=== PATIENT | female | born 1935 | race Caucasian/White ===

== ENCOUNTER 2016-07-07 12:40 | Inpatient (IN) | payer OTHER ==
[~2016-07-07] VITALS: Ht 170.2 cm; Wt 64.0 kg
[~2016-07-07 12:40] MED LIST: COUMADIN PO; COUMADIN2.5 M1 PO; CRESTOR10 M1 PO; KEFLEX 250MG C250 MG PO; LASIX20 M1 PO
--- NOTE | 2016-07-07 12:54 | NUR ---
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 PT ARRIVED AAOx3, DENIES HEADSTRIKE, DENIES LOC. PT ON COUMADIN. VSS. HX OF DVT,HTN,PE. PA STUDENT AT BEDSIDE FOR PT EVAL.
--- NOTE | 2016-07-07 13:05 | NUR ---
IV EST, PT MEDICATED WITH ZOFRAN AND DILAUDID PER EMAR.
[2016-07-07 13:50] LABS: HEMATOCRIT 38.9 % (37-47); MEAN CORPUSCULAR HGB 27.3 PG (27.0-31.0); MEAN CORPUSCULAR HGB CONC 32.6 G/DL (33.0-37.0); MEAN CORPUSCULAR VOLUME 83.8 FL (81.0-99.0); MEAN PLATELET VOLUME 7.8 FL (7.4-10.4); PLATELET COUNT 242 /CUMM (130-400); RBC DISTRIBUTION WIDTH 15.1 % (11.5-14.5); RED BLOOD CELL CT 4.64 /CUMM (4.20-5.40)
--- NOTE | 2016-07-07 13:52 | NUR ---
NEED A REDRAW OF SST AND BLUE. PER CODY IN LAB
--- NOTE | 2016-07-07 14:03 | NUR ---
PT TO RAD BY STRETCHER.
[2016-07-07 14:27] LABS: WHITE BLOOD CELL COUNT 11.3 /CUMM (4.8-10.8)
[2016-07-07 14:28] LABS: ABSOLUTE BASOPHIL COUNT 0.1 /CUMM (0.0-0.2); ABSOLUTE EOSINOPHIL COUNT 0.1 /CUMM (0.0-0.7); ABSOLUTE GRANULOCYTE CT 9.6 /CUMM (1.4-6.5); ABSOLUTE LYMPH COUNT 0.9 /CUMM (1.2-3.4); ABSOLUTE MONOCYTE COUNT 0.6 /CUMM (0.10-0.60); BASOPHIL % 0.8 % (0.0-2.0); EOSINOPHIL % 0.5 % (0-5); GRANULOCYTE % 85.6 % (42.2-75.2)
--- NOTE | 2016-07-07 15:04 | NUR ---
PT RETURNED FROM RAD BY STRETCHER.
--- NOTE | 2016-07-07 15:05 | NUR ---
BLOOD WORK IN [facility].
--- NOTE | 2016-07-07 15:07 | RADIOLOGY REPORT ---
EXAMINATION: XR KNEE, LEFT XR PELVIS/LEFT HIP XR RIGHT ELBOW CLINICAL INFORMATION: Fall. Pain in the left knee, left hip, and right elbow. Patient fell at home. COMPARISON: None. TECHNIQUE: 4 views of the left knee. Frontal view of the pelvis and frog-leg lateral view of the left hip. 4 views of the right elbow. FINDINGS: LEFT KNEE: Nonstandard positioning of the patient limits assessment. No definite acute fracture or dislocation is seen. No joint effusion is identified. Diffuse osteopenia is seen. PELVIS AND LEFT HIP: Frog leg lateral view is significantly limited and nearly nondiagnostic. There is a transverse fracture of the left femoral neck with varus angulation. The left femoral head remains located within the acetabulum. Remainder of the bony pelvis is intact. Evaluation of the sacrum is, however, significantly limited by overlying stool filled loops of bowel. RIGHT ELBOW: No acute fracture, dislocation, or abnormal elbow joint effusion is seen. There is mild degenerative change at the ulna coronoid process. No radiopaque foreign body is seen. IMPRESSION: Limited assessment due to difficulties with patient positioning. 1. Left femoral neck fracture with varus angulation. 2. No definite fracture of the left knee or right elbow.
--- NOTE | 2016-07-07 15:12 | ED MVC/FALL/TRAUMA COMPLAINT ---
History of Present Illness General Chief Complaint: Fall Stated Complaint: FALL W/ LFT KNEE PAIN Source: patient Exam Limitations: no limitations Vital Signs & Intake/Output Vital Signs & Intake/Output Vital Signs Date Time Temp Pulse Resp B/P Pulse O2 O2 Flow FiO2 Ox Delivery Rate 07/07 1656 98.2 76 18 136/63 94 Room Air 07/07 1248 96.8 102 20 168/77 100 Room Air Allergies Coded Allergies: Sulfa (Sulfonamide Antibiotics) (VOMITING 08/21/15) amoxicillin (From AUGMENTIN) (HIVES 08/21/15) clavulanic acid (From AUGMENTIN) (HIVES 08/21/15) Reconcile Medications Furosemide (Lasix) 20 MG TAB 20 MG PO Q48 FLUID BUILD UP IN LEGS (Reported) Rosuvastatin Calcium (Crestor) 10 MG TAB 10 MG PO D HIGH CHOL (Reported) Warfarin Sodium (Coumadin) 2.5 MG TAB 2.5 MG PO -SAT ANTICOAG (Reported) Warfarin Sodium (Coumadin) 0.5 MG TAB 5 MG PO SATURDAY ANTICOAG (Reported) Triage Note: PT TO ROOM21 BIBA FROM HOME 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 PT ARRIVED AAOx3, DENIES HEADSTRIKE, DENIES LOC. PT ON COUMADIN. VSS. HX OF DVT,HTN,PE. Triage Nurses Notes Reviewed? yes Onset: Abrupt Duration: hour(s):, constant Timing: recent history Severity: severe Injuries/Fall Location: lower extremity Method of Injury: fall No Modifying Factors: none HPI: 80-year-old female comes into emergency room for evaluation of left hip pain and left knee pain after falling in her kitchen. Patient was on the ground for about 30 minutes he for her friend arrived. Mechanical fall. Denies any preceding lightheaded dizziness. Severe sharp pain to left hip. Patient unable to ambulate or stand. Denies any other associated symptoms. (TAVO STANLEY) Past History Travel History Traveled to [place] past 21 day No Medical History Any Pertinent Medical History? see below for history Neurological: NONE EENT: "NEW LENS" Cardiovascular: hypertension, hyperlipidemia, DVT Respiratory: NONE Gastrointestinal: NONE Hepatic: NONE Renal: NONE Musculoskeletal: NONE Psychiatric: NONE Endocrine: NONE Blood Disorders: NONE Cancer(s): NONE FAST FOOD COOK/Reproductive: NONE Other Medical Hx: Open wound/ulcerations lower legs History of MRSA: No History of VRE: No History of CDIFF: No Influenza Vaccine: 03/17/15 Surgical History Surgical History: VEIN PROCEDURES ON LEGS Psychosocial History Who do you live with Patient/Self Services at Home None What is your primary language Icelandic Tobacco Use: Never used Family History Hx Contributory? No (TAVO STANLEY) Review of Systems Review of Systems Constitutional: Reports: no symptoms. Eyes: Reports: no symptoms. Ears, Nose, Throat, Mouth: Reports: no symptoms. Respiratory: Reports: no symptoms. Cardiovascular: Reports: no symptoms. Gastrointestinal/Abdominal: Reports: no symptoms. Genitourinary: Reports: no symptoms. Musculoskeletal: Reports: see HPI. Skin: Reports: no symptoms. Neurological/Psychological: Reports: no symptoms. All Other Systems: Reviewed and Negative (TAVO STANLEY) Physical Exam Physical Exam General Appearance: alert, awake, severe distress Head: atraumatic Eyes: Bilateral: normal appearance. Ears, Nose, Throat, Mouth: hearing grossly normal, moist mucous membrane Neck: normal inspection Respiratory: no respiratory distress Back: normal inspection Extremities: pain over left hip, patient not able to move her left hip at all secondary to pain, Neurologic/Psych: awake, alert, normal gait, normal mood/affect Skin: intact, normal color Core Measures ACS in differential dx? No Severe Sepsis Present: No Septic Shock Present: No (TAVO STANLEY) Progress Differential Diagnosis: abd injury, C/T/L spine injury, ext injury, ICH, pelvis injury, pnemothorax, spinal cord injury Plan of Care: Orders Procedure Date/time Status Nothing by Mouth 07/08 B Active PT Evaluate & Treat 07/08 1659 Active PROTHROMBIN TIME 07/08 0600 Active CBC WITHOUT DIFFERENTIAL 07/08 0600 Active BASIC ELECTROLYTES PLUS BUN&CR 07/08 0600 Active Add-on Test (ER Only) 07/07 1701 Active Pathway - chart 07/07 1659 Active House Staff 07/07 1659 Active Code Status 07/07 1659 Active EKG 07/07 1654 Active Saline Lock 07/07 1643 Active Misc Message 07/07 1643 Active ED Holding Orders 07/07 1643 Active Vital Signs 07/07 1643 Active Code Status 07/07 1643 Complete Rodriguez, Insertion/Removal/Asses 07/07 1620 Active CULTURE,URINE 07/07 1620 Active Admit to inpatient 07/07 1514 Active Patient Data 07/07 1514 Active Add-on Test (ER Only) 07/07 1513 Active VIT D 25 HYDROXY 07/07 1506 Active TYPE & SCREEN (NOT X-MATCH) 07/07 1325 Complete EKG 07/07 1312 Active PARTIAL THROMBOPLASTIN TIME 07/07 1305 Complete PROTHROMBIN TIME 07/07 1305 Complete CBC WITHOUT DIFFERENTIAL 07/07 1305 Complete BASIC METABOLIC PANEL 07/07 1305 Active VTE Mechanical Prophylaxis 07/07 UNK Active MISTAKE 07/07 UNK Active Current Medications Sig/Kim Start time Last Medication Dose Stop Time Status Admin Furosemide 20 MG Q48 07/09 1000 AC (Lasix) Atorvastatin Calcium 40 MG 1700 07/08 1700 AC (Lipitor) Docusate Sodium 100 MG BID 07/07 2200 AC (Colace) Polyethylene Glycol 17 GM AT BEDTIME 07/07 2200 AC (Miralax) Senna/Docusate Sodium 2 TAB AT BEDTIME 07/07 2200 AC (Senokot S) Ondansetron HCl 4 MG Q6P PRN 07/07 1715 AC (Zofran) Acetaminophen 650 MG Q6P PRN 07/07 1645 AC (Tylenol) Hydromorphone HCl 1 MG Q6P PRN 07/07 1645 AC (Dilaudid) Oxycodone/ 1 TAB Q6P PRN 07/07 1645 AC Acetaminophen (Percocet) Sodium Chloride 1,000 ML .[id number] 07/07 1645 AC (Normal Saline 0.9%) Morphine Sulfate 2 MG ONCE ONE 07/07 1315 CAN (Morphine) 07/07 1316 Laboratory Tests 07/07/16 1610: PT 22.2 H, INR 2.13 H, APTT 32 07/07/16 1506: Anion Gap 11, Estimated GFR > 60, BUN/Creatinine Ratio 20.0, Glucose 108 H, Calcium 9.2, 25-OH Vitamin D Total Pending 07/07/16 1325: CBC w Diff NO MAN DIFF REQ, RBC 4.64, MCV 83.8, MCH 27.3, RDW 15.1 H, MPV 7.8, Gran % 85.6 H, Lymphocytes % 7.8 L, Monocytes % 5.3, Eosinophils % 0.5, Basophils % 0.8, Absolute Granulocytes 9.6 H, Absolute Lymphocytes 0.9 L, Absolute Monocytes 0.6, Absolute Eosinophils 0.1, Absolute Basophils 0.1, PUBS MCHC 32.6 L Microbiology 07/07 1620 URINE ROUT: Urine Culture - RECD Diagnostic Imaging: Viewed by Me: Radiology Read. Discussed w/RAD: Radiology Read. Radiology Impression: SERVICE DATE: 07/07/16 EXAM TYPE: RAD - XRY-ELBOW 3 OR MORE VIEWS, R; XRY-HIP 2-3 VIEWS, LEFT; XRY-KNEE COMPLETE LEFT EXAMINATION: XR KNEE, LEFT XR PELVIS/LEFT HIP XR RIGHT ELBOW CLINICAL INFORMATION: Fall. Pain in the left knee, left hip, and right elbow. Patient fell at home. COMPARISON: None. TECHNIQUE: 4 views of the left knee. Frontal view of the pelvis and frog- leg lateral view of the left hip. 4 views of the right elbow. FINDINGS: LEFT KNEE: Nonstandard positioning of the patient limits assessment. No definite acute fracture or dislocation is seen. No joint effusion is identified. Diffuse osteopenia is seen. PELVIS AND LEFT HIP: Frog leg lateral view is significantly limited and nearly nondiagnostic. There is a transverse fracture of the left femoral neck with varus angulation. The left femoral head remains located within the acetabulum. Remainder of the bony pelvis is intact. Evaluation of the sacrum is, however, significantly limited by overlying stool filled loops of bowel. RIGHT ELBOW: No acute fracture, dislocation, or abnormal elbow joint effusion is seen. There is mild degenerative change at the ulna coronoid process. No radiopaque foreign body is seen. IMPRESSION: Limited assessment due to difficulties with patient positioning. 1. Left femoral neck fracture with varus angulation. 2. No definite fracture of the left knee or right elbow. DICTATED BY : EVERETT ALONSO,GERARDO Carrillo DATE/TIME DICTATED:07/07/161456 UNIX DEVELOPER: SHON DATE/TIME TRANSCRIBED:07/07/161456 Initial ED EKG: normal intervals, normal p-waves, normal sinus rhythm, NSR, rate (79) (TAVO STANLEY) Departure Departure Disposition: STILL A PATIENT Condition: Stable Clinical Impression Primary Impression: Left displaced femoral neck fracture Referrals: YUDISendy SCHAFFER MD (PCP/Family) Departure Forms: Customer Survey General Discharge Information (TAVO STANLEY) Admission Note Spoke With: ZOLTAN ARMAS MD Documentation of Exam: Documentation of any treatments & extenuating circumstances including Concerns Regarding Discharge (functional status, medication knowledge or non-compliance, living conditions, etc.) that warrant an admission rather than observation: [ Patient had a mechanical trip and fall and fractured her left hip. Patient is on Coumadin for DVT. Patient will be admitted to the medical service with orthopedic consultation.] PA/EMT DRIVER Co-Sign Statement Statement: ED Attending supervision documentation- [X] I saw and evaluated the patient. I have also reviewed all the pertinent lab results and diagnostic results. I agree with the findings and the plan of care as documented in the PA's/EMT DRIVER's documentation. [X] I have reviewed the ED Record and agree with the PA's/EMT DRIVER's documentation. [] Additions or exceptions (if any) to the PAs/EMT DRIVER's note and plan are summarized below: [] (TIAGO ALONSO,MARIANA Ham) Critical Care Note Critical Care Note Critical Care Time: 30-74 min (TAVO STANLEY)
--- NOTE | 2016-07-07 15:42 | NUR ---
PINK TOP HEMOLYZED PER NELLY IN LAB. NEED REDRAW.
--- NOTE | 2016-07-07 15:53 | RADIOLOGY REPORT ---
EXAMINATION: XR PORTABLE CHEST CLINICAL INFORMATION: Preoperative assessment. Hip fracture. COMPARISON: Chest x-ray dated 12/10/2011. TECHNIQUE: AP semiupright portable view of the chest was obtained. FINDINGS: The cardiomediastinal silhouette is within normal limits in size. Calcification of the aortic arch is seen. Lungs bilaterally are symmetrically hyperinflated with coarsening of the bronchovascular lung markings, suspicious for obstructive lung disease. No focal consolidation, pulmonary edema, effusion or pneumothorax is seen. Diffuse osteopenia is seen. Bony structures are otherwise grossly unremarkable. IMPRESSION: Findings are suggestive of underlying obstructive lung disease. Clinical correlation requested. No acute cardiopulmonary process seen.
--- NOTE | 2016-07-07 16:09 | NUR ---
PINK AND BLUE TUBES DRAWN AND SENT TO LAB.
--- NOTE | 2016-07-07 16:09 | NUR ---
HOUSE STAFF TO BEDSIDE FOR PT EVAL.
--- NOTE | 2016-07-07 16:26 | History & Physical ---
[place] 07/07/16 1626: General Information and HPI MD Statement: I have seen and personally examined ABRIL NORWOOD and documented this H&P. The patient is a 80 year old F who presented with a patient stated chief complaint of left hip pain Source of Information: patient History of Present Illness: Ms Norwood is a 80-year-old woman who was known to be in her usual state of health until this a.m. She has a past medical history of hypertension, DVT on Coumadin. She was brought into the [facility] with a chief concern of ringing in her left hip and knee after she experienced a mechanical fall this a.m. As per the patient, she slipped and fell on the floor. She did not have any lightheadedness, no gait disturbances, weakness in extremities, palpitations, chest pain at the time of the fall. Fell on the left side and injured her hip and knee. Could not get up for approximately 30 minutes, after which she called for help. No loss of bladder or bowel function. No fever or cough or shortness of breath recently. Has been very active before the fall. She lives in an older living and independent. Sees Dr Wayne Bagley MD regularly. Allergies/Medications Allergies: Coded Allergies: Sulfa (Sulfonamide Antibiotics) (VOMITING 08/21/15) amoxicillin (From AUGMENTIN) (HIVES 08/21/15) clavulanic acid (From AUGMENTIN) (HIVES 08/21/15) Home Med list Furosemide (Lasix) 20 MG TAB 20 MG PO Q48 FLUID BUILD UP IN LEGS (Reported) Rosuvastatin Calcium (Crestor) 10 MG TAB 10 MG PO D HIGH CHOL (Reported) Warfarin Sodium (Coumadin) 2.5 MG TAB 2.5 MG PO -SAT ANTICOAG (Reported) Warfarin Sodium (Coumadin) 0.5 MG TAB 5 MG PO SATURDAY ANTICOAG (Reported) Past History Travel History Traveled to [place] past 21 day No Medical History Neurological: NONE EENT: "NEW LENS" Cardiovascular: hypertension, hyperlipidemia, DVT Respiratory: NONE Gastrointestinal: NONE Hepatic: NONE Renal: NONE Musculoskeletal: NONE Psychiatric: NONE Endocrine: NONE Blood Disorders: NONE Cancer(s): NONE 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 self Services at Home: None Functional Ability ADLs Independent: dressing, eating, toileting, bathing. Ambulation: independent IADLs Independent: shopping, housework, finances, food prep, telephone. Review of Systems Review of Systems Constitutional: Denies: chills, fever, weakness. EENTM: Denies: blurred vision, double vision, visual changes. Cardiovascular: Denies: chest pain, orthopena. Respiratory: Denies: cough, short of breath. GI: Denies: nausea. Genitourinary: Denies: dysuria, frequency. Musculoskeletal: Denies: joint pain. Skin: Denies: change in skin color, change in hair/nails. Neurological/Psychological: Denies: anxiety, emotional problems. Hematologic/Endocrine: Denies: bruising, bleeding. Exam & Diagnostic Data Last 24 Hrs of Vital Signs/I&O Vital Signs Date Time Temp Pulse Resp B/P Pulse O2 O2 Flow FiO2 Ox Delivery Rate 07/07 2143 98.1 76 20 138/60 95 07/07 1831 98.0 88 20 160/70 97 07/07 1656 98.2 76 18 136/63 94 Room Air 07/07 1248 96.8 102 20 168/77 100 Room Air Intake & Output 07/07 1600 07/07 0800 07/07 0000 Intake Total Output Total Balance Patient 142 lb Weight Physical Exam General Appearance Alert, Oriented X3, Cooperative, Mild Distress Skin No Rashes HEENT Atraumatic, PERRLA, EOMI Neck Supple, No JVD, No thryomegaly Lymphatic Cervical nl Cardiovascular Regular Rate, Normal S1, Normal S2 Lungs Normal Air Movement Abdomen Normal Bowel Sounds, Soft, No Tenderness Neurological Normal Speech, Normal Tone, Sensation Intact, Cranial Nerves 3-12 NL, Reflexes 2+, strength 5/5 right upper and lower extremities strenght 5/5 left upper extremity right lower extremity could not be tested. Extremities No Clubbing, No Cyanosis, No Edema, Normal Pulses, tenderness in the left knee and left hip. No erythema or open wounds. Vascular Pulses Symmetrical Body Front and Back (Adult) 1) tenderness Last 24 Hrs of Labs/[place]: Laboratory Tests 07/07/16 1610: PT 22.2 H, INR 2.13 H, APTT 32 07/07/16 1506: Anion Gap 11, Estimated GFR > 60, BUN/Creatinine Ratio 20.0, Glucose 108 H, Calcium 9.2, 25-OH Vitamin D Total 10.0 L 07/07/16 1325: CBC w Diff NO MAN DIFF REQ, RBC 4.64, MCV 83.8, MCH 27.3, RDW 15.1 H, MPV 7.8, Gran % 85.6 H, Lymphocytes % 7.8 L, Monocytes % 5.3, Eosinophils % 0.5, Basophils % 0.8, Absolute Granulocytes 9.6 H, Absolute Lymphocytes 0.9 L, Absolute Monocytes 0.6, Absolute Eosinophils 0.1, Absolute Basophils 0.1, PUBS MCHC 32.6 L Microbiology 07/07 1620 URINE ROUT: Urine Culture - RECD Diagnostic Data EKG Results Hr 82, QTc 444, No ST TWI. Other Results RAD - XRY-PORTABLE CHEST XRAY Findings are suggestive of underlying obstructive lung disease. Clinical correlation requested. No acute cardiopulmonary process seen. RAD - XRY-ELBOW 3 OR MORE VIEWS, R; XRY-HIP 2-3 VIEWS, LEFT; XRY-KNEE COMPLETE LEFT 1. Left femoral neck fracture with varus angulation. 2. No definite fracture of the left knee or right elbow. Assessment/Plan Assessment: She is an older lady with a past medical history of DVT on anticoagulation ( Coumadin), hypertension is being evaluated for left hip pain secondary to a fall resulted in a left femoral neck fracture. At the time of admission, temperature 96.8 pulse rate 102, respiratory 20, blood pressure 168/77, pulse ox-100% on room air. Laboratory findings indicated-WBC 11.3, hemoglobin 12.7, hematocrit 38.9, platelets 243. INR 2.13. normal renal function [id number] indicated left femoral neck fracture with varus angulation. Left knee- Normal. Differential diagnosis: #1 femoral neck fracture Below is the problem list and plan: #1 left hip pain-resulting from a femoral neck fracture. Orthopedic consult has been obtained. Tapia perioperative risk score 0.2% (estimated probability for MS or cardiac arrest). RCRI-very low risk with 0.4% estimated probability for MS/PE/heart block. Type and crossmatch. Immobilization for now. Rodriguez catheter to be placed. Pain medication to be provided with opiates, NSAIDs. Patient currently on Coumadin for DVT. Let INR drift towards less than 2. Plan for hemiarthroplasty, as per surgery. Nothing by mouth after midnight. #2 DVT prophylaxis-Coumadin. As Ranked By This Provider Problem List: 1. Left displaced femoral neck fracture 2. Cellulitis of right lower leg 3. Infected ulcer of skin Core Measures/Miscellaneous Acute Coronary Syndrome ACS Diagnosis: No Cerebrovascular Accident CVA/TIA Diagnosis: No Congestive Heart Failure CHF Diagnosis: No Venous Thromboembolism VTE Risk Factors: Acute medical illness, Age > 40 VTE Prophylaxis Ordered Inpt: Pharm- Warfarin No Mech VTE prophylaxis d/t: No contraindications No VTE Pharm Prophylaxis d/t: No contraindications VTE Diagnosis: No VTE Type: NONE VTE Confirmed by (Test): NONE Severe Sepsis Severe Sepsis Present: No Septic Shock Septic Shock Present: No Miscellaneous Documentation Attending Case Discussed With: ZOLTAN ARMAS MD Primary Care Physician: Sendy BAGLEY MD Patient sees these Specialists None Level of Patient Care: General Medicine NOAH LARYR MD 07/07/162048: Resident Review Statement Resident Statement: examined this patient, discussed with rn intern, agreed with rn intern Other Findings: Ms Norwood is a 80-year-old woman with past medical history of HTN, HLD, DVT on Coumadin, varicose veins status post ligation, history of angioma status post craniotomy who presents s/p a mechanical fall while walking in her hallway. complains of pain in the Lt knee and Lt hip. She did not sustain any head trauma on falling, and denies dizziness, headache, fever, N/V/D, blurry vision, syncope or near syncope, URI or UTI symptoms. She does not have a hx of recurrent falls, she lives alone, is independent of her ADLs and does not use a walker for ambulation at home. Initial EKG showed Afib but seems more like motion artifact; repeat EKG shows SR BP 168/77, temp 96.8, O2 sat 100 on RA O/E-AAOx3, RRR with missed beats, CTA, Normal BS, non-tender abdomen,tenderness and swelling of the left hip, no pedal edema Labs-WBC-11.3, Vit D 10, INR 2.13 Xray-Limited assessment due to difficulties with patient positioning. 1. Left femoral neck fracture with varus angulation. 2. No definite fracture of the left knee or right elbow. Assessment Lt hip fracture HTN Plan Admit to Ortho consult NPO at [facility] N/S Type and cross Adequate Pain Mgt Replete Vit D/Calcium Zofran for nausea Resume her impt home medications-including lasix EOD. Patient is not on any BP meds at home, elevated BP could be due to pain. Monitor closely and re-evaluate when optimal pain control is achieved Stool softners Hold Coumadin Labs in am Alps for DVT ppx PAWEL ALONSO,ZOLTAN 07/07/16 2337: Attending MD Review Statement Attending Statement Attending MD Statement: examined this patient, discuss w/resident/PA/DUTY OFFICER, agreed w/resident/PA/DUTY OFFICER, discussed with family, reviewed EMR data (avail), discussed with nursing, discussed with case mgmt, reviewed images, amended to note Attending Assessment/Plan: 80-F with a past medical history of hypertension, DVT on Coumadin comes in after a mechanical fall. With c/o pain in her knee, found to have Left femoral neck fracture on Xray. Vitals: T 98.0/HR 88/RR 20/BP 160/70 /O2 97% RA Pertinent +ve exam: Lt hip tenderness. WBC 11.3 Plan: Admit to Monitor CBC for H&H Ortho consult Adequate pain Mngt, avoid constipation. Hold Coumadin, recheck INR in am. BP on the higher side most likely secondary to pain. Admission EKG was not a good quality so get a repeat EKG & follow up. Coumadin+ ALPS for DVT Px.
[2016-07-07 16:30] LABS: PT 22.2 SEC (9.4-12.5); PTT 32 SEC (25-37)
--- NOTE | 2016-07-07 16:30 | NUR ---
PARKS CATH PLACED, STERILE TECHNIQUE MAINTAINED. URINE TRIO SENT TO LAB.
--- NOTE | 2016-07-07 16:44 | NUR ---
PT MEDICATED WITH ZOFRAN PER EMAR FOR NAUSEA. OFIRMEV INFUSING PER EMAR.
--- NOTE | 2016-07-07 17:07 | NUR ---
PT GOING TO ROOM 22901.
--- NOTE | 2016-07-07 17:50 | NUR ---
REPORT GIVEN TO NITA SIM TO [facility], [employer] CALLED FOR TRANSPORT.
--- NOTE | 2016-07-07 17:58 | Cons- Orthopedic ---
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 Patient states that she lives alone and slipped and fell on her tile floor. She immediately complained of left knee and groin pain and was unable to stand up on her own, so she called for help. She denies head trauma, syncope, or pain and other areas. She recalls the entire event. Subsequent workup in the ED revealed a left femoral neck fracture. She was admitted to the medical service on the general medical floor. INR is therapeutic at 2.13. She remains relatively comfortable at this time while in bed. Rodriguez catheter is in place. Allergies/Medications Allergies: Coded Allergies: Sulfa (Sulfonamide Antibiotics) (VOMITING 08/21/15) amoxicillin (From AUGMENTIN) (HIVES 08/21/15) clavulanic acid (From AUGMENTIN) (HIVES 08/21/15) Home Med List: Furosemide (Lasix) 20 MG TAB 20 MG PO Q48 FLUID BUILD UP IN LEGS (Reported) Rosuvastatin Calcium (Crestor) 10 MG TAB 10 MG PO D HIGH CHOL (Reported) Warfarin Sodium (Coumadin) 2.5 MG TAB 2.5 MG PO -SAT ANTICOAG (Reported) Warfarin Sodium (Coumadin) 0.5 MG TAB 5 MG PO SATURDAY ANTICOAG (Reported) Past History Medical History Neurological: NONE EENT: bilateral lens replacement Cardiovascular: hypertension, hyperlipidemia, DVT Respiratory: NONE Gastrointestinal: NONE Hepatic: NONE Renal: NONE Musculoskeletal: NONE Psychiatric: NONE Endocrine: NONE Blood Disorders: NONE, DVT, PE (ivc thrombus) Cancer(s): meningioma-1984 SEAM STEAMER/Reproductive: NONE Other Medical Hx: Open wound/ulcerations lower legs-currently healed Surgical History Pertinent Surgical History: VEIN PROCEDURES ON LEGS, craniotomy in 1984 for meningioma Psychosocial History Where Do You Live? Other (over 65 community) Who Do You Live With? self Services at Home: None Primary Language: Hebrew Smoking Status: Never Smoked ETOH Use: denies use Functional Ability ADLs Independent: dressing, eating, toileting, bathing. Ambulation: unassisted IADLs Independent: shopping, housework, finances, food prep, telephone. Review of Systems Review of Systems: Positive for left groin and knee pain. Negative for headache, dizziness, head trauma, visual disturbances, chest pain, palpitations, shortness of breath, cough, congestion, nausea, vomiting, abdominal pain, constipation, diarrhea, dysuria, polyuria, oliguria. Exam & Diagnostic Data Vital Signs and I&O Vital Signs Date Time Temp Pulse Resp B/P Pulse O2 O2 Flow FiO2 Ox Delivery Rate 07/07 1831 98.0 88 20 160/70 97 07/07 1656 98.2 76 18 136/63 94 Room Air 07/07 1248 96.8 102 20 168/77 100 Room Air Intake & Output 07/07 1600 07/07 0800 07/07 0000 07/06 1600 07/06 0800 07/06 0000 Intake Total Output Total Balance Patient 142 lb Weight Physical Exam: Gen.: Patient is awake and alert. No acute distress. She converses and verbalizes well. She is slightly hard of hearing. Cardiac: Regular rate and rhythm. Pulmonary: Lungs clear to auscultation bilaterally. Extremities: No major deformity is appreciated of the left lower extremity. There is tenderness in the left groin area. Feet are warm and she is able to move her toes. There is mild bilateral trace edema. There are old well-healed hyperpigmented areas of the distal lower extremities, left greater than right. No open wounds are appreciated. Last 24 Hours of Labs: Laboratory Tests 07/07 07/07 07/07 1610 1506 1325 Chemistry Sodium (137 - 145 mmol/L) 142 Potassium (3.5 - 5.1 mmol/L) 3.6 Chloride (98 - 107 mmol/L) 106 Carbon Dioxide (22 - 30 mmol/L) 26 Anion Gap (5 - 16) 11 BUN (7 - 17 mg/dL) 14 Creatinine (0.5 - 1.0 mg/dL) 0.7 Estimated GFR (>60 ml/min) > 60 BUN/Creatinine Ratio (7 - 25 %) 20.0 Glucose (65 - 99 mg/dL) 108 H Calcium (8.4 - 10.2 mg/dL) 9.2 25-OH Vitamin D Total (30 - 100 ng/ml) 10.0 L Coagulation PT (9.4 - 12.5 SEC) 22.2 H INR (0.90 - 1.19) 2.13 H APTT (25 - 37 SEC) 32 Hematology CBC w Diff NO MAN DIFF REQ WBC (4.8 - 10.8 /CUMM) 11.3 H RBC (4.20 - 5.40 /CUMM) 4.64 Hgb (12.0 - 16.0 G/DL) 12.7 Hct (37 - 47 %) 38.9 MCV (81.0 - 99.0 FL) 83.8 MCH (27.0 - 31.0 PG) 27.3 RDW (11.5 - 14.5 %) 15.1 H Plt Count (130 - 400 /CUMM) 242 MPV (7.4 - 10.4 FL) 7.8 Gran % (42.2 - 75.2 %) 85.6 H Lymphocytes % (20.5 - 51.1 %) 7.8 L Monocytes % (1.7 - 9.3 %) 5.3 Eosinophils % (0 - 5 %) 0.5 Basophils % (0.0 - 2.0 %) 0.8 Absolute Granulocytes (1.4 - 6.5 /CUMM) 9.6 H Absolute Lymphocytes (1.2 - 3.4 /CUMM) 0.9 L Absolute Monocytes (0.10 - 0.60 /CUMM) 0.6 Absolute Eosinophils (0.0 - 0.7 /CUMM) 0.1 Absolute Basophils (0.0 - 0.2 /CUMM) 0.1 PUBS MCHC (33.0 - 37.0 G/DL) 32.6 L Imaging Results: X-ray revealed 1. Left femoral neck fracture with varus angulation. 2. No definite fracture of the left knee or right elbow. Assessment/Plan Assessment/Plan Patient is a 80-year-old female with past medical history significant for hypertension, hyperlipidemia, DVT with IVC thrombus (on Coumadin x 15 years with current INR 2.13), history of healed bilateral lower extremity ulcers who is admitted with a left femoral neck fracture. Plan: -Admitted to medicine. -Pt will need L hip hemiarthroplasty when INR is subtherapeutic (<1.5 or so). -Hold coumadin. Repeat INR at 12pm tomorrow. Available OR time is after 3pm. Coumadin will be restarted immediately after surgery. -Pt may eat and drink tonight, but please keep her npo with IVF after midnight. -Pain control with Percocet or IV dilaudid for severe pain. Would decrease dose to 0.5 mg since pt is relatively comfortable at this time. -Medical managment per primary team. -Pt understands that she will likely require a short term rehab stay postoperatively. She lives on the second floor of her apartment building. No elevator available. Consult Acknowledgment - Thank you for your consult request.
[2016-07-07 18:31] VITALS: BP 160/70
[2016-07-07 21:43] VITALS: BP 138/60
--- NOTE | 2016-07-07 23:45 | Admission Certification ---
Admission Certification Certification Statement - As attending physician, I certify that at the time of - admission, based on clinical presentation, severity of - symptoms, need for further diagnostic testing and - therapeutic interventions, and risk of adverse outcomes - without in-hospital treatment, in my clinical assessment, - this patient requires an acute hospital stay for a minimum - of two nights or longer. I have also considered psychsocial - factors such as support system, advanced age, financial - issues, cognitive issues, and failed out-patient treatments, - past re-admission history, safety of patient, and lack of - compliance as applicable. Specific rationale supporting this admission is: Lt femoral neck fracture, ortho consult, surgery
--- NOTE | 2016-07-08 06:51 | PN- Housestaff ---
Subjective Follow-up For: 1. hip fracture Review of Systems Constitutional: Reports: see HPI. Objective Last 24 Hrs of Vital Signs/I&O Vital Signs Date Time Temp Pulse Resp B/P Pulse O2 O2 Flow FiO2 Ox Delivery Rate 07/07 2142 98.1 76 20 138/60 95 07/07 1831 98.0 88 20 160/70 97 07/07 1656 98.2 76 18 136/63 94 Room Air 07/07 1248 96.8 102 20 168/77 100 Room Air Intake & Output 07/08 0800 07/08 0000 07/07 1600 Intake Total 780 Output Total 600 Balance 180 Intake, IV 300 Intake, Oral 480 Output, Urine 600 Patient 142 lb 142 lb Weight Physical Exam General Appearance: No Acute Distress Current Medications: Current Medications Sig/Kim Start time Last Medication Dose Route Stop Time Status Admin Acetaminophen 1,000 MG ONCE ONE 07/07 1645 DC 07/07 IV 07/07 1646 1644 Acetaminophen 650 MG Q6P PRN 07/07 1645 AC PO Acetaminophen 0 .STK-MED ONE 07/07 1638 DC IV Atorvastatin Calcium 40 MG 1700 07/08 1700 AC PO Calcium 600 MG BID 07/07 2200 AC 07/07 PO 2156 Cholecalciferol 2,000 IU DAILY 07/07 2051 AC 07/07 PO 2156 Docusate Sodium 100 MG BID 07/07 2200 AC PO Enoxaparin Sodium 40 MG DAILY 07/07 1657 DC SC Furosemide 20 MG Q48 07/09 1000 AC PO Hydromorphone HCl 1 MG Q6P PRN 07/07 1645 AC 07/08 IV 0615 Hydromorphone HCl 0.5 MG ONCE ONE 07/07 1315 DC 07/07 IV 07/07 1316 1305 Hydromorphone HCl 0 .STK-MED ONE 07/07 1314 DC .ROUTE Morphine Sulfate 2 MG ONCE ONE 07/07 1315 CAN IV 07/07 1316 Ondansetron HCl 4 MG Q6P PRN 07/07 1715 AC IV Ondansetron HCl 4 MG ONCE ONE 07/07 1645 DC 07/07 IV 07/07 1646 1644 Ondansetron HCl 0 .STK-MED ONE 07/07 1638 DC .ROUTE Ondansetron HCl 4 MG ONCE ONE 07/07 1315 DC 07/07 IV 07/07 1316 1305 Ondansetron HCl 0 .STK-MED ONE 07/07 1313 DC .ROUTE Oxycodone/ 1 TAB Q6P PRN 07/07 1645 AC 07/08 Acetaminophen PO 0314 Patient Medication 1 UNIT ONE NR 07/07 1730 ID Teaching ED 07/07 1800 Patient Medication 1 UNIT ONE NR 07/07 1730 ID Teaching ED 07/07 1800 Patient Medication 1 UNIT ONE NR 07/07 1715 [facility] ED 07/07 1730 Polyethylene Glycol 17 GM AT BEDTIME 07/07 2199 AC PO Senna/Docusate Sodium 2 TAB AT BEDTIME 07/07 2199 AC PO Sodium Chloride 1,000 ML .[id number] 07/07 1645 AC 07/08 IV 0600 Last 24 Hrs of Lab/[place] Results Last 24 Hrs of Labs/Mics: Laboratory Tests 07/07/16 1620: Urinalysis LIGHT H, Urine Color YEL, Urine Clarity CLEAR, Urine pH 7.0, Ur Specific [place] 1.010, Urine Protein NEG, Urine Ketones NEG, Urine Nitrite NEG, Urine Bilirubin NEG, Urine Urobilinogen 0.2, Ur Leukocyte Esterase NEG, Ur Microscopic SEDIMENT EXAMINED, Urine RBC 1-3, Urine Mucus RARE, Urine Hemoglobin TRACE-INTACT, Urine Glucose NEG 07/07/16 1610: PT 22.2 H, INR 2.13 H, APTT 32 07/07/16 1506: Anion Gap 11, Estimated GFR > 60, BUN/Creatinine Ratio 20.0, Glucose 108 H, Calcium 9.2, 25-OH Vitamin D Total 10.0 L 07/07/16 1325: CBC w Diff NO MAN DIFF REQ, RBC 4.64, MCV 83.8, MCH 27.3, RDW 15.1 H, MPV 7.8, Gran % 85.6 H, Lymphocytes % 7.8 L, Monocytes % 5.3, Eosinophils % 0.5, Basophils % 0.8, Absolute Granulocytes 9.6 H, Absolute Lymphocytes 0.9 L, Absolute Monocytes 0.6, Absolute Eosinophils 0.1, Absolute Basophils 0.1, PUBS MCHC 32.6 L Microbiology 07/07 1620 URINE ROUT: Urine Culture - RECD Assessment/Plan Problem List: 1. Left displaced femoral neck fracture Pain Ratin
--- NOTE | 2016-07-08 06:53 | PN- Housestaff ---
[place] HI 07/08/16 0652: Subjective Follow-up For: 1. left hip fracture Subjective: She was still in acute distress. Pain is well controlled. Complains pain, whe she moves on the bed. Vitals stable. Remained afebrile. Review of Systems Constitutional: Reports: see HPI. Objective Last 24 Hrs of Vital Signs/I&O Vital Signs Date Time Temp Pulse Resp B/P Pulse O2 O2 Flow FiO2 Ox Delivery Rate 07/07 2143 98.1 76 20 138/60 95 07/07 1831 98.0 88 20 160/70 97 07/07 1656 98.2 76 18 136/63 94 Room Air 07/07 1248 96.8 102 20 168/77 100 Room Air Intake & Output 07/08 0800 07/08 0000 07/07 1600 Intake Total 780 Output Total 600 Balance 180 Intake, IV 300 Intake, Oral 480 Output, Urine 600 Patient 142 lb 142 lb Weight Physical Exam General Appearance: No Acute Distress Other Physical Findings: General Exam: AAOx3, No acute distress, Skin: No rashes, no breakdown HEENT: PERRLA, EOMI Neck: Supple, No JVD No cervical lymphadenopathy CVS: Reg Rate, Normal S1,S2, No MGR Resp: Normal air entry, no ronchi/rales Abdomen: Soft, tenderness -ve, Normal Bowel Sounds Neuro: Normal Speech, Strength 5/5 b/l x 4 extremities, Sensation intact, CN III -XII NL, Reflexes 2+ Extremities: No cyanosis, pedal edema, tenderness in the left hip Current Medications: Current Medications Sig/Kim Start time Last Medication Dose Route Stop Time Status Admin Acetaminophen 1,000 MG ONCE ONE 07/07 1645 DC 07/07 IV 07/07 1646 1644 Acetaminophen 650 MG Q6P PRN 07/07 1645 AC PO Acetaminophen 0 .STK-MED ONE 07/07 1638 DC IV Atorvastatin Calcium 40 MG 1700 07/08 1700 AC PO Calcium 600 MG BID 07/07 2199 AC 07/07 PO 215 Cholecalciferol 2,000 IU DAILY 07/07 205 AC 07/07 PO 215 Docusate Sodium 100 MG BID 07/07 2200 AC PO Enoxaparin Sodium 40 MG DAILY 07/07 1657 DC SC Furosemide 20 MG Q48 07/09 1000 AC PO Hydromorphone HCl 1 MG Q6P PRN 07/07 1645 AC 07/08 IV 0615 Hydromorphone HCl 0.5 MG ONCE ONE 07/07 1315 DC 07/07 IV 07/07 1316 1305 Hydromorphone HCl 0 .STK-MED ONE 07/07 1314 DC .ROUTE Morphine Sulfate 2 MG ONCE ONE 07/07 1315 CAN IV 07/07 1316 Ondansetron HCl 4 MG Q6P PRN 07/07 1715 AC IV Ondansetron HCl 4 MG ONCE ONE 07/07 1645 DC 07/07 IV 07/07 1646 1644 Ondansetron HCl 0 .STK-MED ONE 07/07 1638 DC .ROUTE Ondansetron HCl 4 MG ONCE ONE 07/07 1315 DC 07/07 IV 07/07 1316 1305 Ondansetron HCl 0 .STK-MED ONE 07/07 1313 DC .ROUTE Oxycodone/ 1 TAB Q6P PRN 07/07 1645 AC 07/08 Acetaminophen PO 0314 Patient Medication 1 UNIT ONE NR 07/07 1730 MN Teaching ED 07/07 1800 Patient Medication 1 UNIT ONE NR 07/07 1730 MN Teaching ED 07/07 1800 Patient Medication 1 UNIT ONE NR 07/07 1715 MN Teaching ED 07/07 1730 Polyethylene Glycol 17 GM AT BEDTIME 07/07 220 AC PO Senna/Docusate Sodium 2 TAB AT BEDTIME 07/07 2200 AC PO Sodium Chloride 1,000 ML .[id number] 07/07 1645 AC 07/08 IV 0600 Last 24 Hrs of Lab/[place] Results Last 24 Hrs of Labs/Mics: Laboratory Tests 07/07/16 1620: Urinalysis LIGHT H, Urine Color YEL, Urine Clarity CLEAR, Urine pH 7.0, Ur Specific [place] 1.010, Urine Protein NEG, Urine Ketones NEG, Urine Nitrite NEG, Urine Bilirubin NEG, Urine Urobilinogen 0.2, Ur Leukocyte Esterase NEG, Ur Microscopic SEDIMENT EXAMINED, Urine RBC 1-3, Urine Mucus RARE, Urine Hemoglobin TRACE-INTACT, Urine Glucose NEG 07/07/16 1610: PT 22.2 H, INR 2.13 H, APTT 32 07/07/16 1506: Anion Gap 11, Estimated GFR > 60, BUN/Creatinine Ratio 20.0, Glucose 108 H, Calcium 9.2, 25-OH Vitamin D Total 10.0 L 07/07/16 1325: CBC w Diff NO MAN DIFF REQ, RBC 4.64, MCV 83.8, MCH 27.3, RDW 15.1 H, MPV 7.8, Gran % 85.6 H, Lymphocytes % 7.8 L, Monocytes % 5.3, Eosinophils % 0.5, Basophils % 0.8, Absolute Granulocytes 9.6 H, Absolute Lymphocytes 0.9 L, Absolute Monocytes 0.6, Absolute Eosinophils 0.1, Absolute Basophils 0.1, PUBS MCHC 32.6 L Microbiology 07/07 1620 URINE ROUT: Urine Culture - RECD Assessment/Plan Assessment: Ms Norwood has a past medical history of hypertension, DVT on Coumadin. She was brought into the [facility] with a chief concern of pain in her left hip and knee after she experienced a mechanical fall. At the time of admission, temperature 96.8 pulse rate 102, respiratory 20, blood pressure 168/77, pulse ox-100% on room air. Laboratory findings indicated-WBC 11.3, hemoglobin 12.7, hematocrit 38.9, platelets 243. INR 2.13. normal renal function [id number] indicated left femoral neck fracture with varus angulation. Left knee- Normal. Differential diagnosis: #1 femoral neck fracture Below is the problem list and plan: #1 left hip pain-resulting from a femoral neck fracture. Orthopedic surgeon plans to performed a hemiarthroplasty tomorrow. She has low risk. [place] perioperative risk score 0.2%, RCRI-very low risk with 0.4% . Pain medication to be provided with opiates, NSAIDs. On Coumadin for DVT. Let INR drift towards less than 2. Plan for hemiarthroplasty, as per surgery. Nothing by mouth after midnight. #2 DVT prophylaxis-Coumadin. Problem List: 1. Left displaced femoral neck fracture Pain Ratin Pain Location: left hip Pain Goal: Pain 4 or less Pain Plan: tylenol prn Tomorrow's Labs & Rationales: cbc bep inr PAWEL ALONSO,ZOLTAN 07/08/16 1219: Attending Review Statement Attending Statement Attending MD Statement: examined this patient, discuss w/resident/PA/POWER GENERATION TECHNICIAN, agreed w/resident/PA/POWER GENERATION TECHNICIAN, discussed with family, reviewed EMR data (avail), discussed with nursing, discussed with case mgmt, reviewed images, amended to note Attending Assessment/Plan: Patient seen and examined. Resting comfortably in bed. Reported was not able to have a good night's sleep because of pain. Denies any other complaints. Her INR is 2.18. Coumadin was held yesterday. We will talk to orthopedic if they can take her for surgery following FFP to reverse the INR. For now continue with current regimen for pain management as she is very comfortable this morning , avoid constipation continue bowel regimen. Follow up with orthopedic.
[2016-07-08 06:58] VITALS: BP 130/60
--- NOTE | 2016-07-08 07:52 | NUR ---
Physical therapy: Orders for PT eval and treat received, chart reviewed. Patient with acute L hip fracture, scheduled to go to OR later today for surgical repair. Will defer PT until surgery completed and appropriate WB status has been determined. Thank you.
[2016-07-08 08:01] LABS: ABSOLUTE BASOPHIL COUNT 0 /CUMM (0.0-0.2); ABSOLUTE EOSINOPHIL COUNT 0 /CUMM (0.0-0.7); ABSOLUTE LYMPH COUNT 0.9 /CUMM (1.2-3.4); ABSOLUTE MONOCYTE COUNT 0.8 /CUMM (0.10-0.60); BASOPHIL % 0.1 % (0.0-2.0); EOSINOPHIL % 0.3 % (0-5); GRANULOCYTE % 82.2 % (42.2-75.2); HEMATOCRIT 34.3 % (37-47); MEAN CORPUSCULAR HGB 27.9 PG (27.0-31.0); MEAN CORPUSCULAR HGB CONC 33.4 G/DL (33.0-37.0); MEAN CORPUSCULAR VOLUME 83.4 FL (81.0-99.0); MEAN PLATELET VOLUME 7.6 FL (7.4-10.4); PLATELET COUNT 229 /CUMM (130-400); RBC DISTRIBUTION WIDTH 14.9 % (11.5-14.5); RED BLOOD CELL CT 4.12 /CUMM (4.20-5.40); WHITE BLOOD CELL COUNT 9.7 /CUMM (4.8-10.8)
[2016-07-08 08:35] LABS: PT 22.7 SEC (9.4-12.5)
--- NOTE | 2016-07-08 09:23 | PN- Orthopedic ---
Subjective Subjective: NAEO. Patient without new c/o. Good pain control. Denies numbness/tingling in LLE. NPO. Denies CP/SOB. INR this morning is 2.18. Objective Vital Signs and I&Os Vital Signs Date Time Temp Pulse Resp B/P Pulse O2 O2 Flow FiO2 Ox Delivery Rate 07/08 0658 98.1 85 20 130/60 94 Room Air 07/07 2143 98.1 76 20 138/60 95 07/07 1831 98.0 88 20 160/70 97 07/07 1656 98.2 76 18 136/63 94 Room Air 07/07 1248 96.8 102 20 168/77 100 Room Air Intake & Output 07/08 1600 07/08 0800 07/08 0000 07/07 1600 07/07 0800 07/07 0000 Intake Total 780 Output Total 350 600 Balance -350 180 Intake, IV 300 Intake, Oral 480 Output, Urine 350 600 Patient 142 lb 142 lb Weight Physical Exam: General: NAD, comfortable, A&Ox3 Chest: NRD, breathing comfortably on RA. RRR. Abdomen: soft, nontender, nondistended. Ext: Left hip +TTP. LLE with shortened height and external rotation. No calve swelling/TTP, neurovascularly intact bilateral lower extremities Current Medications: Current Medications Sig/Kim Start time Last Medication Dose Route Stop Time Status Admin Acetaminophen 1,000 MG ONCE ONE 07/07 1645 DC 07/07 IV 07/07 1646 1644 Acetaminophen 650 MG Q6P PRN 07/07 1645 AC PO Acetaminophen 0 .STK-MED ONE 07/07 1638 DC IV Atorvastatin Calcium 40 MG 1700 07/08 1700 AC PO Calcium 600 MG BID 07/07 2200 AC 07/07 PO 215 Cholecalciferol 2,000 IU DAILY 07/07 205 AC 07/07 PO 2156 Docusate Sodium 100 MG BID 07/07 2200 AC PO Enoxaparin Sodium 40 MG DAILY 07/07 1657 DC SC Furosemide 20 MG Q48 07/09 1000 AC PO Hydromorphone HCl 1 MG Q6P PRN 07/07 1645 AC 07/08 IV 0615 Hydromorphone HCl 0.5 MG ONCE ONE 07/07 1315 DC 07/07 IV 07/07 1316 1305 Hydromorphone HCl 0 .STK-MED ONE 07/07 1314 DC .ROUTE Morphine Sulfate 2 MG ONCE ONE 07/07 1315 CAN IV 07/07 1316 Ondansetron HCl 4 MG Q6P PRN 07/07 1715 AC IV Ondansetron HCl 4 MG ONCE ONE 07/07 1645 DC 07/07 IV 07/07 1646 1644 Ondansetron HCl 0 .STK-MED ONE 07/07 1638 DC .ROUTE Ondansetron HCl 4 MG ONCE ONE 07/07 1315 DC 07/07 IV 07/07 1316 1305 Ondansetron HCl 0 .STK-MED ONE 07/07 1313 DC .ROUTE Oxycodone/ 1 TAB Q6P PRN 07/07 1645 AC 07/08 Acetaminophen PO 0314 Patient Medication 1 UNIT ONE NR 07/07 1730 UT Teaching ED 07/07 1800 Patient Medication 1 UNIT ONE NR 07/07 1730 UT Teaching ED 07/07 1800 Patient Medication 1 UNIT ONE NR 07/07 1715 UT Teaching ED 07/07 1730 Polyethylene Glycol 17 GM AT BEDTIME 07/07 2200 AC PO Senna/Docusate Sodium 2 TAB AT BEDTIME 07/07 2200 AC PO Sodium Chloride 1,000 ML .[id number] 07/07 1645 AC 07/08 IV 0600 Results Last 48 Hours of Labs: Laboratory Tests 07/08 07/07 0625 1620 Chemistry Sodium (137 - 145 mmol/L) 140 Potassium (3.5 - 5.1 mmol/L) 3.9 Chloride (98 - 107 mmol/L) 107 Carbon Dioxide (22 - 30 mmol/L) 25 Anion Gap (5 - 16) 9 BUN (7 - 17 mg/dL) 10 Creatinine (0.5 - 1.0 mg/dL) 0.6 Estimated GFR (>60 ml/min) > 60 BUN/Creatinine Ratio (7 - 25 %) 16.7 Coagulation PT (9.4 - 12.5 SEC) 22.7 H INR (0.90 - 1.19) 2.18 H Hematology CBC w Diff NO MAN DIFF REQ WBC (4.8 - 10.8 /CUMM) 9.7 RBC (4.20 - 5.40 /CUMM) 4.12 L Hgb (12.0 - 16.0 G/DL) 11.5 L Hct (37 - 47 %) 34.3 L MCV (81.0 - 99.0 FL) 83.4 MCH (27.0 - 31.0 PG) 27.9 RDW (11.5 - 14.5 %) 14.9 H Plt Count (130 - 400 /CUMM) 229 MPV (7.4 - 10.4 FL) 7.6 Gran % (42.2 - 75.2 %) 82.2 H Lymphocytes % (20.5 - 51.1 %) 8.8 L Monocytes % (1.7 - 9.3 %) 8.6 Eosinophils % (0 - 5 %) 0.3 Basophils % (0.0 - 2.0 %) 0.1 Absolute Granulocytes (1.4 - 6.5 /CUMM) 8.0 H Absolute Lymphocytes (1.2 - 3.4 /CUMM) 0.9 L Absolute Monocytes (0.10 - 0.60 /CUMM) 0.8 H Absolute Eosinophils (0.0 - 0.7 /CUMM) 0 Absolute Basophils (0.0 - 0.2 /CUMM) 0 PUBS MCHC (33.0 - 37.0 G/DL) 33.4 Urines Urinalysis LIGHT H Urine Color (YEL,AMB,STR) YEL Urine Clarity (CLEAR) CLEAR Urine pH (5.0 - 8.0) 7.0 Ur Specific [place] (1.001 - 1.035) 1.010 Urine Protein (NEG,<30 MG/DL) NEG Urine Ketones (NEG) NEG Urine Nitrite (NEG) NEG Urine Bilirubin (NEG) NEG Urine Urobilinogen (0.1 - 1.0 EU/dl) 0.2 Ur Leukocyte Esterase (NEG) NEG Ur Microscopic SEDIMENT EXAMINED Urine RBC (0 - 5 /HPF) 1-3 Urine Mucus (FEW,NONE) RARE Urine Hemoglobin (NEG) TRACE-INTACT Urine Glucose (N MG/DL) NEG 07/07 07/07 07/07 1610 1506 1325 Chemistry Sodium (137 - 145 mmol/L) 142 Potassium (3.5 - 5.1 mmol/L) 3.6 Chloride (98 - 107 mmol/L) 106 Carbon Dioxide (22 - 30 mmol/L) 26 Anion Gap (5 - 16) 11 BUN (7 - 17 mg/dL) 14 Creatinine (0.5 - 1.0 mg/dL) 0.7 Estimated GFR (>60 ml/min) > 60 BUN/Creatinine Ratio (7 - 25 %) 20.0 Glucose (65 - 99 mg/dL) 108 H Calcium (8.4 - 10.2 mg/dL) 9.2 25-OH Vitamin D Total (30 - 100 ng/ml) 10.0 L Coagulation PT (9.4 - 12.5 SEC) 22.2 H INR (0.90 - 1.19) 2.13 H APTT (25 - 37 SEC) 32 Hematology CBC w Diff NO MAN DIFF REQ WBC (4.8 - 10.8 /CUMM) 11.3 H RBC (4.20 - 5.40 /CUMM) 4.64 Hgb (12.0 - 16.0 G/DL) 12.7 Hct (37 - 47 %) 38.9 MCV (81.0 - 99.0 FL) 83.8 MCH (27.0 - 31.0 PG) 27.3 RDW (11.5 - 14.5 %) 15.1 H Plt Count (130 - 400 /CUMM) 242 MPV (7.4 - 10.4 FL) 7.8 Gran % (42.2 - 75.2 %) 85.6 H Lymphocytes % (20.5 - 51.1 %) 7.8 L Monocytes % (1.7 - 9.3 %) 5.3 Eosinophils % (0 - 5 %) 0.5 Basophils % (0.0 - 2.0 %) 0.8 Absolute Granulocytes (1.4 - 6.5 /CUMM) 9.6 H Absolute Lymphocytes (1.2 - 3.4 /CUMM) 0.9 L Absolute Monocytes (0.10 - 0.60 /CUMM) 0.6 Absolute Eosinophils (0.0 - 0.7 /CUMM) 0.1 Absolute Basophils (0.0 - 0.2 /CUMM) 0.1 PUBS MCHC (33.0 - 37.0 G/DL) 32.6 L Assessment/Plan Assessment/Plan 80yo F with left mechanical hip fracture sustained yesterday. Patient is pending PT clearance and INR within acceptable limit (typically <1.5) for ORIF left hip. - INR remains too elevated for OR. OK to give diet today. NPO after breakfast tomorrow. - Pain control - NWB LLE at this time - repeat labs tomorrow - care per primary team - discussed with Dr. Adams
--- NOTE | 2016-07-08 09:37 | NUR ---
SPOKE WITH ALFREDO VALNETIN. PT'S INR WAS TOO HIGH TODAY TO PERFORMED SURGERY ON L HIP. INR 2.13. PT HAD PT BLOOD WORK TO BE DRAWN AT 1200 BUT ALFREDO DOES NOT THINK THE INR WILL DROP TO TARGET OF BELOW 1.5 BY THEN. STATES OKAY FOR MEDICAL TEAM TO PLACE A DIET AND THEN MAKE PT NPO AT MIDNIGHT TONIGHT INSTEAD FOR SX ON SATURDAY.
[2016-07-08 13:54] VITALS: BP 116/60
[2016-07-08 17:12] LABS: PT 24.4 SEC (9.4-12.5)
[2016-07-08 21:52] VITALS: BP 144/62
--- NOTE | 2016-07-09 06:58 | PN- Student ---
Subjective Subjective: Source: Patient History of Present Illness: Follow-up for: L-femoral neck fracture Ms. Norwood is a 80 y/o female that came in to the Emergency Depaartment due to a fall in her home that lead to a L-hip fracture. The patient has a past medical history of hypertension and deep vein thrombosis. I visited the patient this morning and she was sleeping in her bed without any noticebale compensation towards pain. The patient mentions to be feeling well since she was given pain medications for a L-knee pain that was making her uncomfortable. The patient also mentioned that yesterday she felt nauseas for a while but associates that to a medical procedure that was done yesterday. The were no major complaints from the patient other than the knee pain and the patient states that she slept well and denies any fever, chills, night sweats or shortness of breath. Allergies: - Sulfa Drugs - Amoxi-Clav (Augmentin) Past Medical Hx: Travel History Patient denies any trips outside of the [facility]. Medical History Neurological- NONE Cardiovascular- HTN, DVT Respiratory- NOENE Gastrointestinal- NONE Hepatic- NONE Renal- NONE Psychiatric- NONE Endocrine- NONE Functional Ability: ADLs Independent: dressing, eating, toileting, bathing. Ambulation: independent IADLs Independent: shopping, housework, finances, food prep, telephone, transportation , medication admin. Review of Systems: General: Patient is in proper attire, alert and in no respiratory distress. She denies any weigt loss, night sweats, chillls and fever. The patient had sluggish speech but was alert and oriented X3. HEENT: NONE Cardiovascular: Patient denies any palpitations. GI: Mild nausea. Skin: No changes. Upper Limbs: NONE. Lower Limbs: Refer to HPI. MSK: Mild muscle weakness. Objective Objective: Current Medications Sig/Kim Start time Last Medication Dose Route Stop Time Status Admin Acetaminophen 650 MG Q6P PRN 07/07 1645 AC PO Atorvastatin Calcium 40 MG 1700 07/08 1700 AC 07/08 PO 1602 Calcium 600 MG BID 07/07 2199 AC 07/08 PO 214 Cholecalciferol 2,000 IU DAILY 07/07 2050 AC 07/08 PO 1004 Docusate Sodium 100 MG BID 07/07 2199 AC 07/08 PO 214 Furosemide 20 MG Q48 07/09 1000 AC PO Hydromorphone HCl 1 MG Q6P PRN 07/07 1645 AC 07/09 IV 0622 Ondansetron HCl 4 MG Q6P PRN 07/07 1715 AC 07/08 IV 1620 Oxycodone/ 1 TAB Q6P PRN 07/07 1645 AC 07/08 Acetaminophen PO 2156 Polyethylene Glycol 17 GM AT BEDTIME 07/07 2200 AC 07/08 PO 2146 Promethazine HCl 25 MG ONCE ONE 07/08 1845 DC 07/08 IV 07/08 1846 1851 Senna/Docusate Sodium 2 TAB AT BEDTIME 07/07 2200 AC 07/08 PO 2146 Sodium Chloride 1,000 ML .[id number] 07/07 164 AC 07/08 IV 1851 Trimethobenzamide HCl 200 MG 4 TIMES/DAY PRN 07/08 1700 AC 07/08 IM 1716 Vital Signs Date Time Temp Pulse Resp B/P Pulse O2 O2 Flow FiO2 Ox Delivery Rate 07/09 0700 98.6 95 20 130/62 96 Room Air 07/08 2152 99.3 90 20 144/62 93 07/08 1354 97.9 83 20 116/60 93 Room Air Intake & Output 07/09 0800 07/09 0000 07/08 1600 Intake Total 600 425 840 Output Total 300 750 600 Balance 300 -325 240 Intake, IV 600 225 600 Intake, Oral 0 200 240 Number 0 Bowel Movements Output, Urine 300 750 600 Physical Examination: General: Patient is in proper attire, alert and in no respiratory distress. She denies any weigt loss, night sweats, chillls and fever. The patient had sluggish speech but was alert and oriented X3. Mouth: No signs of central cyanosis. Dental deterioration. CV: S1, S2 sounds were heard; no murmurs were heard. Lower Extremities: No signs of edema or changes in temperature. Neurological: Normal but sluggish speech. Results Results: Laboratory Tests 07/09/16 0631: Sodium Pending, Potassium Pending, Chloride Pending, Carbon Dioxide Pending, Anion Gap Pending, BUN Pending, Creatinine Pending, BUN/Creatinine Ratio Pending , PT Pending, INR Pending, CBC w Diff Pending, WBC Pending, RBC Pending, Hgb Pending, Hct Pending, MCV Pending, MCH Pending, RDW Pending, Plt Count Pending, MPV Pending, PUBS MCHC Pending 07/08/16 1648: PT 24.4 H, INR 2.34 H 07/08/16 0625: Anion Gap 9, Estimated GFR > 60, BUN/Creatinine Ratio 16.7, PT 22.7 H, INR 2.18 H, CBC w Diff NO MAN DIFF REQ, RBC 4.12 L, MCV 83.4, MCH 27.9, RDW 14.9 H, MPV 7.6, Gran % 82.2 H, Lymphocytes % 8.8 L, Monocytes % 8.6, Eosinophils % 0.3, Basophils % 0.1, Absolute Granulocytes 8.0 H, Absolute Lymphocytes 0.9 L, Absolute Monocytes 0.8 H, Absolute Eosinophils 0, Absolute Basophils 0, [facility] MCHC 33.4 07/07/16 1620: Urinalysis LIGHT H, Urine Color YEL, Urine Clarity CLEAR, Urine pH 7.0, Ur Specific [place] 1.010, Urine Protein NEG, Urine Ketones NEG, Urine Nitrite NEG, Urine Bilirubin NEG, Urine Urobilinogen 0.2, Ur Leukocyte Esterase NEG, Ur Microscopic SEDIMENT EXAMINED, Urine RBC 1-3, Urine Mucus RARE, Urine Hemoglobin TRACE-INTACT, Urine Glucose NEG 07/07/16 1610: PT 22.2 H, INR 2.13 H, APTT 32 07/07/16 1506: Anion Gap 11, Estimated GFR > 60, BUN/Creatinine Ratio 20.0, Glucose 108 H, Calcium 9.2, 25-OH Vitamin D Total 10.0 L 07/07/16 1325: CBC w Diff NO MAN DIFF REQ, RBC 4.64, MCV 83.8, MCH 27.3, RDW 15.1 H, MPV 7.8, Gran % 85.6 H, Lymphocytes % 7.8 L, Monocytes % 5.3, Eosinophils % 0.5, Basophils % 0.8, Absolute Granulocytes 9.6 H, Absolute Lymphocytes 0.9 L, Absolute Monocytes 0.6, Absolute Eosinophils 0.1, Absolute Basophils 0.1, PUBS MCHC 32.6 L Microbiology 07/07 1619 URINE ROUT: Urine Culture - RES Microbiology 07/07 1619 URINE ROUT: Urine Culture - RES Anion Gap 11, Estimated GFR > 60, BUN/Creatinine Ratio 20.0, Glucose 108 H, Calcium 9.2, 25-OH Vitamin D Total 10.0 L 07/07/16 1325: CBC w Diff NO MAN DIFF REQ, RBC 4.64, MCV 83.8, MCH 27.3, RDW 15.1 H, MPV 7.8, Gran % 85.6 H, Lymphocytes % 7.8 L, Monocytes % 5.3, Eosinophils % 0.5, Basophils % 0.8, Absolute Granulocytes 9.6 H, Absolute Lymphocytes 0.9 L, Absolute Monocytes 0.6, Absolute Eosinophils 0.1, Absolute Basophils 0.1, PUBS MCHC 32.6 L Microbiology 07/07 1620 URINE ROUT: Urine Culture - RES
[2016-07-09 07:00] VITALS: BP 130/62
--- NOTE | 2016-07-09 07:19 | PN- Housestaff ---
[place] HI 07/09/16 0719: Subjective Follow-up For: 1.left hip fracture Subjective: She was comfortable. Pain is adequately controlled. Vitals remained stable overnight. She was due to be taken into the OR for hemiarthroplasty this a.m.; but the surgery was deferred due to persistently elevated INR. As per the orthopedic surgeon, the plan was to let INR drift down and no FFP's were to be given yesterday. Discussed with the pharmacy, and was given 100 mg of Lovenox subcutaneous for DVT treatment. She will not receive any Lovenox in the a.m. before the surgery. Confirmed with the physician operations assistant/surgery. Review of Systems Constitutional: Reports: see HPI. Objective Last 24 Hrs of Vital Signs/I&O Vital Signs Date Time Temp Pulse Resp B/P Pulse O2 O2 Flow FiO2 Ox Delivery Rate 07/09 0700 98.6 95 20 130/62 96 Room Air 07/08 2152 99.3 90 20 144/62 93 07/08 1354 97.9 83 20 116/60 93 Room Air Intake & Output 07/09 0800 07/09 0000 07/08 1600 Intake Total 600 425 840 Output Total 300 750 600 Balance 300 -325 240 Intake, IV 600 225 600 Intake, Oral 0 200 240 Number 0 Bowel Movements Output, Urine 300 750 600 Physical Exam General Appearance: No Acute Distress Other Physical Findings: General Exam: AAOx3, No acute distress, Skin: No rashes, no breakdown HEENT: PERRLA, EOMI Neck: Supple, No JVD No cervical lymphadenopathy CVS: Reg Rate, Normal S1,S2, No MGR Resp: Normal air entry, no ronchi/rales Abdomen: Soft, No tenderness, Normal Bowel Sounds Neuro: Normal Speech, Strength 5/5 b/l x 4 extremities(limted examination of lower extremities), Sensation intact, CN III-XII NL, Reflexes 2+ Extremities: No cyanosis, pedal edema Current Medications: Current Medications Sig/Kim Start time Last Medication Dose Route Stop Time Status Admin Acetaminophen 650 MG Q6P PRN 07/07 1645 AC PO Atorvastatin Calcium 40 MG 1700 07/08 1700 AC 07/08 PO 1602 Calcium 600 MG BID 07/07 2200 AC 07/08 PO 2145 Cholecalciferol 2,000 IU DAILY 07/07 2050 AC 07/08 PO 1004 Docusate Sodium 100 MG BID 07/07 2200 AC 07/08 PO 2146 Furosemide 20 MG Q48 07/09 1000 AC PO Hydromorphone HCl 1 MG Q6P PRN 07/07 1645 AC 07/09 IV 0622 Ondansetron HCl 4 MG Q6P PRN 07/07 1715 AC 07/08 IV 1620 Oxycodone/ 1 TAB Q6P PRN 07/07 1645 AC 07/08 Acetaminophen PO 2156 Polyethylene Glycol 17 GM AT BEDTIME 07/07 2200 AC 07/08 PO 2146 Promethazine HCl 25 MG ONCE ONE 07/08 1845 DC 07/08 IV 07/08 1846 1851 Senna/Docusate Sodium 2 TAB AT BEDTIME 07/07 2199 AC 07/08 PO 2146 Sodium Chloride 1,000 ML .[id number] 07/07 1645 AC 07/08 IV 1851 Trimethobenzamide HCl 200 MG 4 TIMES/DAY PRN 07/08 1700 AC 07/08 IM 1716 Last 24 Hrs of Lab/[place] Results Last 24 Hrs of Labs/Mics: Laboratory Tests 07/09/16 0631: Sodium Pending, Potassium Pending, Chloride Pending, Carbon Dioxide Pending, Anion Gap Pending, BUN Pending, Creatinine Pending, BUN/Creatinine Ratio Pending , PT Pending, INR Pending, CBC w Diff Pending, WBC Pending, RBC Pending, Hgb Pending, Hct Pending, MCV Pending, MCH Pending, RDW Pending, Plt Count Pending, MPV Pending, PUBS MCHC Pending 07/08/16 1648: PT 24.4 H, INR 2.34 H Assessment/Plan Assessment: Ms Norwood has a past medical history of hypertension, DVT on Coumadin. She was brought into the [facility] with a chief concern of pain in her left hip and knee after she experienced a mechanical fall. [id number] indicated left femoral neck fracture with varus angulation. Left knee- Normal. Differential diagnosis: #1 femoral neck fracture Below is the problem list and plan: #1 left hip pain-resulting from a femoral neck fracture. Orthopedic surgeon plans for performing a hemiarthroplasty in the a.m. Considered low risk for surgery. Tapia perioperative risk score 0.2%, RCRI-very low risk with 0.4% . Pain medication to be provided with opiates, NSAIDs. She was on Coumadin for DVT treatment. Let INR drift towards less than 2. To be given Lovenox at 1.5 mg per KG body weight dose for DVT treatment for one day. No Lovenox to be given in the a.m. If INR still stays elevated, have to give 1 unit of FFP. Plan for hemiarthroplasty, as per surgery. Nothing by mouth after midnight. Low vitamin D, which could be addressed as an outpatient. #2 DVT prophylaxis-Lovenox. Problem List: 1. Left displaced femoral neck fracture 2. Cellulitis of right lower leg Pain Ratin Pain Location: Left hip Pain Goal: Pain 4 or less Pain Plan: Percocet Dilaudid Tomorrow's Labs & Rationales: cbc bep inr- to check inr for surgery SU DAVILA MD 07/09/16 1122: Attending MD Review Statement Attending Statement Attending MD Statement: examined this patient, discuss w/resident/PA/MACHINE ROOM ENGINEER, agreed w/resident/PA/MACHINE ROOM ENGINEER, reviewed EMR data (avail) Attending Assessment/Plan: INR still elevated. Will recheck INR tonight at 8pm, if >1.7 can give 2 units FFP to reverse, planned for OR tomorrow, continue Lovenox for DVT PPx, pain is well controlled
[2016-07-09 08:26] LABS: PT 20.8 SEC (9.4-12.5)
--- NOTE | 2016-07-09 08:50 | PN- Orthopedic ---
Subjective Subjective: The patient was seen this morning. She reports feeling relatively comfortable with just some minor discomfort in her left groin. She has no other complaints the current time and denies any chest pain or difficulty breathing. Objective Vital Signs and I&Os Vital Signs Date Time Temp Pulse Resp B/P Pulse O2 O2 Flow FiO2 Ox Delivery Rate 07/09 0700 98.6 95 20 130/62 96 Room Air 07/08 2152 99.3 90 20 144/62 93 07/08 1354 97.9 83 20 116/60 93 Room Air Intake & Output 07/09 1600 07/09 0800 07/09 0000 07/08 1600 07/08 0800 07/08 0000 Intake Total 600 425 840 650 780 Output Total 300 750 600 350 600 Balance 300 -325 240 300 180 Intake, IV 600 225 600 600 300 Intake, Oral 0 200 240 50 480 Number 0 0 Bowel Movements Output, Urine 300 750 600 350 600 Patient 142 lb Weight Physical Exam: Gen.: Alert and obvious distress Skin: Warm and dry Extremities: Bilateral lower extremities are warm without calf tenderness. Gross motor and sensory are intact and there is trace edema bilaterally. Left hip area is slightly tender to palpation but there is no gross deformity appreciated. There is some mild edema in all compartments remain soft. Assessment/Plan Assessment/Plan Assessment: 80-year-old female status post fall which resulted in the left femoral neck fracture. The patient's INR has remained elevated due to being on Coumadin for history of complicated DVT and PE. Recommendations: We will discuss with medical team better is felt that is better that the patient 's INR trend down as opposed to reversal of vitamin K. Relatively typical for INR surgically would be 1.5. We would consider giving some FFP tomorrow if she remains supratherapeutic. Continue care per primary team Keep the patient nothing by mouth past midnight for possible or in a.m. PRN pain medications Strict bedrest the current time Rodriguez catheter with strict I's and O's
[2016-07-09 09:03] LABS: ABSOLUTE BASOPHIL COUNT 0 /CUMM (0.0-0.2); ABSOLUTE EOSINOPHIL COUNT 0 /CUMM (0.0-0.7); ABSOLUTE GRANULOCYTE CT 8.7 /CUMM (1.4-6.5); ABSOLUTE LYMPH COUNT 0.8 /CUMM (1.2-3.4); ABSOLUTE MONOCYTE COUNT 0.8 /CUMM (0.10-0.60); BASOPHIL % 0.1 % (0.0-2.0); EOSINOPHIL % 0.3 % (0-5); GRANULOCYTE % 84.1 % (42.2-75.2); HEMATOCRIT 34.4 % (37-47); MEAN CORPUSCULAR HGB 27.7 PG (27.0-31.0); MEAN CORPUSCULAR HGB CONC 33.1 G/DL (33.0-37.0); MEAN CORPUSCULAR VOLUME 83.5 FL (81.0-99.0); MEAN PLATELET VOLUME 7.4 FL (7.4-10.4); PLATELET COUNT 216 /CUMM (130-400); RBC DISTRIBUTION WIDTH 14.7 % (11.5-14.5); RED BLOOD CELL CT 4.12 /CUMM (4.20-5.40)
[2016-07-09 10:25] LABS: WHITE BLOOD CELL COUNT 10.4 /CUMM (4.8-10.8)
[2016-07-09 14:34] VITALS: BP 140/72
[2016-07-09 20:46] LABS: PT 18.4 SEC (9.4-12.5)
[2016-07-09 22:26] VITALS: BP 120/50
--- NOTE | 2016-07-09 22:30 | NUR ---
PT HAD TEMP OF 100.2F. PT HAD RECIEVED PRN PERCOCET AT 2114. FINANCIAL AID OFFICER NOTIFIED, REQUESTED THAT WE RECHECK TEMP IN 1.5 HRS AND REPORT TO HER. WILL CONTINUE TO MONITOR
--- NOTE | 2016-07-10 05:34 | PN- Housestaff ---
[place] HI 07/10/16 0533: Subjective Follow-up For: 1. hip fracture Subjective: Still complains of pain. Vitals were stable overnight, and was scheduled to be taken to the OR for a hemiarthroplasty. Pt was to be given a unit of FFP, as per the surgical PA and to be taken for the surgery. Review of Systems Constitutional: Reports: see HPI. Objective Last 24 Hrs of Vital Signs/I&O Vital Signs Date Time Temp Pulse Resp B/P Pulse O2 O2 Flow FiO2 Ox Delivery Rate 07/10 0011 100.0 07/09 2226 100.2 86 20 120/50 94 Room Air 07/09 1607 Room Air 07/09 1434 97.2 72 20 140/72 96 07/09 0700 98.6 95 20 130/62 96 Room Air Intake & Output 07/10 0800 07/10 0000 07/09 1600 Intake Total 480 465 Output Total 600 1400 Balance -120 -935 Intake, IV 225 Intake, Oral 480 240 Output, Urine 600 1400 Physical Exam General Appearance: No Acute Distress Current Medications: Current Medications Sig/Kim Start time Last Medication Dose Route Stop Time Status Admin Acetaminophen 650 MG Q6P PRN 07/07 164 AC PO Atorvastatin Calcium 40 MG 1700 07/08 1700 AC 07/09 PO 1715 Calcium 600 MG BID 07/07 220 AC 07/09 PO 2132 Cholecalciferol 2,000 IU DAILY 07/07 205 AC 07/08 PO 1004 Dextrose/Sodium 1,000 ML Q20H 07/10 0000 AC 07/10 Chloride IV 0020 Docusate Sodium 100 MG BID 07/07 2199 AC 07/09 PO 2132 Enoxaparin Sodium 60 MG ONCE ONE 07/09 1400 DC 07/09 SC 07/09 1401 1443 Enoxaparin Sodium 40 MG DAILY 07/09 1043 DC 07/09 SC 1220 Furosemide 20 MG Q48 07/09 1000 AC 07/09 PO 0904 Hydromorphone HCl 1 MG Q6P PRN 07/07 1645 AC 07/10 IV 0019 Ondansetron HCl 4 MG Q6P PRN 07/07 1715 AC 07/08 IV 1620 Oxycodone/ 1 TAB Q6P PRN 07/07 1645 07/09 Acetaminophen PO 2131 Polyethylene Glycol 17 GM AT BEDTIME 07/07 2199 AC 07/09 PO 213 Senna/Docusate Sodium 2 TAB AT BEDTIME 07/07 2199 AC 07/09 PO 213 Sodium Chloride 1,000 ML .[id number] 07/07 1645 DC 07/09 IV 0904 Trimethobenzamide HCl 200 MG 4 TIMES/DAY PRN 07/08 1700 AC 07/08 IM 1716 Last 24 Hrs of Lab/[place] Results Last 24 Hrs of Labs/Mics: Laboratory Tests 07/09/162004: PT 18.4 H, INR 1.76 H 07/09/16 0835: RBC 4.12 L, MCV 83.5, MCH 27.7, RDW 14.7 H, MPV 7.4, Gran % 84.1 H, Lymphocytes % 7.5 L, Monocytes % 8.0, Eosinophils % 0.3, Basophils % 0.1, Absolute Granulocytes 8.7 H, Absolute Lymphocytes 0.8 L, Absolute Monocytes 0.8 H, Absolute Eosinophils 0, Absolute Basophils 0, PUBS MCHC 33.1 07/09/16 0631: Anion Gap 10, Estimated GFR > 60, BUN/Creatinine Ratio 14.3, PT 20.8 H, INR 1.99 H Assessment/Plan Assessment: Ms Norwood has a past medical history of hypertension, DVT on Coumadin. She was brought into the [facility] with a chief concern of pain in her left hip and knee after she experienced a mechanical fall. [id number]-[id number] indicated left femoral neck fracture with varus angulation. Left knee- Normal. Differential diagnosis: #1 femoral neck fracture Below is the problem list and plan: #1 left hip pain-resulting from a femoral neck fracture. Orthopedic surgeon plans for performing a hemiarthroplasty today. Considered low risk for surgery. Tapia perioperative risk score 0.2%, RCRI-very low risk with 0.4% . Pain medication to be provided with opiates, NSAIDs. She was on Coumadin for DVT treatment. Initial plan was to let INR drift towards less than 2. Also given, Lovenox at 1.5 mg per KG body weight dose for DVT treatment for one day. No Lovenox to be given this am. 1 unit of FFP given this am. She has been nothing by mouth after midnight, last night. She will be started on coumadin in the pm, and also be started on lovenox starting in the am for anticoagulation. Defer the decision to the surgical PA. #2 DVT prophylaxis-Lovenox. Problem List: 1. Left displaced femoral neck fracture Pain Ratin Pain Location: left hip and left knee Pain Goal: Pain 4 or less Pain Plan: dilaudid percocet Tomorrow's Labs & Rationales: cbc- check for Hb after surgery bep- monitor electrolytes and renal function inr- to dose with coumadin HERMES BARRAGAN 07/18/16 1105: Attending MD Review Statement Attending Statement Attending MD Statement: examined this patient, discuss w/resident/PA/MOBILE APPLICATION TESTER, agreed w/resident/PA/MOBILE APPLICATION TESTER, reviewed EMR data (avail) Attending Assessment/Plan: 80 yr old female with past medical history of hypertension, DVT on Coumadin. She was brought into the [facility] with a chief concern of pain in her left hip and knee after she experienced a mechanical fall. Pvrryjozk-[id number] indicated left femoral neck fracture. Pt going to OR today, INR today is 1.37. Pt was given 1 U FFP yesterday. Will start on coumadin tonight and put her on lovenox bridging starting tomorrow.
[2016-07-10 06:36] VITALS: BP 112/56
--- NOTE | 2016-07-10 07:57 | PN- Orthopedic ---
Subjective Subjective: The patient was seen this morning she still complains of left hip and knee pain. She has no other complaints at the current time. Objective Vital Signs and I&Os Vital Signs Date Time Temp Pulse Resp B/P Pulse O2 O2 Flow FiO2 Ox Delivery Rate 07/10 0636 97.9 88 20 112/56 94 Room Air 07/10 0011 100.0 07/09 2226 100.2 86 20 120/50 94 Room Air 07/09 1607 Room Air 07/09 1434 97.2 72 20 140/72 96 Intake & Output 07/10 0800 07/10 0000 07/09 1600 07/09 0800 07/09 0000 07/08 1600 Intake Total 480 465 600 425 840 Output Total 600 1400 300 750 600 Balance -120 -935 300 -325 240 Intake, IV 225 600 225 600 Intake, Oral 480 240 0 200 240 Number 0 Bowel Movements Output, Urine 600 1400 300 750 600 Physical Exam: Gen.: Alert and obvious distress Skin: Warm and dry Extremities: Bilateral lower extremities are warm without calf tenderness or significant edema. Gross motor and sensory are intact. Left hip area remains tender with mild edema but otherwise soft. Leg remains rotated and shortened. Assessment/Plan Assessment/Plan Assessment: 80-year-old female status post fall causing a left femoral neck fracture. Recommendations: Follow-up morning laboratory studies and administer FFP to obtain an INR below 1.5 Strict bedrest Continue current pain regiment Maintain nothing by mouth with IV fluids GI and DVT prophylaxis but please hold Lovenox this morning Continue care per primary team The patient will be brought to the operating theater later today for a left hemiarthroplasty
[2016-07-10 08:13] VITALS: BP 104/52
[2016-07-10 08:19] LABS: ABSOLUTE BASOPHIL COUNT 0 /CUMM (0.0-0.2); ABSOLUTE EOSINOPHIL COUNT 0.2 /CUMM (0.0-0.7); ABSOLUTE GRANULOCYTE CT 7.2 /CUMM (1.4-6.5); ABSOLUTE LYMPH COUNT 1.2 /CUMM (1.2-3.4); ABSOLUTE MONOCYTE COUNT 0.8 /CUMM (0.10-0.60); BASOPHIL % 0.5 % (0.0-2.0); EOSINOPHIL % 2.1 % (0-5); GRANULOCYTE % 75.9 % (42.2-75.2); HEMATOCRIT 35.2 % (37-47); MEAN CORPUSCULAR HGB 27.3 PG (27.0-31.0); MEAN CORPUSCULAR HGB CONC 32.8 G/DL (33.0-37.0); MEAN CORPUSCULAR VOLUME 83.3 FL (81.0-99.0); MEAN PLATELET VOLUME 7.4 FL (7.4-10.4); PLATELET COUNT 222 /CUMM (130-400); RBC DISTRIBUTION WIDTH 15.1 % (11.5-14.5); RED BLOOD CELL CT 4.22 /CUMM (4.20-5.40); WHITE BLOOD CELL COUNT 9.4 /CUMM (4.8-10.8)
[2016-07-10 08:27] LABS: PT 14.3 SEC (9.4-12.5)
[2016-07-10 10:04] VITALS: BP 110/50
--- NOTE | 2016-07-10 12:00 | NUR ---
PT TAKEN VIA BED TO OR. FFP TRANSFUSION FINISHED JUST PRIOR TO LEAVING FLOOR.
--- NOTE | 2016-07-10 15:00 | Operative Report ---
Operative/Inv Procedure Report Surgery Date: 07/10/16 Name of Procedure: Left hip hemiarthroplasty Pre-Operative Diagnosis: Left hip femoral neck fracture Post-Operative Diagnosis: Same Estimated Blood Loss: 300 ML Surgeon/Grove Worker: VERONICA Anesthesia: block IV Fluids: See anesthesia record Implants: [employer] size 5 fracture stem cemented 44 mm head unipolar standard neck length Drains: None Specimens: Left femoral head Complications: None Condition: Stable Operative Indication: Patient 80-year-old female status post mechanical fall with a left displaced femoral neck fracture. She was indicated for surgical treatment with a hemiarthroplasty once her INR corrected. Operative/Procedure Note Note: In the right lateral decubitus position on the beanbag. The left lower 70 is prepped and draped in usual sterile fashion after spinal anesthesia had been formed. Standard incision for posterior portion hip was made and sharp dissection was carried down to skin and subcutaneous tissue. The fascia was incised. The gluteus brown fibers were incised as well bluntly. We then retractors placed in the incision and the fat was swept off the short external rotators. The sciatic nerve was identified and protected. The piriformis and external rotators released from their insertion on the piriformis fossa and tagged for later repair. Quadratus femoris was released with electrocautery. Capsule knee was performed and the femoral neck fracture was identified. Corkscrew was used to remove the femoral head and was sized to be a size 44. Femoral neck cut was made 1 fingerbreadth above the lesser trochanter with an oscillating saw. The trial reduction was done with a size 43 femoral head and a size 44. Size 44 was appropriate size with good fit and good suction. The leg was placed in internal rotation and a box osteotome was used to remove any femoral neck laterally. The starting reamer was then used to open up the femoral canal and then the femoral canal was broached up to a size 5 broach. Size 5 broach was tight and left in place and trial reduction was done with a standard neck length and a 44 head. The hip relocated very easily and was taken through a range of motion found be stable in 90 of flexion with 30 of adduction and 30 of internal rotation. Leg lengths are equal. Hip was then redislocated and the trial components removed. Cement was mixed on the back table femoral canal was pulse lavaged. Cement resector was placed on the femoral canal and once the cement was ready cement patient began without complication. The femoral stem was then placed down the femoral canal and held in place until the cement hardened excess Cement had been removed with curettes. Once the cement hardened the 44 trial unipolar head was placed back on the prosthesis and a trial reduction was again done. Leg lengths are equal and hip was stable. The hip was dislocated the femoral head was then opened and a size 44 endoprosthesis was placed onto the femoral stem without compensation. The hip was relocated and taken through a final range of motion found be stable. The wound was pulse lavaged. The external rotators were repaired back to the greater trochanter through drill holes. The fascia was closed with a #1 looped PDS suture. Subcutaneous tissues closed with #1 Vicryl and 2-0 Vicryl interrupted sutures. Skin was closed nara. Sterile dressing was applied the patient was awakened taken recovery in stable condition.
--- NOTE | 2016-07-10 16:18 | PN- Att Addend ---
Attending MD Review Statement Attending Statement Attending MD Statement: examined this patient, discuss w/resident/PA/INSIDE SALES MANAGER, agreed w/resident/PA/INSIDE SALES MANAGER, reviewed EMR data (avail) Attending Assessment/Plan: 80 yr old female with past medical history of hypertension, DVT on Coumadin. She was brought into the [facility] with a chief concern of pain in her left hip and knee after she experienced a mechanical fall. [id number] indicated left femoral neck fracture. Pt going to OR today, INR today is 1.37. Pt was given 1 U FFP yesterday. Will start on coumadin tonight and put her on lovenox bridging starting tomorrow.
[2016-07-10 16:30] VITALS: BP 132/68
--- NOTE | 2016-07-10 17:10 | PN- Orthopedic ---
Subjective Subjective: POST-OP NOTE: Reports mostly left knee pain, more than hip/incisional pain. No dizziness. No shortness of breath. No chest pains. Objective Vital Signs and I&Os Vital Signs Date Time Temp Pulse Resp B/P Pulse O2 O2 Flow FiO2 Ox Delivery Rate 07/10 1517 Room Air 07/10 1004 98.8 80 18 110/50 94 Room Air 07/10 0813 97.6 86 18 104/52 94 Room Air 07/10 0636 97.9 88 20 112/56 94 Room Air 07/10 0011 100.0 07/09 2226 100.2 86 20 120/50 94 Room Air Intake & Output 07/10 1600 07/10 0800 07/10 0000 07/09 1600 07/09 0800 07/09 0000 Intake Total 300 300 480 465 600 425 Output Total 400 557 170 3499 300 750 Balance -100 -150 -120 -935 300 -325 Intake, Blood 250 Product Intake, IV 50 300 225 600 225 Intake, Oral 0 0 480 240 0 200 Number 0 Bowel Movements Output, Urine 400 262 508 1546 300 750 Physical Exam: General - alert & oriented. comfortable. no acute distress. Lungs - clear bilaterally Cardiac - s1s2 Abdomen - soft. nontender. - escobedo draining clear, yellow urine. Extremities - warm bilaterally. left hip dressing c/d/i. immobilizer in place. nvi. no obvious deformity or tenderness at the left knee. athrombics active b/l. no calf tenderness. Assessment/Plan Assessment/Plan This 80 year old white female with hx htn, and dvt on coumadin is POD#0 s/p left hip hemiarthroplasty for a femoral neck fracture, currently reporting mostly left knee pain advance diet as tolerated pain control as ordered jonathan-operative ancef coumadin - dvt ppx PT eval - wbat f/u am labs d/c escobedo in am knee xrays negative (from ED) management as per medical team will d/w
--- NOTE | 2016-07-10 18:34 | NUR ---
PT ARRIVED FROM PACU S/P L HIP ORIF. PT IS ALERT AND ORIENTED, 02 WAS 88 ON 2L NC INCREASED TO 4L. DRG TO HIP CDI. ICE PACK APPLIED. PT C/O 01/24 PAIN STATING " THEY GAVE ME NOTHING DOWNSTAIRS" PT MEDICATED WITH IV DILAUDID. (+) CMS TO LLE. ABD PILLOW IN PLACE. IV FLUIDS RUNNING. WILL CONT TO MONITOR
[2016-07-10 20:30] VITALS: BP 88/34
[2016-07-10 22:58] VITALS: BP 88/44
--- NOTE | 2016-07-10 23:37 | NUR ---
PT NOTED TO HAVE DECREASING BP...100/48 FOLLOWED BY 88/44 BOTH MANUALLY DONE. INTER WAS NOTIFED AND ORDERED BOLUS OF 500 NS AND CAME TO THE BEDSIDE TO ASSESS. PT DENIES ANY CHEST PAIN WELL NOT FEELING LIGHT HEADED. REPORT WAS GIVEN TO KIKO MOYA THIS OCCURED AT SHIFT CHANGE
[2016-07-11] VITALS (8 sets, daily range): BP systolic 82–120; BP diastolic 38–70
--- NOTE | 2016-07-11 05:46 | PN- Housestaff ---
Subjective Follow-up For: 1. left femur neck fracture Subjective: Ms. Apodaca was comfortable this morning. She did not have any complaints except some pain in her left knee. Last night her blood pressure was on the lower side, after which she was bolused with normal saline. This a.m. blood pressure was 106/52. As per Operative note, blood loss was approximately 300 mL. Discussed with the pharmacy, and the attending physician and was started on Lovenox therapeutic dose for DVT treatment. Also has been started on Coumadin. Review of Systems Constitutional: Reports: see HPI. Objective Last 24 Hrs of Vital Signs/I&O Vital Signs Date Time Temp Pulse Resp B/P Pulse O2 O2 Flow FiO2 Ox Delivery Rate 07/11 0250 99.0 114 20 90/40 99 Nasal 2.0L Cannula 07/11 0205 100/40 07/11 0000 Nasal 2.0L Cannula 07/10 2258 98.8 108 18 88/44 95 Nasal 2.0L Cannula 07/10 2030 98.0 98 18 88/34 94 Nasal 4.0L Cannula 07/10 1630 90 Nasal 4.0L Cannula 07/10 1630 97.9 102 20 132/68 88 Nasal 2.0L Cannula 07/10 1517 Room Air 07/10 1004 98.8 80 18 110/50 94 Room Air 07/10 0813 97.6 86 18 104/52 94 Room Air 07/10 0636 97.9 88 20 112/56 94 Room Air Intake & Output 07/11 0800 07/11 0000 07/10 1600 Intake Total 480 300 Output Total 250 400 Balance 230 -100 Intake, Blood 250 Product Intake, IV 400 50 Intake, Oral 80 0 Output, Urine 250 400 Physical Exam General Appearance: No Acute Distress Other Physical Findings: General Exam: AAOx3, No acute distress, Skin: No rashes, no breakdown HEENT: PERRLA, EOMI Neck: Supple, No JVD No cervical lymphadenopathy CVS: Reg Rate, Normal S1,S2, No MGR Resp: Normal air entry, no ronchi/rales Abdomen: Soft, No tenderness, Normal Bowel Sounds Neuro: Normal Speech, Strength 5/5 b/l x 4 extremities, Sensation intact, CN III -XII NL, Reflexes 2+ Extremities: No cyanosis, pedal edema, surigcal site on the left hip, tender left knee. Current Medications: Current Medications Sig/Kim Start time Last Medication Dose Route Stop Time Status Admin Acetaminophen 650 MG Q6P PRN 07/10 1500 AC PO Acetaminophen 650 MG Q6P PRN 07/07 1645 DC PO Atorvastatin Calcium 40 MG 1700 07/10 1700 AC 07/10 PO 1710 Atorvastatin Calcium 40 MG 1700 07/08 1700 DC 07/09 PO 1715 Bisacodyl 10 MG .STK-MED ONE 07/10 1140 DC LA 07/10 1141 Calcium 600 MG BID 07/10 2200 AC 07/10 PO 2049 Calcium 600 MG BID 07/07 2200 DC 07/09 PO 2132 Cefazolin Sodium 2 GM IQ8 07/10 2100 AC 07/10 N/A 1 UNIT IV 07/11 0829 2049 Cholecalciferol 2,000 IU DAILY 07/11 1000 AC PO Cholecalciferol 2,000 IU DAILY 07/07 205 DC 07/08 PO 1004 Dextrose/Sodium 1,000 ML Q20H 07/10 1500 AC 07/11 Chloride IV 0118 Dextrose/Sodium 1,000 ML Q20H 07/10 0000 DC 07/10 Chloride IV 0020 Docusate Sodium 100 MG BID 07/10 2200 AC 07/10 PO 205 Docusate Sodium 100 MG BID 07/07 220 DC 07/09 PO 2132 Ergocalciferol 50,000 IU ONCE ONE 07/11 1000 AC PO 07/11 1001 Fentanyl Citrate 100 MCG .STK-MED ONE 07/10 1229 DC IM 07/10 1230 Fentanyl Citrate 250 MCG .STK-MED ONE 07/10 1104 DC IM 07/10 1105 Furosemide 20 MG Q48 07/12 1000 AC PO Furosemide 20 MG Q48 07/09 1000 DC 07/09 PO 0904 Hydromorphone HCl 1 MG ONCE ONE 07/10 2014 DC 07/10 IV 07/10 Hydromorphone HCl 1 MG Q6P PRN 07/10 1500 AC 07/10 IV 2227 Hydromorphone HCl 1 MG Q6P PRN 07/07 1645 DC 07/10 IV 0807 Midazolam HCl 2 MG .STK-MED ONE 07/10 1240 DC IM 07/10 1241 Ondansetron HCl 4 MG Q6P PRN 07/10 1500 AC 07/10 IV 1709 Ondansetron HCl 4 MG Q6P PRN 07/07 1715 DC 07/08 IV 1620 Oxycodone/ 1 TAB Q6P PRN 07/10 1500 AC 07/11 Acetaminophen PO 0152 Oxycodone/ 1 TAB Q6P PRN 07/07 1645 DC 07/09 Acetaminophen PO 2131 Polyethylene Glycol 17 GM AT BEDTIME 07/100 AC 07/10 PO 2049 Polyethylene Glycol 17 GM AT BEDTIME 07/07 2200 DC 07/09 PO 2132 Senna/Docusate Sodium 2 TAB AT BEDTIME 07/10 2200 AC 07/10 PO 2049 Senna/Docusate Sodium 2 TAB AT BEDTIME 07/07 2199 DC 07/09 PO 2132 Sodium Chloride 500 ML BOLUS ONE 07/10 2315 DC 07/10 IV 07/11 0014 2307 Tranexamic Acid 2,000 MG .STK-MED ONE 07/10 1105 DC IV 07/10 1106 Trimethobenzamide HCl 200 MG 4 TIMES/DAY PRN 07/10 1500 AC IM Trimethobenzamide HCl 200 MG 4 TIMES/DAY PRN 07/08 1700 DC 07/08 IM 1716 Warfarin Sodium 5 MG COUMADIN 1700 ONE 07/10 1700 DC 07/10 PO 07/10 1701 1709 Last 24 Hrs of Lab/[place] Results Last 24 Hrs of Labs/Mics: Laboratory Tests 07/10/16 0803: Anion Gap 8, Estimated GFR > 60, BUN/Creatinine Ratio 16.3, PT 14.3 H, INR 1.37 H, CBC w Diff NO MAN DIFF REQ, RBC 4.22, MCV 83.3, MCH 27.3, RDW 15.1 H, MPV 7.4, Gran % 75.9 H, Lymphocytes % 12.7 L, Monocytes % 8.8, Eosinophils % 2.1, Basophils % 0.5, Absolute Granulocytes 7.2 H, Absolute Lymphocytes 1.2, Absolute Monocytes 0.8 H, Absolute Eosinophils 0.2, Absolute Basophils 0, PUBS MCHC 32.8 L Assessment/Plan Assessment: Ms Norwood has a past medical history of hypertension, DVT on Coumadin. She was brought into the [facility] with a chief concern of pain in her left hip and knee after she experienced a mechanical fall. [id number] indicated left femoral neck fracture with varus angulation. Left knee- Normal. Differential diagnosis: #1 femoral neck fracture Below is the problem list and plan: #1 left hip pain-resulting from a femoral neck fracture. Postoperative day 1. Aspirin or the surgical notes, no intraoperative complications were noted. Currently on pain medications with adequate pain control with opiates and NSAIDs. Discontinue Rodriguez after the physical therapy mobilizes her. Monitor vitals and fever closely. No antihypertensives or furosemide to be given this a.m. 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 Currently on Coumadin. Coumadin resumed after the surgery to keep the INR in between 2-3; while being bridged with Lovenox. #2 DVT prophylaxis and treatment-Lovenox. Problem List: 1. Left displaced femoral neck fracture Pain Ratin Pain Location: LEFT KNEE Pain Goal: Pain 4 or less Pain Plan: percocet Tomorrow's Labs & Rationales: cbc -leucocytosis, and H&H bep -monitor kidney function inr - dose w/ coumadin
--- NOTE | 2016-07-11 07:26 | PN- Orthopedic ---
Subjective Subjective: The patient was seen this morning postoperatively day #1. She reports that her hip pain is under relatively out of control but still complains of significant knee pain. Objective Vital Signs and I&Os Vital Signs Date Time Temp Pulse Resp B/P Pulse O2 O2 Flow FiO2 Ox Delivery Rate 07/11 0640 97.9 98 18 82/40 95 Room Air 07/11 0612 90/38 07/11 0250 99.0 114 20 90/40 99 Nasal 2.0L Cannula 07/11 0205 100/40 07/11 0000 Nasal 2.0L Cannula 07/10 2258 98.8 108 18 88/44 95 Nasal 2.0L Cannula 07/10 2030 98.0 98 18 88/34 94 Nasal 4.0L Cannula 07/10 1630 90 Nasal 4.0L Cannula 07/10 1630 97.9 102 20 132/68 88 Nasal 2.0L Cannula 07/10 1517 Room Air 07/10 1004 98.8 80 18 110/50 94 Room Air 07/10 0813 97.6 86 18 104/52 94 Room Air Intake & Output 07/11 0800 07/11 0000 07/10 1600 07/10 0800 07/10 0000 07/09 1600 Intake Total 480 300 300 480 465 Output Total 250 400 359 483 1616 Balance 230 -100 -150 -120 -935 Intake, Blood 250 Product Intake, IV 400 50 300 225 Intake, Oral 80 0 0 480 240 Number 0 Bowel Movements Output, Urine 250 400 644 285 2357 Physical Exam: Gen.: Alert in obvious distress Skin: Warm and dry Extremities: Bilateral lower extremities are warm without calf tenderness or significant edema. Gross motor and sensory are intact. Left hip surgical dressing is clean, dry, and intact. 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 Assessment/Plan Assessment/Plan Assessment: 80-year-old female status post left femoral hemiarthroplasty postoperative day 1. The patient's pain is under adequate control she is progressing as expected. A review the patient's knee x-ray from the emergency department shows no fracture Recommendations: Out of bed with physical therapy patient is weightbearing as tolerated Follow-up morning laboratory results and dose Coumadin for an INR between 2 and 3 DC Rodriguez catheter Continue current pain regiment GI and DVT prophylaxis Continue care per primary team
[2016-07-11 07:55] LABS: ABSOLUTE BASOPHIL COUNT 0 /CUMM (0.0-0.2); ABSOLUTE EOSINOPHIL COUNT 0.1 /CUMM (0.0-0.7); ABSOLUTE GRANULOCYTE CT 6.6 /CUMM (1.4-6.5); ABSOLUTE LYMPH COUNT 0.7 /CUMM (1.2-3.4); ABSOLUTE MONOCYTE COUNT 0.7 /CUMM (0.10-0.60); BASOPHIL % 0.2 % (0.0-2.0); EOSINOPHIL % 1.5 % (0-5); GRANULOCYTE % 81.4 % (42.2-75.2); HEMATOCRIT 30.5 % (37-47); MEAN CORPUSCULAR HGB CONC 33.5 G/DL (33.0-37.0); MEAN CORPUSCULAR VOLUME 83.4 FL (81.0-99.0); MEAN PLATELET VOLUME 7.5 FL (7.4-10.4); PLATELET COUNT 228 /CUMM (130-400); RBC DISTRIBUTION WIDTH 14.5 % (11.5-14.5); RED BLOOD CELL CT 3.66 /CUMM (4.20-5.40); WHITE BLOOD CELL COUNT 8.1 /CUMM (4.8-10.8)
[2016-07-11 08:16] LABS: PT 14.8 SEC (9.4-12.5)
--- NOTE | 2016-07-11 08:57 | Patient Discharge Instructions ---
Discharge Instructions General Discharge Information You were seen/treated for: Lt. hip femoral neck fracture s/p hemiarthroplasty You had these procedures: Lt. hemiarthroplasty on 07/[address] Adams Special Instructions: Please follow up with a primary doctor after discharge within 1 week Out of bed with physical therapy with weight bearing as tolerated Please continue coumadin with goal INR 2-3 Please follow up with an orthopedic doctor after Lt. hemiarthroplasty in 3 weeks Diet Continue normal diet: Yes Recommended Diet: Heart Healthy Activity Full Activity/No Limits: No Activity Self Limited: Yes Activity Limited to: Weight bear as tolerated Additional ACTIVITY Info: Out of bed with physical therapy with weight bearing as tolerated Acute Coronary Syndrome Inclusion Criteria At DC or during hospital stay patient has or had the following: ACS DIAGNOSIS No Discharge Core Measures Meds if any: Prescribed or Continued at Discharge Meds if any: NOT Prescribed or Continued at Discharge Congestive Heart Failure Inclusion Criteria At DC or during hospital stay patient has or had the following: CHF DIAGNOSIS No Discharge Core Measures Meds if any: Prescribed or Continued at Discharge Meds if any: NOT Prescribed or Continued at Discharge Cerebrovascular accident Inclusion Criteria At DC or during hospital stay patient has or had the following: CVA/TIA Diagnosis No Discharge Core Measures Meds if any: Prescribed or Continued at Discharge Meds if any: NOT Prescribed or Continued at Discharge Venous thromboembolism Inclusion Criteria VTE Diagnosis No VTE Type NONE VTE Confirmed by (Test) NONE Discharge Core Measures - Per Current guidelines, there needs to be overlap - treatment for the first 5 days of Warfarin therapy. - If discharged on Warfarin prior to 5 days of - overlap therapy, the patient will need to be - assessed for post discharge needs including - *Post discharge parental anticoagulation - *Warfarin and/or parental anticoagulation education - *Follow up date to check INR post discharge At least 5 days overlap therapy as Inpatient No Meds if any: Prescribed or Continued at Discharge Note: Overlap Therapy is Warfarin and Anticoagulant Meds if any: NOT Prescribed or Continued at Discharge
--- NOTE | 2016-07-11 11:38 | NUR ---
PT OOB ASSISTX2, PT C/O OF NAUSEA, REFUSED ZOFRAN, PT [id number], MD HI AWARE.
--- NOTE | 2016-07-11 14:29 | Discharge Summary ---
Visit Information Visit Dates Admission Date: 07/07/16 Discharge Date: 07/13/16 Hospital Course Course Attending Physician: LOLA ALONSO,SU Rodriguez MD Primary Care Physician: Sendy BAGLEY MD Consulting Request: Consulting Specialty: Orthopedics Consulting Physician: Dr. Adams Reason for Consult: Lt. hip fracture Hospital Course: 80-year-old woman with pmh of HTN, HLD, DVT on Coumadin (for 15 years, hereditary), hx of angioma status post craniotomy came after s/p a mechanical fall while walking in her hallway. She complained of pain in the Lt. knee and Lt. hip. She did not sustain any head trauma on falling, and denies dizziness, headache, fever, N/V/D, blurry vision, syncope or near syncope, URI or UTI symptoms. She does not have a hx of recurrent falls, she lives alone, is independent of her ADLs and does not use a walker for ambulation at home. Initial V/S: 96.8F, MA 102, RR 20, BP BP 168/77, Sat 100% on RA Physical exam: General Appearance: Alert, Oriented X3, Cooperative, Mild Distress, Skin: No Rashes HEENT Atraumatic, PERRLA, EOMI, Neck Supple, No JVD, No thryomegaly, Lymphatic: Cervical nl Cardiovascular: Regular Rate, Normal S1, Normal S2, Lungs: Normal Air Movement, Abdomen: Normal Bowel Sounds, Soft, No Tenderness, Neurological: Normal Speech, Normal Tone, Sensation Intact, Cranial Nerves 3-12 NL, Reflexes 2+, strength 5/5 right upper and lower extremities, strenght 5/5 left upper extremity right lower extremity could not be tested., Extremities: No Clubbing, No Cyanosis, No Edema, Normal Pulses, tenderness in the left knee and left hip. No erythema or open wounds, Vascular: Pulses Symmetrical Labs-WBC-11.3, Vit D 10, INR 2.13 Xray-Limited assessment due to difficulties with patient positioning. 1. Left femoral neck fracture with varus angulation. 2. No definite fracture of the left knee or right elbow. 1. Lt. femoral neck fracture s/p mechanical fall: She had Left hip hemiarthroplasty on 07/10/[address] Adams. She became hypotensive on POD#1 but improved with IV fluid resuscitation. Oral lasix 20mg every other day will be held due to borderline BP. Continue physical therapy with full weight bearing as tolerated. Continue pain medication with bowel regimen. Patient needs to follow up Dr. Adams in 3 weeks after surgery. 2. Hx DVT, hereditary: She had DVT 15 years ago bilateral lower extremities and inferior vena cava. She was on Coumadin prior to admission. Coumadin was resumed after the surgery to keep the INR in between 2-3 bridging with SC Lovenox. Her INR became therapeutic (2.3) on 07/12. Continue po coumadin and monitor INR goal 2-3. 3. HLD: Home dose statine was continued. 4. Vitamin D Deficiency: Vit D level was 10. Continue Vit D supplement 50,000 IU weekly for 8 weeks and follow up with a primary doctor. DVT prophylaxis: coumadin per INR. Full code Allergies: Coded Allergies: Sulfa (Sulfonamide Antibiotics) (VOMITING 08/21/15) amoxicillin (From AUGMENTIN) (HIVES 08/21/15) clavulanic acid (From AUGMENTIN) (HIVES 08/21/15) Significant Procedures: Operative/Inv Procedure Report Surgery Date: 07/10/16 Name of Procedure: Left hip hemiarthroplasty Pre-Operative Diagnosis: Left hip femoral neck fracture Post-Operative Diagnosis: Same Estimated Blood Loss: 300 ML Surgeon/Soil And Plant Scientist: VERONICA Disposition Summary Disposition Principal Diagnosis: Lt. hip femoral neck fracture s/p hemiarthroplasty Additional Diagnosis: HTN HLD hx of DVT on coumadin (15YA) Vitamin D deficiency Discharge Disposition: SNF Discharge Instructions General Discharge Information Code Status: Full Code Patient's Diet: Heart healthy diet Patient's Activity: Weight bearing as tolerated, continue physical therapy Follow-Up Instructions/Appts: Please follow up with a primary doctor after discharge within 1 week Out of bed with physical therapy with weight bearing as tolerated Please continue coumadin with goal INR 2-3. Please follow up with an orthopedic doctor after Lt. hemiarthroplasty in 3 weeks Medications at Discharge Discharge Medications: Stop taking the following medications: Warfarin Sodium (Coumadin) 0.5 MG TAB ORAL SATURDAY Qty = 13 Continue taking these medications: Rosuvastatin Calcium (Crestor) 10 MG TAB 10 Milligram ORAL Every Day Qty = 60 Comments: NOT GIVEN, LIPITOR WAS GIVEN 08/04 @ 4 PM Warfarin Sodium (Coumadin) 2.5 MG TABLET 1 Tablet ORAL DAILY Instructions: Please dose to keep the inr between 2-3. Furosemide (Lasix) 20 MG TABLET 1 Tablet ORAL EVERY 48 HOURS (Every 2 days) Qty = 30 Instructions: Holding parameters: hold for SBP < 90 Start taking the following new medications: Oxycodone HCl/Acetaminophen (Percocet 5-325 MG Tablet) 5 MG-325 MG TABLET 1 Tablet ORAL EVERY SIX HOURS NEEDED as needed for PAIN SCALE 4-6 ( MODERATE) Qty = 30 No Refills Comments: Last Taken: 07/13/16 Time: 1010 Acetaminophen (Tylenol) 325 MG TABLET 650 Milligram ORAL EVERY SIX HOURS NEEDED as needed for PAIN SCALE 1-3 ( MILD) Days = 30 No Refills Comments: NOT GIVEN Calcium Carbonate (Calcium Carbonate) 500 MG CALCIUM (1,250 MG) TABLET 600 Milligram ORAL TWICE DAILY Days = 30 No Refills Comments: Last Taken: 07/12/16 Time: 1000 Polyethylene Glycol 3350 (Miralax) 17 GRAM/DOSE POWDER 17 Gram ORAL AT BEDTIME Days = 14 No Refills Comments: Last Taken: 07/12/16 Time: 2100 Sennosides/Docusate Sodium (Senna Plus Tablet) 8.6 MG-50 MG TABLET 2 Tablet ORAL AT BEDTIME Days = 14 No Refills Comments: Last Taken: 07/13/16 Time: 2100 Ergocalciferol (Vitamin D2) (Vitamin D2) 50,000 UNIT CAPSULE 50,000 International Unit ORAL WEEKLY Qty = 8 No Refills Comments: Last Taken: 07/13/16 Time: 1000 Copies To: YUDI ALONSO,MNeris SABINE; VERONICA ALONSO,STELLA Danielle MD Review Statement Other Findings: Dr Smith is the discharging attending for this patient. please see his note for more details.
--- NOTE | 2016-07-11 15:19 | PN- Att Addend ---
Attending MD Review Statement Attending Statement Attending MD Statement: examined this patient, discuss w/resident/PA/PAINT ROLLER WINDER, agreed w/resident/PA/PAINT ROLLER WINDER, reviewed EMR data (avail), discussed w/nursing, discussed w/ case mgmt Attending Assessment/Plan: 80 yr old female with past medical history of hypertension, DVT on Coumadin. She was brought into the [facility] with a chief concern of pain in her left hip and knee after she experienced a mechanical fall. [id number] indicated left femoral neck fracture. Pt s/p ORIF yesterday. Had some low BP overnight which is better this morning after fluids. Plan- Resumed coumadin last night and on bridging dose of lovenox. will cont to monitor INR Left femoral neck fracture s/p ORIF- To be seen by PT/OT and will plan for dc to [facility] tomorrow if stable. Labs reviewed and ok.
--- NOTE | 2016-07-12 05:59 | PN- Housestaff ---
[place] HI 07/12/16 0558: Subjective Follow-up For: 1. left femur ncek fracture Subjective: Patient was comfortable this morning. Complaints of pain in her left knee. Does not have any pain in her left hip region. No tenderness. No swelling or erythema was noted. Vitals are stable overnight. This a.m. blood pressure was found to be below 84/50 which improved to 106/50 after receiving bolus of normal saline. Discussed with surgical PA, who did not think that the patient had any hematoma at the site of surgery. Review of Systems Constitutional: Reports: see HPI. Objective Last 24 Hrs of Vital Signs/I&O Vital Signs Date Time Temp Pulse Resp B/P Pulse O2 O2 Flow FiO2 Ox Delivery Rate 07/12 0000 Nasal 2.0L Cannula 07/11 2213 99.0 107 20 106/42 97 Nasal 2.0L Cannula 07/11 1600 Nasal 2.0L Cannula 07/11 1519 98.1 60 20 120/70 90 07/11 1047 90 18 110/68 90 Nasal 2.0L Cannula 07/11 0952 Nasal 2.0L Cannula 07/11 0801 106/52 07/11 0800 Nasal 2.0L Cannula 07/11 0640 97.9 98 18 82/40 95 Room Air 07/11 0612 90/38 Intake & Output 07/12 0800 07/12 0000 07/11 1600 Intake Total 830 880 Output Total 250 Balance 580 880 Intake, IV 350 400 Intake, Oral 480 480 Number 0 Bowel Movements Output, Urine 250 Patient 141 lb Weight Physical Exam General Appearance: No Acute Distress Skin: No Rashes, surgical site- no erythema HEENT: PERRLA, EOMI Neck: No JVD, No thryomegaly, +2 Carotid Pulse wo Bruit Lymphatic: Cervical nl Cardiovascular: Regular Rate, Normal S1, Normal S2 Lungs: Normal Air Movement Abdomen: Normal Bowel Sounds, Soft, No Tenderness Neurological: Normal Speech, Strength at 5/5 X4 Ext, Normal Tone, Sensation Intact, Cranial Nerves 3-12 NL Extremities: No Clubbing, No Cyanosis, No Edema, Normal Pulses Vascular: Pulses Symmetrical Current Medications: Current Medications Sig/Kim Start time Last Medication Dose Route Stop Time Status Admin Acetaminophen 650 MG Q6P PRN 07/10 1500 AC PO Atorvastatin Calcium 40 MG 1700 07/10 1700 AC 07/11 PO 1615 Calcium 600 MG BID 07/10 2200 AC 07/11 PO 2217 Cefazolin Sodium 2 GM IQ8 07/10 2100 DC 07/11 N/A 1 UNIT IV 07/11 0829 1105 Cholecalciferol 2,000 IU DAILY 07/12 1000 AC PO Cholecalciferol 2,000 IU DAILY 07/11 1000 DC PO Dextrose/Sodium 1,000 ML Q20H 07/10 1500 AC 07/11 Chloride IV 2228 Docusate Sodium 100 MG BID 07/10 2200 AC 07/11 PO 2217 Enoxaparin Sodium 60 MG BID 07/11 1026 AC 07/11 SC 2218 Ergocalciferol 50,000 IU ONCE ONE 07/11 1000 DC 07/11 PO 07/11 1001 1105 Furosemide 20 MG Q48 07/12 1000 AC PO Hydromorphone HCl 1 MG Q6P PRN 07/10 1500 AC 07/11 IV 2216 Ondansetron HCl 4 MG Q6P PRN 07/10 1500 AC 07/11 IV 1148 Oxycodone/ 1 TAB Q6P PRN 07/10 1500 AC 07/11 Acetaminophen PO 1025 Polyethylene Glycol 17 GM AT BEDTIME 07/10 2200 AC 07/11 PO 2218 Potassium Chloride 20 MEQ ONCE ONE 07/11 1200 DC 07/11 PO 07/11 1201 1249 Potassium Chloride 40 MEQ ONCE ONE 07/11 0830 DC 07/11 PO 07/11 0831 1105 Senna/Docusate Sodium 2 TAB AT BEDTIME 07/10 2200 AC 07/11 PO 2217 Sodium Chloride 500 ML BOLUS ONE 07/11 0615 DC 07/11 IV 07/11 0714 0634 Trimethobenzamide HCl 200 MG 4 TIMES/DAY PRN 07/10 1500 AC IM Warfarin Sodium 5 MG COUMADIN 1700 ONE 07/11 1700 DC PO 07/11 1701 Warfarin Sodium 2.5 MG COUMADIN 1700 ONE 07/11 1700 DC 07/11 PO 07/11 1701 1614 Last 24 Hrs of Lab/[place] Results Last 24 Hrs of Labs/Mics: Laboratory Tests 07/11/16 0610: Anion Gap 5, Estimated GFR > 60, BUN/Creatinine Ratio 14.3, PT 14.8 H, INR 1.41 H, CBC w Diff NO MAN DIFF REQ, RBC 3.66 L, MCV 83.4, MCH 28.0, RDW 14.5, MPV 7.5, Gran % 81.4 H, Lymphocytes % 8.6 L, Monocytes % 8.3, Eosinophils % 1.5, Basophils % 0.2, Absolute Granulocytes 6.6 H, Absolute Lymphocytes 0.7 L, Absolute Monocytes 0.7 H, Absolute Eosinophils 0.1, Absolute Basophils 0, PUBS MCHC 33.5 Assessment/Plan Assessment: Ms Norwood has a past medical history of hypertension, DVT on Coumadin. She was brought into the with a chief concern of pain in her left hip and knee after she experienced a mechanical fall. [id number] indicated left femoral neck fracture with varus angulation. Left knee- Normal. Differential diagnosis: #1 femoral neck fracture Below is the problem list and plan: #1 left hip pain-resulting from a femoral neck fracture. Postoperative day 2. Currently on pain medications with adequate pain control with opiates and NSAIDs. Discontinue Rodriguez catheter. Monitor vitals and fever closely. No antihypertensives or furosemide to be given this a.m. 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 Currently on Coumadin. Coumadin resumed after the surgery to keep the INR in between 2-3. #2 DVT prophylaxis and treatment-Coumadin. Problem List: 1. Left displaced femoral neck fracture Pain Ratin Pain Location: left knee Pain Goal: Pain 4 or less Pain Plan: percocet Tomorrow's Labs & Rationales: No labs necessary-pt to be discharged. Consulting Request: Consulting Specialty: Orthopedics Consulting Physician: Dr. Adams Reason for Consult: Lt. hip fracture SU DAVILA MD 07/12/16 1554: Attending MD Review Statement Attending Statement Attending MD Statement: examined this patient, discuss w/resident/PA/RESEARCH DEVELOPMENT MANAGER, agreed w/resident/PA/RESEARCH DEVELOPMENT MANAGER, reviewed EMR data (avail) Attending Assessment/Plan: S/p ORIF and tolerating post-op well. BP borderline low but patient completely asymptomatic, pain controlled. Will trend CBC, gentle IV hydration and monitor BP, anticipated discharge tomorrow to [facility]. Continue Coumadin, may stop Lovenox.
[2016-07-12 06:40] VITALS: BP 94/44
--- NOTE | 2016-07-12 07:42 | PN- Orthopedic ---
Subjective Subjective: NAEO. Patient continues to have discomfort left hip which is helped by IV meds. Denies numbness or tingling left lower extremity. PT worked patient yesterday. Patient denies chest pain or shortness of breath. Objective Vital Signs and I&Os Vital Signs Date Time Temp Pulse Resp B/P Pulse O2 O2 Flow FiO2 Ox Delivery Rate 07/12 0640 98.7 106 20 94/44 97 Nasal 2.0L Cannula 07/12 0000 Nasal 2.0L Cannula 07/11 2213 99.0 107 20 106/42 97 Nasal 2.0L Cannula 07/11 1600 Nasal 2.0L Cannula 07/11 1519 98.1 60 20 120/70 90 07/11 1047 90 18 110/68 90 Nasal 2.0L Cannula 07/11 0952 Nasal 2.0L Cannula 07/11 0801 106/52 07/11 0800 Nasal 2.0L Cannula Intake & Output 07/12 0800 07/12 0000 07/11 1600 07/11 0800 07/11 0000 07/10 1600 Intake Total 587 609 9534 480 300 Output Total 750 250 250 250 400 Balance -750 580 880 750 230 -100 Intake, Blood 250 Product Intake, IV 350 400 800 400 50 Intake, Oral 480 480 200 80 0 Number 0 Bowel Movements Output, Urine 750 250 250 250 400 Patient 141 lb Weight Physical Exam: General: NAD, comfortable, A&Ox3 Chest: CTAB. RRR Abdomen: soft, nontender, nondistended. Ext: Left hip incision intact with nara with minor ecchymosis around incision. No surrounding erythema, swelling, signs of infection. No calve swelling/TTP, neurovascularly intact bilateral lower extremities Current Medications: Current Medications Sig/Kim Start time Last Medication Dose Route Stop Time Status Admin Acetaminophen 650 MG Q6P PRN 07/10 1500 AC PO Atorvastatin Calcium 40 MG 1700 07/10 1700 AC 07/11 PO 1615 Calcium 600 MG BID 07/10 2200 AC 07/11 PO 2217 Cefazolin Sodium 2 GM IQ8 07/10 2100 DC 07/11 N/A 1 UNIT IV 07/11 0829 1105 Cholecalciferol 2,000 IU DAILY 07/12 1000 AC PO Cholecalciferol 2,000 IU DAILY 07/11 1000 DC PO Dextrose/Sodium 1,000 ML Q20H 07/10 1500 AC 07/12 Chloride IV 0642 Docusate Sodium 100 MG BID 07/10 2200 AC 07/11 PO 2217 Enoxaparin Sodium 60 MG BID 07/11 1026 AC 07/11 SC 2218 Ergocalciferol 50,000 IU ONCE ONE 07/11 1000 DC 07/11 PO 07/11 1001 1105 Furosemide 20 MG Q48 07/12 1000 AC PO Hydromorphone HCl 1 MG Q6P PRN 07/10 1500 AC 07/12 IV 0641 Ondansetron HCl 4 MG Q6P PRN 07/10 1500 AC 07/11 IV 1148 Oxycodone/ 1 TAB Q6P PRN 07/10 1500 AC 07/11 Acetaminophen PO 1025 Polyethylene Glycol 17 GM AT BEDTIME 07/10 220 AC 07/11 PO 2218 Potassium Chloride 20 MEQ ONCE ONE 07/11 1200 DC 07/11 PO 07/11 1201 1249 Potassium Chloride 40 MEQ ONCE ONE 07/11 0830 DC 07/11 PO 07/11 0831 1105 Senna/Docusate Sodium 2 TAB AT BEDTIME 07/10 2199 AC 07/11 PO 2217 Trimethobenzamide HCl 200 MG 4 TIMES/DAY PRN 07/10 1500 AC IM Warfarin Sodium 5 MG COUMADIN 1700 ONE 07/11 1700 DC PO 07/11 1701 Warfarin Sodium 2.5 MG COUMADIN 1700 ONE 07/11 1700 DC 07/11 PO 07/11 1701 1614 Results Last 48 Hours of Labs: Laboratory Tests 07/12 07/11 0620 0610 Chemistry Sodium (137 - 145 mmol/L) Pending 135 L Potassium (3.5 - 5.1 mmol/L) Pending 3.3 L Chloride (98 - 107 mmol/L) Pending 101 Carbon Dioxide (22 - 30 mmol/L) Pending 29 Anion Gap (5 - 16) Pending 5 BUN (7 - 17 mg/dL) Pending 10 Creatinine (0.5 - 1.0 mg/dL) Pending 0.7 Estimated GFR (>60 ml/min) > 60 BUN/Creatinine Ratio (7 - 25 %) Pending 14.3 Coagulation PT (9.4 - 12.5 SEC) Pending 14.8 H INR (0.90 - 1.19) Pending 1.41 H Hematology CBC w Diff Pending NO MAN DIFF REQ WBC (4.8 - 10.8 /CUMM) Pending 8.1 RBC (4.20 - 5.40 /CUMM) Pending 3.66 L Hgb (12.0 - 16.0 G/DL) Pending 10.2 L Hct (37 - 47 %) Pending 30.5 L MCV (81.0 - 99.0 FL) Pending 83.4 MCH (27.0 - 31.0 PG) Pending 28.0 RDW (11.5 - 14.5 %) Pending 14.5 Plt Count (130 - 400 /CUMM) Pending 228 MPV (7.4 - 10.4 FL) Pending 7.5 Gran % (42.2 - 75.2 %) 81.4 H Lymphocytes % (20.5 - 51.1 %) 8.6 L Monocytes % (1.7 - 9.3 %) 8.3 Eosinophils % (0 - 5 %) 1.5 Basophils % (0.0 - 2.0 %) 0.2 Absolute Granulocytes (1.4 - 6.5 /CUMM) 6.6 H Absolute Lymphocytes (1.2 - 3.4 /CUMM) 0.7 L Absolute Monocytes (0.10 - 0.60 /CUMM) 0.7 H Absolute Eosinophils (0.0 - 0.7 /CUMM) 0.1 Absolute Basophils (0.0 - 0.2 /CUMM) 0 PUBS MCHC (33.0 - 37.0 G/DL) Pending 33.5 07/10 0803 Chemistry Sodium (137 - 145 mmol/L) 138 Potassium (3.5 - 5.1 mmol/L) 4.0 Chloride (98 - 107 mmol/L) 100 Carbon Dioxide (22 - 30 mmol/L) 29 Anion Gap (5 - 16) 8 BUN (7 - 17 mg/dL) 13 Creatinine (0.5 - 1.0 mg/dL) 0.8 Estimated GFR (>60 ml/min) > 60 BUN/Creatinine Ratio (7 - 25 %) 16.3 Coagulation PT (9.4 - 12.5 SEC) 14.3 H INR (0.90 - 1.19) 1.37 H Hematology CBC w Diff NO MAN DIFF REQ WBC (4.8 - 10.8 /CUMM) 9.4 RBC (4.20 - 5.40 /CUMM) 4.22 Hgb (12.0 - 16.0 G/DL) 11.5 L Hct (37 - 47 %) 35.2 L MCV (81.0 - 99.0 FL) 83.3 MCH (27.0 - 31.0 PG) 27.3 RDW (11.5 - 14.5 %) 15.1 H Plt Count (130 - 400 /CUMM) 222 MPV (7.4 - 10.4 FL) 7.4 Gran % (42.2 - 75.2 %) 75.9 H Lymphocytes % (20.5 - 51.1 %) 12.7 L Monocytes % (1.7 - 9.3 %) 8.8 Eosinophils % (0 - 5 %) 2.1 Basophils % (0.0 - 2.0 %) 0.5 Absolute Granulocytes (1.4 - 6.5 /CUMM) 7.2 H Absolute Lymphocytes (1.2 - 3.4 /CUMM) 1.2 Absolute Monocytes (0.10 - 0.60 /CUMM) 0.8 H Absolute Eosinophils (0.0 - 0.7 /CUMM) 0.2 Absolute Basophils (0.0 - 0.2 /CUMM) 0 PUBS MCHC (33.0 - 37.0 G/DL) 32.8 L Assessment/Plan Assessment/Plan 80yo F POD#2 status post left hip hemiarthroplasty. Patient stable from orthostatic surgery standpoint. - Pain control - Follow-up INR, dose Coumadin for INR of 2-3 - continue coumadin for 4 weeks - Bowel regimen - PT, weightbearing as tolerated - Daily dressing changes by RN starting tomorrow - Patient to follow-up with Dr. Adams in office, call for appointment
[2016-07-12 07:45] LABS: ABSOLUTE BASOPHIL COUNT 0 /CUMM (0.0-0.2); ABSOLUTE EOSINOPHIL COUNT 0.2 /CUMM (0.0-0.7); ABSOLUTE GRANULOCYTE CT 8.4 /CUMM (1.4-6.5); ABSOLUTE LYMPH COUNT 0.7 /CUMM (1.2-3.4); ABSOLUTE MONOCYTE COUNT 0.9 /CUMM (0.10-0.60); BASOPHIL % 0.3 % (0.0-2.0); EOSINOPHIL % 1.9 % (0-5); GRANULOCYTE % 82.5 % (42.2-75.2); HEMATOCRIT 28.4 % (37-47); MEAN CORPUSCULAR HGB 27.8 PG (27.0-31.0); MEAN CORPUSCULAR HGB CONC 33.4 G/DL (33.0-37.0); MEAN CORPUSCULAR VOLUME 83.3 FL (81.0-99.0); MEAN PLATELET VOLUME 7.4 FL (7.4-10.4); PLATELET COUNT 241 /CUMM (130-400); RBC DISTRIBUTION WIDTH 14.2 % (11.5-14.5); WHITE BLOOD CELL COUNT 10.1 /CUMM (4.8-10.8)
[2016-07-12 08:34] LABS: PT 24.5 SEC (9.4-12.5)
[2016-07-12 09:00] VITALS: BP 84/50
--- NOTE | 2016-07-12 09:02 | NUR ---
BLOOD PRESSURE 82/50 ON LEFT ARM. RE-CHECKED ON RIGHT ARM, 84/50. HEART RATE 102 APICALLY. PT DENIES DIZZINESS OR SYMPTOMS. REPORTED TO DR. ROCHA. AWAITING ORDERS. IVF CURRENTLY INFUSING AT 50ML/HR.
--- NOTE | 2016-07-12 09:13 | NUR ---
Physical Therapy: Attempted to see pt this morning for treatment. Pt's BP currently 85/50. Will cx treatment at this time and follow up later as appropriate. Thank you.
[2016-07-12 10:25] VITALS: BP 106/50
[2016-07-12 12:40] VITALS: BP 100/50
[2016-07-12 14:26] VITALS: BP 92/50
[2016-07-12 20:55] LABS: ABSOLUTE BASOPHIL COUNT 0 /CUMM (0.0-0.2); ABSOLUTE EOSINOPHIL COUNT 0.2 /CUMM (0.0-0.7); ABSOLUTE MONOCYTE COUNT 0.9 /CUMM (0.10-0.60); BASOPHIL % 0.1 % (0.0-2.0); EOSINOPHIL % 1.4 % (0-5); GRANULOCYTE % 83.2 % (42.2-75.2); HEMATOCRIT 27.8 % (37-47); MEAN CORPUSCULAR HGB 27.6 PG (27.0-31.0); MEAN CORPUSCULAR HGB CONC 33.3 G/DL (33.0-37.0); MEAN CORPUSCULAR VOLUME 82.7 FL (81.0-99.0); PLATELET COUNT 269 /CUMM (130-400); RBC DISTRIBUTION WIDTH 14.8 % (11.5-14.5); RED BLOOD CELL CT 3.36 /CUMM (4.20-5.40)
[2016-07-12 21:40] VITALS: BP 108/50
[2016-07-13 06:39] VITALS: BP 90/60
--- NOTE | 2016-07-13 07:21 | PN- Housestaff ---
Subjective Follow-up For: 1. hemiarthroplasty Subjective: Ms Norwood was comfortable, and she did not complain of any pain in her hip. Vitals were stable overnight, and BP was in the range of SBP 90-100's. No symptoms-dizziness, shortness of breath. She did not have any discoloration at the site of surgery. Tmax 99.5. No bowel movements were noted till this am. Discussed with her about the use of a dulcolax suppository, and was acceptable to this idea. 1-2 BM after use of a suppository. Review of Systems Constitutional: Reports: see HPI. Objective Last 24 Hrs of Vital Signs/I&O Vital Signs Date Time Temp Pulse Resp B/P Pulse O2 O2 Flow FiO2 Ox Delivery Rate 07/13 0639 97.8 87 20 90/60 96 07/12 2140 99.5 99 18 108/50 96 Room Air 07/12 1426 99.0 99 17 92/50 94 Room Air 07/12 1240 100 100/50 07/12 1025 98.9 106/50 07/12 0900 102 84/50 94 Room Air Intake & Output 07/13 0800 07/13 0000 07/12 1600 Intake Total 460 999 6552 Output Total 1100 225 625 Balance -850 25 875 Intake, IV 10 10 900 Intake, Oral 240 240 600 Output, Urine 1100 225 625 Physical Exam General Appearance: No Acute Distress Other Physical Findings: General Exam: AAOx3, No acute distress, Skin: No rashes, no breakdown, surgical site- no erytheama. HEENT: PERRLA, EOMI Neck: Supple, No JVD No cervical lymphadenopathy CVS: Reg Rate, Normal S1,S2, No MGR Resp: Normal air entry, no ronchi/rales Abdomen: Soft, No tenderness, Normal Bowel Sounds Neuro: Normal Speech, Strength 5/5 b/l x 4 extremities, Sensation intact, CN III -XII NL, Reflexes 2+ Extremities: No cyanosis, pedal edema Current Medications: Current Medications Sig/Kim Start time Last Medication Dose Route Stop Time Status Admin Acetaminophen 650 MG Q6P PRN 07/10 1500 AC PO Atorvastatin Calcium 40 MG 1700 07/10 1700 AC 07/12 PO 1736 Bisacodyl 10 MG ONCE ONE 07/13 0730 UNVr HI 07/13 0731 Bisacodyl 10 MG ONCE PRN 07/12 1245 DC 07/12 HI 1352 Calcium 600 MG BID 07/10 2200 AC 07/12 PO 2100 Cholecalciferol 2,000 IU DAILY 07/12 1000 AC 07/12 PO 0917 Dextrose/Sodium 1,000 ML Q20H 07/10 1500 DC 07/12 Chloride IV 0642 Docusate Sodium 100 MG BID 07/10 2200 AC 07/12 PO 2059 Enoxaparin Sodium 60 MG BID 07/11 1026 DC 07/11 SC 2218 Furosemide 20 MG Q48 07/12 1000 CAN PO Hydromorphone HCl 1 MG Q6P PRN 07/10 1500 AC 07/12 IV 2100 Magnesium Hydroxide 30 ML ONE ONE 07/12 1415 DC 07/12 PO 07/12 1416 1424 Ondansetron HCl 4 MG Q6P PRN 07/10 1500 AC 07/11 IV 1148 Oxycodone/ 1 TAB Q6P PRN 07/10 1500 AC 07/13 Acetaminophen PO 0310 Patient Medication 1 ED .STK-MED ONE 07/12 1336 IN Teaching ED 07/12 1337 Polyethylene Glycol 17 GM AT BEDTIME 07/100 AC 07/12 PO 2103 Senna/Docusate Sodium 2 TAB AT BEDTIME 07/100 AC 07/12 PO 2058 Sodium Chloride 500 ML BOLUS ONE 07/12 0915 DC 07/12 IV 07/12 1014 0917 Trimethobenzamide HCl 200 MG 4 TIMES/DAY PRN 07/10 1500 AC IM Warfarin Sodium 2.5 MG COUMADIN 1700 ONE 07/12 1700 DC 07/12 PO 07/12 1701 1736 Last 24 Hrs of Lab/[place] Results Last 24 Hrs of Labs/Mics: Laboratory Tests 07/12/16 2020: CBC w Diff NO MAN DIFF REQ, RBC 3.36 L, MCV 82.7, MCH 27.6, RDW 14.8 H, MPV 7.0 L, Gran % 83.2 H, Lymphocytes % 8.1 L, Monocytes % 7.2, Eosinophils % 1.4 , Basophils % 0.1, Absolute Granulocytes 10.0 H, Absolute Lymphocytes 1.0 L, Absolute Monocytes 0.9 H, Absolute Eosinophils 0.2, Absolute Basophils 0, PUBS MCHC 33.3 Assessment/Plan Assessment: Ms Norwood has a past medical history of hypertension, DVT on Coumadin. She was brought into the [facility] with a chief concern of pain in her left hip and knee after she experienced a mechanical fall. Differential diagnosis: #1 femoral neck fracture Below is the problem list and plan: #1 left hip pain-resulting from a femoral neck fracture. Postoperative day 3. Currently on pain medications with adequate pain control with opiates and NSAIDs. Voiding with no difficulty. Monitor vitals and fever closely. Repeat CBC last night was stable. No evidence of bleeding. BP remains on the lower side. Physical therapy therapy. Watch for any s/s of paresthesia or weakness in the leg. No leucocytosis WBC 10.5, Hb 9.1. 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 Currently on Coumadin. INR 2.06. Coumadin resumed after the surgery to keep the INR in between 2-3. Dose coumadin today. #2 DVT prophylaxis and treatment-Coumadin. Problem List: 1. Left displaced femoral neck fracture Pain Ratin Pain Location: left knee Pain Goal: Pain 4 or less Pain Plan: percocet Tomorrow's Labs & Rationales: no labs necessary. pt could be discharged today Consulting Request: Consulting Specialty: Orthopedics Consulting Physician: Dr. Adams Reason for Consult: Lt. hip fracture
[2016-07-13 08:01] LABS: ABSOLUTE BASOPHIL COUNT 0 /CUMM (0.0-0.2); ABSOLUTE EOSINOPHIL COUNT 0.2 /CUMM (0.0-0.7); ABSOLUTE GRANULOCYTE CT 8.7 /CUMM (1.4-6.5); ABSOLUTE LYMPH COUNT 0.8 /CUMM (1.2-3.4); ABSOLUTE MONOCYTE COUNT 0.8 /CUMM (0.10-0.60); BASOPHIL % 0.1 % (0.0-2.0); EOSINOPHIL % 1.7 % (0-5); GRANULOCYTE % 82.2 % (42.2-75.2); HEMATOCRIT 26.8 % (37-47); MEAN CORPUSCULAR HGB 28.1 PG (27.0-31.0); MEAN CORPUSCULAR HGB CONC 33.9 G/DL (33.0-37.0); MEAN PLATELET VOLUME 7.3 FL (7.4-10.4); PLATELET COUNT 266 /CUMM (130-400); RBC DISTRIBUTION WIDTH 14.6 % (11.5-14.5); RED BLOOD CELL CT 3.23 /CUMM (4.20-5.40); WHITE BLOOD CELL COUNT 10.5 /CUMM (4.8-10.8)
[2016-07-13 08:29] LABS: PT 21.5 SEC (9.4-12.5)
[2016-07-13 09:25] VITALS: BP 100/56
[2016-07-13 11:10] VITALS: BP 98/58
[2016-07-13 12:17] VITALS: BP 98/58
[2016-07-13] MEDS ORDERED: MIRALAX119 GM PO (12:46)
[2016-07-13] MEDS ORDERED: TYLENOL325 M1 PO (12:46)
[2016-07-13] MEDS ORDERED: CALCIUM CARBON500 M2 PO (12:46)
[2016-07-13] MEDS ORDERED: PERCOCET 5-3251 EACH PO (12:46)
[2016-07-13] MEDS ORDERED: VITAMIN D250000 UNIT PO (12:47)
[2016-07-13] MEDS ORDERED: SENNA PLUS TAB1 EACH PO (12:47)
[2016-07-13 14:12] VITALS: BP 118/68
== END 2016-07-13 16:45 | DRG 482 ==
LOC: ENRESERVDT → ENRESERVTM → ERH 12:40 → 2NA 15:14 → ERHI 15:14 → ENPENDDIS 15:14 → 2NA 18:16
PROVIDERS: Internal Medicine; Internal Medicine Endocrinology, Diabetes & Metabolism; Physician Assistant; Physician Assistant Medical; Student in an Organized Health Care Education/Training Program; ADMIT Internal Medicine
PROC: 0QS904Z Reposition Left Femoral Shaft with Internal Fixation Device, Open Approach (ICD-10-PCS; principal; 2016-07-10)
DX: S72.002A Fracture of unspecified part of neck of left femur, initial encounter for closed fracture (principal); I10 Essential (primary) hypertension; Z86.718 Personal history of other venous thrombosis and embolism; Z79.01 Long term (current) use of anticoagulants; E78.5 Hyperlipidemia, unspecified; I73.9 Peripheral vascular disease, unspecified; W01.0XXA Fall on same level from slipping, tripping and stumbling without subsequent striking against object, initial encounter; Y92.019 Unspecified place in single-family (private) house as the place of occurrence of the external cause
CPT/HCPCS: 2NASP; 36415; 73080-RT; 73502-LT; 73562-LT; 81001; 82436; 87086; 88305; 93005; 93010; 97112-GO; 97161-GP; 97530-GO; C1713; J0131; J0690; J1650; J2405; J2550; J3250; J7040; J7042

== ENCOUNTER 2016-10-15 10:59 | Emergency (ER) | payer OTHER ==
[~2016-10-15] VITALS: Ht 165.1 cm; Wt 60.3 kg
[~2016-10-15 10:59] MED LIST changes: +CALCIUM CARBON500 M2 PO; +MIRALAX119 GM PO; +PERCOCET 5-3251 EACH PO; +SENNA PLUS TAB1 EACH PO; +TYLENOL325 M1 PO; +VITAMIN D250000 UNIT PO
--- NOTE | 2016-10-15 11:55 | ED NEURO DEFICIT/STROKE ---
History of Present Illness General Chief Complaint: Neuro Symptoms/ Deficit Stated Complaint: RIGHT SIDED FACIAL DROOP Source: patient Exam Limitations: no limitations Allergies Coded Allergies: morphine (Intermediate, RASH 10/15/16) Sulfa (Sulfonamide Antibiotics) (VOMITING 08/21/15) amoxicillin (From AUGMENTIN) (HIVES 08/21/15) clavulanic acid (From AUGMENTIN) (HIVES 08/21/15) Reconcile Medications Furosemide (Lasix) 20 MG TABLET 1 TAB PO Q48 pedal edema (Reported) Holding parameters: hold for SBP < 90 Oxycodone HCl/Acetaminophen (Percocet 5-325 MG Tablet) 5 MG-325 MG TABLET 1 TAB PO Q6P PRN PAIN SCALE 4-6 (MODERATE) Rosuvastatin Calcium (Crestor) 10 MG TABLET 1 TAB PO DAILY CHOLESTEROL ( Reported) Warfarin Sodium (Coumadin) 2.5 MG TABLET 1 TAB PO DAILY dvt (Reported) Please dose to keep the inr between 2-3. Triage Note: PT JIMMIE FROM HOME AFTER VISITING NURSE CALLED 911 BECAUSE SHE NOTICED PATIENT HAD A RIGHT SIDED FACIAL DROOP AND SLURRED SPEECH. PT STATES SHE HAD A HEADACHE YESTERDAY AND SLEPT MOST OF THE DAY. PT STATES TODAY SHE STILL HAS A DULL HEADACHE THAT WONT GO AWAY. PT NOTED TO HAVE A RIGHT SIDED FACIAL DROOP ON ARRIVAL WITH SLIGHT SLURRED SPEECH. PT ANSWERING ALL QUESTIONS APPROPRIATELY AND ABLE TO FOLLOW COMMANDS. PT BS 106. Triage Nurses Notes Reviewed? yes HPI: This patient is a 80-year-old female who presented to the emergency department today brought in by ambulance for evaluation of facial droop and slurred speech. The patient reported that her physical therapist came in today to try to work with her on using a cane instead of a walker as she is status post left hip surgery in June 2016. The patient reported that yesterday she was feeling more tired than normal. She reported that she slept during the day which she never does. Today she has a headache that is a 6 out of 10 and across her forehead. The pain is throbbing and nonradiating. She has had the headache all day. She did take Tylenol prior to arrival in the emergency department. The patient reported that her physical therapist told her that she was slurring her words and wanted her to come to the emergency department. The patient denied any chest pain, difficulty breathing, visual changes, ringing in her ears, jaw pain, arm pain, numbness or tingling in her extremities, abdominal pain, nausea, vomiting, back pain, or any other associated symptoms. (ROWENA LILLY PA-C) Vital Signs & Intake/Output Vital Signs & Intake/Output Vital Signs Date Time Temp Pulse Resp B/P B/P Pulse O2 O2 Flow FiO2 Mean Ox Delivery Rate 10/15 1347 96.6 67 18 165/71 100 Room Air 10/15 1157 99 10/15 1140 96.2 71 20 139/67 99 Room Air ED Intake and Output 10/16 0000 10/15 1200 Intake Total Output Total 400 Balance -400 Output, Urine 400 Patient 133 lb Weight Weight Reported by Patient Measurement Method Past History Travel History Traveled to [place] past 21 day No Medical History Any Pertinent Medical History? 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 No (ROWENA LILLY PA-C) Review of Systems Review of Systems Constitutional: Reports: no symptoms. EENTM: Reports: no symptoms. Respiratory: Reports: no symptoms. Cardiovascular: Reports: no symptoms. GI: Reports: no symptoms. Genitourinary: Reports: no symptoms. Musculoskeletal: Reports: no symptoms. Skin: Reports: no symptoms. Neurological/Psychological: Reports: see HPI. All Other Systems: Reviewed and Negative (ROWENA LILYL PA-C) Physical Exam Physical Exam General Appearance: well developed/nourished, no apparent distress, alert, awake Cranial Nerves: normal hearing, normal speech, PERRL Comments: Well-developed well-nourished person in no acute distress HEENT: Normal EENT exam, head normocephalic/atraumatic with no bony deformities/ step-offs of the skull, no tenderness to palpation of the scalp, moist mucous membranes PERRLA bilaterally. EOMI bilaterally Neck: Supple. No midline tenderness Back: Normal inspection Cardiovascular: Regular rate and rhythm with no murmurs, rubs, or gallops Respiratory: Chest nontender. No respiratory distress. Breath sounds clear to auscultation bilaterally with no wheezes, rales, rhonchi Abdomen: Soft, nontender and nondistended Extremity: No edema, no calf tenderness to palpation, normal and equal pulses. Neuro: Alert oriented x3, motor sensory normal, cranial nerves II through XII grossly intact. Right-sided droop of the mouth. No aphasia, no unilateral weakness Skin: No appreciable rash on exposed skin, skin is warm and dry. Psych: Mood and affect is normal, memory and judgment is normal. Core Measures CVA/TIA Diagnosis: No Severe Sepsis Present: No Septic Shock Present: No (VIJAYA YUEN,ROWENA) Progress Differential Diagnosis: acute glaucoma, Thompson's Palsy, drug intoxication, electrolyte imbalance, encephalitis, hypoglycemia, intracranial Hem., intracranial mass/tumor, meningitis, migraine RENE, seizure disorder, stroke, subarachnoid Hem., vertebrobasilar insuff., TIA Diagnostic Imaging: Viewed by Me: CT Scan. Discussed w/RAD: CT Scan. Radiology Impression: PATIENT: ABRIL ENRIQUE PRESENT AGE: 80 PATIENT ACCOUNT NO: [id number] : 37 LOCATION: [facility] ORDERING PHYSICIAN: ROWENA LILLY PA-C SERVICE DATE: 10/15/16 EXAM TYPE: CAT - CT HEAD WO IV CONTRAST EXAMINATION: CT HEAD WITHOUT CONTRAST CLINICAL INFORMATION: 80-year-old woman with history of surgery for brain tumor. Facial droop. COMPARISON: 07/01/2009 CT TECHNIQUE: Contiguous axial imaging was performed from the skull base to vertex without intravenous administration of contrast. DLP: 529 mGy-cm FINDINGS: The patient has undergone prior right suboccipital craniectomy with some focal encephalomalacia seen in the right lateral cerebellum. There is also prominence of the cerebellar folia and some vermian volume loss. These findings are similar to the patient's prior head CT. No intracranial mass, hemorrhage, midline shift, or extra-axial collection is identified. Prominence of the ventricles and sulcal spaces is presumably a manifestation of chronic volume loss. Mild mucosal thickening is seen in the ethmoid air cells. IMPRESSION: No acute intracranial pathology. DICTATED BY: DENNIS PALACIO MD DATE/TIME DICTATED:10/15/161217 BACKROOM ASSOCIATE:SHON DATE/TIME TRANSCRIBED:10/15/161217 CONFIDENTIAL, DO NOT COPY WITHOUT APPROPRIATE AUTHORIZATION. <Electronically signed in Other Vendor System> SIGNED BY: PIA ALONSO,DENNIS 10/15/16 1224 Initial ED EKG: normal axis, normal intervals, normal sinus rhythm, no ST T wave changes, 69 bpm Comments: 10/15/2016 1:38:15 PM: Dr. Spivey is currently at the patient's bedside for face-to -face evaluation 10/15/2016 1:54:52 PM: Dr. Spivey suggests during this patient on a low dose of aspirin daily. Feels that the facial asymmetry at the corner of the mouth is due to this patient's normal anatomy. This patient has no weakness of the facial muscles. No facial weakness. This patient is not slurring her speech. She is alert and oriented 3. Her headache has resolved. Per Wilton Spivey DO, this patient is stable for outpatient management and follow-up. She will be given outpatient neurology follow-up. This patient will need to follow-up with the visiting nurse at home. (VIJAYA YUEN,ROWENA) Plan of Care: Orders Procedure Date/time Status URINE DRUGS OF ABUSE 10/16 1219 Complete URINALYSIS 10/16 1219 Complete TROPONIN LEVEL 10/16 1219 Complete PARTIAL THROMBOPLASTIN TIME 10/15 122 Complete PROTHROMBIN TIME 10/15 122 Complete LACTIC ACID 10/15 122 Complete COMPREHENSIVE METABOLIC PANEL 10/15 122 Complete CBC WITHOUT DIFFERENTIAL 10/16 1219 Complete Laboratory Tests 10/15/16 1520: Lactic Acid Cancelled 10/15/16 1242: Anion Gap 13, Estimated GFR > 60, BUN/Creatinine Ratio 16.7, Glucose 97, Lactic Acid 1.1, Calcium 9.5, Total Bilirubin 0.7, AST 19, ALT 23, Alkaline Phosphatase 77, Troponin I < 0.01, Total Protein 8.1, Albumin 4.2, Globulin 3.9, Albumin/ Globulin Ratio 1.1, PT 17.0 H, INR 1.63 H, APTT 21 L, CBC w Diff NO MAN DIFF REQ, RBC 4.56, MCV 82.3, MCH 26.5 L, RDW 16.0 H, MPV 7.4, Gran % 75.9 H, Lymphocytes % 14.5 L, Monocytes % 7.5, Eosinophils % 1.4, Basophils % 0.7, Absolute Granulocytes 6.3, Absolute Lymphocytes 1.2, Absolute Monocytes 0.6, Absolute Eosinophils 0.1, Absolute Basophils 0.1, PUBS MCHC 32.3 L 10/15/16 1224: Urine Opiates Screen < 100.00, Methadone Screen < 40, Barbiturate Screen < 60, Ur Phencyclidine Scrn < 6.00, Amphetamines Screen < 100, U Benzodiazepines Scrn < 85, Urine Cocaine Screen < 50, Urine Cannabis Screen < 5.00, Urine Color YEL, Urine Clarity CLEAR, Urine pH 6.5, Ur Specific [place] <= 1.005, Urine Protein NEG, Urine Ketones NEG, Urine Nitrite NEG, Urine Bilirubin NEG, Urine Urobilinogen 0.2, Ur Leukocyte Esterase NEG, Ur Microscopic SEDIMENT EXAMINED, Urine RBC RARE, Ur Epithelial Cells RARE, Urine Bacteria RARE H, Urine Mucus RARE, Urine Hemoglobin SMALL H, Urine Glucose NEG Departure Departure Disposition: HOME OR SELF CARE Condition: Stable Clinical Impression Primary Impression: Headache Qualifiers: Headache type: unspecified Headache chronicity pattern: unspecified pattern Intractability: not intractable Qualified Code: R51 - Headache Referrals: KATHRINE ALONSO,CHRISTINA BAGLEY MD,Sendy REGALADO (PCP/Family) Additional Instructions: Please continue to take all previously prescribed medication as directed. Take an 81 mg baby aspirin daily. Please follow-up with the neurologist whose information has been provided to you in this packet. Return immediately for any worsening symptoms or concerns. Please follow-up with your visiting nurse at home as well as her primary care physician. Departure Forms: Customer Survey General Discharge Information (VIJAYA YUEN,ROWENA) Departure Comments I saw personally examined the patient. She has a normal neurological exam. She does have some asymmetry to the upper lip, this was due to tooth loss from trauma approximately one month ago. She has no weakness. Cranial nerves II through XII are intact. She denies any complaints in the ED. She said she did have a frontal headache earlier today. Initially she was to be placed on aspirin. She is on Coumadin so she will stay on that alone. She was given follow-up. (WILTON SPIVEY DO) aspirin. She is on Coumadin so she will stay on that alone. She was given follow-up. (WILTON SPIVEY DO)
--- NOTE | 2016-10-15 12:24 | CT SCAN REPORT ---
EXAMINATION: CT HEAD WITHOUT CONTRAST CLINICAL INFORMATION: 80-year-old woman with history of surgery for brain tumor. Facial droop. COMPARISON: 07/01/2009 CT TECHNIQUE: Contiguous axial imaging was performed from the skull base to vertex without intravenous administration of contrast. DLP: 529 mGy-cm FINDINGS: The patient has undergone prior right suboccipital craniectomy with some focal encephalomalacia seen in the right lateral cerebellum. There is also prominence of the cerebellar folia and some vermian volume loss. These findings are similar to the patient's prior head CT. No intracranial mass, hemorrhage, midline shift, or extra-axial collection is identified. Prominence of the ventricles and sulcal spaces is presumably a manifestation of chronic volume loss. Mild mucosal thickening is seen in the ethmoid air cells. IMPRESSION: No acute intracranial pathology.
[2016-10-15 13:00] LABS: ABSOLUTE BASOPHIL COUNT 0.1 /CUMM (0.0-0.2); ABSOLUTE EOSINOPHIL COUNT 0.1 /CUMM (0.0-0.7); ABSOLUTE GRANULOCYTE CT 6.3 /CUMM (1.4-6.5); ABSOLUTE LYMPH COUNT 1.2 /CUMM (1.2-3.4); ABSOLUTE MONOCYTE COUNT 0.6 /CUMM (0.10-0.60); BASOPHIL % 0.7 % (0.0-2.0); EOSINOPHIL % 1.4 % (0-5); GRANULOCYTE % 75.9 % (42.2-75.2); HEMATOCRIT 37.5 % (37-47); MEAN CORPUSCULAR HGB 26.5 PG (27.0-31.0); MEAN CORPUSCULAR HGB CONC 32.3 G/DL (33.0-37.0); MEAN CORPUSCULAR VOLUME 82.3 FL (81.0-99.0); MEAN PLATELET VOLUME 7.4 FL (7.4-10.4); PLATELET COUNT 297 /CUMM (130-400); PTT 21 SEC (25-37); RED BLOOD CELL CT 4.56 /CUMM (4.20-5.40); WHITE BLOOD CELL COUNT 8.3 /CUMM (4.8-10.8)
[2016-10-15 13:47] VITALS: BP 165/71
== END 2016-10-15 16:04 ==
LOC: ERH 10:59
PROVIDERS: Physician Assistant
DX: R51 Headache (principal); Z79.01 Long term (current) use of anticoagulants
CPT/HCPCS: 80307; 81001; 93005; 93010

== ENCOUNTER 2016-10-20 11:28 | Emergency (ER) | payer OTHER ==
[~2016-10-20] VITALS: Ht 165.1 cm; Wt 60.3 kg
--- NOTE | 2016-10-20 11:46 | ED MVC/FALL/TRAUMA COMPLAINT ---
History of Present Illness General Chief Complaint: Fall Stated Complaint: BIBA, FALL Source: patient, W10 Exam Limitations: no limitations Vital Signs & Intake/Output Vital Signs & Intake/Output Vital Signs Date Time Temp Pulse Resp B/P B/P Pulse O2 O2 Flow FiO2 Mean Ox Delivery Rate 10/20 1442 98.0 88 18 148/79 96 Room Air 10/20 1230 94 Nasal 1.5L Cannula 10/20 1134 94 Room Air 10/20 1131 98.2 83 18 154/78 94 Room Air Allergies Coded Allergies: morphine (Intermediate, RASH 10/15/16) Sulfa (Sulfonamide Antibiotics) (VOMITING 08/21/15) amoxicillin (From AUGMENTIN) (HIVES 08/21/15) clavulanic acid (From AUGMENTIN) (HIVES 08/21/15) Reconcile Medications Furosemide (Lasix) 20 MG TABLET 1 TAB PO Q48 pedal edema (Reported) Holding parameters: hold for SBP < 90 Oxycodone HCl/Acetaminophen (Percocet 5-325 MG Tablet) 5 MG-325 MG TABLET 1 TAB PO Q6P PRN PAIN SCALE 4-6 (MODERATE) Rosuvastatin Calcium (Crestor) 10 MG TABLET 1 TAB PO DAILY CHOLESTEROL ( Reported) Warfarin Sodium (Coumadin) 2.5 MG TABLET 1 TAB PO DAILY dvt (Reported) Please dose to keep the inr between 2-3. Triage Note: PT TO ROOM1 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 PT C/O MIDDLE BACK PAIN 8/10, DENIES HEAD STRIKE, +COUMADIN. VSS. Triage Nurses Notes Reviewed? yes Onset: Just prior to arrival Timing: recent history Severity: moderate Severity Numbers: 6 Injuries/Fall Location: back Method of Injury: fall Loss of Consciousness: no loss of consciousness Modifying Factors: Worsens With: movement. HPI: Patient is a 80-year-old female presenting to the emergency department with chief complaints of back pain after falling prior to arrival. She reports that she was folding towels with her walker in front of her and went to reach for her walker and her walker went forward and she went backward. Denies head injury or loss of consciousness. She reports that she is having mid to lower back pain. Denies any chest pain or palpitations. No abdominal pain, no shortness of breath. She called EMS because she was unable to get up by herself. She recently had a left hip replacement done in June. She's been doing well with therapy. Denies any hip pain or lower extremity pain. Denies any upper extremity pain. No numbness or tingling. Denies any urinary incontinence or retention. (JASMINE MASTERSON) Past History Travel History Traveled to [place] past 21 day No Medical History Any Pertinent Medical History? 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 No (JASMINE MASTERSON) Review of Systems Review of Systems Constitutional: Reports: no symptoms. Comments Review of systems: See HPI, All other systems negative. Constitutional, no chills fever or weight loss HEENT: No visual changes no sore throat no congestion Cardiovascular: No chest pain ,palpitation , orthopnea or ankle swelling Skin, no jaundice no rashes Respiratory: No dyspnea cough sputum or hemoptysis GI: No nausea no vomiting : No dysuria No hematuria Muscle skeletal: no neck pain, Neurologic: No numbness no confusion Psych: No stress anxiety or depression,. Heme/endocrine: No bruising no bleeding no polyuria or polydipsia Immunology: No splenectomy or history of AIDS (JASMINE MASTERSON) Physical Exam Physical Exam General Appearance: well developed/nourished, no apparent distress, alert, awake , comfortable Comments: Well-developed well-nourished person in no acute distress HEENT: extraocular motion intact, no nystagmus. Pupils equally round and reactive to light and accommodation. Nose is atraumatic. External auditory canal and Tympanic membranes clear. Pharynx normal. No swelling or edema. No pain to palpation over the entire scalp, no step-off deformities or bogginess palpated. Neck: Supple, no lymphadenopathy, normal range of motion without pain or tenderness Back: Tender to palpation of the thoracic spine and the left posterior ribs. Full range of motion. Negative modified straight leg raise bilaterally. Cardiovascular: Regular rate and rhythms no murmurs rubs or gallops, normal JVP Respiratory: Chest nontender. No respiratory distress.breath sounds clear to auscultation bilaterally Abdomen: Soft, nontender nondistended, no appreciable organomegaly. Normal bowel sounds. No ascites Extremity: No edema, no calf tenderness to palpation, normal and equal pulses. Full range of motion of upper and lower extremities without difficulty or pain. Supervisor Pastry strength is equal and symmetric bilaterally. No pain to palpation over bilateral hips and pelvis. Neuro: Alert oriented x3, motor sensory normal, cranial nerves II through XII grossly intact. Cerebellar testing is unremarkable. Skin: Superficial abrasion approximately 8 cm in length, 2 cm in with noted over the left posterior ribs. Nontender to palpation over this area. Otherwise No appreciable rash on exposed skin, skin is warm and dry. Psych: Mood and affect is normal, memory and judgment is normal. Core Measures ACS in differential dx? No Severe Sepsis Present: No Septic Shock Present: No (CELINE FUENTES,JASMINE) Progress Differential Diagnosis: compression fx, rib fx, contusion, rib fx Plan of Care: Orders Procedure Date/time Status CT CHEST WO IV CONTRAST 10/20 1205 Active Diagnostic Imaging: Viewed by Me: CT Scan. Discussed w/RAD: CT Scan. Radiology Impression: PATIENT: ABRIL ENRIQUE PRESENT AGE: 80 PATIENT ACCOUNT NO: [id number] : 37 LOCATION: [facility] ORDERING PHYSICIAN: JASMINE FUENTES SERVICE DATE: 10/20/166 EXAM TYPE: CAT - CT CHEST WO IV CONTRAST EXAMINATION: CT CHEST WITHOUT CONTRAST CLINICAL INFORMATION: Fall. Evaluate for fracture. COMPARISON: Previous chest x- ray June 2009 and CTA of the chest November 2011. TECHNIQUE: Multidetector volumetric CT imaging of the chest was done. Axial MIP volume rendering provided. Sagittal and coronal reformatted images were obtained. 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 LUNGS: There is mild right apical pleural and parenchymal scarring. The previously identified 2 and 3 mm right lower lobe nodules, axial image 325 series 4, are stable from November 2011 exam. The previously identified left lower lobe nodule may be identified, axial image 340 series 4, and is unchanged. There is evidence of minimal airways disease with some bronchial soft tissue opacification and peribronchial opacities. Largest area measures 3 mm in the lingula, axial image 303 series 4. The lungs are otherwise clear. MEDIASTINUM: There are prominent azygous and hemiazygos veins. The heart does not appear enlarged. The thoracic aorta is normal in caliber. There is no pericardial effusion. There are no enlarged hilar or mediastinal lymph nodes. PLEURA: There is no pleural effusion. No pleural mass or thickening. There is no pneumothorax. AXILLA: No chest wall mass or enlarged axillary lymph nodes are seen. UPPER ABDOMEN: There are multiple liver cysts. There is question of bilateral renal peripelvic cysts. 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 OSSEOUS STRUCTURES: No fracture is seen. IMPRESSION: No fracture seen. Evidence of mild airways disease. Stable small pulmonary nodules from 2012. 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 Liver and probable bilateral renal peripelvic cysts. DICTATED BY: MUNA MONET MD DATE/TIME DICTATED:12/01 METAL CASTING TRADES WORKER:SHON DATE/TIME TRANSCRIBED:10/20/161423 CONFIDENTIAL, DO NOT COPY WITHOUT APPROPRIATE AUTHORIZATION. <Electronically signed in Other Vendor System> SIGNED BY: MUNA MONET MD. 10/20/16 2561 Comments: Declines pain medication on arrival. Patient informed of imaging results. She'll go home via logistic care. Patient ambulatory with a walker without any assistance. She'll return for any worsening symptoms or concerns. d/w with Dr. ryan. He agrees with plan. (JASMINE MASTERSON) Departure Departure Time of Disposition: 1550 Disposition: HOME OR SELF CARE Condition: Stable Clinical Impression Primary Impression: Back pain Qualifiers: Back pain location: thoracic back pain Chronicity: acute Back pain laterality: bilateral Qualified Code: M54.6 - Pain in thoracic spine Secondary Impressions: Fall Qualifiers: Encounter type: initial encounter Qualified Code: W19.XXXA - Unspecified fall, initial encounter Referrals: YUDI ALONSO,Sendy REGALADO (PCP/Family) Additional Instructions: Follow-up with your primary care physician call to make an appointment. Apply ice to affected area. Take Tylenol [id number] as needed. Return for worsening symptoms or concerns. Departure Forms: Customer Survey General Discharge Information (JASMINE MASTERSON) PA/STEWARD/STEWARDESS SMOKE ROOM Co-Sign Statement Statement: ED Attending supervision documentation- x I saw and evaluated the patient. I have also reviewed all the pertinent lab results and diagnostic results. I agree with the findings and the plan of care as documented in the PA's/STEWARD/STEWARDESS SMOKE ROOM's documentation. [] I have reviewed the ED Record and agree with the PA's/STEWARD/STEWARDESS SMOKE ROOM's documentation. [] Additions or exceptions (if any) to the PAs/STEWARD/STEWARDESS SMOKE ROOM's note and plan are summarized below: [] (MYLA ALONSO,RADHA)
[2016-10-20 14:42] VITALS: BP 148/79
--- NOTE | 2016-10-20 15:41 | CT SCAN REPORT ---
EXAMINATION: CT CHEST WITHOUT CONTRAST CLINICAL INFORMATION: Fall. Evaluate for fracture. COMPARISON: Previous chest x-ray June 2009 and CTA of the chest November 2011. TECHNIQUE: Multidetector volumetric CT imaging of the chest was done. Axial MIP volume rendering provided. Sagittal and coronal reformatted images were obtained. 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 LUNGS: There is mild right apical pleural and parenchymal scarring. The previously identified 2 and 3 mm right lower lobe nodules, axial image 325 series 4, are stable from November 2011 exam. The previously identified left lower lobe nodule may be identified, axial image 340 series 4, and is unchanged. There is evidence of minimal airways disease with some bronchial soft tissue opacification and peribronchial opacities. Largest area measures 3 mm in the lingula, axial image 303 series 4. The lungs are otherwise clear. MEDIASTINUM: There are prominent azygous and hemiazygos veins. The heart does not appear enlarged. The thoracic aorta is normal in caliber. There is no pericardial effusion. There are no enlarged hilar or mediastinal lymph nodes. PLEURA: There is no pleural effusion. No pleural mass or thickening. There is no pneumothorax. AXILLA: No chest wall mass or enlarged axillary lymph nodes are seen. UPPER ABDOMEN: There are multiple liver cysts. There is question of bilateral renal peripelvic cysts. 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 OSSEOUS STRUCTURES: No fracture is seen. IMPRESSION: No fracture seen. Evidence of mild airways disease. Stable small pulmonary nodules from 2012. 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 Liver and probable bilateral renal peripelvic cysts.
== END 2016-10-20 16:46 ==
LOC: ERH 11:28
DX: M54.6 Pain in thoracic spine (principal); R07.81 Pleurodynia

== ENCOUNTER 2016-11-21 10:07 | Inpatient (IN) | payer OTHER ==
[~2016-11-21] VITALS: Ht 162.6 cm; Wt 60.8 kg
--- NOTE | 2016-11-21 10:21 | NUR ---
PT TO ED FOR EVAL OF RLE WOUND. PT WAS SEEN AT WOUND CENTER THIS AM AND SENT TO ED FOR ADMISSION AND IV ABX BY DR THOMAS. PT IS S/P LEFT TOTAL HIP REPLACEMENT [address] MARTIN.
--- NOTE | 2016-11-21 11:02 | NUR ---
PT TO ER ROOM 1 VIA WHEELCHAIR. PT STATES SHE WAS SENT IN BY DR THOMAS FOR ADMISSION FOR WOUND ON RLE. WOUND UNWRAPPED. NOTED WITH OPEN AREA TO RLE, WOUND WRAPPED AT THIS TIME PER MD LANZA. NOTED WITH REDNESS AROUND WOUND TO RLE. PT C/O P[AIN TO LEG. PT AMBULTES AT HOME WITH WALKER AND STATES SHE LIVES ALONE. STATES HAD A L HIP REPLACEMENT 16 WEEKS AGO. STATES NO PROBLEMS WITH THE HIP AT THIS TIME.
--- NOTE | 2016-11-21 11:16 | ED SKIN/ALLERGY COMPLAINT ---
History of Present Illness General Chief Complaint: General Adult Stated Complaint: SIB DR. THOMAS FOR EVAL/ADMISSION Source: patient, family, old records Exam Limitations: no limitations Vital Signs & Intake/Output Vital Signs & Intake/Output Vital Signs Date Time Temp Pulse Resp B/P B/P Pulse O2 O2 Flow FiO2 Mean Ox Delivery Rate 11/21 1340 98.8 76 18 132/85 98 Room Air 11/21 1020 97.5 90 20 137/90 Room Air Allergies Coded Allergies: morphine (Intermediate, RASH 10/15/16) Sulfa (Sulfonamide Antibiotics) (VOMITING 08/21/15) amoxicillin (From AUGMENTIN) (HIVES 08/21/15) clavulanic acid (From AUGMENTIN) (HIVES 08/21/15) Reconcile Medications Furosemide (Lasix) 20 MG TABLET 1 TAB PO Q48 pedal edema (Reported) Holding parameters: hold for SBP < 90 Oxycodone HCl/Acetaminophen (Percocet 5-325 MG Tablet) 5 MG-325 MG TABLET 1 TAB PO Q6P PRN PAIN SCALE 4-6 (MODERATE) Rosuvastatin Calcium (Crestor) 10 MG TABLET 1 TAB PO DAILY CHOLESTEROL ( Reported) Warfarin Sodium (Coumadin) 2.5 MG TABLET 1 TAB PO DAILY dvt (Reported) Please dose to keep the inr between 2-3. Triage Note: PT TO ED FOR EVAL OF RLE WOUND. PT WAS SEEN AT WOUND CENTER THIS AM AND SENT TO ED FOR ADMISSION AND IV ABX BY DR THOMAS. PT IS S/P LEFT TOTAL HIP REPLACEMENT [address] MARTIN. Triage Nurses Notes Reviewed? yes Onset: 3 weeks Duration: week(s):, constant, continues in ED, getting worse Timing: recent history Severity: moderate Location: extremities (R calf) Possible Factors: no cause identified Associated Symptoms: change in skin texture, rash, swelling/mass/lumps LMP (ages 10-50): post menopausal : No Patient currently breastfeeds: No HPI: 3 weeks prior to admission patient complains of increasing red rash to right lower extremity developing open wound with increasing pain. Prior to admission she was seen in the wound clinic and referred for further evaluation. She denies fever chills nausea vomiting diarrhea abdominal pain chest pain shortness of breath headache dysuria bleeding. Past History Travel History Traveled to [place] past 21 day No Medical History Any Pertinent Medical History? see below for history Neurological: NONE EENT: bilateral lens replacement Cardiovascular: hypertension, hyperlipidemia, DVT Respiratory: NONE Gastrointestinal: NONE Hepatic: NONE Renal: NONE Musculoskeletal: NONE Psychiatric: NONE Endocrine: NONE Blood Disorders: DVT, PE Cancer(s): meningioma-1984 PRESCRIPTION CLERK/Reproductive: NONE Other Medical Hx: Open wound/ulcerations lower legs-currently healed History of MRSA: No History of VRE: No History of CDIFF: No Surgical History Surgical History: VEIN PROCEDURES ON LEGS craniotomy in 1984 for meningioma Psychosocial History Who do you live with Patient/Self Services at Home None What is your primary language Telugu Tobacco Use: Never used ETOH Use: denies use Illicit Drug Use: denies illicit drug use Family History Family History, If Any: Relation not specified for: *No pertinent family history Hx Contributory? No Review of Systems Review of Systems Constitutional: Reports: no symptoms. EENTM: Reports: no symptoms. Respiratory: Reports: no symptoms. Cardiovascular: Reports: no symptoms. GI: Reports: no symptoms. Genitourinary: Reports: no symptoms. Musculoskeletal: Reports: no symptoms. Skin: Reports: see HPI, rash. Neurological/Psychological: Reports: no symptoms. Hematologic/Endocrine: Reports: no symptoms. Immunologic/Allergic: Reports: no symptoms. All Other Systems: Reviewed and Negative Physical Exam Physical Exam General Appearance: well developed/nourished, alert, awake, anxious, moderate distress, obese Head: atraumatic, normal appearance Eyes: Bilateral: PERRL, EOMI. Ears, Nose, Throat: normal pharynx, normal ENT inspection, hearing grossly normal Neck: normal inspection, supple Respiratory: normal breath sounds Cardiovascular: regular rate/rhythm Peripheral Pulses: 4+ carotid (R), 4+ carotid (L) Gastrointestinal: normal bowel sounds, soft, non-tender, no organomegaly Back: normal inspection, normal range of motion, no vertebral tenderness Extremities: normal inspection, normal capillary refill, normal range of motion, no edema, no ligament instability Neurologic/Psych: awake, alert, oriented x 3, normal mood/affect Reflexes: 2+: bicep (R), bicep (L). Skin: rash Skin Problem Location: lower extremities (right calf) Skin Problem Character: erythema, swelling, tenderness, thickening, warm Lymphatic: no anterior cervical flower Diagram Body: 1) Dusky erythema with thickening and ellipitical shaped tissue breakdown 3x3x8 cm. No purulent discharge Progress Differential Diagnosis: abscess/cellulitis, allergic reaction Plan of Care: Orders Procedure Date/time Status PROTHROMBIN TIME 11/22 0600 Active CBC WITHOUT DIFFERENTIAL 11/22 0600 Active Regular Diet 11/21 L Active Vital Signs 11/21 1419 Complete Teach/Educate 11/21 1419 Active Pain Treatment and Response 11/21 1419 Active Nutritional Intake, Monitor 11/21 1419 Complete Isolation 11/21 1419 Complete Intake & Output 11/21 1419 Complete Patient Care Conference 11/21 1419 Complete Activity/Ambulation 11/21 1419 Active Teach/Educate 11/21 1233 Active Pain Treatment and Response 11/21 1233 Active Nutritional Intake, Monitor 11/21 1233 Active Isolation 11/21 1233 Active Patient Care Conference 11/21 1233 Active URINALYSIS 11/21 1225 Active BLOOD CULTURE 11/21 1220 Active Intake & Output 11/21 1151 Active Pathway - chart 11/21 1134 Active House Staff 11/21 1134 Active Patient Data 11/21 1134 Active Code Status 11/21 1134 Active OXYGEN SETUP (GEN) 11/21 1049 Active Saline Lock 11/21 1049 Active Admit to inpatient 11/21 1049 Active Vital Signs 11/21 1049 Active Activity/Ambulation 11/21 1049 Active BLOOD CULTURE 11/21 1049 Active PROTHROMBIN TIME 11/21 1049 Complete MAGNESIUM 11/21 1049 Complete COMPREHENSIVE METABOLIC PANEL 11/21 1049 Complete CBC WITHOUT DIFFERENTIAL 11/21 1049 Complete Code Status 11/21 1049 Complete VTE Mechanical Prophylaxis 11/21 UNK Active PHYSICIAN CONSULT 11/21 UNK Active Current Medications Sig/Kim Start time Last Medication Dose Stop Time Status Admin Furosemide 20 MG Q48 11/23 1000 AC (Lasix) Enoxaparin Sodium 40 MG DAILY 11/22 1000 CAN (Lovenox) Atorvastatin Calcium 10 MG 1700 11/21 1700 AC (Lipitor) Warfarin Sodium 3 MG COUMADIN 1700 ONE 11/21 1700 AC (Coumadin) 11/21 1701 Cefazolin Sodium 1,000 MG IQ8 11/21 1600 AC (Kefzol-Ancef Inj) Sodium Chloride 1,000 ML Q13H 11/21 1230 AC 06/07 (Normal Saline 0.9%) 11/22 0129 1248 Acetaminophen 325 MG Q6P PRN 11/21 1145 AC (Tylenol) Hydromorphone HCl 0.5 MG Q4 PRN 11/21 1145 AC (Dilaudid) Oxycodone/ 1 TAB Q6P PRN 11/21 1145 AC Acetaminophen (Percocet) Laboratory Tests 11/21/16 1140: PT 20.4 H, INR 1.96 H 11/21/16 1120: Anion Gap 14, Estimated GFR > 60, BUN/Creatinine Ratio 23.3, Glucose 98, Calcium 9.9, Magnesium 2.2, Total Bilirubin 0.6, AST 23, ALT 31, Alkaline Phosphatase 77 , Total Protein 8.4 H, Albumin 4.5, Globulin 3.9, Albumin/Globulin Ratio 1.2, CBC w Diff NO MAN DIFF REQ, RBC 4.66, MCV 81.8, MCH 26.4 L, RDW 16.5 H, MPV 8.4, Gran % 78.2 H, Lymphocytes % 13.7 L, Monocytes % 6.1, Eosinophils % 1.2, Basophils % 0.8, Absolute Granulocytes 6.2, Absolute Lymphocytes 1.1 L, Absolute Monocytes 0.5, Absolute Eosinophils 0.1, Absolute Basophils 0.1, PUBS MCHC 32.3 L Microbiology 11/21 1220 BLOOD: Blood Culture - COLB 11/21 122 BLOOD: Blood Culture - COLB 11/21 1140 BLOOD: Blood Culture - RECD 11/21 112 BLOOD: Blood Culture - RECD Departure Departure Disposition: STILL A PATIENT Condition: Stable Clinical Impression Primary Impression: Cellulitis Qualifiers: Site of cellulitis: extremity Site of cellulitis of extremity: lower extremity Laterality: right Qualified Code: L03.115 - Cellulitis of right lower limb Referrals: YUDI ALONSO,M. SABINE (PCP/Family) Departure Forms: Customer Survey General Discharge Information Admission Note Spoke With: EUGENE ALONSO,DM Documentation of Exam: Documentation of any treatments & extenuating circumstances including Concerns Regarding Discharge (functional status, medication knowledge or non-compliance, living conditions, etc.) that warrant an admission rather than observation: IV antibiotics follow cultures serial lab exam medication adjustment wound management continuing care discharge planning
--- NOTE | 2016-11-21 11:24 | NUR ---
SST, LAV AND FIRST SET OF BC DRAWN AND SENT
[2016-11-21 11:27] LABS: ABSOLUTE BASOPHIL COUNT 0.1 /CUMM (0.0-0.2); ABSOLUTE EOSINOPHIL COUNT 0.1 /CUMM (0.0-0.7); ABSOLUTE GRANULOCYTE CT 6.2 /CUMM (1.4-6.5); ABSOLUTE LYMPH COUNT 1.1 /CUMM (1.2-3.4); ABSOLUTE MONOCYTE COUNT 0.5 /CUMM (0.10-0.60); BASOPHIL % 0.8 % (0.0-2.0); EOSINOPHIL % 1.2 % (0-5); GRANULOCYTE % 78.2 % (42.2-75.2); HEMATOCRIT 38.2 % (37-47); MEAN CORPUSCULAR HGB 26.4 PG (27.0-31.0); MEAN CORPUSCULAR HGB CONC 32.3 G/DL (33.0-37.0); MEAN CORPUSCULAR VOLUME 81.8 FL (81.0-99.0); MEAN PLATELET VOLUME 8.4 FL (7.4-10.4); PLATELET COUNT 268 /CUMM (130-400); RBC DISTRIBUTION WIDTH 16.5 % (11.5-14.5); RED BLOOD CELL CT 4.66 /CUMM (4.20-5.40); WHITE BLOOD CELL COUNT 7.9 /CUMM (4.8-10.8)
--- NOTE | 2016-11-21 11:46 | NUR ---
VANCO INFUSING PER ORDER AT THIS TIME
[2016-11-21 11:52] LABS: PT 20.4 SEC (9.4-12.5)
--- NOTE | 2016-11-21 12:11 | NUR ---
PT STATES PAIN IS BETTER AT THIS TIME
--- NOTE | 2016-11-21 12:12 | History & Physical ---
JEROME GUO 11/21/16 1152: General Information and HPI MD Statement: I have seen and personally examined ABRIL ENRIQUE and documented this H&P. The patient is a 80 year old F who presented with a patient stated chief complaint of [cellulitis]. Source of Information: patient Exam Limitations: no limitations History of Present Illness: 80-year-old woman with pmh of HTN, HLD, DVT on Coumadin (for 15 years, hereditary), hx of angioma status post craniotomy,status post left hip hemiarthroplasty (07/10/2016), recurrent venous stasis ulcer who presented to the ED for the evaluation of right leg cellulitis. Patient was sent to the ED from the [facility] by for IV antibiotics. Patient has the erythema and the wound in her right leg for the past 3 weeks. She has history of recurrent venous stasis ulcers and has been following up regularly at the wound care center and applying Xeroform and dressings with no improvement in the swelling and erythema. It has been worsening with open areas and discharge. She denies any fevers, chills, shortness of breath, headache, palpitations, chest pain, abdominal pain, urinary or bowel complaints. She lives by herself and ambulates with a walker posterior hip surgery. No problems with her hip at this time. She has visiting nurse services and physical therapy at home. She has history of DVTs and therefore is on Coumadin. She reports she had wounds to her left leg in the past which improved with conservative management, medication and dressing changes. In the ED vitals and labs were normal. INR was 1.96. Patient was started on IV vancomycin. Allergies/Medications Allergies: Coded Allergies: morphine (Intermediate, RASH 10/15/16) Sulfa (Sulfonamide Antibiotics) (VOMITING 08/21/15) amoxicillin (From AUGMENTIN) (HIVES 08/21/15) clavulanic acid (From AUGMENTIN) (HIVES 08/21/15) Home Med list Furosemide (Lasix) 20 MG TABLET 1 TAB PO Q48 pedal edema (Reported) Holding parameters: hold for SBP < 90 Oxycodone HCl/Acetaminophen (Percocet 5-325 MG Tablet) 5 MG-325 MG TABLET 1 TAB PO Q6P PRN PAIN SCALE 4-6 (MODERATE) Rosuvastatin Calcium (Crestor) 10 MG TABLET 1 TAB PO DAILY CHOLESTEROL ( Reported) Warfarin Sodium (Coumadin) 2.5 MG TABLET 1 TAB PO DAILY dvt (Reported) Please dose to keep the inr between 2-3. Past History Travel History Traveled to [place] past 21 day No Medical History Neurological: NONE EENT: bilateral lens replacement Cardiovascular: hypertension, hyperlipidemia, DVT Respiratory: NONE Gastrointestinal: NONE Hepatic: NONE Renal: NONE Musculoskeletal: NONE Psychiatric: NONE Endocrine: NONE Blood Disorders: DVT, PE Cancer(s): meningioma-1984 PROTECTION CONSULTANT/Reproductive: NONE Other Medical Hx: Open wound/ulcerations lower legs-currently healed History of MRSA: No History of VRE: No History of CDIFF: No Surgical History Surgical History: VEIN PROCEDURES ON LEGS craniotomy in 1984 for meningioma Past Family/Social History Family History Relations & Conditions if any Relation not specified for: *No pertinent family history Psychosocial History Who Do You Live With? self Services at Home: None Primary Language: Latvian ETOH Use: denies use Illicit Drug Use: denies illicit drug use Functional Ability ADLs Independent: dressing, eating, toileting, bathing. Ambulation: unassisted IADLs Independent: shopping, housework, finances, food prep, telephone. Review of Systems Review of Systems Constitutional: Reports: no symptoms. EENTM: Reports: no symptoms. Cardiovascular: Reports: no symptoms. Respiratory: Reports: no symptoms. GI: Reports: no symptoms. Genitourinary: Reports: no symptoms. Musculoskeletal: Reports: joint pain (left hip pain). Skin: Reports: change in skin color (RLE WOUND WITH AN OPEN AREA), erythema. Neurological/Psychological: Reports: no symptoms. Hematologic/Endocrine: Reports: no symptoms. Exam & Diagnostic Data Last 24 Hrs of Vital Signs/I&O Vital Signs Date Time Temp Pulse Resp B/P B/P Pulse O2 O2 Flow FiO2 Mean Ox Delivery Rate 11/21 1020 97.5 90 20 137/90 Room Air Intake & Output 11/21 1600 11/21 0800 / 0000 Intake Total 0 Output Total Balance 0 Intake, Oral 0 Patient 60.781 kg Weight Weight Reported by Patient Measurement Method Physical Exam General Appearance Alert, Oriented X3, Cooperative, No Acute Distress, THIN Skin ELLIPTICAL SKIN BREAKDOWN 7x 3 CM ON THE MEDIAL ASPECT OF RLL WITH ERYTHEMA AND WATERY DISCHARGE Skin Temp/Moisture Exam: Warm/Dry HEENT Atraumatic, PERRLA, EOMI, Mucous Membr. moist/pink Neck Supple, No JVD Lymphatic Cervical nl Cardiovascular Regular Rate, Normal S1, Normal S2 Lungs Clear to Auscultation, Normal Air Movement Abdomen Normal Bowel Sounds, Soft, No Tenderness Neurological Normal Speech, Strength at 5/5 X4 Ext, Normal Tone, Sensation Intact, Cranial Nerves 3-12 NL, Reflexes 2+ Extremities 1+ EDEMA IN RLL, 7x 3 CM OPEN SKIN AREA WITH WATERY DISCHARGE ON RIGHT LOWER EXTREMITY. THE RLE IS ERYTHEMATOUS, HOT AND TENDER. 2 DARK HYPERPIGMENTED PATCHES OVER LEFT LOWER EXTREMITY Body Front and Back (Adult) 1) CELLULITIS Last 24 Hrs of Labs/[place]: Laboratory Tests 11/21/16 1140: PT 20.4 H, INR 1.96 H 11/21/16 1120: Anion Gap 14, Estimated GFR > 60, BUN/Creatinine Ratio 23.3, Glucose 98, Calcium 9.9, Magnesium 2.2, Total Bilirubin 0.6, AST 23, ALT 31, Alkaline Phosphatase 77 , Total Protein 8.4 H, Albumin 4.5, Globulin 3.9, Albumin/Globulin Ratio 1.2, CBC w Diff Pending, WBC Pending, RBC Pending, Hgb Pending, Hct Pending, MCV Pending, MCH Pending, RDW Pending, Plt Count Pending, MPV Pending, Gran % Pending, Lymphocytes % Pending, Monocytes % Pending, Eosinophils % Pending, Basophils % Pending, Absolute Granulocytes Pending, Absolute Lymphocytes Pending , Absolute Monocytes Pending, Absolute Eosinophils Pending, Absolute Basophils Pending, PUBS MCHC Pending Microbiology 11/21 1140 BLOOD: Blood Culture - RECD 11/21 1120 BLOOD: Blood Culture - RECD Assessment/Plan Assessment: 80-year-old woman with pmh of HTN, HLD, DVT on Coumadin (for 15 years, hereditary), hx of angioma status post craniotomy, status post left hip hemiarthroplasty (07/10/2016), recurrent venous stasis ulcers who presented to the ED for the evaluation of right leg cellulitis. 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 Will change to IV cefazolin from tomorrow as it doesn't look purulent. * Blood cultures sent * Elevation of right lower extremity * Wound care consult with Dr. Andrade * Doppler lower extremity is to rule out DVT * Continue Coumadin as per INR . Dosed 3 mg today as INR 1.96( home dose 2.5mg). * Continue Lasix for leg edema * Continue home meds rosuvastatin * DVT prophylaxis Coumadin * Full code * Mild/moderate pain pathway As Ranked By This Provider Problem List: 1. Cellulitis Qualifiers Site of cellulitis: extremity Site of cellulitis of extremity: lower extremity Laterality: right Qualified Code: L03.115 - Cellulitis of right lower limb 2. Cellulitis of right lower leg Core Measures/Miscellaneous Acute Coronary Syndrome ACS Diagnosis: No Cerebrovascular Accident CVA/TIA Diagnosis: No Congestive Heart Failure CHF Diagnosis: No VTE (View Protocol) VTE Risk Factors: Age > 40, Previous [facility] prophylaxis d/t: No contraindications No VTE Pharm Prophylaxis d/t: No contraindications VTE Diagnosis: No VTE Type: NONE VTE Confirmed by (Test): NONE Sepsis (View Protocol) Severe Sepsis Present: No Septic Shock Septic Shock Present: No Miscellaneous Documentation Attending Case Discussed With: MIGUE CHOUDHARY MD Primary Care Physician: YUDI ALONSO,Sendy REGALADO Patient sees these Specialists dr andrade Level of Patient Care: General Medicine MIGUE CHOUDHARY MD 11/21/16 1351: Attending MD Review Statement Attending Statement Attending MD Statement: examined this patient, discuss w/resident/PA/EXPEDITER CLERK, agreed w/resident/PA/EXPEDITER CLERK, reviewed EMR data (avail), discussed with nursing, discussed with case mgmt, reviewed images, amended to note Attending Assessment/Plan: 80 y/o F with pmh sig for HTN, HLD, DVT on Coumadin (for 15 years, hereditary), hx of angioma status post craniotomy,status post left hip hemiarthroplasty (), recurrent venous stasis ulcer, was sent in by Dr. Ivory for rle non healing ulcer, and surrounding cellulitis. Patient is also c/o pain in rle. She denies any fevers, chills, no n/v. Patient needs IV abx. Vital Signs Date Time Temp Pulse Resp B/P B/P Pulse O2 O2 Flow FiO2 Mean Ox Delivery Rate 11/21 1340 98.8 76 18 132/85 98 Room Air 11/21 1020 97.5 90 20 137/90 Room Air on exam; aox3, nad cv; s1,s2, rrr resp; clear abd; soft, nt,bs+ ext; trace eema. skin; + non healing wound on rle, surrounding erythema. Laboratory Tests 11/21 11/21 1140 1120 Chemistry Sodium (137 - 145 mmol/L) 141 Potassium (3.5 - 5.1 mmol/L) 4.9 Chloride (98 - 107 mmol/L) 105 Carbon Dioxide (22 - 30 mmol/L) 23 Anion Gap (5 - 16) 14 BUN (7 - 17 mg/dL) 14 Creatinine (0.5 - 1.0 mg/dL) 0.6 Estimated GFR (>60 ml/min) > 60 BUN/Creatinine Ratio (7 - 25 %) 23.3 Glucose (65 - 99 mg/dL) 98 Calcium (8.4 - 10.2 mg/dL) 9.9 Magnesium (1.6 - 2.3 mg/dL) 2.2 Total Bilirubin (0.2 - 1.3 mg/dL) 0.6 AST (14 - 36 U/L) 23 ALT (9 - 52 U/L) 31 Alkaline Phosphatase (<127 U/L) 77 Total Protein (6.3 - 8.2 g/dL) 8.4 H Albumin (3.5 - 5.0 g/dL) 4.5 Globulin (1.9 - 4.2 gm/dL) 3.9 Albumin/Globulin Ratio (1.1 - 2.2 %) 1.2 Coagulation PT (9.4 - 12.5 SEC) 20.4 H INR (0.90 - 1.19) 1.96 H Hematology CBC w Diff NO MAN DIFF REQ WBC (4.8 - 10.8 /CUMM) 7.9 RBC (4.20 - 5.40 /CUMM) 4.66 Hgb (12.0 - 16.0 G/DL) 12.3 Hct (37 - 47 %) 38.2 MCV (81.0 - 99.0 FL) 81.8 MCH (27.0 - 31.0 PG) 26.4 L RDW (11.5 - 14.5 %) 16.5 H Plt Count (130 - 400 /CUMM) 268 MPV (7.4 - 10.4 FL) 8.4 Gran % (42.2 - 75.2 %) 78.2 H Lymphocytes % (20.5 - 51.1 %) 13.7 L Monocytes % (1.7 - 9.3 %) 6.1 Eosinophils % (0 - 5 %) 1.2 Basophils % (0.0 - 2.0 %) 0.8 Absolute Granulocytes (1.4 - 6.5 /CUMM) 6.2 Absolute Lymphocytes (1.2 - 3.4 /CUMM) 1.1 L Absolute Monocytes (0.10 - 0.60 /CUMM) 0.5 Absolute Eosinophils (0.0 - 0.7 /CUMM) 0.1 Absolute Basophils (0.0 - 0.2 /CUMM) 0.1 PUBS MCHC (33.0 - 37.0 G/DL) 32.3 L Venous Doppler. IMPRESSION: Normal triplex scan without evidence of deep venous thrombosis involving the right lower extremity. A/P; 80 y/o F with pmh sig for HTN, HLD, DVT on Coumadin (for 15 years, hereditary), hx of angioma status post craniotomy,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 Admit to medicine. Will start abx. (cefazolin) Please obtain Blood cx. Wound care consult. Resume home meds including coumadin. Check INR in am. DVT Px; Pt on coumadin. Full code.
--- NOTE | 2016-11-21 12:48 | NUR ---
NS INFUSING AT 75ML/HR AT THIS TIME PER ORDER
--- NOTE | 2016-11-21 13:35 | ULTRASOUND REPORT ---
EXAMINATION: US TRIPLEX LOWER EXTREMITY, RIGHT CLINICAL INFORMATION: Right lower extremity swelling; question deep venous thrombosis. COMPARISON: Venous ultrasound examinations dated 08/02/2015 and 01/06/2012. TECHNIQUE: Color-flow triplex imaging with spectral analysis and compression Doppler were performed on the right lower extremity. FINDINGS: Respiratory variation, normal compression and augmented flow are noted throughout the left lower extremity. The visualized common femoral vein, proximal greater saphenous vein, femoral vein, profunda femoral vein, popliteal vein and visualized mid calf venous segments show no evidence of deep venous thrombosis. There is no Pacheco's cyst. IMPRESSION: Normal triplex scan without evidence of deep venous thrombosis involving the right lower extremity.
--- NOTE | 2016-11-21 13:55 | NUR ---
PT ATE LUNCH TRAY AT THIS TIME, OFFERS NO COMPLAINTS
--- NOTE | 2016-11-21 14:54 | NUR ---
Care assumed from previous RN. Patient assisted onto bedpan to void. Tearful at times.
[2016-11-21 16:30] VITALS: BP 135/62
[2016-11-21 22:29] VITALS: BP 118/76
--- NOTE | 2016-11-21 22:36 | NUR ---
AT APPROX 2210 PATIENT ARRIVED BY STRECHTER TO FLOOR. PATIENT ALERT AND ORIENTATED. PATIENT ORIENTATED TO ROOM, NURSE AND SURROUNDINGS, CALL [facility] AND INFO PACKET. VITAL SIGNS STABLE. NO PAIN REPORTED. WOULD TO RIGHT CALF AREA NOT BANDAGED, JUST XEROFORM COVERING. PATIENT VERY PLEASANT AND COOPERATIVE. WILL CONTINUE TO MONITOR.
[2016-11-22 06:13] VITALS: BP 116/60
--- NOTE | 2016-11-22 07:16 | PN- Housestaff ---
Subjective Follow-up For: Right lower extremity cellulitis Subjective: Patient was seen and examined this morning, vital signs are stable, no overnight events reported by the nurse of the patient. Patient was complaining of low back pain, denied any pain on right lower extremity. Reported improvement of the erythema of right lower extremity. During Patient denied any chest pain, shortness of breath, abdominal pain, nausea or vomiting. Review of Systems Constitutional: Reports: see HPI. Objective Last 24 Hrs of Vital Signs/I&O Vital Signs Date Time Temp Pulse Resp B/P B/P Pulse O2 O2 Flow FiO2 Mean Ox Delivery Rate 11/22 1419 98.0 71 20 110/50 96 Room Air 11/22 0613 98.4 63 20 116/60 95 / 2229 97.7 75 20 118/76 97 Room Air 11/21 1630 97.8 85 20 135/62 97 Room Air Intake & Output 11/22 1600 /08 0800 06/08 0000 Intake Total 800 200 Output Total 750 1200 Balance 50 -1000 Intake, IV 200 Intake, Oral 800 Output, Urine 750 1200 Physical Exam General Appearance: Alert, Oriented X3, Cooperative, No Acute Distress Skin: No Rashes Skin Temp/Moisture Exam: Warm/Dry HEENT: Atraumatic, PERRLA, EOMI, Mucous Membr. moist/pink Neck: Supple, No JVD Cardiovascular: Regular Rate, Normal S1, Normal S2, No Murmurs Lungs: Clear to Auscultation, Normal Air Movement Abdomen: Normal Bowel Sounds, Soft, No Tenderness, No Hepatospenomegaly, No Masses Neurological: Normal Speech, Strength at 5/5 X4 Ext, Normal Tone, Sensation Intact, Cranial Nerves 3-12 NL, Reflexes 2+ Extremities: No Clubbing, No Cyanosis, No Edema, Normal Pulses, No Tenderness/ Swelling, right lower extremity erythema,covered with clean bandage Assessment/Plan Assessment: Ms. 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 Assessment * Cellulitis of right lower extremity * History of DVTs (on Coumadin for 15 yrs) * Hyperlipidemia * Status post left hip hemiarthroplasty 07/10/2016 * Recurrent venous stasis ulcers Plan: #Cellulitis of right lower extremity -Continue IV cefazolin, bedrest and leg elevation -Switch tomorrow to Keflex to finish total of 7 days antibiotic -Continue Lasix 20 mg q48 hours for leg edema -Blood culture continued to be negative -Doppler scan negative for DVT -Wound care consultation was obtained, thinks the recommendation -Recommendation for aggressive wound cleansing and Xeroform and gauze daily -Patient should have multilayer compression dressing prior to discharge -Recommendation to follow up in wound center after discharge -PT evaluation #History of DVTs (on Coumadin for 15 yrs) -INR daily, will dose Coumadin today 5 mg in the state of 3 to achieve therapeutic INR #Hyperlipidemia -Continue Lipitor 10 mg daily -DVT prophylaxis Coumadin -Full code -Mild/moderate pain pathway Problem List: 1. Cellulitis Pain Ratin Pain Location: low back pain Pain Goal: Pain 4 or less Pain Plan: Moderate pain pathway Tomorrow's Labs & Rationales: CBC, INR
[2016-11-22] MEDS ORDERED: KEFLEX500 M1 PO (07:41)
--- NOTE | 2016-11-22 07:42 | Patient Discharge Instructions ---
Discharge Instructions General Discharge Information You were seen/treated for: cellulitis Special Instructions: -Please follow up with your PCP within one week after discharge -Please follow up with Dr. Dukes at 1 center after discharge -Please take your warfarin daily, daily INR check therapeutic -Recommendation for aggressive wound cleansing and Xeroform and gauze daily, can use Robe wrap dressings from her foot to below her knee Acute Coronary Syndrome Inclusion Criteria At DC or during hospital stay patient has or had the following: ACS DIAGNOSIS No Discharge Core Measures Meds if any: Prescribed or Continued at Discharge Meds if any: NOT Prescribed or Continued at Discharge Congestive Heart Failure Inclusion Criteria At DC or during hospital stay patient has or had the following: CHF DIAGNOSIS No Discharge Core Measures Meds if any: Prescribed or Continued at Discharge Meds if any: NOT Prescribed or Continued at Discharge Cerebrovascular accident Inclusion Criteria At DC or during hospital stay patient has or had the following: CVA/TIA Diagnosis No Discharge Core Measures Meds if any: Prescribed or Continued at Discharge Meds if any: NOT Prescribed or Continued at Discharge Venous thromboembolism Inclusion Criteria VTE Diagnosis No VTE Type NONE VTE Confirmed by (Test) DUPLEX VENOUS EXTREM UNI Discharge Core Measures - Per Current guidelines, there needs to be overlap - treatment for the first 5 days of Warfarin therapy. - If discharged on Warfarin prior to 5 days of - overlap therapy, the patient will need to be - assessed for post discharge needs including - *Post discharge parental anticoagulation - *Warfarin and/or parental anticoagulation education - *Follow up date to check INR post discharge At least 5 days overlap therapy as Inpatient Yes Meds if any: Prescribed or Continued at Discharge Note: Overlap Therapy is Warfarin and Anticoagulant Meds if any: NOT Prescribed or Continued at Discharge
[2016-11-22 08:38] LABS: PT 19.3 SEC (9.4-12.5)
--- NOTE | 2016-11-22 08:52 | PN- Wound Care ---
Subjective Subjective: Patient feels improved after admission for right lower extremity cellulitis secondary to venous stasis ulcer present on admission Objective Vital Signs and I&Os Vital Signs Result Date Time Pulse Ox 95 11/22 612 B/P 116/60 11/22 612 Temp 98.4 11/22 612 Pulse 63 11/22 612 Resp 20 11/22 612 O2 Delivery Room Air 11/21 2229 Intake & Output 11/22 0000 11/21 1600 11/21 0800 Intake Total 0 Output Total 200 Balance -200 Intake, Oral 0 Output, Urine 200 Patient 134 lb Weight Weight Reported by Patient Measurement Method Right lower extremity edema and erythema appeared improved with bedrest and antibiotics right lower extremity venous stasis ulcer continues to have some red slough and is not yet at surface. Impression/Plan Impression/Plan Impression/Plan: 80-year-old woman with recurrent venous stasis ulcer complicated by cellulitis is improved with antibiotics bedrest and elevation. Recommendation is made for aggressive wound cleansing and Xeroform and gauze daily distal pulses were adequate on exam. Patient will be placed in multilayer compression dressing prior to discharge and follow-up in wound center.
[2016-11-22 09:03] LABS: ABSOLUTE BASOPHIL COUNT 0 /CUMM (0.0-0.2); ABSOLUTE EOSINOPHIL COUNT 0.1 /CUMM (0.0-0.7); ABSOLUTE GRANULOCYTE CT 5.7 /CUMM (1.4-6.5); ABSOLUTE LYMPH COUNT 1.2 /CUMM (1.2-3.4); ABSOLUTE MONOCYTE COUNT 0.4 /CUMM (0.10-0.60); BASOPHIL % 0.4 % (0.0-2.0); EOSINOPHIL % 0.8 % (0-5); HEMATOCRIT 36.5 % (37-47); MEAN CORPUSCULAR HGB CONC 32.1 G/DL (33.0-37.0); MEAN CORPUSCULAR VOLUME 80.8 FL (81.0-99.0); MEAN PLATELET VOLUME 7.7 FL (7.4-10.4); PLATELET COUNT 331 /CUMM (130-400); RBC DISTRIBUTION WIDTH 15.9 % (11.5-14.5); RED BLOOD CELL CT 4.52 /CUMM (4.20-5.40); WHITE BLOOD CELL COUNT 7.4 /CUMM (4.8-10.8)
--- NOTE | 2016-11-22 13:07 | PN- Att Addend ---
Attending Addendum Attending Brief Note Patient seen and examined, feels overall better today. RLE erythema is improving. Patient did want to be seen by the whole team, just wanted the attending to stay. She got upset when she saw the whole team in her room. Vital Signs Date Time Temp Pulse Resp B/P B/P Pulse O2 O2 Flow FiO2 Mean Ox Delivery Rate 11/22 612 98.4 63 20 116/60 95 /07 2229 97.7 75 20 118/76 97 Room Air 11/21 1630 97.8 85 20 135/62 97 Room Air 11/21 1340 98.8 76 18 132/85 98 Room Air on exam; aox3, nad. cv; s1,s2, rrr resp; clear abd; soft, nt, bs+ ext; trace edema. skin; decreasing erythema, open wound rle. Laboratory Tests 11/22 724 Coagulation PT (9.4 - 12.5 SEC) 19.3 H INR (0.90 - 1.19) 1.85 H Hematology CBC w Diff NO MAN DIFF REQ WBC (4.8 - 10.8 /CUMM) 7.4 RBC (4.20 - 5.40 /CUMM) 4.52 Hgb (12.0 - 16.0 G/DL) 11.7 L Hct (37 - 47 %) 36.5 L MCV (81.0 - 99.0 FL) 80.8 L MCH (27.0 - 31.0 PG) 26.0 L RDW (11.5 - 14.5 %) 15.9 H Plt Count (130 - 400 /CUMM) 331 MPV (7.4 - 10.4 FL) 7.7 Gran % (42.2 - 75.2 %) 77.0 H Lymphocytes % (20.5 - 51.1 %) 15.9 L Monocytes % (1.7 - 9.3 %) 5.9 Eosinophils % (0 - 5 %) 0.8 Basophils % (0.0 - 2.0 %) 0.4 Absolute Granulocytes (1.4 - 6.5 /CUMM) 5.7 Absolute Lymphocytes (1.2 - 3.4 /CUMM) 1.2 Absolute Monocytes (0.10 - 0.60 /CUMM) 0.4 Absolute Eosinophils (0.0 - 0.7 /CUMM) 0.1 Absolute Basophils (0.0 - 0.2 /CUMM) 0 PUBS MCHC (33.0 - 37.0 G/DL) 32.1 L A/P; 80 y/o F with pmh sig for HTN, HLD, DVT on Coumadin (for 15 years, hereditary), hx of angioma status post craniotomy,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 Overall improving. We'll continue the current antibiotics. Please follow-up on cultures. Pain management is adequate. Continue other current medications. Please continue Coumadin and give a slightly higher dose today as INR is subtherapeutic. PT eval. Possible DC tomorrow.
[2016-11-22 14:19] VITALS: BP 110/50
--- NOTE | 2016-11-22 15:00 | NUR ---
NURSING NOTE: PT C/O RINGING IN HER RIGHT EAR. ALEXANDERHELEN MACHO #[id number] CAME TO BEDSIDE TO ASSESS. NO FURTHER ORDERS AT THIS TIME. WILL CONTINUE TO MONITOR.
[2016-11-22 21:42] VITALS: BP 115/54
[2016-11-23 06:09] VITALS: BP 122/64
--- NOTE | 2016-11-23 08:00 | PN- Wound Care ---
Subjective Subjective: Patient feels weak and is uncertain whether she is able to ambulate. She remains afebrile erythema is receding there is minimal wound drainage. Objective Vital Signs and I&Os Vital Signs Result Date Time Pulse Ox 96 11/23 608 B/P 122/64 11/23 608 O2 Delivery Room Air 11/23 608 Temp 97.9 11/23 608 Pulse 74 11/23 06 Resp 20 11/23 608 Intake & Output 11/23 0000 11/22 1600 11/22 0800 Intake Total 800 200 Output Total [phone] Balance -900 50 -1000 Intake, IV 200 Intake, Oral 800 Output, Urine 679 525 6204 Right lower extremity erythema is receding edema is improved duplex ultrasound is unrevealing for DVT. Cultures remain negative Impression/Plan Impression/Plan Impression/Plan: 80-year-old woman with recurrent venous stasis ulcer complicated by cellulitis is improved with antibiotics bedrest and elevation. Recommendation is made for aggressive wound cleansing and Xeroform and gauze daily distal pulses were adequate on exam. Patient has concerns about being able to ambulate and go home and is amenable to short-term rehabilitation. Continue daily Xeroform and can use Robe wrap dressings from her foot to below her knee
[2016-11-23 08:18] LABS: PT 27.3 SEC (9.4-12.5)
--- NOTE | 2016-11-23 08:18 | PN- Housestaff ---
See Addendum Subjective Follow-up For: Right lower extremity cellulitis Subjective: Patient was seen and examined this morning, lying comfortably in bed, reported low back pain just had her pain medication. Patient denied any pain in the right lower extremity. Vital signs are stable, no overnight events reported by the nurse with the patient. Review of Systems Constitutional: Reports: see HPI. Objective Last 24 Hrs of Vital Signs/I&O Vital Signs Date Time Temp Pulse Resp B/P B/P Pulse O2 O2 Flow FiO2 Mean Ox Delivery Rate 11/23 0609 97.9 74 20 122/64 96 Room Air 11/22 2142 97.4 74 18 115/54 96 Room Air 11/22 1419 98.0 71 20 110/50 96 Room Air Intake & Output 11/23 1600 11/23 0800 11/23 0000 Intake Total Output Total 800 900 Balance -800 -900 Output, Urine 800 900 Physical Exam General Appearance: Alert, Oriented X3, Cooperative, No Acute Distress Skin: No Rashes, No Breakdown, No Significant Lesion Skin Temp/Moisture Exam: Warm/Dry HEENT: Atraumatic, PERRLA, EOMI, Mucous Membr. moist/pink Neck: Supple, No JVD Cardiovascular: Regular Rate, Normal S1, Normal S2, No Murmurs Lungs: Clear to Auscultation, Normal Air Movement Abdomen: Normal Bowel Sounds, Soft, No Tenderness, No Hepatospenomegaly, No Masses Neurological: Normal Speech, Strength at 5/5 X4 Ext, Normal Tone, Sensation Intact, Cranial Nerves 3-12 NL, Reflexes 2+ Extremities: No Clubbing, No Cyanosis, No Edema, Normal Pulses, No Tenderness/ Swelling, RLE faint erythema , no swelling, no tenderness Assessment/Plan Assessment: Ms. 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 Assessment * Cellulitis of right lower extremity * History of DVTs (on Coumadin for 15 yrs) * Hyperlipidemia * Status post left hip hemiarthroplasty 07/10/2016 * Recurrent venous stasis ulcers Plan: #Cellulitis of right lower extremity -Continue IV cefazolin, bedrest and leg elevation -Switch to Keflex to finish total of 7 days antibiotic -Continue Lasix 20 mg q48 hours for leg edema -Blood culture continued to be negative -Doppler scan negative for DVT -Wound care consultation was obtained, thinks the recommendation -Recommendation for aggressive wound cleansing and Xeroform and gauze daily -Continue daily Xeroform and can use Robe wrap dressings from her foot to below her knee -Patient should have multilayer compression dressing prior to discharge -Recommendation to follow up in wound center after discharge -PT evaluation, recommendation for STR #History of DVTs (on Coumadin for 15 yrs) -INR daily, will dose Coumadin today 3 -INR therapeutic #Hyperlipidemia -Continue Lipitor 10 mg daily #Low back pain -Tramadol, percast and acetomenophen -Will add Voltaren gel -Dialudid cause her neusea -DVT prophylaxis Coumadin -Full code -Mild/moderate pain pathway For discharge today to STR if bed is available Problem List: 1. Cellulitis 2. Back pain Pain Ratin Pain Location: Low back pain Pain Goal: Pain 4 or less Pain Plan: Mild to moderate pain pathway Tomorrow's Labs & Rationales: INR
[2016-11-23] MEDS ORDERED: KEFLEX500 M1 PO (08:23)
[2016-11-23 09:04] LABS: ABSOLUTE BASOPHIL COUNT 0 /CUMM (0.0-0.2); ABSOLUTE EOSINOPHIL COUNT 0.1 /CUMM (0.0-0.7); ABSOLUTE GRANULOCYTE CT 6.7 /CUMM (1.4-6.5); ABSOLUTE LYMPH COUNT 1.2 /CUMM (1.2-3.4); ABSOLUTE MONOCYTE COUNT 0.6 /CUMM (0.10-0.60); BASOPHIL % 0.6 % (0.0-2.0); EOSINOPHIL % 1.6 % (0-5); GRANULOCYTE % 76.5 % (42.2-75.2); MEAN CORPUSCULAR HGB 26.1 PG (27.0-31.0); MEAN CORPUSCULAR HGB CONC 32.3 G/DL (33.0-37.0); MEAN PLATELET VOLUME 7.2 FL (7.4-10.4); PLATELET COUNT 337 /CUMM (130-400); RBC DISTRIBUTION WIDTH 15.4 % (11.5-14.5); RED BLOOD CELL CT 4.44 /CUMM (4.20-5.40); WHITE BLOOD CELL COUNT 8.8 /CUMM (4.8-10.8)
--- NOTE | 2016-11-23 09:15 | Discharge Summary ---
Visit Information Visit Dates Admission Date: 11/21/16 Discharge Date: 11/23/16 Hospital Course Course Attending Physician: MIGUE CHOUDHARY MD Primary Care Physician: [facility] Course: Ms. 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 #Cellulitis of right lower extremity Patient was treated with IV cefazolin, optimal pain control, DVT was excluded by Doppler venous scan, Blood culture is negative. Patient had daily wound changes and wound care consultation. Recommendation for aggressive wound cleansing, Xeroform and gauze daily and can use Robe wrap dressings from her foot to below. PT evaluation was obtained, patient will be discharged to [facility] on Keflex to finish total of 7 days antibiotic. #History of DVTs (on Coumadin for 15 yrs) Coumadin was dosed on 11/23 3 mg , INR therapeutic #Hyperlipidemia Continue Lipitor 10 mg daily #Full code Allergies: Coded Allergies: morphine (Intermediate, RASH 10/15/16) Sulfa (Sulfonamide Antibiotics) (VOMITING 08/21/15) amoxicillin (From AUGMENTIN) (HIVES 08/21/15) clavulanic acid (From AUGMENTIN) (HIVES 08/21/15) Disposition Summary Disposition Principal Diagnosis: Cellulitis of right lower extremity Additional Diagnosis: History of DVTs Discharge Disposition: SNF Discharge Instructions General Discharge Information Code Status: Full Code Patient's Diet: Regular Patient's Activity: As tolerated Follow-Up Instructions/Appts: -Please follow up with your PCP within one week after discharge -Please follow up with Dr. Dukes at 1 center after discharge -Please take your warfarin daily, daily INR check therapeutic -Recommendation for aggressive wound cleansing and Xeroform and gauze daily, can use Robe wrap dressings from her foot to below her knee Medications at Discharge Discharge Medications: Continue taking these medications: Rosuvastatin Calcium (Crestor) 10 MG TABLET 1 Tablet ORAL DAILY Comments: NOT GIVEN IN HOSPITAL Warfarin Sodium (Coumadin) 2.5 MG TABLET 1 Tablet ORAL DAILY Instructions: Please dose to keep the inr between 2-3. Comments: Last Taken: 11/22/16 Time: 5:00 PM Furosemide (Lasix) 20 MG TABLET 1 Tablet ORAL EVERY 48 HOURS (Every 2 days) Qty = 30 Instructions: Holding parameters: hold for SBP < 90 Comments: Last Taken: 11/23/16 Time: 10:00 AM Oxycodone HCl/Acetaminophen (Percocet 5-325 MG Tablet) 5 MG-325 MG TABLET 1 Tablet ORAL EVERY SIX HOURS NEEDED as needed for PAIN SCALE 4-6 ( MODERATE) Qty = 30 Comments: Last Taken: 11/23/16 Time: 5:30 AM Start taking the following new medications: Cephalexin (Keflex) 500 MG CAPSULE 1 Capsule ORAL THREE TIMES DAILY Qty = 17 No Refills Comments: NOT GIVEN IN HOSPITAL Copies To: LEONCIO ALONSO,KAY Ham
--- NOTE | 2016-11-23 11:30 | Admission Certification ---
Admission Certification Certification Statement - As attending physician, I certify that at the time of - admission, based on clinical presentation, severity of - symptoms, need for further diagnostic testing and - therapeutic interventions, and risk of adverse outcomes - without in-hospital treatment, in my clinical assessment, - this patient requires an acute hospital stay for a minimum - of two nights or longer. I have also considered psychsocial - factors such as support system, advanced age, financial - issues, cognitive issues, and failed out-patient treatments, - past re-admission history, safety of patient, and lack of - compliance as applicable. Specific rationale supporting this admission is: Patient admitted with nonhealing wound and cellulitis needing IV antibiotics.
[2016-11-23 12:33] VITALS: BP 122/64
[2016-11-23] MEDS ORDERED: LIDOCAINE1 EACH TOP ×2 (14:01→14:02)
--- NOTE | 2016-11-23 15:13 | NUR ---
NURSING NOTE: PT DISCHARGED TO SNF. TRANSPORTED BY FAMILY. DISCHARGE ENVELOPE GIVEN TO TASHI. REPORT CALLED TO FACILITY
== END 2016-11-23 15:15 | DRG 603 ==
LOC: ERH 10:07 → ERHI 10:49 → 2NB 10:49 → ENRESERV 20:46 → CANRESERV 20:46 → ENRESERV 21:25 → ENTRNSPT 21:47 → CMPTRNSPT 21:54 → 2NB 22:12 → ENPENDDIS 11-23 07:11 → 2NB 11-23 15:15
PROVIDERS: Emergency Medicine; Student in an Organized Health Care Education/Training Program; ADMIT Hospitalist
DX: L03.115 Cellulitis of right lower limb (principal); L97.811 Non-pressure chronic ulcer of other part of right lower leg limited to breakdown of skin; I10 Essential (primary) hypertension; E78.5 Hyperlipidemia, unspecified; Z86.718 Personal history of other venous thrombosis and embolism; Z79.01 Long term (current) use of anticoagulants; I87.8 Other specified disorders of veins
CPT/HCPCS: 2NBSP; 36415; 87040; 97110-GO; 97116-GO; 97161-GP; J0690; J2765; J3370; J7040

== ENCOUNTER 2016-12-20 15:03 | Inpatient (IN) | payer OTHER ==
[~2016-12-20] VITALS: Ht 165.1 cm; Wt 59.0 kg
[~2016-12-20 15:03] MED LIST changes: +KEFLEX500 M1 PO; +LIDOCAINE1 EACH TOP
--- NOTE | 2016-12-20 15:09 | NUR ---
80 Y/O FEMALE BROUGHT DOWN FROM WOUND CENTER; STATES SHE IS SUPPOSED TO BE ADMITTED FOR CELLULITIS OF R LEG. STATES SHE WAS ADMITTED IN NOVEMBER FOR SAME, "IT WAS GETTING BETTER AND NOW ITS OPEN UP AGAIN". DRESSING IN PLACE FROM [facility] VISIT. AFEBRILE.
--- NOTE | 2016-12-20 16:02 | NUR ---
Informed waiting has been performed.
--- NOTE | 2016-12-20 17:23 | NUR ---
PT TO ROOM 5
--- NOTE | 2016-12-20 17:25 | ED SKIN/ALLERGY COMPLAINT ---
History of Present Illness General Chief Complaint: Lower Extremity Problems Stated Complaint: RIGHT LEG CELLULITIS Source: patient, old records Exam Limitations: no limitations Allergies Coded Allergies: morphine (Intermediate, RASH 10/15/16) Sulfa (Sulfonamide Antibiotics) (VOMITING 08/21/15) amoxicillin (From AUGMENTIN) (HIVES 08/21/15) clavulanic acid (From AUGMENTIN) (HIVES 08/21/15) Reconcile Medications Furosemide (Lasix) 20 MG TABLET 1 TAB PO Q48 pedal edema (Reported) Holding parameters: hold for SBP < 90 Lidocaine 5 % ADH..PATCH 1 PAT TOP DAILY PRN LOW BACK PAIN Oxycodone HCl/Acetaminophen (Percocet 5-325 MG Tablet) 5 MG-325 MG TABLET 1 TAB PO Q6P PRN PAIN SCALE 4-6 (MODERATE) Rosuvastatin Calcium (Crestor) 10 MG TABLET 1 TAB PO DAILY CHOLESTEROL ( Reported) Warfarin Sodium (Coumadin) 2.5 MG TABLET 1 TAB PO DAILY dvt (Reported) Please dose to keep the inr between 2-3. Triage Note: 80 Y/O FEMALE BROUGHT DOWN FROM WOUND CENTER; STATES SHE IS SUPPOSED TO BE ADMITTED FOR CELLULITIS OF R LEG. STATES SHE WAS ADMITTED IN NOVEMBER FOR SAME, "IT WAS GETTING BETTER AND NOW ITS OPEN UP AGAIN". DRESSING IN PLACE FROM [facility] VISIT. AFEBRILE. Triage Nurses Notes Reviewed? yes Onset: Abrupt Duration: day(s): (2), constant Timing: recent history Severity: moderate Severity Numbers: 5 Location: extremities Possible Factors: no cause identified No Modifying Factors: none Associated Symptoms: denies HPI: 80 year old female with history of hypertension, hyperlipidemia DVT on Coumadin 2.5mg daily, hx of angioma status post craniotomy,status post left hip hemiarthroplasty, recurrent venous stasis ulcer presents to the ER for evaluation sent in by Dr. fraser for admission for IV antibiotics. The patient was recently hospitalized for right leg cellulitis. She states she has been doing well up until 2 days ago. She denies any known injury or trauma. She states that is red and has been draining purulent discharge. No fever no chills she is not currently on any by mouth antibiotics. The patient denies any leg swelling or shortness of breath chest pain. There is no other rashes to the skin (CHRISTINA LUKE) Vital Signs & Intake/Output Vital Signs & Intake/Output Vital Signs Date Time Temp Pulse Resp B/P B/P Pulse O2 O2 Flow FiO2 Mean Ox Delivery Rate 12/20 2030 97.4 74 18 129/62 99 Room Air 12/20 1840 95 Room Air 12/20 1507 96.5 86 18 131/82 99 Room Air Past History Travel History Traveled to [place] past 21 day No Medical History Any Pertinent Medical History? 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 No (CHRISTINA LUKE) Review of Systems Review of Systems Constitutional: Reports: see HPI. All Other Systems: Reviewed and Negative Comments Review of systems: See HPI, All other systems negative. Constitutional, no chills no fever, no malaise HEENT: No visual changes no sore throat no congestion, no ear pain Cardiovascular: No chest pain , no palpitation , no orthopnea Skin: see hpi Respiratory: No dyspnea no cough no sputum no hemoptysis GI: No nausea no vomiting, no diarrhea, no bloating/constipation : No dysuria No hematuria, Muscle skeletal: No joint pain, no joint swelling, no back pain, no neck pain, Neurologic: No numbness no headache Psych: No stress Heme/endocrine: No bruising no bleeding Immunology: No lymphadenopathy (CHRISTINA LUKE) Physical Exam Physical Exam General Appearance: well developed/nourished, no apparent distress, alert Comments: Well-developed well-nourished person in no acute distress HEENT: Normal EENT exam; PERRL, EOMI,HEAD is atraumatic. moist mucous membranes. Neck: Supple, normal range of motion Back: Nontender, no CVA tenderness. Full range of motion Cardiovascular: Regular rate and rhythms no murmurs rubs Respiratory: Chest nontender.There were no bony deformities, no asymmetry. No respiratory distress. Patient speaking in full complete sentences. Breath sounds clear to auscultation bilaterally: NO W/R/R Abdomen: Soft, nontender nondistended, no appreciable organomegaly. Normal bowel sounds. No rebound/guarding, Extremity: There is a 7 x 2 x 2 cm ulceration noted to the medial lower right leg just proximal to the medial malleolus, with surrounding erythema and purulent discharge is noted, tender to palpation, sensation is within normal limits, No edema, full range of motion of extremities, normal and equal pulses bilaterally, 5 out of 5 strength noted to bilateral upper and lower extremities Neuro: Alert oriented x3, motor sensory normal, There were no obvious focal neurologic abnormalities. Skin: No appreciable rash on exposed skin, skin is warm and dry. Psych: Mood and affect is normal, memory and judgment is normal. (RAZA FUENTES,CHRISTINA) Progress Differential Diagnosis: abscess/cellulitis, allergic reaction, contact dermatitis, erythema multiforme, shingles, OSTEOMYELITIS Diagnostic Imaging: Viewed by Me: Radiology Read. Discussed w/RAD: Radiology Read. Radiology Impression: ATIENT: ABRIL ENRIQUE PRESENT AGE: 80 PATIENT ACCOUNT NO: [id number] : 37 LOCATION: [facility] ([place]) ORDERING PHYSICIAN: CHRISTINA FUENTES SERVICE DATE: 12/20/16 EXAM TYPE: RAD - XRY- ANKLE 3 OR MORE VIEWS R EXAMINATION: XR ANKLE, RIGHT CLINICAL INFORMATION: Ulcer to medial right ankle. Cellulitis. COMPARISON: None TECHNIQUE: AP, lateral, and mortise views of the right ankle. FINDINGS: Diffuse soft tissue swelling. The bones are osteopenic. No acute fracture or dislocation. The ankle mortise is congruent. No erosive osseous changes. IMPRESSION: Diffuse soft tissue swelling. No erosive osseous changes to suggest osteomyelitis. DICTATED BY: SULEIMAN LEWIS MD DATE/TIME DICTATED:12/20/161846 [employer]:SHON DATE/TIME TRANSCRIBED:12/20/161846 CONFIDENTIAL, DO NOT COPY WITHOUT APPROPRIATE AUTHORIZATION. <Electronically signed in Other Vendor System> SIGNED BY: SULEIMAN LEWIS MD 12/20/16 9035 Initial ED EKG: normal p-waves, normal QRS complex, normal sinus rhythm (70) Prior EKG: unchanged (10/2016) (CHRISTINA LUKE) Plan of Care: Orders Procedure Date/time Status Regular Diet 12/21 B Active Saline Lock 12/20 1938 Active Misc Message 12/20 1938 Active ED Holding Orders 12/20 1938 Active Vital Signs 12/20 1938 Active Activity/Ambulation 12/20 1938 Active Code Status 12/20 1938 Active Patient Data 12/21 1927 Active Admit to inpatient 12/20 1922 Active Intake & Output 12/20 183 Active EKG 12/20 174 Active PARTIAL THROMBOPLASTIN TIME 12/20 173 Complete PROTHROMBIN TIME 12/20 173 Complete BLOOD CULTURE 12/20 172 Active WESTERGREN SED RATE 12/20 172 Active COMPREHENSIVE METABOLIC PANEL 12/20 172 Complete CBC WITHOUT DIFFERENTIAL 12/20 1728 Active Laboratory Tests 12/20/16 1810: Anion Gap 11, Estimated GFR > 60, BUN/Creatinine Ratio 18.8, Glucose 104 H, Calcium 9.7, Total Bilirubin 0.9, AST 20, ALT 23, Alkaline Phosphatase 87, Total Protein 8.3 H, Albumin 4.4, Globulin 3.9, Albumin/Globulin Ratio 1.1, PT 18.0 H, INR 1.72 H, APTT 36, CBC w Diff NO MAN DIFF REQ, RBC 4.42, MCV 80.7 L, MCH 26.1 L, RDW 16.2 H, MPV 7.2 L, Gran % 81.5 H, Lymphocytes % 11.4 L, Monocytes % 6.2, Eosinophils % 0.7, Basophils % 0.2, Absolute Granulocytes 8.2 H, Absolute Lymphocytes 1.2, Absolute Monocytes 0.6, Absolute Eosinophils 0.1, Absolute Basophils 0, PUBS MCHC 32.4 L, ESR Westergren Pending Microbiology 12/21 1939 BLOOD: Blood Culture - RECD 12/20 1809 BLOOD: Blood Culture - RECD Labs ordered old records reviewed including patient's previous lab work ultrasound of the lower extremity during previous hospitalization Discussed with the patient and family at length all of her lab results x-ray findings case was discussed with Dr. Thompson who evaluated the patient agrees a plan, case discussed with Dr. bergman will admit (CHRISTINA LUKE) Departure Departure Time of Disposition: 1845 Disposition: STILL A PATIENT Condition: Stable Clinical Impression Primary Impression: Cellulitis Referrals: YUDI ALONSO,Sendy REGALADO (PCP/Family) Departure Forms: Customer Survey General Discharge Information Admission Note Spoke With: CHET BERGMAN MD Documentation of Exam: Documentation of any treatments & extenuating circumstances including Concerns Regarding Discharge (functional status, medication knowledge or non-compliance, living conditions, etc.) that warrant an admission rather than observation: Patient will require wound care consult IV antibiotics, VASCULAR CONSULT, trend labs, premature discharge would BE medically harmful (RAZA FUENTES,CHRISTINA) PA/EMERGENCY SERVICE RESTORER Co-Sign Statement Statement: ED Attending supervision documentation- [X] I saw and evaluated the patient. I have also reviewed all the pertinent lab results and diagnostic results. I agree with the findings and the plan of care as documented in the PA's/EMERGENCY SERVICE RESTORER's documentation. [] I have reviewed the ED Record and agree with the PA's/EMERGENCY SERVICE RESTORER's documentation. [] Additions or exceptions (if any) to the PAs/EMERGENCY SERVICE RESTORER's note and plan are summarized below: [] (MYRA ALONSO,ANUPAM Marquez)
--- NOTE | 2016-12-20 17:34 | NUR ---
SEEN BY PA STUDENT
--- NOTE | 2016-12-20 18:00 | NUR ---
LEG WOUNDS VISUALIZED AND REDRESSED BY CHRISTINA FUENTES. WOUNDS DRESSED WITH VASELINE GAUZE AND KERLIX
--- NOTE | 2016-12-20 18:19 | NUR ---
PT DIFFICULT IV STICK. UNSUCCESSFUL ATTEMPT X1 TO START IV. BLOOD CULTURES AND LABS DRAWN. JOSE MOYA IN TO ATTEMPT IV PLACEMENT
--- NOTE | 2016-12-20 18:32 | NUR ---
PT RESTING COMFORTABLY ON STRETCHER WITH FRIEND AT BEDSIDE. IV 22G INSERTED (X2 ATTEMPTS) TO THE R WRIST. LABS OBTAINED VIA STRAIGHT STICK TO THE LUE. PT TAKEN TO XRAY. AWAITING FURTHER ORDERS. NAD NOTED VSS.
[2016-12-20 18:33] LABS: ABSOLUTE BASOPHIL COUNT 0 /CUMM (0.0-0.2); ABSOLUTE EOSINOPHIL COUNT 0.1 /CUMM (0.0-0.7); ABSOLUTE GRANULOCYTE CT 8.2 /CUMM (1.4-6.5); ABSOLUTE LYMPH COUNT 1.2 /CUMM (1.2-3.4); ABSOLUTE MONOCYTE COUNT 0.6 /CUMM (0.10-0.60); BASOPHIL % 0.2 % (0.0-2.0); EOSINOPHIL % 0.7 % (0-5); GRANULOCYTE % 81.5 % (42.2-75.2); HEMATOCRIT 35.6 % (37-47); MEAN CORPUSCULAR HGB 26.1 PG (27.0-31.0); MEAN CORPUSCULAR HGB CONC 32.4 G/DL (33.0-37.0); MEAN CORPUSCULAR VOLUME 80.7 FL (81.0-99.0); MEAN PLATELET VOLUME 7.2 FL (7.4-10.4); PLATELET COUNT 307 /CUMM (130-400); RBC DISTRIBUTION WIDTH 16.2 % (11.5-14.5); RED BLOOD CELL CT 4.42 /CUMM (4.20-5.40); WHITE BLOOD CELL COUNT 10.1 /CUMM (4.8-10.8)
[2016-12-20 18:49] LABS: PTT 36 SEC (25-37)
--- NOTE | 2016-12-20 18:52 | RADIOLOGY REPORT ---
EXAMINATION: XR ANKLE, RIGHT CLINICAL INFORMATION: Ulcer to medial right ankle. Cellulitis. COMPARISON: None TECHNIQUE: AP, lateral, and mortise views of the right ankle. FINDINGS: Diffuse soft tissue swelling. The bones are osteopenic. No acute fracture or dislocation. The ankle mortise is congruent. No erosive osseous changes. IMPRESSION: Diffuse soft tissue swelling. No erosive osseous changes to suggest osteomyelitis.
--- NOTE | 2016-12-20 19:13 | NUR ---
EKG DONE BY RUDY HUERTA
--- NOTE | 2016-12-20 19:40 | NUR ---
SECOND SET OF BLOOD CULTURES DRAWN. IV ABX INFUSING
--- NOTE | 2016-12-20 19:56 | NUR ---
PT GOING TO ROOM 210-1
--- NOTE | 2016-12-20 20:11 | History & Physical ---
[facility] ALONSO,[facility] 12/20/16 2011: General Information and HPI MD Statement: I have seen and personally examined ABRIL ENRIQUE and documented this H&P. The patient is a 80 year old F who presented with a patient stated chief complaint of [right leg cellulitis]. 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 The patient states she was recently hospitalized for her right leg cellulitis. She was discharged November 23 for treatment of her RLE cellulitis. She was then sent to [facility] for 2 weeks before going home with a visiting nurse. The patient states that her leg was healing. However yesterday the patient's that the right leg cellulitis had worsened and opened. The patient noticed that the wound had opened and was draining what she described as bloody pus. The patient has also noticed increased erythema of her leg. The patient denies any history of injury , trauma, falls which could have opened the wound. She denies any numbness or tingling of her leg. Yesterday she was seen by Dr. Gil who sent her to the emergency department for IV antibiotics to treat her cellulitis. The patient denies any fevers or chills. She denies any headaches, chest pain, shortness of breath, abdominal pain, nausea or vomiting, or diarrhea. Allergies/Medications Allergies: Coded Allergies: morphine (Intermediate, RASH 10/15/16) Sulfa (Sulfonamide Antibiotics) (VOMITING 08/21/15) amoxicillin (From AUGMENTIN) (HIVES 08/21/15) clavulanic acid (From AUGMENTIN) (HIVES 08/21/15) Home Med list Furosemide (Lasix) 20 MG TABLET 1 TAB PO Q48 pedal edema (Reported) Holding parameters: hold for SBP < 90 Lidocaine 5 % ADH..PATCH 1 PAT TOP DAILY PRN LOW BACK PAIN Oxycodone HCl/Acetaminophen (Percocet 5-325 MG Tablet) 5 MG-325 MG TABLET 1 TAB PO Q6P PRN PAIN SCALE 4-6 (MODERATE) Rosuvastatin Calcium (Crestor) 10 MG TABLET 1 TAB PO DAILY CHOLESTEROL ( Reported) Warfarin Sodium (Coumadin) 2.5 MG TABLET 1 TAB PO DAILY dvt (Reported) Please dose to keep the inr between 2-3. Past History Travel History Traveled to [place] past 21 day No Medical History Neurological: NONE Cardiovascular: hypertension, hyperlipidemia Respiratory: DVT Gastrointestinal: NONE Hepatic: NONE Renal: NONE Musculoskeletal: NONE Psychiatric: NONE Endocrine: NONE Blood Disorders: recurrent venous stasis ulcers Cancer(s): meningioma-1984 GYM MANAGER/Reproductive: NONE Other Medical Hx: Open wound/ulcerations lower legs-currently healed History of MRSA: No History of VRE: No History of CDIFF: No Surgical History Surgical History: VEIN PROCEDURES ON LEGS craniotomy in 1984 for meningioma, L hip athroplasty Past Family/Social History Family History Relations & Conditions if any Relation not specified for: *No pertinent family history Psychosocial History Who Do You Live With? self Services at Home: None Primary Language: Chadian Smoking Status: Never Smoked ETOH Use: denies use Illicit Drug Use: denies illicit drug use Functional Ability ADLs Independent: dressing, eating, toileting, bathing. Ambulation: unassisted IADLs Independent: shopping, housework, finances, food prep, telephone. Review of Systems Review of Systems Constitutional: Denies: chills, fever. Cardiovascular: Denies: chest pain. Respiratory: Denies: short of breath. GI: Denies: abdominal pain, nausea, vomiting. Skin: Reports: see HPI. Exam & Diagnostic Data Last 24 Hrs of Vital Signs/I&O Vital Signs Date Time Temp Pulse Resp B/P B/P Pulse O2 O2 Flow FiO2 Mean Ox Delivery Rate 12/20 2254 98.7 75 18 126/60 95 12/20 2031 97.4 74 18 129/62 99 Room Air 12/20 1840 95 Room Air 12/20 1507 96.5 86 18 131/82 99 Room Air Intake & Output 12/21 0800 12/21 0000 12/20 1600 Intake Total 0 Output Total 150 Balance -150 Intake, Oral 0 Output, Urine 150 Patient 130 lb Weight Weight Reported by Patient Measurement Method Physical Exam General Appearance Alert, Oriented X3, patient appears slightly agitated Skin on the left leg patient has patches of dark skin on her anterior tibia secondary to prior cellulitis, the patient's right lower extremity is wrapped in a bandage. Patient would not allow us to examine her right lower extremity where the cellulitis is located., per the PA who was able to examine her cellulitis:the cellulitis is a 7 by 2 x 2 inch area. He states it does not smell. There is no purulent discharge. There is serosanguineous discharge. The leg is erythematous and warm to the touch. There is no streaking of erythema HEENT Atraumatic, PERRLA, EOMI Cardiovascular Regular Rate, Normal S1, Normal S2, No Murmurs Lungs Clear to Auscultation, Normal Air Movement Abdomen Normal Bowel Sounds, Soft, No Tenderness, No Hepatospenomegaly, No Masses Neurological Cranial Nerves 3-12 NL Body Front and Back (Adult) 1) current cellulitis Last 24 Hrs of Labs/[place]: Laboratory Tests 12/20/161809: Anion Gap 11, Estimated GFR > 60, BUN/Creatinine Ratio 18.8, Glucose 104 H, Calcium 9.7, Total Bilirubin 0.9, AST 20, ALT 23, Alkaline Phosphatase 87, Total Protein 8.3 H, Albumin 4.4, Globulin 3.9, Albumin/Globulin Ratio 1.1, PT 18.0 H, INR 1.72 H, APTT 36, CBC w Diff NO MAN DIFF REQ, RBC 4.42, MCV 80.7 L, MCH 26.1 L, RDW 16.2 H, MPV 7.2 L, Gran % 81.5 H, Lymphocytes % 11.4 L, Monocytes % 6.2, Eosinophils % 0.7, Basophils % 0.2, Absolute Granulocytes 8.2 H, Absolute Lymphocytes 1.2, Absolute Monocytes 0.6, Absolute Eosinophils 0.1, Absolute Basophils 0, PUBS MCHC 32.4 L, ESR Westergren 88 H Microbiology 12/21 1939 BLOOD: Blood Culture - RECD 12/20 1809 BLOOD: Blood Culture - RECD Diagnostic Data EKG Results normal sinus Other Results ankle xray IMPRESSION: Diffuse soft tissue swelling. No erosive osseous changes to suggest osteomyelitis. Assessment/Plan Assessment: The patient is a 80-year-old female with a past medical history of DVT and ivc thrombus on Coumadin 2.5 mg, recurrent venous stasis ulcers, hypertension, hyperlipidemia presenting with worsening right leg cellulitis. As Ranked By This Provider Problem List: 1. Cellulitis Assessment/Plan The patient is a 80-year-old female with a past medical history of DVT and ivc thrombus on Coumadin 2.5 mg, recurrent venous stasis ulcers, hypertension, hyperlipidemia presenting with worsening right leg cellulitis. She was discharged November 23 for treatment of her RLE cellulitis. She was then sent to [facility] for 2 weeks before going home with a visiting nurse. The patient was afebrile on admission. Her white cell count was 10.1. She did not allow the medical team to actually examine her cellulitis. We got the information from the physician senior underwriting assistant in the emergency department. He described cellulitis is a 7 by 2 x 2 inch area. With serosanguinous discharge, erythema and warmth. We will begin her on cefazolin for treatment. We will control her pain with acetaminophen and morphine as needed. We will also need to follow-up the deras- cultures to rule out any other source of infection. Wound consult will need to be placed. -Follow-up CHILD NURSE, BMP -elevate RLE -Continue cefazolin 1000 mg IV every 8 hours -Pain scale: Tylenol 650 every 6 hours as needed for pain scale 1-3, Tylenol 1000 every 6 hours as needed for pain scale 4-6, morphine 1 mg every 4 hours as needed for pain scale 7-10 -Follow-up deras-cultures -Place wound care consult -Follow-up ESR 2. HLD (hyperlipidemia) Assessment/Plan The patient has a history of hyperlipidemia. We'll continue her on her home medication. -Atorvastatin 10 mg 3. HTN (hypertension) Assessment/Plan The patient has a history of hypertension. We will continue her on home medication. -Furosemide 20 mg every 48 hours 4. DVT prophylaxis Assessment/Plan The patient is on warfarin. 5. Full code status Assessment/Plan The patient is full code 6. Subtherapeutic anticoagulation Assessment/Plan The patient has a history of DVT and pulmonary embolism. She takes Coumadin 2.5 mg daily. She reports that 2 days ago her INR was 2.5. Upon admission to the emergency department her INR was found to be 1.7. We gave her 1 time dose of 5 mg Coumadin. We will order another set of coags to be followed up upon. We will allow the morning team to decide the appropriate dose of her Coumadin. The dates he should also consider a right lower extremity Doppler ultrasound due to her subtherapeutic INR and her history of DVT and pulmonary emboli -Follow-up coags -Change Coumadin dose as appropriate. -Consider right lower extremity Doppler ultrasound due to history and subtherapeutic INR Core Measures/Miscellaneous Sepsis (View Protocol) Severe Sepsis Present: No Septic Shock Septic Shock Present: No ELIZABET ROMANO MD 12/21/16 0358: Core Measures/Miscellaneous Acute Coronary Syndrome ACS Diagnosis: No Cerebrovascular Accident CVA/TIA Diagnosis: No Congestive Heart Failure CHF Diagnosis: No VTE (View Protocol) VTE Risk Factors: Acute medical illness, Age > 40 [facility] prophylaxis d/t: LE Injury, current No VTE Pharm Prophylaxis d/t: No contraindications VTE Diagnosis: No VTE Type: NONE VTE Confirmed by (Test): NONE Miscellaneous Documentation Attending Case Discussed With: [facility] Primary Care Physician: Sendy BAGLEY MD S[facility] Patient sees these Specialists NA Level of Patient Care: General Medicine Resident Review Statement Resident Statement: examined this patient, discussed with international nurse, agreed with international nurse Other Findings: Ms Enrique is a 80-year-old female past medical history of recurrent venous stasis ulcers, hypertension, hyperlipidemia and previous history of DVTs on chronic Coumadin therapy who presented to the emergency department at [facility] on 12/21/2015 after an appointment at the wound care center which was done by Dr. Liz Gil revealed that she should come to the emergency department for IV antibiotics. Patient was recently treated and discharged for right leg cellulitis on 2016. She was discharged on by mouth antibiotics (keflex). Patient noted 48 hours CHECK WRITER that wound had open and was draining. She also increase endorses increased erythema. She denies any injury or trauma. She does not endorse any purulent discharge. PCP: Dr Bagley. Patients daughter was present during the time of our clinical encounter. Review of systems: she denies any fever, chills, nausea, vomiting. HEENT: Normal EENT exam; PERRL, EOMI, HEAD is atraumatic. moist mucous membranes. Neck: Supple, normal range of motion Back: Nontender, no CVA tenderness. Full range of motion Cardiovascular: Regular rate and rhythms Respiratory: Chest nontender. No respiratory distress. Breath sounds clear to auscultation bilaterally: Abdomen: Soft, nontender nondistended, no appreciable organomegaly. Normal bowel sounds. No rebound/guarding, Extremity: Patient was adamant about having the dressed lower extremity cellulitis opened up again. She declined house staff to do a complete physical exam however we were told by the admitting medical professional that 722 cm ulceration was noted on the right lower leg. Surrounding erythema and purulent discharge was present tender to palpation, sensation is within normal limits, No edema, full range of motion of extremities, normal and equal pulses bilaterally, 5 out of 5 strength noted to bilateral upper and lower extremities Neuro: Alert oriented x3, motor sensory normal, There were no obvious focal neurologic abnormalities. Skin: No appreciable rash on exposed skin, skin is warm and dry. Psych: Mood and affect is normal, memory and judgment is normal. L: labs were positive white cell count 10.1, H&H 11.5 and 35.6 respectively. Platelets through 7. Electrolytes were within normal limits. INR 1.72. ESR 88. Blood culture pending. I: Imaging: IMPRESSION: Diffuse soft tissue swelling. No erosive osseous changes to suggest osteomyelitis. Assessment and plan This is a 80-year-old female who was recently treated for cellulitis is presented again with recurrent cellulitis. The cause of this cellulitis is likely chronic venous stasis and decreased blood supply to affected areas and likely decreased efficacy of outpatient antimicrobials. Patient does have a history of extensive vascular disease. Will admit the patient to Gen. medical service. Cellulitis due to right chronic non healing venous stasis ulcer This is a patient who has presented to the emergency department with failure of outpatient cellulitis therapy. Continue cefazolin 1000 mg IV every 8, a transition to by mouth antibiotics within the next 24-48 hours based on symptomatology. Physical therapy in a.m. Wound care consult in a.m. CBC in a.m. History of DVTs on Coumadin. She has been on chronic Coumadin for the last 11 years owing to history of DVT. INR at the time of admission was subtherapeutic. (1.72). She did endorse that her last INR was therapeutic We subsequently dosed the patient 5 mg of Coumadin. Ultrasound of the right lower extremity was considered to rule out a DVT. This can be re-evaluated in the a.m. INR in AM, dose coumadin. History of hyperlipidemia Continue home medications in a.m. DVT prophylaxis Coumadin Code Full code [facility] 0445: Attending MD Review Statement Attending Statement Attending MD Statement: examined this patient, discuss w/resident/PA/SALESPERSON FLYING SQUAD, agreed w/resident/PA/SALESPERSON FLYING SQUAD, discussed with family Attending Assessment/Plan: 80 yo F with h/o HTN, Rt. LE DVT with IVC thrombosis on coumadin, varicose veins s/p ligation, recurrent venous stasis ulcer, recently admitted to [facility] (November 2016) for right LE cellulitis treated with Keflex, was following up with Dr. Ivory at the Wound center, and was sent in today for concerns of recurrent right LE cellulitis. Patient reports that the wound was healing well, but for the past 2 days she has noticed that the dressing soaked with bloody discharge, wound seems to have 'opened up' with surrounding erythema. Denies trauma or fall. She is very upset that the wound is not healing right, and would not let us open the dressing to take a look at the ulcer. VSS. RLE as told to use by the ER PA: 7x2x2 cm ulcer to the medial aspect of RLE with erythema and serosanguinous discharge. Labs: no leukocytosis, microcytic anemia, ESR 88, INR 1.72. EKG: SR. Right ankle xray: diffuse soft tissue swelling, no erosive osseous changes to suggest osteomyelitis. 1. Right leg chronic nonhealing venous stasis ulcer with surrounding cellulitis. GM admit, elevate RLE, panculture, IV cefazolin, recent doppler of RLE (November 2016) was negative for DVT, Wound consult. Patient has a subtherapeutic INR, would consider repeat RLE doppler in case suspicion remains high for recurrent DVT. Pain management. DVT ppx coumadin. Full code.
--- NOTE | 2016-12-20 21:30 | NUR ---
PT ARRIVED TO FLOOR FROM ER VIA STRETCHER, A&OX3, VSS, DRESSING TO RLE. DRESSING REMOVED, ULCER NOTED TO RT CALF WITH SEROUS DRAINAGE NOTED, NEW DRESSING PLACED. FOOT OF BED GATCHED.
[2016-12-20 22:54] VITALS: BP 126/60
--- NOTE | 2016-12-21 04:06 | Admission Certification ---
Admission Certification Certification Statement - As attending physician, I certify that at the time of - admission, based on clinical presentation, severity of - symptoms, need for further diagnostic testing and - therapeutic interventions, and risk of adverse outcomes - without in-hospital treatment, in my clinical assessment, - this patient requires an acute hospital stay for a minimum - of two nights or longer. I have also considered psychsocial - factors such as support system, advanced age, financial - issues, cognitive issues, and failed out-patient treatments, - past re-admission history, safety of patient, and lack of - compliance as applicable. Specific rationale supporting this admission is: Right lower extremity chronic nonhealing ulcer with cellulitis, venous stasis.
[2016-12-21 06:10] VITALS: BP 133/54
--- NOTE | 2016-12-21 07:18 | PN- Housestaff ---
Subjective Follow-up For: cellulits subtheraputic INR Complaints: pain scale (0-10) Subjective: I have seen and examined the patient. She is sitting comfortably in her bed. She denies any shortness of breath chest pain or palpitation. She says her pain is well controlled with medication. 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 She is afebrile. No overnight acute events. Review of Systems Constitutional: Denies: chills, fever, malaise. Cardiovascular: Denies: chest pain, orthopena, palpitations. Respiratory: Denies: cough, short of breath, sputum production. Gastrointestinal: Denies: constipation, diarrhea, bowel incontinence. Genitourinary: Reports: no symptoms. Objective Last 24 Hrs of Vital Signs/I&O Vital Signs Date Time Temp Pulse Resp B/P B/P Pulse O2 O2 Flow FiO2 Mean Ox Delivery Rate 12/21 1431 98.4 94 20 130/70 93 Nasal 2.0L Cannula 12/21 0610 98.0 77 20 133/54 99 Room Air 12/20 2254 98.7 75 18 126/60 95 12/20 2031 97.4 74 18 129/62 99 Room Air 12/20 1840 95 Room Air Intake & Output 12/21 1600 12/21 0800 12/21 0000 Intake Total 100 0 Output Total 750 150 Balance -650 -150 Intake, IV 100 Intake, Oral 0 Output, Urine 750 150 Physical Exam General Appearance: Alert, Oriented X3, Cooperative, No Acute Distress Skin: the left leg patient has patches of dark skin on her anterior tibia secondary to prior cellulitis, the patient's right lower extremity is wrapped in a bandage. Neck: Supple Cardiovascular: Normal S1, Normal S2, No Murmurs Lungs: Clear to Auscultation, Normal Air Movement Abdomen: Normal Bowel Sounds, Soft, No Tenderness Neurological: Normal Speech Current Medications: Current Medications Sig/Kim Start time Last Medication Dose Route Stop Time Status Admin Acetaminophen 1,000 MG .STK-MED ONE 12/21 0033 DC IV 12/21 0034 Acetaminophen 650 MG Q6P PRN 12/20 2245 AC PO Acetaminophen 1,000 MG Q6P PRN 12/20 2245 AC 12/21 IV 0033 Atorvastatin Calcium 10 MG 1700 12/21 1700 AC 12/21 PO 1653 Cefazolin Sodium 1,000 MG IQ8 12/21 0000 AC 12/21 IV 1653 Cefazolin Sodium 0 .STK-MED ONE 12/20 1916 DC .ROUTE Cefazolin Sodium 2 GM ONCE ONE 12/20 1830 DC 12/20 N/A 1 UNIT IV 12/20 1859 194 Furosemide 20 MG Q48 12/21 1000 AC 12/21 PO 0754 Morphine Sulfate 1 MG Q4P PRN 12/20 2245 DC IV Warfarin Sodium 3.5 MG DAILY 12/22 1000 CAN PO Warfarin Sodium 3.5 MG ONCE ONE 12/21 1700 DC 12/21 PO 12/21 1701 1653 Warfarin Sodium 5 MG ONCE ONE 12/20 2100 DC 12/20 PO 12/20 2100 220 Warfarin Sodium 2.5 MG DAILY 12/20 2054 DC PO Last 24 Hrs of Lab/[place] Results Last 24 Hrs of Labs/[place]: Laboratory Tests 12/21/16 0650: Anion Gap 8, Estimated GFR > 60, BUN/Creatinine Ratio 18.8, PT 19.9 H, INR 1.91 H, CBC w Diff NO MAN DIFF REQ, RBC 3.96 L, MCV 81.2, MCH 26.2 L, RDW 16.1 H, MPV 7.4, Gran % 75.7 H, Lymphocytes % 12.9 L, Monocytes % 9.3, Eosinophils % 1.6, Basophils % 0.5, Absolute Granulocytes 5.8, Absolute Lymphocytes 1.0 L, Absolute Monocytes 0.7 H, Absolute Eosinophils 0.1, Absolute Basophils 0, PUBS MCHC 32.3 L Microbiology 12/21 1939 BLOOD: Blood Culture - RES Assessment/Plan Assessment: 80 y/o F with pmh sig for DVT and IVC thrombus on Coumadin 2.5 mg, recurrent venous stasis ulcers, hypertension, hyperlipidemia, recently admitted to [facility] with regular extremity cellulitis and was discharged on antibiotics, came in again with the same issue. Patient was seen in the wound care center by and was advised to come to the hospital for admission. Cellulitis The patient was afebrile on admission. Her white cell count was 10.1. She did not allow the medical team to actually examine her cellulitis. The night team got the information from the physician regional administrative assistant in the emergency department. He described cellulitis is a 7 by 2 x 2 inch area. With sterile sanguinous discharge, erythema and warmth. 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 We will begin her on cefazolin for treatment. We will control her pain with acetaminophen and morphine as needed. -xray bassamel showed Diffuse soft tissue swelling. No erosive osseous changes to suggest osteomyelitis. -Continue cefazolin 1000 mg IV every 8 hours -wound care consult (nurse Aliyah) wanted ultrasound to be done to rule out abscess and gen surgery to take a look and -elevate RLE -General surgery was contacted. Message was recorded with counseling services. -Follow-up ESR, CRYPTOGRAPHIC TECHNICIAN, BMP, deras-cultures -Pain scale: Tylenol 650 every 6 hours as needed for pain scale 1-3, Tylenol 1000 every 6 hours as needed for pain scale 4-6, morphine 1 mg every 4 hours as needed for pain scale 7-10 - Pt refused u/s of leg and we placed order of CT to evaluate her wound Subtherapeutic anticoagulation The patient has a history of DVT and pulmonary embolism. She takes Coumadin 2.5 mg daily. She reports that 2 days ago her INR was 2.5. Upon admission to the emergency department her INR was found to be 1.7. She was 1 time dose of 5 mg Coumadin. -Today Coumadin dosed to 3.5 MG in setting of subtherapeutic INR 1.7 -Low thresholf of right lower extremity Doppler ultrasound due to history and subtherapeutic INR - Follow coags and dose accordingly DVT prophylaxis -The patient is on warfarin. hypertension continue home meds -Furosemide 20 mg every 48 hours hyperlipidemia continue home meds -Atorvastatin 10 mg Problem List: 1. Cellulitis of right lower leg 2. Cellulitis 3. Subtherapeutic anticoagulation Pain Ratin Pain Location: right leg Pain Goal: Pain 4 or less Pain Plan: tynelol and morphine Tomorrow's Labs & Rationales: cbc bep inr to dose coumodin
[2016-12-21 08:17] LABS: PT 19.9 SEC (9.4-12.5)
[2016-12-21 08:34] LABS: ABSOLUTE BASOPHIL COUNT 0 /CUMM (0.0-0.2); ABSOLUTE EOSINOPHIL COUNT 0.1 /CUMM (0.0-0.7); ABSOLUTE GRANULOCYTE CT 5.8 /CUMM (1.4-6.5); ABSOLUTE MONOCYTE COUNT 0.7 /CUMM (0.10-0.60); BASOPHIL % 0.5 % (0.0-2.0); EOSINOPHIL % 1.6 % (0-5); GRANULOCYTE % 75.7 % (42.2-75.2); HEMATOCRIT 32.2 % (37-47); MEAN CORPUSCULAR HGB 26.2 PG (27.0-31.0); MEAN CORPUSCULAR HGB CONC 32.3 G/DL (33.0-37.0); MEAN CORPUSCULAR VOLUME 81.2 FL (81.0-99.0); MEAN PLATELET VOLUME 7.4 FL (7.4-10.4); PLATELET COUNT 252 /CUMM (130-400); RBC DISTRIBUTION WIDTH 16.1 % (11.5-14.5); RED BLOOD CELL CT 3.96 /CUMM (4.20-5.40); WHITE BLOOD CELL COUNT 7.7 /CUMM (4.8-10.8)
--- NOTE | 2016-12-21 13:37 | PN- Att Addend ---
Attending Addendum Attending Brief Note Patient seen and examined, hasn't been in the greater extremity at the site of infection. Patient was recently admitted with the cellulitis and was discharged on oral Keflex. She claims that she improved but then infection came back. She was seen in wound care center by Dr. Ivory and was advised to come into the hospital for cellulitis and infection. Vital Signs Date Time Temp Pulse Resp B/P B/P Pulse O2 O2 Flow FiO2 Mean Ox Delivery Rate 12/21 0610 98.0 77 20 133/54 99 Room Air 12/20 2254 98.7 75 18 126/60 95 12/20 2031 97.4 74 18 129/62 99 Room Air 12/20 1840 95 Room Air 12/20 1507 96.5 86 18 131/82 99 Room Air on exam; aox3, nad. cv; s1, s2, rrr resp; clear abd; soft, nt, bs+ ext; + dressing on rle. some erythema. Laboratory Tests 12/21 12/20 0650 1810 Chemistry Sodium (137 - 145 mmol/L) 142 139 Potassium (3.5 - 5.1 mmol/L) 4.0 4.0 Chloride (98 - 107 mmol/L) 109 H 103 Carbon Dioxide (22 - 30 mmol/L) 25 25 Anion Gap (5 - 16) 8 11 BUN (7 - 17 mg/dL) 15 15 Creatinine (0.5 - 1.0 mg/dL) 0.8 0.8 Estimated GFR (>60 ml/min) > 60 > 60 BUN/Creatinine Ratio (7 - 25 %) 18.8 18.8 Glucose (65 - 99 mg/dL) 104 H Calcium (8.4 - 10.2 mg/dL) 9.7 Total Bilirubin (0.2 - 1.3 mg/dL) 0.9 AST (14 - 36 U/L) 20 ALT (9 - 52 U/L) 23 Alkaline Phosphatase (<127 U/L) 87 Total Protein (6.3 - 8.2 g/dL) 8.3 H Albumin (3.5 - 5.0 g/dL) 4.4 Globulin (1.9 - 4.2 gm/dL) 3.9 Albumin/Globulin Ratio (1.1 - 2.2 %) 1.1 Coagulation PT (9.4 - 12.5 SEC) 19.9 H 18.0 H INR (0.90 - 1.19) 1.91 H 1.72 H APTT (25 - 37 SEC) 36 Hematology CBC w Diff NO MAN DIFF REQ NO MAN DIFF REQ WBC (4.8 - 10.8 /CUMM) 7.7 10.1 RBC (4.20 - 5.40 /CUMM) 3.96 L 4.42 Hgb (12.0 - 16.0 G/DL) 10.4 L 11.5 L Hct (37 - 47 %) 32.2 L 35.6 L MCV (81.0 - 99.0 FL) 81.2 80.7 L MCH (27.0 - 31.0 PG) 26.2 L 26.1 L RDW (11.5 - 14.5 %) 16.1 H 16.2 H Plt Count (130 - 400 /CUMM) 252 307 MPV (7.4 - 10.4 FL) 7.4 7.2 L Gran % (42.2 - 75.2 %) 75.7 H 81.5 H Lymphocytes % (20.5 - 51.1 %) 12.9 L 11.4 L Monocytes % (1.7 - 9.3 %) 9.3 6.2 Eosinophils % (0 - 5 %) 1.6 0.7 Basophils % (0.0 - 2.0 %) 0.5 0.2 Absolute Granulocytes (1.4 - 6.5 /CUMM) 5.8 8.2 H Absolute Lymphocytes (1.2 - 3.4 /CUMM) 1.0 L 1.2 Absolute Monocytes (0.10 - 0.60 /CUMM) 0.7 H 0.6 Absolute Eosinophils (0.0 - 0.7 /CUMM) 0.1 0.1 Absolute Basophils (0.0 - 0.2 /CUMM) 0 0 PUBS MCHC (33.0 - 37.0 G/DL) 32.3 L 32.4 L ESR Westergren (0 - 20 MM) 88 H A/P; 80 y/o F with pmh sig for DVT and IVC thrombus on Coumadin 2.5 mg, recurrent venous stasis ulcers, hypertension, hyperlipidemia, recently admitted to [facility] with regular extremity cellulitis and was discharged on antibiotics, came in again with the same issue. Patient was seen in the wound care center by and was advised to come to the hospital for admission. Currently on cefazolin. Wound care consult will be obtained. We'll ask the wound care if there is any need for an ultrasound to rule out any abscess. INR subtherapeutic. Coumadin will be dosed sightlyhigher today. Continue the rest of the medications.
[2016-12-21 14:31] VITALS: BP 130/70
--- NOTE | 2016-12-21 15:07 | NUR ---
WOUND CARE: REQUESTED BY DR MALIK TO EVALUATE PT FOR SKIN ALTERATION PRESENT ON ADMISSION - PT SEEN IN WOUND CARE CENTER 12/20 AND SENT TO ER FOR CELLULITIS OF RIGHT LOWER EXT - PT EXAMINED IN BEDSIDE CHAIR - APPROX 7 X 3 CM FULL THICNKESS WOUND 50% SEMI MOIST YELLOW FILL 50% BLACK DRY DESICATED ESCHAR - ? HEMATOMA, ALTHOUGH PT DENIES ANY TRAUMA TO THE AREA AND STATED IT STARTED A "BLISTER" - PERIWOUND ERYTHEMA PERSISTS > 4 CM - AREA OF SLIGHT FLUCTUENCE AT WOUND PERIMETER NEAR DORSAL TENDON AND POSTERIOR MARGIN - PT STATED CONCERN WITH AMBULATION - EDUCATED PT THAT AMBULATION AT THIS TIME WOULD NOT JEOPARDIZE WOUNDS CONDITION - PALPABLE DORSALIS PEDIS PULSES RECOMMENDATION: OBTAIN ULTRASOUND TO R/O ABCESS - PLEASE HAVE SURGERY EVALUATE PT TO CONSIDER FORMAL DEBRIDEMENT OF NECROTIC TISSUE - IN INTERIM, CLEANSE WOUND WITH NS FB SANTYL OINTMENT XEROFORM AND KERLIX DAILY AND PRN - MD TRACY MADE AWARE OF FINDINGS
--- NOTE | 2016-12-21 18:52 | CT SCAN REPORT ---
EXAMINATION: CT LOWER EXTREMITY WITHOUT CONTRAST, RIGHT CLINICAL INFORMATION: Cellulitis with purulent drainage. Evaluate for abscess. Right medial malleolar infection COMPARISON: Radiograph right ankle 12/20/16 TECHNIQUE: Multidetector CT. Examination of the right lower extremity. The study includes the anatomy from 6 cm above the plafond to the midfoot. No IV contrast. DLP: 766 mGy-cm FINDINGS: There appears to be a dressing present. There is abnormality in the superficial tissues around the ankle with skin thickening and reticulation. There is stranding in the subcutaneous tissues both medial and lateral to the ankle. There is no definite soft tissue gas or opaque foreign body. There are a few soft tissue calcifications present. There is no fracture. There is no bone destruction or cortical disruption. No periosteal new bone formation. The absence of IV contrast makes assessment for fluid difficult. There are some focal areas of thickening. No convincing evidence of a drainable fluid collection. I suspect some superficial varicosities. No definite disruption of the Achilles tendon or peroneal tendons. The posterior tibial tendon is likely intact. There is no significant tibiotalar joint fluid. On the soft tissue reformatted images the subcutaneous low-attenuation is nonspecific. Some small amounts of subcuticular fluid or edema could be present IMPRESSION: No specific evidence of osteomyelitis or deep abscess. Extensive superficial abnormalities with skin thickening and reticulation as well as subcutaneous low-attenuation. Although I doubt the presence of an abscess the lack of IV contrast limits assessment. If the patient has persistent unexplained symptoms a targeted ultrasound can sometimes assist in detecting superficial fluid collections
--- NOTE | 2016-12-21 18:59 | NUR ---
NSG NOTE: PATIENT REFUSING US OF LOWER EXTREMITY; TEXT PAGED STEWARD/STEWARDESS BATH PRABHAKAR #[id number] TO MAKE AWARE; US CANCELLED AT THIS TIME; WILL CONT TO MONITOR
[2016-12-21 22:00] VITALS: BP 120/50
[2016-12-22 06:41] VITALS: BP 104/52
[2016-12-22 08:39] LABS: PT 29.2 SEC (9.4-12.5)
[2016-12-22 08:46] LABS: ABSOLUTE BASOPHIL COUNT 0 /CUMM (0.0-0.2); ABSOLUTE EOSINOPHIL COUNT 0.2 /CUMM (0.0-0.7); ABSOLUTE LYMPH COUNT 1.6 /CUMM (1.2-3.4); ABSOLUTE MONOCYTE COUNT 0.6 /CUMM (0.10-0.60); BASOPHIL % 0.6 % (0.0-2.0); EOSINOPHIL % 3.2 % (0-5); GRANULOCYTE % 62.3 % (42.2-75.2); MEAN CORPUSCULAR HGB 26.3 PG (27.0-31.0); MEAN CORPUSCULAR HGB CONC 32.8 G/DL (33.0-37.0); MEAN CORPUSCULAR VOLUME 80.4 FL (81.0-99.0); MEAN PLATELET VOLUME 7.3 FL (7.4-10.4); PLATELET COUNT 259 /CUMM (130-400); RBC DISTRIBUTION WIDTH 16.2 % (11.5-14.5); RED BLOOD CELL CT 3.86 /CUMM (4.20-5.40); WHITE BLOOD CELL COUNT 6.4 /CUMM (4.8-10.8)
--- NOTE | 2016-12-22 10:39 | PN- Housestaff ---
MARGE ALONSO,MIKAL 12/22/16 1039: Subjective Follow-up For: cellulits subtheraputic INR Subjective: I saw and examined the patient. She was sitting in bed in no acute distress. Pt states she has right leg pain at the site of the open ucler. Pt denies chest pain, SOB, fever, chill, n/v. Review of Systems Constitutional: Denies: see HPI. Objective Last 24 Hrs of Vital Signs/I&O Vital Signs Date Time Temp Pulse Resp B/P B/P Pulse O2 O2 Flow FiO2 Mean Ox Delivery Rate 12/22 1424 98.8 68 20 98/54 97 Room Air 12/22 0641 97.9 68 20 104/52 97 12/21 2200 97.8 65 18 120/50 96 Room Air Intake & Output 12/22 1600 12/22 0800 12/22 0000 Intake Total 380 180 10 Output Total 425 Balance -45 180 10 Intake, IV 30 60 10 Intake, Oral 350 120 Number 0 Bowel Movements Output, Urine 425 Physical Exam General Appearance: Alert, Oriented X3, Cooperative, No Acute Distress Cardiovascular: Regular Rate, Normal S1, Normal S2 Lungs: Clear to Auscultation Abdomen: Normal Bowel Sounds, Soft, No Tenderness Extremities: right tibia has an ulcer approximately 5 inches in length with necrotic center. no active drainage expressed Assessment/Plan Assessment: 80 y/o F with pmh sig for DVT and IVC thrombus on Coumadin 2.5 mg, recurrent venous stasis ulcers, hypertension, hyperlipidemia, recently admitted to [facility] with regular extremity cellulitis and was discharged on antibiotics, came in again with the same issue. Patient was seen in the wound care center by and was advised to come to the hospital for admission. Cellulitis The patient was afebrile on admission. Her white cell count was 10.1. She did not allow the medical team to actually examine her cellulitis. The night team got the information from the physician hr administrative assistant in the emergency department. He described cellulitis is a 7 by 2 x 2 inch area. With sterile sanguinous discharge, erythema and warmth. 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 We will begin her on cefazolin for treatment. We will control her pain with acetaminophen and morphine as needed. -xray ankel showed: Diffuse soft tissue swelling. No erosive osseous changes to suggest osteomyelitis. -Continue cefazolin 1000 mg IV every 8 hours -wound care consult (nurse Aliyah) wanted ultrasound to be done to rule out abscess and gen surgery to take a look and -elevate RLE - ordered santyl ointment and dressing changes - general surgery consult pending (message was left with answering service, will try to call tomorrow) - ESR: 88, WBC normal, h/h trending down: last at 10.2 - repeat ESR, CBC and BEP - cultures negative to date -Pain scale: Tylenol 650 every 6 hours as needed for pain scale 1-3, Tylenol 1000 every 6 hours as needed for pain scale 4-6, morphine 1 mg every 4 hours as needed for pain scale 7-10 - Pt refused u/s of leg and we placed order of CT to evaluate her wound Subtherapeutic anticoagulation The patient has a history of DVT and pulmonary embolism. She takes Coumadin 2.5 mg daily. She reports that 2 days ago her INR was 2.5. Upon admission to the emergency department her INR was found to be 1.7. She was 1 time dose of 5 mg Coumadin. - Pt's INR is therapeutic at this time. She recieved coumadin 2.5mg today. Repeat INR tomorrow morning. -Low threshold of right lower extremity Doppler ultrasound due to history and subtherapeutic INR - Follow coags and dose accordingly HTN: - continue home meds - fursomedie 20mg every 48 hours HLD: -Atorvastatin 10 mg DVT PPx: on warfarin Code: full Diet: Regular Problem List: 1. Cellulitis of right lower leg Pain Ratin Pain Location: left leg Pain Goal: Pain 4 or less Pain Plan: percocet tylenol Tomorrow's Labs & Rationales: cbc bep inr esr ANNA SAVAGE MDMAD 12/22/16 1206: Attending Review Statement Attending Statement Attending MD Statement: examined this patient, discuss w/resident/PA/LOADER MACHINE, agreed w/resident/PA/LOADER MACHINE, discussed with family, discussed with nursing, reviewed images , amended to note Attending Assessment/Plan: 80-year-old female with past medical history significant for DVT, IVC thrombus on anticoagulants, recurrent venous stasis and ulcers, hypertension, hyperlipidemia and a recent admission to the [facility] for cellulitis and discharged on antibiotics has been admitted once again for possible cellulitis from the wound center. Patient is being treated with IV cefazolin. The CT scan ruled out for any possible abscess or osteomyelitis and the patient is refusing to undergo any targeted ultrasound due to pain. Patient was seen and examined on the bedside and reports she is doing fine other than her wound on the right lower extremity. I tried to convince but the patient refused to undergo any ultrasound. For now we'll continue on her IV antibiotics. The patient might need surgical debridement for the eschar on her wound. The wound team will continue to follow up on the patient.
[2016-12-22 14:24] VITALS: BP 98/54
--- NOTE | 2016-12-22 20:06 | NUR ---
PATIENT C/O BURNING TO RLE, AT WOUND SITE. FEELS WARM TO TOUCH. REMOVE DRESSING, MODERATE SS DRAINAGE, OPEN WOUND WITH ESCHAR, PATIENT STATED "IT WAS NOT OPEN BEFORE". AFEBRILE AT 98.2. RUNNING IV TYLENOL FOR PAIN. INFORMED DR ANISA AVALOS TO COME AND SEE PATIENT.
[2016-12-22 21:59] VITALS: BP 102/56
[2016-12-23 06:40] VITALS: BP 124/74
[2016-12-23 08:14] LABS: ABSOLUTE BASOPHIL COUNT 0 /CUMM (0.0-0.2); ABSOLUTE EOSINOPHIL COUNT 0.2 /CUMM (0.0-0.7); ABSOLUTE GRANULOCYTE CT 4.2 /CUMM (1.4-6.5); ABSOLUTE LYMPH COUNT 1.3 /CUMM (1.2-3.4); ABSOLUTE MONOCYTE COUNT 0.5 /CUMM (0.10-0.60); BASOPHIL % 0.8 % (0.0-2.0); EOSINOPHIL % 3.3 % (0-5); GRANULOCYTE % 66.6 % (42.2-75.2); HEMATOCRIT 31.9 % (37-47); MEAN CORPUSCULAR HGB 26.4 PG (27.0-31.0); MEAN CORPUSCULAR HGB CONC 32.7 G/DL (33.0-37.0); MEAN CORPUSCULAR VOLUME 80.7 FL (81.0-99.0); MEAN PLATELET VOLUME 7.5 FL (7.4-10.4); PLATELET COUNT 287 /CUMM (130-400); RBC DISTRIBUTION WIDTH 16.2 % (11.5-14.5); RED BLOOD CELL CT 3.95 /CUMM (4.20-5.40); WHITE BLOOD CELL COUNT 6.3 /CUMM (4.8-10.8)
[2016-12-23 08:46] LABS: PT 37.6 SEC (9.4-12.5)
--- NOTE | 2016-12-23 10:04 | PN- Housestaff ---
MARGE ALONSO,MIKAL 12/23/16 1003: Subjective Follow-up For: cellulits subtheraputic INR now supratherapeutic Subjective: I saw and examined the patient today. She went for ultrasound and CT. States she does not like how percocet makes her feel- feels nauseous with it. Pain controlled with IV tylenol. Denies chest pain, SOB, n/v, fever/chills. Review of Systems Constitutional: Denies: see HPI. Objective Last 24 Hrs of Vital Signs/I&O Vital Signs Date Time Temp Pulse Resp B/P B/P Pulse O2 O2 Flow FiO2 Mean Ox Delivery Rate 12/23 1414 98.9 73 20 108/72 98 Room Air 12/23 0640 98.0 69 20 124/74 97 12/22 2159 97.8 66 20 102/56 95 Room Air Intake & Output 12/23 1600 12/23 0800 12/23 0000 Intake Total 350 40 600 Output Total 900 1000 Balance -550 40 -400 Intake, IV 40 Intake, Oral 350 600 Number 0 Bowel Movements Output, Urine 900 1000 Physical Exam General Appearance: Alert, Cooperative, No Acute Distress Cardiovascular: Regular Rate, Normal S1, Normal S2 Lungs: Clear to Auscultation Abdomen: Normal Bowel Sounds, Soft, No Tenderness Extremities: Normal Pulses, right tibia has an ulcer approximately 5 inches in length with necrotic center. no active drainage expressed Assessment/Plan Assessment: 80 y/o F with pmh sig for DVT and IVC thrombus on Coumadin 2.5 mg, recurrent venous stasis ulcers, hypertension, hyperlipidemia, recently admitted to [facility] with regular extremity cellulitis and was discharged on antibiotics, came in again with the same issue. Patient was seen in the wound care center by and was advised to come to the hospital for admission. Cellulitis The patient was afebrile on admission. Her white cell count was 10.1. She did not allow the medical team to actually examine her cellulitis. The night team got the information from the physician administrative office assistant in the emergency department. He described cellulitis is a 7 by 2 x 2 inch area. With sterile sanguinous discharge, erythema and warmth. 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 We will begin her on cefazolin for treatment. We will control her pain with acetaminophen and morphine as needed. -xray sri showed: Diffuse soft tissue swelling. No erosive osseous changes to suggest osteomyelitis. -Continue cefazolin 1000 mg IV every 8 hours -wound care consult (nurse Aliyah) wanted ultrasound to be done to rule out abscess and gen surgery to take a look and -elevate RLE - ordered santyl ointment and dressing changes - general surgery consult pending - ESR: 88, WBC normal, h/h trending stable: last at 10.4 - repeat CBC, BEP - cultures negative to date -Pain scale: Tylenol 650 every 6 hours as needed for pain scale 1-3, Tylenol 1000 every 6 hours as needed for pain scale 4-6, morphine 1 mg every 4 hours as needed for pain scale 7-10 -Dr. Perez was able to convince patient to have ultrasound and CT: no fluid collection/abscess seen. Subtherapeutic anticoagulation - now supratherapeutic The patient has a history of DVT and pulmonary embolism. She takes Coumadin 2.5 mg daily. She reports that 2 days ago her INR was 2.5. Upon admission to the emergency department her INR was found to be 1.7. She was 1 time dose of 5 mg Coumadin. - Pt's INR is therapeutic at this time is 3.63. Coumadin held today. Repeat INR tomorrow morning. -Low threshold of right lower extremity Doppler ultrasound due to history and subtherapeutic INR - Follow coags and dose accordingly HTN: - continue home meds - fursomedie 20mg every 48 hours HLD: -Atorvastatin 10 mg DVT PPx: on warfarin Code: full Diet: Regular Problem List: 1. Supratherapeutic INR 2. Infected ulcer of skin Pain Ratin Pain Location: right leg Pain Goal: Remain pain free Pain Plan: IV tylenol PRN Tomorrow's Labs & Rationales: CBC EVIE PEREZ MD,POMPA 12/23/16 1029: Attending Review Statement Attending Statement Attending Statement: examined this patient, agreed w/resident/PA/DIRECTOR OF ACQUISITION MARKETING, discussed with family, reviewed EMR data (avail), discussed with nursing, discussed with case mgmt, reviewed images Attending Assessment/Plan: 80-year-old female with past medical history significant for DVT, IVC thrombus on anticoagulants, recurrent venous stasis and ulcers, hypertension, hyperlipidemia and a recent admission to the [facility] for cellulitis and discharged on antibiotics has been admitted once again for possible cellulitis from the wound center. Patient is being treated with IV cefazolin. The CT scan ruled out for any possible abscess or osteomyelitis and the patient had been refusing to go for the targeted ultrasound to rule out for any abscess because of the anticipating pain. Patient was seen and examined on the bedside and reports she is doing fine other than her wound on the right lower extremity. I somehow convinced the patient to go for the targeted ultrasound to rule out for any abscess and will give her pain medication before the procedure. For now we'll continue on her IV antibiotics. The patient might need surgical debridement for the eschar on her wound. The wound team will continue to follow up on the patient. Hold her Coumadin tonight as the patient has a supratherapeutic INR today, and recheck her INR tomorrow.
[2016-12-23 14:14] VITALS: BP 108/72
--- NOTE | 2016-12-23 16:14 | ULTRASOUND REPORT ---
EXAMINATION: US SUPERFICIAL IMAGING, EXTREMITY CLINICAL INFORMATION: Cellulitis of lower extremity. Possible fluid collection. Continued pain with necrotic tissue and open ulcer at tibia. COMPARISON: CT images of the extremity from 12/21/2016. TECHNIQUE: Sonographic imaging of superficial tissues of the medial right lower leg was performed using a linear 9 MHz transducer. FINDINGS: There is a superficial ulcer/wound of the medial lower leg. The sonographic images show no evidence of a fluid collection within the surrounding subcutaneous or visualized deeper tissues. No abscess. IMPRESSION: No evidence of soft tissue abscess in the medial right lower leg.
[2016-12-23 22:42] VITALS: BP 110/72
[2016-12-24 06:57] VITALS: BP 112/58
--- NOTE | 2016-12-24 07:48 | Patient Discharge Instructions ---
Discharge Instructions General Discharge Information You were seen/treated for: Cellulitis Watch for these problems: 1. worsening cellulitis 2. fever 3. shortness of breath Special Instructions: 1. follow up with wound care center 2. finish your antibiotics as prescribed 3. Follow up with your vascular surgeon outpatient 4. follow up with wound care Diet Continue normal diet: Yes Activity Activity Self Limited: No Acute Coronary Syndrome Inclusion Criteria At DC or during hospital stay patient has or had the following: ACS DIAGNOSIS No Discharge Core Measures Meds if any: Prescribed or Continued at Discharge Meds if any: NOT Prescribed or Continued at Discharge Congestive Heart Failure Inclusion Criteria At DC or during hospital stay patient has or had the following: CHF DIAGNOSIS No Discharge Core Measures Meds if any: Prescribed or Continued at Discharge Meds if any: NOT Prescribed or Continued at Discharge Cerebrovascular accident Inclusion Criteria At DC or during hospital stay patient has or had the following: CVA/TIA Diagnosis No Discharge Core Measures Meds if any: Prescribed or Continued at Discharge Meds if any: NOT Prescribed or Continued at Discharge Venous thromboembolism Inclusion Criteria VTE Diagnosis No VTE Type NONE VTE Confirmed by (Test) NONE Discharge Core Measures - Per Current guidelines, there needs to be overlap - treatment for the first 5 days of Warfarin therapy. - If discharged on Warfarin prior to 5 days of - overlap therapy, the patient will need to be - assessed for post discharge needs including - *Post discharge parental anticoagulation - *Warfarin and/or parental anticoagulation education - *Follow up date to check INR post discharge At least 5 days overlap therapy as Inpatient No Meds if any: Prescribed or Continued at Discharge Note: Overlap Therapy is Warfarin and Anticoagulant Meds if any: NOT Prescribed or Continued at Discharge
[2016-12-24] MEDS ORDERED: KEFLEX500 M1 PO ×4 (07:54→16:15)
[2016-12-24 08:15] LABS: PT 30.6 SEC (9.4-12.5)
[2016-12-24 08:17] LABS: ABSOLUTE BASOPHIL COUNT 0 /CUMM (0.0-0.2); ABSOLUTE EOSINOPHIL COUNT 0.2 /CUMM (0.0-0.7); ABSOLUTE GRANULOCYTE CT 4.4 /CUMM (1.4-6.5); ABSOLUTE LYMPH COUNT 1.4 /CUMM (1.2-3.4); ABSOLUTE MONOCYTE COUNT 0.4 /CUMM (0.10-0.60); BASOPHIL % 0.7 % (0.0-2.0); EOSINOPHIL % 3.5 % (0-5); GRANULOCYTE % 68.1 % (42.2-75.2); HEMATOCRIT 33.3 % (37-47); MEAN CORPUSCULAR HGB 26.2 PG (27.0-31.0); MEAN CORPUSCULAR HGB CONC 32.5 G/DL (33.0-37.0); MEAN CORPUSCULAR VOLUME 80.7 FL (81.0-99.0); MEAN PLATELET VOLUME 7.2 FL (7.4-10.4); PLATELET COUNT 309 /CUMM (130-400); RBC DISTRIBUTION WIDTH 16.4 % (11.5-14.5); RED BLOOD CELL CT 4.13 /CUMM (4.20-5.40); WHITE BLOOD CELL COUNT 6.4 /CUMM (4.8-10.8)
--- NOTE | 2016-12-24 08:28 | PN- Housestaff ---
DEMARCUS ALONSO,[facility] 12/24/16 0828: Subjective Follow-up For: cellulits subtheraputic INR Complaints: open leg ulcer Subjective: I have seen and examined the patient. She is sitting comfortably in bed. There are no overnight acute events. She is concerned about her right leg ulcer. She wants to know how it is going to close. She is glad that her CT and u/s did not show any abscess or fluid collection. She does not complain of any palpitations chest pain shortness of breath fever or chills. Review of Systems Constitutional: Denies: chills, diaphoresis, fever. Cardiovascular: Denies: chest pain, orthopena. Respiratory: Denies: cough, orthopnea, short of breath. Gastrointestinal: Denies: constipation, diarrhea, distention. Genitourinary: Reports: no symptoms. Objective Last 24 Hrs of Vital Signs/I&O Vital Signs Date Time Temp Pulse Resp B/P B/P Pulse O2 O2 Flow FiO2 Mean Ox Delivery Rate 12/24 0657 98.1 66 20 112/58 96 12/23 2242 98.2 74 20 110/72 99 Room Air 12/23 1414 98.9 73 20 108/72 98 Room Air Intake & Output 12/24 1600 12/24 0800 12/24 0000 Intake Total 250 600 Output Total 475 800 Balance -225 -200 Intake, IV 10 Intake, Oral 240 600 Number 0 Bowel Movements Output, Urine 475 800 Physical Exam General Appearance: Alert, Oriented X3, Cooperative Skin: the left leg patient has patches of dark skin on her anterior tibia secondary to prior cellulitis, the patient's right lower extremity is wrapped in a bandage HEENT: Atraumatic Cardiovascular: Normal S1, Normal S2, No Murmurs Lungs: Clear to Auscultation, Normal Air Movement Abdomen: Normal Bowel Sounds, Soft, No Tenderness Neurological: Normal Speech Vascular: Normal Pulses Current Medications: Current Medications Sig/Kim Start time Last Medication Dose Route Stop Time Status Admin Acetaminophen 650 MG Q6P PRN 12/20 2245 AC PO Acetaminophen 1,000 MG Q6P PRN 12/20 2245 AC 12/22 IV 2004 Atorvastatin Calcium 10 MG 1700 12/21 1700 AC 12/23 PO 1559 Cefazolin Sodium 1,000 MG IQ8 12/21 0000 AC 12/24 IV 0756 Collagenase 1 LAI DAILY 12/22 1045 AC 12/23 TOP 1559 Docusate Sodium 100 MG DAILY PRN 12/22 0915 AC 12/22 PO 0950 Furosemide 20 MG Q48 12/21 1000 AC 12/23 PO 1559 Ondansetron HCl 4 MG DAILY NEEDED PRN 12/23 1900 AC PO Oxycodone/ 1 TAB Q6 PRN 12/23 0145 AC 12/23 Acetaminophen PO 1456 Assessment/Plan Assessment: 80 y/o F with pmh sig for DVT and IVC thrombus on Coumadin 2.5 mg, recurrent venous stasis ulcers, hypertension, hyperlipidemia, recently admitted to [facility] with regular extremity cellulitis and was discharged on antibiotics, came in again with the same issue. Patient was seen in the wound care center by and was advised to come to the hospital for admission. Cellulitis The patient was afebrile on admission. Her white cell count was 10.1. She did not allow the medical team to actually examine her cellulitis. The night team got the information from the physician team assistant in the emergency department. He described cellulitis is a 7 by 2 x 2 inch area. With sterile sanguinous discharge, erythema and warmth. 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 We started her on cefazolin for treatment. We will control her pain with acetaminophen and morphine as needed. -xray ankel showed: Diffuse soft tissue swelling. No erosive osseous changes to suggest osteomyelitis. -On ultrasound and CT: no fluid collection/abscess seen 12/23 -Continue cefazolin 1000 mg IV every 8 hours will convert to oral on discharge DAY 4 -wound care consult (nurse Ly) to rule out abscess and gen surgery to take a look and -elevate RLE - ordered santyl ointment and dressing changes - general surgery consulted no intervention recommended - vascular surgery consult awaiting - ESR: 88 to 45, WBC normal, h/h trending stable: last at 10.9 - repeat CBC, BEP - cultures negative to date -Pain scale: Tylenol 650 every 6 hours as needed for pain scale 1-3, Tylenol 1000 every 6 hours as needed for pain scale 4-6, 7-10 percocet makes nauseous hasnt taken since 12/23 Subtherapeutic anticoagulation - now supratherapeutic The patient has a history of DVT and pulmonary embolism. She takes Coumadin 2.5 mg daily. She reports that 2 days ago her INR was 2.5. Upon admission to the emergency department her INR was found to be 1.7. She was 1 time dose of 5 mg Coumadin. - Pt's INR is therapeutic at this time is 2.95 Coumodin dosed at 2.5. Repeat INR tomorrow morning. -Low threshold of right lower extremity Doppler ultrasound due to history and subtherapeutic INR - Follow coags and dose accordingly HTN: - continue home meds - fursomedie 20mg every 48 hours HLD: -Atorvastatin 10 mg DVT PPx: on warfarin Code: full Diet: Regular Problem List: 1. Cellulitis of right lower leg 2. Supratherapeutic INR Pain Ratin Pain Location: RLE Pain Goal: Pain 4 or less Pain Plan: tynelol 600, 1000 and morphine 1mg Tomorrow's Labs & Rationales: cbc bep inr MIGUE CHOUDHARY MD 12/24/16 1306: Attending MD Review Statement Attending Statement Attending MD Statement: examined this patient, discuss w/resident/PA/NARCOTICS AND VICE DETECTIVE, agreed w/resident/PA/NARCOTICS AND VICE DETECTIVE, reviewed EMR data (avail), discussed with nursing, discussed with case mgmt, reviewed images, amended to note Attending Assessment/Plan: Patient seen and examined, feels the same. She is very worried about her right lower extremity wound and wants that to be healed. She has been followed by wound care. Vital Signs Date Time Temp Pulse Resp B/P B/P Pulse O2 O2 Flow FiO2 Mean Ox Delivery Rate 12/24 0657 98.1 66 20 112/58 96 12/23 2242 98.2 74 20 110/72 99 Room Air 12/23 1414 98.9 73 20 108/72 98 Room Air on exam; aox3, nad. cv; s1,s2, rrr resp; clear abd; soft, nt, bs+ ext; no edema. skin: + wound on left guillen. the surrounding erythema is slightly better but the wound itself looks almost the same. Laboratory Tests 12/24 0703 Chemistry Sodium (137 - 145 mmol/L) 142 Potassium (3.5 - 5.1 mmol/L) 4.0 Chloride (98 - 107 mmol/L) 107 Carbon Dioxide (22 - 30 mmol/L) 27 Anion Gap (5 - 16) 8 BUN (7 - 17 mg/dL) 17 Creatinine (0.5 - 1.0 mg/dL) 0.7 Estimated GFR (>60 ml/min) > 60 BUN/Creatinine Ratio (7 - 25 %) 24.3 Coagulation PT (9.4 - 12.5 SEC) 30.6 H INR (0.90 - 1.19) 2.95 H Hematology CBC w Diff NO MAN DIFF REQ WBC (4.8 - 10.8 /CUMM) 6.4 RBC (4.20 - 5.40 /CUMM) 4.13 L Hgb (12.0 - 16.0 G/DL) 10.9 L Hct (37 - 47 %) 33.3 L MCV (81.0 - 99.0 FL) 80.7 L MCH (27.0 - 31.0 PG) 26.2 L RDW (11.5 - 14.5 %) 16.4 H Plt Count (130 - 400 /CUMM) 309 MPV (7.4 - 10.4 FL) 7.2 L Gran % (42.2 - 75.2 %) 68.1 Lymphocytes % (20.5 - 51.1 %) 21.0 Monocytes % (1.7 - 9.3 %) 6.7 Eosinophils % (0 - 5 %) 3.5 Basophils % (0.0 - 2.0 %) 0.7 Absolute Granulocytes (1.4 - 6.5 /CUMM) 4.4 Absolute Lymphocytes (1.2 - 3.4 /CUMM) 1.4 Absolute Monocytes (0.10 - 0.60 /CUMM) 0.4 Absolute Eosinophils (0.0 - 0.7 /CUMM) 0.2 Absolute Basophils (0.0 - 0.2 /CUMM) 0 PUBS MCHC (33.0 - 37.0 G/DL) 32.5 L A/P; 80 y/o F with pmh sig for DVT and IVC thrombus on Coumadin 2.5 mg, recurrent venous stasis ulcers, hypertension, hyperlipidemia, recently admitted to [facility] with right lower extremity cellulitis and was discharged on antibiotics, came in again with the same issue again and was sent in by Dr. Ivory. Lower extremity ultrasounds are negative for any DVT or abscess. Patient getting IV antibiotics and local wound care. At this point we will obtain vascular surgery consult as the wound looking the same. Continue local wound care. INR therapeutic today and will dose coumadin at 2.5 mg today. Patient refuses to go to rehabilitation. Physical therapy recommended home physical therapy and home services. pending vascular surg evaluation, if no interventions planned than likely she can be discharged home tomorrow on oral antibiotics and aggressive wound care follow up.
--- NOTE | 2016-12-24 08:29 | Discharge Summary ---
Visit Information Visit Dates Admission Date: 12/20/16 Discharge Date: 12/25/2016 Hospital Course Course Attending Physician: MIGUE CHOUDHARY MD Primary Care Phys[facility] [place] Course: 80 y/o F with pmh sig for DVT and IVC thrombus on Coumadin 2.5 mg, recurrent venous stasis ulcers, hypertension, hyperlipidemia, recently admitted to [facility] with regular extremity cellulitis and was discharged on antibiotics, came in again with the same issue. Patient was seen in the wound care center by and was advised to come to the hospital for admission. We treated her for following: Cellulitis The patient was afebrile on admission. Her white cell count was 10.1. She did not allow the medical team to actually examine her cellulitis. The night team got the information from the physician medical staff assistant in the emergency department. He described cellulitis is a 7 by 2 x 2 inch area. With sterile sanguinous discharge, erythema and warmth. Patient wanted to be off teaching service. We started on her on 100mg IV q8 for treatment.and controlled her pain with acetaminophen and percocet as needed. -xray ankel showed: Diffuse soft tissue swelling. No erosive osseous changes to suggest osteomyelitis. -On ultrasound and CT: no fluid collection/abscess seen 12/23 -cultures negative to date -cefazolin was converted to oral keflex 500mg 4 times a day on discharge -wound care consult ordered santyl ointment and dressing changes. Patient was conselled to follow-up with Wound Care clinic -Gen. surgery offered no intervention. -Vascular surgery Dr.Shah White saw her and wants to follow up with her on outpatient basis. Patient instructed to make an appointment with him. Subtherapeutic anticoagulation The patient has a history of DVT and pulmonary embolism. She takes Coumadin 2.5 mg daily. Patient's INR was subtherapeutic/supratherapeutic. we followed coags and dosed Coumadin accordingly. She was discharged on her home dose of Coumadin. HTN: - fursomedie 20mg every 48 hours HLD: -Atorvastatin 10 mg Allergies: Coded Allergies: morphine (Intermediate, RASH 10/15/16) Sulfa (Sulfonamide Antibiotics) (VOMITING 08/21/15) amoxicillin (From AUGMENTIN) (HIVES 08/21/15) clavulanic acid (From AUGMENTIN) (HIVES 08/21/15) Disposition Summary Disposition Principal Diagnosis: Cellulits Additional Diagnosis: sub/supra therapeutic INR Discharge Disposition: home health services Discharge Instructions General Discharge Information Code Status: Full Code Patient's Diet: regular Patient's Activity: as tolerated Follow-Up Instructions/Appts: Follow-up with PCP. Follow-up with vascular surgery. Follow-up with Wound Care clinic. Complete course of antibiotics. Seek attention if fever or shortness of breath or increased pain Medications at Discharge Discharge Medications: Continue taking these medications: Rosuvastatin Calcium (Crestor) 10 MG TABLET 1 Tablet ORAL DAILY Comments: NOT GIVEN IN HOSPITAL Warfarin Sodium (Coumadin) 2.5 MG TABLET 1 Tablet ORAL DAILY Instructions: Please dose to keep the inr between 2-3. Comments: Last Taken: 11/24/16 Time: 5:00 PM Furosemide (Lasix) 20 MG TABLET 1 Tablet ORAL EVERY 48 HOURS (Every 2 days) Qty = 30 Instructions: Holding parameters: hold for SBP < 90 Comments: Last Taken: 11/25/16 Time: 10:00 AM Oxycodone HCl/Acetaminophen (Percocet 5-325 MG Tablet) 5 MG-325 MG TABLET 1 Tablet ORAL EVERY SIX HOURS NEEDED as needed for PAIN SCALE 4-6 ( MODERATE) Qty = 30 Comments: Last Taken: 11/25/16 Time: 5:30 AM Lidocaine (Lidocaine) 5 % ADH..PATCH 1 Patch On the skin DAILY as needed for LOW BACK PAIN Qty = 30 Comments: Last Taken: 11/23/16 Time: 10:00 AM Start taking the following new medications: Cephalexin (Keflex) 500 MG CAPSULE 1 Capsule ORAL 4 TIMES A DAY Qty = 20 No Refills Copies To: YUDI ALONSO,[facility]
--- NOTE | 2016-12-24 14:23 | NUR ---
WOUND CARE:DISCUSSED PLAN OF CARE WITH DR MALIK - SURGICAL OFFERED NO INTERVENTIONS EXCEPT VASCULAR EVAL - MESSAGE SENT TO DR RODRÍGUEZ WITH IMAGE AND REQUEST TO EVLAUATE PT - DR RODRÍGUEZ WILL PRROVIDE CONSULT IN AM
[2016-12-24 14:24] VITALS: BP 118/54
[2016-12-24 22:22] VITALS: BP 116/60
[2016-12-25 06:08] VITALS: BP 118/72
--- NOTE | 2016-12-25 07:36 | PN- Housestaff ---
DEMARCUS ALONSO,FRANK 12/25/16 0735: Subjective Follow-up For: cellultis Complaints: no complaints Subjective: I saw and examined the patient. She is going to be discharged today. She will need a follow-up with vascular surgery wound care clinic and her PCP. Review of Systems Constitutional: Reports: no symptoms. Objective Last 24 Hrs of Vital Signs/I&O Vital Signs Date Time Temp Pulse Resp B/P B/P Pulse O2 O2 Flow FiO2 Mean Ox Delivery Rate 12/25 1435 98.0 84 20 116/70 97 Room Air 12/25 0608 98.0 72 20 118/72 96 Room Air 12/24 2222 97.8 69 20 116/60 98 Room Air Intake & Output 12/25 1600 12/25 0800 12/25 0000 Intake Total 750 240 480 Output Total 1120 200 150 Balance -370 40 330 Intake, Oral 750 240 480 Number 1 Bowel Movements Output, Urine 1120 200 150 Patient 130 lb Weight Physical Exam General Appearance: Alert, Oriented X3, Cooperative, No Acute Distress Skin: No Rashes, No Breakdown Cardiovascular: Regular Rate, Normal S1, Normal S2 Lungs: Clear to Auscultation, Normal Air Movement Abdomen: Normal Bowel Sounds, Soft, No Tenderness Extremities: Normal Pulses Current Medications: Current Medications Sig/Kim Start time Last Medication Dose Route Stop Time Status Admin Acetaminophen 1,000 MG .STK-MED ONE 12/25 1999 DC IV 12/24 2000 Acetaminophen 650 MG Q6P PRN 12/20 2245 DCD PO Acetaminophen 1,000 MG Q6P PRN 12/20 2245 DCD 12/24 IV 2005 Atorvastatin Calcium 10 MG 1700 12/21 1700 DCD 12/24 PO 1659 Cefazolin Sodium 1,000 MG IQ8 12/21 0000 DCD 12/25 IV 0755 Collagenase 1 LAI DAILY 12/22 1045 DCD 12/25 TOP 1327 Docusate Sodium 100 MG DAILY PRN 12/22 0915 DCD 12/22 PO 0950 Furosemide 20 MG Q48 12/21 1000 DCD 12/25 PO 0758 Ondansetron HCl 4 MG DAILY NEEDED PRN 12/23 1900 DCD PO Oxycodone/ 1 TAB Q6 PRN 12/23 0145 DCD 12/25 Acetaminophen PO 0548 Last 24 Hrs of Lab/[place] Results Last 24 Hrs of Labs/Mics: Laboratory Tests 12/25/16 0653: Anion Gap 9, Estimated GFR > 60, BUN/Creatinine Ratio 26.7 H, PT 21.5 H, INR 2.06 H, CBC w Diff NO MAN DIFF REQ, RBC 4.09 L, MCV 81.0, MCH 26.4 L, RDW 16.0 H, MPV 7.4, Gran % 69.4, Lymphocytes % 20.5, Monocytes % 5.9, Eosinophils % 3.5, Basophils % 0.7, Absolute Granulocytes 4.3, Absolute Lymphocytes 1.3, Absolute Monocytes 0.4, Absolute Eosinophils 0.2, Absolute Basophils 0, PUBS MCHC 32.5 L Assessment/Plan Assessment: 10 y/o F with pmh sig for DVT and IVC thrombus on Coumadin 2.5 mg, recurrent venous stasis ulcers, hypertension, hyperlipidemia, recently admitted to [facility] with regular extremity cellulitis and was discharged on antibiotics, came in again with the same issue. Patient was seen in the wound care center by and was advised to come to the hospital for admission. We treated her for following: Cellulitis The patient was afebrile on admission. Her white cell count was 10.1. She did not allow the medical team to actually examine her cellulitis. The night team got the information from the physician computer assistant in the emergency department. He described cellulitis is a 7 by 2 x 2 inch area. With sterile sanguinous discharge, erythema and warmth. Patient wanted to be off teaching service. We started on her on 100mg IV q8 for treatment.and controlled her pain with acetaminophen and percocet as needed. -xray ankel showed: Diffuse soft tissue swelling. No erosive osseous changes to suggest osteomyelitis. -On ultrasound and CT: no fluid collection/abscess seen 12/23 -cultures negative to date -cefazolin was converted to oral keflex 500mg 4 times a day on discharge -wound care consult ordered santyl ointment and dressing changes. Patient was conselled to follow-up with Wound Care clinic -Gen. surgery offered no intervention. -Vascular surgery Dr.Shah White saw her and wants to follow up with her on outpatient basis. Patient instructed to make an appointment with him. Subtherapeutic anticoagulation The patient has a history of DVT and pulmonary embolism. She takes Coumadin 2.5 mg daily. Patient's INR was subtherapeutic/supratherapeutic. we followed coags and dosed Coumadin accordingly. She was discharged on her home dose of Coumadin. HTN: - fursomedie 20mg every 48 hours HLD: -Atorvastatin 10 mg Problem List: 1. Subtherapeutic anticoagulation 2. Cellulitis of right lower leg Pain Ratin Pain Location: none Pain Goal: Pain 4 or less Pain Plan: none Tomorrow's Labs & Rationales: none MIGUE CHOUDHARY MD 12/25/16 1527: Attending MD Review Statement Attending Statement Attending MD Statement: examined this patient, discuss w/resident/PA/SIGNAL WORKER HELPER, agreed w/resident/PA/SIGNAL WORKER HELPER, reviewed EMR data (avail), discussed with nursing, discussed with case mgmt, reviewed images, amended to note Attending Assessment/Plan: Patient seen and examined, doing almost same. Seen by vascular surgery and they recommended outpatient follow-up. Patient remains afebrile. Can be discharged home on oral antibiotics today and follow-up with vascular surgery as well as wound care center as an outpatient. She was explained about the vascular follow -up as an outpatient and she is agreeable with that.
[2016-12-25 08:27] LABS: PT 21.5 SEC (9.4-12.5)
[2016-12-25 08:32] LABS: ABSOLUTE BASOPHIL COUNT 0 /CUMM (0.0-0.2); ABSOLUTE EOSINOPHIL COUNT 0.2 /CUMM (0.0-0.7); ABSOLUTE GRANULOCYTE CT 4.3 /CUMM (1.4-6.5); ABSOLUTE LYMPH COUNT 1.3 /CUMM (1.2-3.4); ABSOLUTE MONOCYTE COUNT 0.4 /CUMM (0.10-0.60); BASOPHIL % 0.7 % (0.0-2.0); EOSINOPHIL % 3.5 % (0-5); GRANULOCYTE % 69.4 % (42.2-75.2); HEMATOCRIT 33.1 % (37-47); MEAN CORPUSCULAR HGB 26.4 PG (27.0-31.0); MEAN CORPUSCULAR HGB CONC 32.5 G/DL (33.0-37.0); MEAN PLATELET VOLUME 7.4 FL (7.4-10.4); PLATELET COUNT 279 /CUMM (130-400); RED BLOOD CELL CT 4.09 /CUMM (4.20-5.40); WHITE BLOOD CELL COUNT 6.2 /CUMM (4.8-10.8)
[2016-12-25 14:35] VITALS: BP 116/70
[2016-12-25] MEDS ORDERED: KEFLEX500 M1 PO ×2 (15:21→15:22)
--- NOTE | 2016-12-25 16:54 | NUR ---
wound care: pt seen prior to dc at request of dr jama billy boot compression applied per md request and tolerated well - pt to f/u saturday with md in [facility] at 2 pm
--- NOTE | 2016-12-25 17:22 | Cons- Vascular Surgery ---
General Information and HPI Consulting Request Date of Consult: 12/25/16 Requested By: MIGUE CHOUDHARY MD History of Present Illness: [id number] lady with history of the IVC thrombus who is on Coumadin 20 mg as well as history of hypertension and hyperlipidemia presented to the hospital with worsening right medial leg wound. She has a history of chronic venous insufficiency and has been followed by Dr. Dukes in the past for left leg wound. This wound has healed. However, she presents with new onset of nonhealing right leg wound. In the past, she also was refusing any intervention including Unna boots. Allergies/Medications Allergies: Coded Allergies: morphine (Intermediate, RASH 10/15/16) Sulfa (Sulfonamide Antibiotics) (VOMITING 08/21/15) amoxicillin (From AUGMENTIN) (HIVES 08/21/15) clavulanic acid (From AUGMENTIN) (HIVES 08/21/15) Home Med List: Cephalexin (Keflex) 500 MG CAPSULE 1 CAP PO FOUR TIMES A DAY CELLULITIS Furosemide (Lasix) 20 MG TABLET 1 TAB PO Q48 pedal edema (Reported) Holding parameters: hold for SBP < 90 Lidocaine 5 % ADH..PATCH 1 PAT TOP DAILY PRN LOW BACK PAIN Oxycodone HCl/Acetaminophen (Percocet 5-325 MG Tablet) 5 MG-325 MG TABLET 1 TAB PO Q6P PRN PAIN SCALE 4-6 (MODERATE) Rosuvastatin Calcium (Crestor) 10 MG TABLET 1 TAB PO DAILY CHOLESTEROL ( Reported) Warfarin Sodium (Coumadin) 2.5 MG TABLET 1 TAB PO DAILY dvt (Reported) Please dose to keep the inr between 2-3. 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 Home Who Do You Live With? self Services at Home: None Primary Language: Bhutanese Smoking Status: Never Smoked ETOH Use: denies use Illicit Drug Use: denies illicit drug use Functional Ability ADLs Independent: dressing, eating, toileting, bathing. Ambulation: unassisted IADLs Independent: shopping, housework, finances, food prep, telephone. Review of Systems Review of Systems: Patient denies headache, dizziness, cough, palpitation, diarrhea or constipation Exam & Diagnostic Data Vital Signs and I&O Vital Signs Date Time Temp Pulse Resp B/P B/P Pulse O2 O2 Flow FiO2 Mean Ox Delivery Rate 12/25 1435 98.0 84 20 116/70 97 Room Air 12/25 0608 98.0 72 20 118/72 96 Room Air 12/24 2222 97.8 69 20 116/60 98 Room Air Intake & Output 12/25 1600 12/25 0800 12/25 0000 12/24 1600 12/24 0800 12/24 0000 Intake Total 750 404 139 3770 250 600 Output Total 1120 842 677 0593 475 800 Balance -370 40 330 820 -225 -200 Intake, IV 20 10 Intake, Oral 750 271 004 2268 240 600 Number 1 0 0 Bowel Movements Output, Urine 1120 630 068 6087 475 800 Patient 130 lb Weight Physical Exam: Patient is alert and oriented 3 Cardiovascular: Regular rate and rhythm Lungs: Clear to auscultation bilaterally Abdomen: Soft, nontender nondistended Extremity: There is a right medial leg ulcer just above the medial malleolus. There is no evidence of purulence. There are dark skin discoloration of bilateral legs consistent with chronic venous insufficiency. Assessment/Plan Assessment/Plan 81-year-old lady with history of chronic venous insufficiency and other issues including IVC thrombus who was on Coumadin presented with nonhealing right leg wound. Imaging has not shown evidence of osteomyelitis. I think her right leg wound is due to chronic venous insufficiency. I recommend Unna boot and elevation I will see her in my office for venous reflux studies. She can also be followed in the [facility] wound center for Unna boot changes. Consult Acknowledgment - Thank you for your consult request. Attending MD Review Statement Attending Statement Attending MD Statement: examined this patient, discuss w/resident/PA/BACKSIDE GRINDER
== END 2016-12-25 16:20 | disposition home health service (06) | DRG 603 ==
LOC: ERH 15:03 → ERHI 19:23 → 2NB 19:23 → CANRESERV 19:53 → ENRESERV 19:53 → ENTRNSPT 20:50 → CMPTRNSPT 21:14 → 2NB 21:23
PROVIDERS: Physician Assistant Medical; Preventive Medicine Public Health & General Preventive Medicine; Student in an Organized Health Care Education/Training Program; ADMIT Student in an Organized Health Care Education/Training Program
DX: L03.115 Cellulitis of right lower limb (principal); L97.819 Non-pressure chronic ulcer of other part of right lower leg with unspecified severity; I87.2 Venous insufficiency (chronic) (peripheral); I10 Essential (primary) hypertension; E78.5 Hyperlipidemia, unspecified; Z86.711 Personal history of pulmonary embolism; Z79.01 Long term (current) use of anticoagulants; Z86.718 Personal history of other venous thrombosis and embolism
CPT/HCPCS: 2NBSP; 36415; 73610-RT; 76881; 82436; 87040; 93005; 93010; 96374; 97110-GO; 97116-GO; 97161-GP; 97530-GO; J0131; J0690; J3101

== ENCOUNTER 2017-09-12 08:23 | Inpatient (IN) | payer OTHER ==
[~2017-09-12] VITALS: Ht 165.1 cm; Wt 49.1 kg
[~2017-09-12 08:23] MED LIST changes: -COUMADIN2.5 M1 PO; +COUMADIN5 M2 PO
--- NOTE | 2017-09-12 08:30 | ED GI/GU/ABDOMINAL COMPLAINT ---
History of Present Illness General Chief Complaint: Female Urogenital Problems Stated Complaint: BIBA HEMATURIA/BACK PAIN Source: patient, old records, EMS Exam Limitations: no limitations Vital Signs & Intake/Output Vital Signs & Intake/Output Vital Signs Date Time Temp Pulse Resp B/P B/P Pulse O2 O2 Flow FiO2 Mean Ox Delivery Rate 09/12 1255 98.8 71 18 117/56 98 Room Air 09/12 1050 98.6 86 18 107/55 96 09/12 0825 98.7 104 20 150/76 100 Room Air Allergies Coded Allergies: morphine (Intermediate, RASH 10/15/16) Sulfa (Sulfonamide Antibiotics) (VOMITING 08/21/15) amoxicillin (From AUGMENTIN) (HIVES 08/21/15) clavulanic acid (From AUGMENTIN) (HIVES 08/21/15) Reconcile Medications Furosemide (Lasix) 20 MG TABLET 1 TAB PO Q48 pedal edema (Reported) Holding parameters: hold for SBP < 90 Rosuvastatin Calcium (Crestor) 10 MG TABLET 1 TAB PO DAILY CHOLESTEROL ( Reported) Warfarin Sodium (Coumadin) 5 MG TABLET 1 TAB PO 1700 BLOOD THINNER (Reported) Triage Note: BIBA FROM HOME, PATIENT REPORTS HEMATURIA AND LOW BACK PAIN WHICH STARTED LAST NIGHT AROUND 12AM. PATIENT ARRIVES REPORTING 10/10 LOW BACK PAIN, INCREASED FREQUENCY IN URINATION AND BURNING SENSATION. PATIENT TRANSFERRED TO [facility], CHANGED INTO HOSPITAL GOWN, VITALS OBTAINED. MD AT BEDSIDE. WILL CONTINUE TO MONITOR. Triage Nurses Notes Reviewed? yes ? N Is pt currently ? No HPI: Patient started yesterday with flank pain. The pain is been constant. She rates the pain as moderate on the scale. There is no radiation. Last night she urinated and was just bright red blood. The pain is continued throughout the night and into this morning. Patient again urinated and again there is bright red blood. Patient is on Coumadin and her INR was checked last month for quest. Patient states that she was told that it was normal. Past History Travel History Traveled to [place] past 21 day No Medical History Any Pertinent Medical History? see below for history Neurological: NONE Cardiovascular: hypertension, hyperlipidemia Respiratory: DVT Gastrointestinal: NONE Hepatic: NONE Renal: NONE Musculoskeletal: NONE Psychiatric: NONE Endocrine: NONE Blood Disorders: recurrent venous stasis ulcers Cancer(s): meningioma-1984 CHILD CARE GROUP LEADER/Reproductive: NONE Other Medical Hx: Open wound/ulcerations lower legs-currently healed History of MRSA: No History of VRE: No History of CDIFF: No Surgical History Surgical History: VEIN PROCEDURES ON LEGS craniotomy in 1985 for meningioma L hip athroplasty Psychosocial History Who do you live with Patient/Self Services at Home None What is your primary language Romanian Tobacco Use: Never used ETOH Use: denies use Family History Family History, If Any: Relation not specified for: *No pertinent family history Hx Contributory? No Review of Systems Review of Systems Constitutional: Reports: no symptoms. EENTM: Reports: no symptoms. Respiratory: Reports: no symptoms. Cardiovascular: Reports: no symptoms. GI: Reports: no symptoms. Genitourinary: Reports: see HPI, hematuria. Musculoskeletal: Reports: see HPI, back pain. Skin: Reports: no symptoms. Neurological/Psychological: Reports: no symptoms. Hematologic/Endocrine: Reports: no symptoms. Immunologic/Allergic: Reports: no symptoms. All Other Systems: Reviewed and Negative Physical Exam Physical Exam General Appearance: well developed/nourished, alert, awake, mild distress Head: atraumatic, normal appearance Eyes: Bilateral: PERRL, EOMI. Ears, Nose, Throat, Mouth: hearing grossly normal, moist mucous membrane Neck: normal inspection, supple, full range of motion Respiratory: normal breath sounds, chest non-tender, no respiratory distress, lungs clear Cardiovascular: regular rate/rhythm, normal peripheral pulses Gastrointestinal: normal bowel sounds, soft, tenderness (B/L LQ), NO GUARDING OR REBOUND Back: CVA tenderness (L) Extremities: normal range of motion Neurologic/Psych: no motor/sensory deficits, awake, alert, oriented x 3, normal mood/affect Skin: intact, normal color, warm/dry Core Measures ACS in differential dx? No Sepsis Present: No Sepsis Focused Exam Completed? No Progress Differential Diagnosis: AAA, diverticulitis, kidney stone, UTI/pyelo Plan of Care: Orders Procedure Date/time Status Heart Healthy Diet 09/12 D Active ED Holding Orders 09/12 1440 Active Admit to inpatient 09/12 1440 Active Vital Signs 09/12 1440 Active Code Status 09/12 1440 Active EKG 09/12 0839 Active CULTURE,URINE 09/12 0830 Active BLOOD CULTURE 09/12 0830 Active URINALYSIS 09/12 0830 Complete PARTIAL THROMBOPLASTIN TIME 09/12 0830 Complete PROTHROMBIN TIME 09/12 829 Complete COMPREHENSIVE METABOLIC PANEL 09/12 829 Complete CBC WITHOUT DIFFERENTIAL 09/12 829 Complete Laboratory Tests 09/12/17 09: Anion Gap 12, Estimated GFR > 60, BUN/Creatinine Ratio 18.9, Glucose 89, Calcium 9.2, Total Bilirubin 0.8, AST 15, ALT 12, Alkaline Phosphatase 72, Total Protein 7.7, Albumin 3.9, Globulin 3.8, Albumin/Globulin Ratio 1.0 L, PT 86.5 *H, INR 7.77 *H, APTT 68 H, CBC w Diff NO MAN DIFF REQ, RBC 3.97 L, MCV 84.4, MCH 27.8 , MCHC 32.9 L, RDW 14.7 H, MPV 7.2 L, Gran % 84.2 H, Lymphocytes % 6.9 L, Monocytes % 8.3, Eosinophils % 0.3, Basophils % 0.3, Absolute Granulocytes 8.3 H, Absolute Lymphocytes 0.7 L, Absolute Monocytes 0.8 H, Absolute Eosinophils 0, Absolute Basophils 0 09/12/17 08: Urine Color BLDY H, Urine Clarity HAZY H, Urine pH 6.5, Ur Specific [place] 1.010, Urine Protein >=300 H, Urine Ketones TRACE H, Urine Nitrite POS H, Urine Bilirubin NEG@ICTO, Urine Urobilinogen 1.0, Ur Leukocyte Esterase MOD H, Ur Microscopic SEDIMENT EXAMINED, Urine RBC PACKD H, Urine WBC 5-10 H, Ur Epithelial Cells FEW, Urine Bacteria RARE H, Urine Mucus RARE, Micro UA Comment MORE INFO: H, Urine Hemoglobin LARGE H, Urine Glucose NEG Microbiology 09/12 1030 BLOOD: Blood Culture - RECD 09/13 919 BLOOD: Blood Culture - RECD 09/13 839 URINE ROUT: Urine Culture - RECD Diagnostic Imaging: Viewed by Me: CT Scan, Ultrasound. Discussed w/RAD: CT Scan, Ultrasound. Radiology Impression: PATIENT: ABRIL ENRIQUE PRESENT AGE: 81 PATIENT ACCOUNT NO: [id number] : 37 LOCATION: [facility] ORDERING PHYSICIAN: Andrea Perales MD SERVICE DATE: 09/12/17 EXAM TYPE: US - US-AORTA EXAMINATION: US RETROPERITONEAL LIMITED (AORTA) CLINICAL INFORMATION: Question abdominal aortic aneurysm. COMPARISON: None TECHNIQUE: Grayscale, color Doppler and spectral Doppler evaluation of the abdominal aorta. FINDINGS: The aorta is normal in caliber. The measurements of the aorta in maximum AP and transverse dimensions respectively are as follows: Proximal: 2.1 x 1.9 cm. Mid: 1.4 x 1.4 cm. Distal: 1.2 x 1.3 cm. The measurements of the common iliac arteries in maximum AP dimension are as follows: Right Common Iliac Artery: 0.9 cm. Left Common Iliac Artery: 0.9 cm. IMPRESSION: No abdominal aortic aneurysm. DICTATED BY: Jone Cobian MD DATE/TIME DICTATED:09/12/17946 MATHEMATICAL TECHNICIAN:SHON DATE/TIME TRANSCRIBED:09/12/17946 CONFIDENTIAL, DO NOT COPY WITHOUT APPROPRIATE AUTHORIZATION. <Electronically signed in Other Vendor System> SIGNED BY: Jone Cobian MD 09/12/17 1111, PATIENT: ABRIL ENRIQUE PRESENT AGE: 81 PATIENT ACCOUNT NO: [id number] : 37 LOCATION: [facility] ORDERING PHYSICIAN: Andrea Perales MD SERVICE DATE: 09/12/17 EXAM TYPE: CAT - CT ABD & PELVIS W IV CONTRAST EXAMINATION: CT ABDOMEN AND PELVIS WITH CONTRAST CLINICAL INFORMATION: Left lower quadrant pain. Evaluate for diverticulitis. COMPARISON: CT chest dated 10/20/2016. TECHNIQUE: Multidetector volumetric imaging was performed of the abdomen and pelvis following IV administration of 95 mL of Optiray 320 intravenous contrast. Sagittal and coronal reformatted images were obtained on the technologist's workstation. DLP: 263.22 mGy-cm FINDINGS: LUNG BASES: No gross or suspicious abnormality. 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 LIVER, GALLBLADDER, AND BILIARY TREE: Multiple low-attenuation hepatic lesions noted within bilateral hepatic lobes. Larger lesions are compatible with cysts. Smaller lesions are too small to be accurately characterize. Slightly hyperdense cyst noted in segment 6 right hepatic lobe ( series 2 image 22 similar to the prior study measuring approximately 3 cm. Small intrahepatic IVC. There is azygous continuation of IVC. Subtle focal hyperdensity noted in the region of gallbladder fundus may represent gallbladder adenomyomatosis. Somewhat similar appearance seen on the prior examination. Assessment is limited. No evidence of biliary ductal dilatation. Prominent collateral vessels noted in the region of the bare area of the liver. These vary quite veins were also seen on the prior examination with no significant interval change. PANCREAS: Mild atrophy. No gross abnormality. SPLEEN: Unremarkable. ADRENAL GLANDS: Mild prominence bilateral adrenal glands has remained stable. Assessment is limited due to adjacent large venous collaterals. KIDNEYS AND URETERS: There is heterogeneous hyperdensity noted in bilateral renal pelvis and visualized portions of the proximal bilateral ureters. Mid to distal ureters are decompressed limiting the assessment. Assessment of the kidneys is limited due to the vascular phase. Heterogeneous hyperdensity extending into bilateral collecting systems and calyces, left greater than right. Mild fullness of the collecting systems. Urothelial lesions cannot be excluded. BLADDER: Evaluation is limited due to beam hardening from left hip prosthesis. Visualized portions appear unremarkable. GASTROINTESTINAL TRACT: Moderate to large amount of fecal material noted within the large bowel. Assessment of inflammatory change in the mesenteric and pericolonic fat is limited due to paucity of intra-abdominal fat. ABDOMINAL WALL: No gross abnormality. LYMPH NODES: Enlarged inguinal nodes noted on the right. Left inguinal region is obscured due to beam hardening artifacts. Limited assessment of the lymph nodes in the mesenteric region due to paucity of fat. 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 Collateral vessels noted adjacent to the bare area of the liver and retroperitoneal region. Mild atherosclerotic disease of the aorta. 2 right-sided renal arteries identified. Normal enhancement bilateral renal veins. PELVIC VISCERA: Low-attenuation cystic-appearing focus noted superior to the urinary bladder measuring approximately 3 x 3.1 cm may represent right adnexal/ ovarian cyst. OSSEOUS STRUCTURES: Status post left hip arthroplasty. No acute or suspicious osseous abnormality. Degenerative changes noted in the spine. Bony osteopenia.. IMPRESSION: 1. No definite evidence of acute intra-abdominal pathology. 2. Moderate to large amount of fecal material noted within the large bowel and rectum compatible with underlying constipation. 3. Heterogeneous mildly enhancing partially solid appearing tissue noted in bilateral renal collecting systems including renal pelvis and proximal bilateral ureters. Assessment is limited due to the phase of contrast. Differential possibility includes both neoplastic process or infectious etiology. Urologic correlation is recommended. Mild fullness of bilateral collecting systems. 4. 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 Tortuous bilateral azygos veins and collateral vessels noted in the retroperitoneal region. 5. Low-attenuation cystic structure likely representing right ovarian/adnexal cyst. 6. Multiple hepatic cysts. Slightly complex cyst right hepatic lobe with no significant interval change in overall size. DICTATED BY: Eliza Perez MD DATE/TIME DICTATED:09/12/171307 MATHEMATICAL TECHNICIAN:SHON DATE/TIME TRANSCRIBED:1307 CONFIDENTIAL, DO NOT COPY WITHOUT APPROPRIATE AUTHORIZATION. < Electronically signed in Other Vendor System> SIGNED BY: Eliza Perez MD 09/12/17 1341 Initial ED EKG: NSR, no ST T wave changes Prior EKG: unchanged Rhythm Strip: normal sinus rhythm Departure Departure Disposition: STILL A PATIENT Condition: Stable Clinical Impression Primary Impression: Supratherapeutic INR Secondary Impressions: Hematuria, UTI (urinary tract infection) Referrals: Sendy Sifuentes MD (PCP/Family) Departure Forms: Customer Survey General Discharge Information Admission Note Spoke With: Arnold ALONSO,Danisha Documentation of Exam: Documentation of any treatments & extenuating circumstances including Concerns Regarding Discharge (functional status, medication knowledge or non-compliance, living conditions, etc.) that warrant an admission rather than observation: [ HOLD COUMADIN, IV ABX, FOLLOW UP CULTURES, IV FLUIDS, MAY REQUIRE INR REVERSAL]
[2017-09-12 09:48] LABS: ABSOLUTE BASOPHIL COUNT 0 /CUMM (0.0-0.2); ABSOLUTE EOSINOPHIL COUNT 0 /CUMM (0.0-0.7); ABSOLUTE GRANULOCYTE CT 8.3 /CUMM (1.4-6.5); ABSOLUTE LYMPH COUNT 0.7 /CUMM (1.2-3.4); ABSOLUTE MONOCYTE COUNT 0.8 /CUMM (0.10-0.60); BASOPHIL % 0.3 % (0.0-2.0); EOSINOPHIL % 0.3 % (0-5); HEMATOCRIT 33.5 % (37-47); MEAN CORPUSCULAR HGB 27.8 PG (27.0-31.0); MEAN CORPUSCULAR HGB CONC 32.9 G/DL (33.0-37.0); MEAN CORPUSCULAR VOLUME 84.4 FL (81.0-99.0); MEAN PLATELET VOLUME 7.2 FL (7.4-10.4); PLATELET COUNT 333 /CUMM (130-400); RBC DISTRIBUTION WIDTH 14.7 % (11.5-14.5); RED BLOOD CELL CT 3.97 /CUMM (4.20-5.40); WHITE BLOOD CELL COUNT 9.8 /CUMM (4.8-10.8)
[2017-09-12 10:06] LABS: PTT 68 SEC (25-37)
[2017-09-12 10:12] LABS: GRANULOCYTE % 84.2 % (42.2-75.2)
[2017-09-12 10:20] LABS: PT 86.5 SEC (9.4-12.5)
--- NOTE | 2017-09-12 11:11 | ULTRASOUND REPORT ---
EXAMINATION: US RETROPERITONEAL LIMITED (AORTA) CLINICAL INFORMATION: Question abdominal aortic aneurysm. COMPARISON: None TECHNIQUE: Grayscale, color Doppler and spectral Doppler evaluation of the abdominal aorta. FINDINGS: The aorta is normal in caliber. The measurements of the aorta in maximum AP and transverse dimensions respectively are as follows: Proximal: 2.1 x 1.9 cm. Mid: 1.4 x 1.4 cm. Distal: 1.2 x 1.3 cm. The measurements of the common iliac arteries in maximum AP dimension are as follows: Right Common Iliac Artery: 0.9 cm. Left Common Iliac Artery: 0.9 cm. IMPRESSION: No abdominal aortic aneurysm.
--- NOTE | 2017-09-12 13:41 | CT SCAN REPORT ---
EXAMINATION: CT ABDOMEN AND PELVIS WITH CONTRAST CLINICAL INFORMATION: Left lower quadrant pain. Evaluate for diverticulitis. COMPARISON: CT chest dated 10/20/2016. TECHNIQUE: Multidetector volumetric imaging was performed of the abdomen and pelvis following IV administration of 95 mL of Optiray 320 intravenous contrast. Sagittal and coronal reformatted images were obtained on the technologist's workstation. DLP: 263.22 mGy-cm FINDINGS: LUNG BASES: No gross or suspicious abnormality. 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 LIVER, GALLBLADDER, AND BILIARY TREE: Multiple low-attenuation hepatic lesions noted within bilateral hepatic lobes. Larger lesions are compatible with cysts. Smaller lesions are too small to be accurately characterize. Slightly hyperdense cyst noted in segment 6 right hepatic lobe (series 2 image 22 similar to the prior study measuring approximately 3 cm. Small intrahepatic IVC. There is azygous continuation of IVC. Subtle focal hyperdensity noted in the region of gallbladder fundus may represent gallbladder adenomyomatosis. Somewhat similar appearance seen on the prior examination. Assessment is limited. No evidence of biliary ductal dilatation. Prominent collateral vessels noted in the region of the bare area of the liver. These vary quite veins were also seen on the prior examination with no significant interval change. PANCREAS: Mild atrophy. No gross abnormality. SPLEEN: Unremarkable. ADRENAL GLANDS: Mild prominence bilateral adrenal glands has remained stable. Assessment is limited due to adjacent large venous collaterals. KIDNEYS AND URETERS: There is heterogeneous hyperdensity noted in bilateral renal pelvis and visualized portions of the proximal bilateral ureters. Mid to distal ureters are decompressed limiting the assessment. Assessment of the kidneys is limited due to the vascular phase. Heterogeneous hyperdensity extending into bilateral collecting systems and calyces, left greater than right. Mild fullness of the collecting systems. Urothelial lesions cannot be excluded. BLADDER: Evaluation is limited due to beam hardening from left hip prosthesis. Visualized portions appear unremarkable. GASTROINTESTINAL TRACT: Moderate to large amount of fecal material noted within the large bowel. Assessment of inflammatory change in the mesenteric and pericolonic fat is limited due to paucity of intra-abdominal fat. ABDOMINAL WALL: No gross abnormality. LYMPH NODES: Enlarged inguinal nodes noted on the right. Left inguinal region is obscured due to beam hardening artifacts. Limited assessment of the lymph nodes in the mesenteric region due to paucity of fat. 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 Collateral vessels noted adjacent to the bare area of the liver and retroperitoneal region. Mild atherosclerotic disease of the aorta. 2 right-sided renal arteries identified. Normal enhancement bilateral renal veins. PELVIC VISCERA: Low-attenuation cystic-appearing focus noted superior to the urinary bladder measuring approximately 3 x 3.1 cm may represent right adnexal/ovarian cyst. OSSEOUS STRUCTURES: Status post left hip arthroplasty. No acute or suspicious osseous abnormality. Degenerative changes noted in the spine. Bony osteopenia.. IMPRESSION: 1. No definite evidence of acute intra-abdominal pathology. 2. Moderate to large amount of fecal material noted within the large bowel and rectum compatible with underlying constipation. 3. Heterogeneous mildly enhancing partially solid appearing tissue noted in bilateral renal collecting systems including renal pelvis and proximal bilateral ureters. Assessment is limited due to the phase of contrast. Differential possibility includes both neoplastic process or infectious etiology. Urologic correlation is recommended. Mild fullness of bilateral collecting systems. 4. 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 Tortuous bilateral azygos veins and collateral vessels noted in the retroperitoneal region. 5. Low-attenuation cystic structure likely representing right ovarian/adnexal cyst. 6. Multiple hepatic cysts. Slightly complex cyst right hepatic lobe with no significant interval change in overall size.
--- NOTE | 2017-09-12 14:48 | History & Physical ---
Lilia ALONSO,[facility] 09/12/17 1447: General Information and HPI MD Statement: I have seen and personally examined ABRIL ENRIQUE and documented this H&P. The patient is a 81 year old F who presented with a patient stated chief complaint of [dysuria, hematuria]. 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 Patient lives in a elderly home and was in her usual state of health until last night, following which patient developed dysuria and had hematuria [ Chuy] not associated with fever or chills. Patient endorses feeling cold. She also complains of bilateral pain around the urethra and lower abdomen, lower back. She endorses having low back pain since 4 days ago. Patient denies discoloration of urine, history of hematuria, nausea, vomiting, fever, chest pain, shortness of breath, urinary hesitancy, urgency, weakness, fall, numbness, tingling. (Patient had recent left hip fracture and underwent replacement A year ago. Patient uses walker at home. Last bowel movement 2 days ago. Allergies/Medications Allergies: Coded Allergies: morphine (Intermediate, RASH 10/15/16) Sulfa (Sulfonamide Antibiotics) (VOMITING 08/21/15) amoxicillin (From AUGMENTIN) (HIVES 08/21/15) clavulanic acid (From AUGMENTIN) (HIVES 08/21/15) Home Med list Furosemide (Lasix) 20 MG TABLET 1 TAB PO Q48 pedal edema (Reported) Holding parameters: hold for SBP < 90 Rosuvastatin Calcium (Crestor) 10 MG TABLET 1 TAB PO DAILY CHOLESTEROL ( Reported) Warfarin Sodium (Coumadin) 5 MG TABLET 1 TAB PO 1700 BLOOD THINNER (Reported) Compliance With Home Meds: GOOD Past History Travel History Traveled to [place] past 21 day No Medical History Neurological: NONE Cardiovascular: hypertension, hyperlipidemia Respiratory: DVT Gastrointestinal: NONE Hepatic: NONE Renal: NONE Musculoskeletal: NONE Psychiatric: NONE Endocrine: NONE Blood Disorders: recurrent venous stasis ulcers Cancer(s): meningioma-1984 GUM [employer]/Reproductive: NONE Other Medical Hx: Open wound/ulcerations lower legs-currently healed History of MRSA: No History of VRE: No History of CDIFF: No Surgical History Surgical History: VEIN PROCEDURES ON LEGS craniotomy in 1984 for meningioma L hip athroplasty Past Family/Social History Family History Relations & Conditions if any FATHER Relation not specified for: *No pertinent family history FHx: emphysema Psychosocial History Where do you live? Senior Living Who Do You Live With? self Services at Home: None Primary Language: Divehi Smoking Status: Never Smoked ETOH Use: denies use Illicit Drug Use: denies illicit drug use Functional Ability ADLs Independent: dressing, eating, toileting, bathing. Ambulation: unassisted IADLs Independent: shopping, housework, finances, food prep, telephone. Review of Systems Review of Systems Constitutional: Reports: no symptoms. Cardiovascular: Reports: no symptoms. Respiratory: Reports: no symptoms. GI: Reports: no symptoms. Genitourinary: Reports: dysuria, hematuria. Musculoskeletal: Reports: no symptoms. Exam & Diagnostic Data Last 24 Hrs of Vital Signs/I&O Vital Signs Date Time Temp Pulse Resp B/P B/P Pulse O2 O2 Flow FiO2 Mean Ox Delivery Rate 09/12 1809 98.5 71 18 140/70 92 Room Air 09/12 1651 99.4 81 16 154/72 96 Room Air 09/12 1439 97.0 75 16 143/73 100 Room Air 09/12 1255 98.8 71 18 117/56 98 Room Air 09/12 1050 98.6 86 18 107/55 96 09/12 0825 98.7 104 20 150/76 100 Room Air Intake & Output 09/12 1600 09/12 0800 09/12 0000 Intake Total 200 Output Total Balance 200 Intake, IV 200 Patient 134 lb Weight Weight Estimated Measurement Method Physical Exam General Appearance Alert, Oriented X3, Cooperative, No Acute Distress Cardiovascular Regular Rate, Normal S1, Normal S2, No Murmurs Lungs Normal Air Movement Abdomen Soft, No Tenderness, No Hepatospenomegaly, cva-tenderness Neurological Normal Speech, Strength at 5/5 X4 Ext, Normal Tone, Sensation Intact, Cranial Nerves 3-12 NL Extremities No Cyanosis Last 24 Hrs of Labs/[place]: Laboratory Tests 09/12/17 0920: Anion Gap 12, Estimated GFR > 60, BUN/Creatinine Ratio 18.9, Glucose 89, Calcium 9.2, Total Bilirubin 0.8, AST 15, ALT 12, Alkaline Phosphatase 72, Total Protein 7.7, Albumin 3.9, Globulin 3.8, Albumin/Globulin Ratio 1.0 L, PT 86.5 *H, INR 7.77 *H, APTT 68 H, CBC w Diff NO MAN DIFF REQ, RBC 3.97 L, MCV 84.4, MCH 27.8 , MCHC 32.9 L, RDW 14.7 H, MPV 7.2 L, Gran % 84.2 H, Lymphocytes % 6.9 L, Monocytes % 8.3, Eosinophils % 0.3, Basophils % 0.3, Absolute Granulocytes 8.3 H, Absolute Lymphocytes 0.7 L, Absolute Monocytes 0.8 H, Absolute Eosinophils 0, Absolute Basophils 0 09/12/17 0840: Urine Color BLDY H, Urine Clarity HAZY H, Urine pH 6.5, Ur Specific [place] 1.010, Urine Protein >=300 H, Urine Ketones TRACE H, Urine Nitrite POS H, Urine Bilirubin NEG@ICTO, Urine Urobilinogen 1.0, Ur Leukocyte Esterase MOD H, Ur Microscopic SEDIMENT EXAMINED, Urine RBC PACKD H, Urine WBC 5-10 H, Ur Epithelial Cells FEW, Urine Bacteria RARE H, Urine Mucus RARE, Micro UA Comment MORE INFO: H, Urine Hemoglobin LARGE H, Urine Glucose NEG Microbiology 09/12 1030 BLOOD: Blood Culture - RECD 09/12 0920 BLOOD: Blood Culture - RECD 09/12 0840 URINE ROUT: Urine Culture - RECD Diagnostic Data Other Results CT abdomen and pelvis 1. No definite evidence of acute intra-abdominal pathology. 2. Moderate to large amount of fecal material noted within the large bowel and rectum compatible with underlying constipation. 3. Heterogeneous mildly enhancing partially solid appearing tissue noted in bilateral renal collecting systems including renal pelvis and proximal bilateral ureters. Assessment is limited due to the phase of contrast. Differential possibility includes both neoplastic process or infectious etiology. Urologic correlation is recommended. Mild fullness of bilateral collecting systems. 4. 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 Tortuous bilateral azygos veins and collateral vessels noted in the retroperitoneal region. 5. Low-attenuation cystic structure likely representing right ovarian/adnexal cyst. 6. Multiple hepatic cysts. Slightly complex cyst right hepatic lobe with no significant interval change in overall size. Aorta ultrasound IMPRESSION: No abdominal aortic aneurysm. 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 Admission vitals temperature 98.6, pulse rate 86, respiratory rate 18, blood pressure 107/55, Admission lab WBC 9.8, hemoglobin 11, platelet count 333, sodium 142, potassium 4, BUN 17, creatinine 0.9, total bilirubin 0.8, urine analysis-urine nitrate positive, packed RBC,, INR 7.77. Imaging CT abdomen and pelvis Heterogeneous mildly enhancing partially solid appearing tissue noted in bilateral renal collecting systems including renal pelvis and proximal bilateral ureters. Assessment is limited due to the phase of contrast. Differential possibility includes both neoplastic process or infectious etiology. Urologic correlation is recommended. Mild fullness of bilateral collecting systems. Assessment and plan 1. UTI 2. Gross hematuria 3. Supratherapeutic INR * Admitted to general medical floor. * Gross hematuria with dysuria and flank pain-CAT scan of the abdomen shows fullness of bilateral collecting system. Patient needs further imaging like IVP /cystoscopy. For now will hold Coumadin and start on antibiotics ceftriaxone and follow up with urine culture. Hopefully patient's hematuria with clear when the INR is therapeutic. * Continue her home medication. * Code-full code * Diet-heart healthy diet As Ranked By This Provider Problem List: 1. Hematuria 2. UTI (urinary tract infection) 3. Supratherapeutic INR Core Measures/Misc (03/03) Acute Coronary Syndrome ACS Diagnosis: No Congestive Heart Failure Congestive Heart Failure Diagnosis No Cerebrovascular Accident CVA/TIA Diagnosis: No VTE (View Protocol) VTE Risk Factors Age>40 No Mechanical VTE Prophylaxis d/t Other No VTE Pharm Prophylaxis d/t Other Sepsis (View protocol) Sepsis Present: No Renato ALONSO,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 She lives in a elderly group apartment and was in her usual state of health until last night, following which patient developed dysuria and had deidra hematuria. She denies fever or chills. She denies nausea or vomitting. Of note, patient had sudden onset bilateral flank pain that started 3 days ago. Vital signs on presentation temp 98.7F, pulse 104 bpm, RR 20, BP 150/76 mmhg, 100 % on Room Air Physical exam at presentation General: Elderly woman, not pale, cachectic, alert and oriented X 3 HEENT: KL[place]SA, EOMI Chest: Clear to auscultation CVS: RRR, S1, S2 normal Abdomen: Non tender, no hepatosplenomegaly Back : Bilateral flank tenderness present Legs: No pedal edema Labs BEP unremarkable. CBC: WBC 9.8, Hb 11, platelet 333, Urinalysis positive nitrite, Leuk esterase, WBC 5-[address] AHeterogeneous mildly enhancing partially solid appearing tissue noted in bilateral renal collecting systems including renal pelvis and proximal bilateral ureters.bd/pelvis. Assessment 1. Probable Pyelonephritis/UTI 2. Hematuria 3. Supratherapeutic INR 4. 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 Also noted some lower abdominal pain and low back discomfort. She denied any fevers. Has had UTI in distant past, however no recent symptoms. Her INR is checked monthly by [facility] that comes to her home for draw and Coumadin is adjusted by her PCP (Dr. Sifuentes). Has been stable on current does, however INR today in ED was 7.7. Physical Exam: VS: T 98.-99.4, P 104-71, R 18, BP 140/70, PO 96% RA HEENT: eyes- PERRLA, EOMI blake- no lesions, moist Neck: no JVD, bruits Chest: clear Cor: RRR nl S1, S2 w/o murm Abd: BS+, soft, NT, - masses of HSM Ext: no edema, + stasis changes Neuro: alert/oriented, non-focal exam, gait not tested Labs/Test- as above Impression/Plan: #Gross Hematuria- may be related to supratherapeutic INR along with mild UTI? No nephrolithiasis seen on CT (poor study). Plan: Urology consult- Dr. Hare. Admit to general medicine- monitor blood in urine. If increases may need CBI. #UTI- has some dysuria and small amount of pyuria. No upper tract symptoms. Plan: Urine culture sent. Agree with Ceftriaxone 1 g q24 hour pending clinical course and culture. #Coagulopathy- elevated INR as above. H/H is similar to prior values. Plan: Hold coumadin and follow-up INR. If significant decrease in H/H or worsening of bleeding may need reversal. #Chronic Anemia- H/H as above is similar to prior values in computer. Most likely has had OP workup. Plan: Follow-up H/H as above. Check OP records with PCP if has had workup. #Hyperlipidemia- on Rosuvastatin. Plan: Will treat with Atorvastatin while in hospital.
--- NOTE | 2017-09-12 17:36 | Cons- Urology ---
General Information and HPI Consulting Request Date of Consult: 09/12/17 Requested By: Sridhar Barber MD Reason for Consult: Gross hematuria and abnormal appearance of kidneys on CT scan Source of Information: patient, old records Exam Limitations: no limitations History of Present Illness: This patient developed back pain a few days ago. Yesterday she also developed gross hematuria and present to the ER today with these complaints. She has also had some dysuria. She is on coumadin due to a hx of DVT and was found to have an INR of 7.7 and PTT of 68. A CT of the abd and pelvis was performed with IV contrast in the arterial phase. The images and report was reviewed. This revealed hypodensities in both kidney likely either representing bilateral hydronephrosis or bilateral parapelvic renal cysts. There was also some hyperdense material in the renal collecting system extending into the proximal ureters which could represent blood. There were no blood clots seen in the bladder. Overall very difficult to evaluate the kidneys and ureters as there was no contrast in the collecting systems due to the timing of the scan after the IV contrast injection. She has never been a smoker and has never had gross hematuria in the past Allergies/Medications Allergies: Coded Allergies: morphine (Intermediate, RASH 10/15/16) Sulfa (Sulfonamide Antibiotics) (VOMITING 08/21/15) amoxicillin (From AUGMENTIN) (HIVES 08/21/15) clavulanic acid (From AUGMENTIN) (HIVES 08/21/15) Home Med List: Furosemide (Lasix) 20 MG TABLET 1 TAB PO Q48 pedal edema (Reported) Holding parameters: hold for SBP < 90 Rosuvastatin Calcium (Crestor) 10 MG TABLET 1 TAB PO DAILY CHOLESTEROL ( Reported) Warfarin Sodium (Coumadin) 5 MG TABLET 1 TAB PO 1700 BLOOD THINNER (Reported) Current Medications: Current Medications Sig/Kim Start time Last Medication Dose Route Stop Time Status Admin Acetaminophen 1,000 MG ONCE ONE 09/12 0945 DC 09/12 N/A 1 UNIT IV 09/12 0959 1005 Acetaminophen 0 .STK-MED ONE 09/12 0942 DC IV Ceftriaxone Sodium 0 .STK-MED ONE 09/12 1052 DC .ROUTE Ceftriaxone Sodium 1,000 MG ONCE ONE 09/12 1045 DC 09/12 IV 09/12 1046 1050 Past History Medical History Neurological: NONE Cardiovascular: hypertension, hyperlipidemia Respiratory: DVT Gastrointestinal: NONE Hepatic: NONE Renal: NONE Musculoskeletal: NONE Psychiatric: NONE Endocrine: NONE Blood Disorders: recurrent venous stasis ulcers Cancer(s): meningioma-1984 [employer]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 self Services at Home: None Primary Language: Albanian ETOH Use: denies use Functional Ability ADLs Independent: dressing, eating, toileting, bathing. Ambulation: unassisted IADLs Independent: shopping, housework, finances, food prep, telephone. Exam & Diagnostic Data Vital Signs and I&O Vital Signs Date Time Temp Pulse Resp B/P B/P Pulse O2 O2 Flow FiO2 Mean Ox Delivery Rate 09/12 1651 99.4 81 16 154/72 96 Room Air 09/12 1439 97.0 75 16 143/73 100 Room Air 09/12 1255 98.8 71 18 117/56 98 Room Air 09/12 1050 98.6 86 18 107/55 96 09/12 0825 98.7 104 20 150/76 100 Room Air Intake & Output 09/12 1600 09/12 0800 09/12 0000 09/11 1600 09/11 0800 09/11 0000 Intake Total 200 Output Total Balance 200 Intake, IV 200 Patient 134 lb Weight Weight Estimated Measurement Method No acute distress Back: Tenderness over the vertebral bodies. Bilateral CVA tenderness Abd: soft and non tender Laboratory Tests 09/12 09/12 0920 0840 Chemistry Sodium (137 - 145 mmol/L) 142 Potassium (3.5 - 5.1 mmol/L) 4.0 Chloride (98 - 107 mmol/L) 103 Carbon Dioxide (22 - 30 mmol/L) 27 Anion Gap (5 - 16) 12 BUN (7 - 17 mg/dL) 17 Creatinine (0.5 - 1.0 mg/dL) 0.9 Estimated GFR (>60 ml/min) > 60 BUN/Creatinine Ratio (7 - 25 %) 18.9 Glucose (65 - 99 mg/dL) 89 Calcium (8.4 - 10.2 mg/dL) 9.2 Total Bilirubin (0.2 - 1.3 mg/dL) 0.8 AST (14 - 36 U/L) 15 ALT (9 - 52 U/L) 12 Alkaline Phosphatase (<127 U/L) 72 Total Protein (6.3 - 8.2 g/dL) 7.7 Albumin (3.5 - 5.0 g/dL) 3.9 Globulin (1.9 - 4.2 gm/dL) 3.8 Albumin/Globulin Ratio (1.1 - 2.2 %) 1.0 L Coagulation PT (9.4 - 12.5 SEC) 86.5 *H INR (0.90 - 1.19) 7.77 *H APTT (25 - 37 SEC) 68 H Hematology CBC w Diff NO MAN DIFF REQ WBC (4.8 - 10.8 /CUMM) 9.8 RBC (4.20 - 5.40 /CUMM) 3.97 L Hgb (12.0 - 16.0 G/DL) 11.0 L Hct (37 - 47 %) 33.5 L MCV (81.0 - 99.0 FL) 84.4 MCH (27.0 - 31.0 PG) 27.8 MCHC (33.0 - 37.0 G/DL) 32.9 L RDW (11.5 - 14.5 %) 14.7 H Plt Count (130 - 400 /CUMM) 333 MPV (7.4 - 10.4 FL) 7.2 L Gran % (42.2 - 75.2 %) 84.2 H Lymphocytes % (20.5 - 51.1 %) 6.9 L Monocytes % (1.7 - 9.3 %) 8.3 Eosinophils % (0 - 5 %) 0.3 Basophils % (0.0 - 2.0 %) 0.3 Absolute Granulocytes (1.4 - 6.5 /CUMM) 8.3 H Absolute Lymphocytes (1.2 - 3.4 /CUMM) 0.7 L Absolute Monocytes (0.10 - 0.60 /CUMM) 0.8 H Absolute Eosinophils (0.0 - 0.7 /CUMM) 0 Absolute Basophils (0.0 - 0.2 /CUMM) 0 Urines Urine Color (YEL,AMB,STR) BLDY H Urine Clarity (CLEAR) HAZY H Urine pH (5.0 - 8.0) 6.5 Ur Specific [place] (1.001 - 1.035) 1.010 Urine Protein (NEG,<30 MG/DL) >=300 H Urine Ketones (NEG) TRACE H Urine Nitrite (NEG) POS H Urine Bilirubin (NEG) NEG@ICTO Urine Urobilinogen (0.1 - 1.0 EU/dl) 1.0 Ur Leukocyte Esterase (NEG) MOD H Ur Microscopic SEDIMENT EXAMINED Urine RBC (0 - 5 /HPF) PACKD H Urine WBC (0 - 2 /HPF) 5-10 H Ur Epithelial Cells (NONE,FEW) FEW Urine Bacteria (NEG/NONE) RARE H Urine Mucus (FEW,NONE) RARE Micro UA Comment MORE INFO: H Urine Hemoglobin (NEG) LARGE H Urine Glucose (N MG/DL) NEG Assessment/Plan Assessment/Plan Imp: 1. Gross hematuria and bilateral flank and back pain in setting of supratherapeutic INR. This will need to be worked up completely. CT scan today not adequate to evaluate kidneys and ureters. Plan: 1. Urine C&S 2. Agree with ceftriaxone pending urine culture results 3. Hopefully urine will clear as INR decreases. After this she will need CT/IVP, probably best done in 2-3 weeks to allow blood products to drain from renal collecting systems. If urine does not clear then may need CT/IVP sooner but this may be less diagnostic due to blood in collecting systems 4. After above will need office cystoscopy Consult Acknowledgment - Thank you for your consult request.
[2017-09-12 18:09] VITALS: BP 140/70
[2017-09-12 20:58] LABS: ABSOLUTE BASOPHIL COUNT 0 /CUMM (0.0-0.2); ABSOLUTE EOSINOPHIL COUNT 0.1 /CUMM (0.0-0.7); ABSOLUTE GRANULOCYTE CT 8.5 /CUMM (1.4-6.5); ABSOLUTE LYMPH COUNT 1.3 /CUMM (1.2-3.4); BASOPHIL % 0.3 % (0.0-2.0); EOSINOPHIL % 0.6 % (0-5); GRANULOCYTE % 78.2 % (42.2-75.2); HEMATOCRIT 32.3 % (37-47); MEAN CORPUSCULAR HGB 27.6 PG (27.0-31.0); MEAN CORPUSCULAR HGB CONC 32.9 G/DL (33.0-37.0); MEAN CORPUSCULAR VOLUME 83.7 FL (81.0-99.0); MEAN PLATELET VOLUME 7.4 FL (7.4-10.4); PLATELET COUNT 333 /CUMM (130-400); RBC DISTRIBUTION WIDTH 14.6 % (11.5-14.5); RED BLOOD CELL CT 3.86 /CUMM (4.20-5.40); WHITE BLOOD CELL COUNT 10.8 /CUMM (4.8-10.8)
--- NOTE | 2017-09-12 22:01 | Admission Certification ---
Admission Certification Certification Statement - As attending physician, I certify that at the time of - admission, based on clinical presentation, severity of - symptoms, need for further diagnostic testing and - therapeutic interventions, and risk of adverse outcomes - without in-hospital treatment, in my clinical assessment, - this patient requires an acute hospital stay for a minimum - of two nights or longer. I have also considered psychsocial - factors such as support system, advanced age, financial - issues, cognitive issues, and failed out-patient treatments, - past re-admission history, safety of patient, and lack of - compliance as applicable. Specific rationale supporting this admission is: The patient presents with gross hematuria and elevated INR 7.7 (coagulopathy). Needs close monitoring of H/H and urinary bleeding. Hold coumadin. Urology consult- may need CBI. Has dysuria and pyuria- ? UTI= IV antibiotics ( Ceftriaxone).
[2017-09-12 22:21] VITALS: BP 110/60
[2017-09-13 06:20] VITALS: BP 108/60
--- NOTE | 2017-09-13 07:10 | PN- Housestaff ---
Lilia ALONSO,Niya 09/13/17 0710: Subjective Follow-up For: Urinary tract infection, supratherapeutic INR, cross hematuria Complaints: CVA pain Subjective: Patient seen and examined at bedside. Patient complains of bilateral costovertebral angle pain. She denies physical examination. She says she is urinating well. She denies abdominal pain, nausea, vomiting, fever. Review of Systems Constitutional: Reports: see HPI. Objective Last 24 Hrs of Vital Signs/I&O Vital Signs Date Time Temp Pulse Resp B/P B/P Pulse O2 O2 Flow FiO2 Mean Ox Delivery Rate 09/13 0620 98.4 84 16 108/60 95 Room Air 09/12 2221 98.5 79 20 110/60 94 09/12 1809 98.5 71 18 140/70 92 Room Air 09/12 1651 99.4 81 16 154/72 96 Room Air 09/12 1439 97.0 75 16 143/73 100 Room Air 09/12 1255 98.8 71 18 117/56 98 Room Air 09/12 1050 98.6 86 18 107/55 96 Intake & Output 09/13 1600 09/13 0800 09/13 0000 Intake Total 100 100 Output Total 250 700 Balance -150 -600 Intake, Oral 100 100 Output, Urine 250 700 Patient 107 lb 134 lb Weight Weight Bed scale Reported by Patient Measurement Method Physical Exam General Appearance: Alert, Oriented X3, Cooperative, No Acute Distress Cardiovascular: Normal S1, Normal S2, No Murmurs Lungs: Normal Air Movement Abdomen: Soft, No Tenderness, No Hepatospenomegaly, No Masses Neurological: Normal Tone, Sensation Intact, Cranial Nerves 3-12 NL Current Medications: Current Medications Sig/Kim Start time Last Medication Dose Route Stop Time Status Admin Acetaminophen 650 MG Q6P PRN 09/12 1845 AC 09/12 PO 2016 Acetaminophen 1,000 MG ONCE ONE 09/12 0945 DC 09/12 N/A 1 UNIT IV 09/12 0959 1005 Acetaminophen 0 .STK-MED ONE 09/12 0942 DC IV Atorvastatin Calcium 40 MG 1700 09/13 1700 AC PO Ceftriaxone Sodium 1,000 MG DAILY 09/13 1000 AC 09/13 IV 0918 Ceftriaxone Sodium 0 .STK-MED ONE 09/12 1052 DC .ROUTE Ceftriaxone Sodium 1,000 MG ONCE ONE 09/12 1045 DC 09/12 IV 09/12 1046 1050 Tramadol HCl 50 MG Q6P PRN 09/12 1845 AC 09/13 PO 0209 Last 24 Hrs of Lab/[place] Results Last 24 Hrs of Labs/Mics: Laboratory Tests 09/13/17 0710: Anion Gap 14, Estimated GFR > 60, BUN/Creatinine Ratio 18.9, PT 66.8 *H, INR 6.02 *H, CBC w Diff NO MAN DIFF REQ, RBC 3.38 L, MCV 83.9, MCH 27.8, MCHC 33.1, RDW 14.9 H, MPV 7.3 L, Gran % 75.9 H, Lymphocytes % 11.9 L, Monocytes % 10.7 H, Eosinophils % 1.0, Basophils % 0.5, Absolute Granulocytes 7.0 H, Absolute Lymphocytes 1.1 L, Absolute Monocytes 1.0 H, Absolute Eosinophils 0.1, Absolute Basophils 0.1 09/12/172027: CBC w Diff NO MAN DIFF REQ, RBC 3.86 L, MCV 83.7, MCH 27.6, MCHC 32.9 L, RDW 14.6 H, MPV 7.4, Gran % 78.2 H, Lymphocytes % 11.7 L, Monocytes % 9.2, Eosinophils % 0.6, Basophils % 0.3, Absolute Granulocytes 8.5 H, Absolute Lymphocytes 1.3, Absolute Monocytes 1.0 H, Absolute Eosinophils 0.1, Absolute Basophils 0 Microbiology 09/12 1030 BLOOD: Blood Culture - RECD Assessment/Plan Assessment: 80-year-old female with a 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 Assessment and plan 1. UTI 2. Gross hematuria 3. Supratherapeutic INR * Patient treated with ceftriaxone for her urinary tract infection. * Gross hematuria with dysuria and flank pain-CAT scan of the abdomen shows fullness of bilateral collecting system. Patient needs further imaging like IVP /cystoscopy. For now will hold Coumadin and start on antibiotics ceftriaxone and follow up with urine culture. Hopefully patient's hematuria with clear when the INR is therapeutic. Today INR is 6.02. Still supratherapeutic. We'll continue monitoring her INR. We will send urine analysis today to monitor her hematuria. * Continue her home medication. * Code-full code * Diet-heart healthy diet. Problem List: 1. Hematuria 2. UTI (urinary tract infection) 3. Supratherapeutic INR Pain Ratin Pain Location: none Pain Goal: Remain pain free Pain Plan: tylenol Tomorrow's Labs & Rationales: cbc,bep,inr Sridhar Barber MD 09/13/172117: Attending MD Review Statement Attending Statement Attending MD Statement: examined this patient, discuss w/resident/PA/[employer]SE DES[employer]ER, agreed w/resident/PA/GOLF COURSE DESIGNER, reviewed EMR data (avail), discussed with nursing, discussed with case mgmt, amended to note Attending Assessment/Plan: The patient was seen and discussed with house staff. Rapid response called after episode of lightheadedness/nausea and vomiting after passing blood clot via urine. EKG, etc. stable. Patient given Zofran. Rodriguez catheter placed and CBI begun. Appreciate Urology follow-up. INR decreasing. Will follow-up H/H and make decision regarding need to reverse Coumadin.
[2017-09-13 08:08] LABS: ABSOLUTE BASOPHIL COUNT 0.1 /CUMM (0.0-0.2); ABSOLUTE EOSINOPHIL COUNT 0.1 /CUMM (0.0-0.7); ABSOLUTE LYMPH COUNT 1.1 /CUMM (1.2-3.4); BASOPHIL % 0.5 % (0.0-2.0); GRANULOCYTE % 75.9 % (42.2-75.2); HEMATOCRIT 28.4 % (37-47); MEAN CORPUSCULAR HGB 27.8 PG (27.0-31.0); MEAN CORPUSCULAR HGB CONC 33.1 G/DL (33.0-37.0); MEAN CORPUSCULAR VOLUME 83.9 FL (81.0-99.0); MEAN PLATELET VOLUME 7.3 FL (7.4-10.4); PLATELET COUNT 286 /CUMM (130-400); RBC DISTRIBUTION WIDTH 14.9 % (11.5-14.5); RED BLOOD CELL CT 3.38 /CUMM (4.20-5.40); WHITE BLOOD CELL COUNT 9.3 /CUMM (4.8-10.8)
[2017-09-13 09:06] LABS: PT 66.8 SEC (9.4-12.5)
[2017-09-13 13:14] LABS: ABSOLUTE EOSINOPHIL COUNT 0.1 /CUMM (0.0-0.7); EOSINOPHIL % 0.8 % (0-5)
--- NOTE | 2017-09-13 13:26 | Event Note ---
Event Note Event Note: Rapid response called at 11:40 am for patient who was having lightheadedness, nausea and vomiting shortly after straining at urination and passing a blood clot per urethra. Patient had significant pain during urination. About 5 cc of blood clot was noted in commode. Of note patient's supratherapeutic INR had come down to 6.02 this morning. Vital signs: Pulse was 91 bpm, BP 160/70 mmhg, RR 22/min, PO2 96% on room air. Accuchek 125 mg/dl. Physical exam: Alert, oriented, vomiting and dry heaving. Chest: clear to auscultation. CVS: RRR, S1, S2 normal. Abdomen: nontender. Assessment 1. Probable vasovagal presyncope related to passing blood clot 2. Nausea and vomitting 3. Hematuria from supratherapeutic INR 4. UTI Plan -IV zofran 4 mg once and Q 6 prn -EKG stat -Troponins, CBC, BEP -IV normal saline at 75 cc/hr X 1 bag -Place escobedo catheter and start continuous bladder irrigation -Inform urology-Dr. Brown-Advised that a 22 Tamazight escobedo catheter be placed for continuous bladder irrigation. The patient was seen at the time of the rapid response and agree with the above assessment and plan.
[2017-09-13 13:34] LABS: ABSOLUTE BASOPHIL COUNT 0.3 /CUMM (0.0-0.2); ABSOLUTE GRANULOCYTE CT 9.1 /CUMM (1.4-6.5); ABSOLUTE LYMPH COUNT 1.9 /CUMM (1.2-3.4); ABSOLUTE MONOCYTE COUNT 1.3 /CUMM (0.10-0.60); GRANULOCYTE % 71.7 % (42.2-75.2); HEMATOCRIT 28.8 % (37-47); MEAN CORPUSCULAR HGB 27.2 PG (27.0-31.0); MEAN CORPUSCULAR HGB CONC 32.5 G/DL (33.0-37.0); MEAN CORPUSCULAR VOLUME 83.8 FL (81.0-99.0); MEAN PLATELET VOLUME 7.4 FL (7.4-10.4); PLATELET COUNT 348 /CUMM (130-400); RBC DISTRIBUTION WIDTH 14.9 % (11.5-14.5); RED BLOOD CELL CT 3.44 /CUMM (4.20-5.40); WHITE BLOOD CELL COUNT 12.7 /CUMM (4.8-10.8)
[2017-09-13 14:38] VITALS: BP 100/60
--- NOTE | 2017-09-13 17:20 | PN- Urology ---
Subjective Subjective: Patient had probable vasovagal reaction earlier today while passing blood clot from urethral. 22 fr 3-way escobedo placed and CBI started. She is more comfortable at this time States that bilateral flank pain is much improved Objective Vital Signs and I&Os Vital Signs Date Time Temp Pulse Resp B/P B/P Pulse O2 O2 Flow FiO2 Mean Ox Delivery Rate 09/13 1600 Nasal 2.0L Cannula 09/13 1438 98.6 93 18 100/60 100 Nasal 2.0L Cannula 09/13 0620 98.4 84 16 108/60 95 Room Air 09/12 2221 98.5 79 20 110/60 94 09/12 1809 98.5 71 18 140/70 92 Room Air Intake & Output 09/13 1600 09/13 0800 09/13 0000 09/12 1600 09/12 0800 09/12 0000 Intake Total 950 100 100 200 Output Total 2 250 700 Balance 948 -150 -600 200 Intake, IV 150 200 Intake, Oral 800 100 100 Output, 2 Emesis Output, Urine 250 700 Patient 107 lb 134 lb 134 lb Weight Weight Bed scale Reported by Patient Estimated Measurement Method Back: No significant CVA tenderness Abd: soft and non tender. Bladder not palpble Genitalia: 2-way escobedo in place. CBI is pink to red on moderate rate CBI Laboratory Tests 09/13 09/13 1304 0710 Chemistry Sodium (137 - 145 mmol/L) 141 142 Potassium (3.5 - 5.1 mmol/L) 3.5 3.9 Chloride (98 - 107 mmol/L) 109 H 105 Carbon Dioxide (22 - 30 mmol/L) 18 L 23 Anion Gap (5 - 16) 14 14 BUN (7 - 17 mg/dL) 20 H 17 Creatinine (0.5 - 1.0 mg/dL) 0.8 0.9 Estimated GFR (>60 ml/min) > 60 > 60 BUN/Creatinine Ratio (7 - 25 %) 25.0 18.9 Troponin I (< 0.11 ng/ml) < 0.01 Coagulation PT (9.4 - 12.5 SEC) 66.8 *H INR (0.90 - 1.19) 6.02 *H Hematology CBC w Diff NO MAN DIFF REQ NO MAN DIFF REQ WBC (4.8 - 10.8 /CUMM) 12.7 H 9.3 RBC (4.20 - 5.40 /CUMM) 3.44 L 3.38 L Hgb (12.0 - 16.0 G/DL) 9.4 L 9.4 L Hct (37 - 47 %) 28.8 L 28.4 L MCV (81.0 - 99.0 FL) 83.8 83.9 MCH (27.0 - 31.0 PG) 27.2 27.8 MCHC (33.0 - 37.0 G/DL) 32.5 L 33.1 RDW (11.5 - 14.5 %) 14.9 H 14.9 H Plt Count (130 - 400 /CUMM) 348 286 MPV (7.4 - 10.4 FL) 7.4 7.3 L Gran % (42.2 - 75.2 %) 71.7 75.9 H Lymphocytes % (20.5 - 51.1 %) 15.3 L 11.9 L Monocytes % (1.7 - 9.3 %) 10.2 H 10.7 H Eosinophils % (0 - 5 %) 0.8 1.0 Basophils % (0.0 - 2.0 %) 2.0 0.5 Absolute Granulocytes (1.4 - 6.5 /CUMM) 9.1 H 7.0 H Absolute Lymphocytes (1.2 - 3.4 /CUMM) 1.9 1.1 L Absolute Monocytes (0.10 - 0.60 /CUMM) 1.3 H 1.0 H Absolute Eosinophils (0.0 - 0.7 /CUMM) 0.1 0.1 Absolute Basophils (0.0 - 0.2 /CUMM) 0.3 0.1 09/13 2027 Hematology CBC w Diff NO MAN DIFF REQ WBC (4.8 - 10.8 /CUMM) 10.8 RBC (4.20 - 5.40 /CUMM) 3.86 L Hgb (12.0 - 16.0 G/DL) 10.6 L Hct (37 - 47 %) 32.3 L MCV (81.0 - 99.0 FL) 83.7 MCH (27.0 - 31.0 PG) 27.6 MCHC (33.0 - 37.0 G/DL) 32.9 L RDW (11.5 - 14.5 %) 14.6 H Plt Count (130 - 400 /CUMM) 333 MPV (7.4 - 10.4 FL) 7.4 Gran % (42.2 - 75.2 %) 78.2 H Lymphocytes % (20.5 - 51.1 %) 11.7 L Monocytes % (1.7 - 9.3 %) 9.2 Eosinophils % (0 - 5 %) 0.6 Basophils % (0.0 - 2.0 %) 0.3 Absolute Granulocytes (1.4 - 6.5 /CUMM) 8.5 H Absolute Lymphocytes (1.2 - 3.4 /CUMM) 1.3 Absolute Monocytes (0.10 - 0.60 /CUMM) 1.0 H Absolute Eosinophils (0.0 - 0.7 /CUMM) 0.1 Absolute Basophils (0.0 - 0.2 /CUMM) 0 INR=6.02 Urine C&S: no growth to date Assessment/Plan Assessment/Plan Imp: 1. Gross hematuria in setting of supratherapeutic INR. Can not r/o underlying cause for gross hematuria. Plan: 1. Continue to hold coumadin 2. Continue CBI. If drainage clears then slowly wean off 3. f/u urine C&S 4. Transfuse as needed 5. Will eventually need CT/IVP and cysto. Would be most diagnostic if done after hematuria resolves
[2017-09-13 22:32] VITALS: BP 100/54
[2017-09-14 06:53] VITALS: BP 96/54
[2017-09-14 09:04] LABS: ABSOLUTE BASOPHIL COUNT 0 /CUMM (0.0-0.2); ABSOLUTE EOSINOPHIL COUNT 0.1 /CUMM (0.0-0.7); ABSOLUTE GRANULOCYTE CT 7.5 /CUMM (1.4-6.5); ABSOLUTE MONOCYTE COUNT 0.9 /CUMM (0.10-0.60); BASOPHIL % 0.4 % (0.0-2.0); EOSINOPHIL % 0.7 % (0-5); GRANULOCYTE % 78.9 % (42.2-75.2); MEAN CORPUSCULAR HGB 27.9 PG (27.0-31.0); MEAN CORPUSCULAR HGB CONC 33.1 G/DL (33.0-37.0); MEAN CORPUSCULAR VOLUME 84.3 FL (81.0-99.0); MEAN PLATELET VOLUME 7.3 FL (7.4-10.4); PLATELET COUNT 292 /CUMM (130-400); RBC DISTRIBUTION WIDTH 14.6 % (11.5-14.5); RED BLOOD CELL CT 2.82 /CUMM (4.20-5.40); WHITE BLOOD CELL COUNT 9.5 /CUMM (4.8-10.8)
[2017-09-14 09:08] LABS: PT 53.9 SEC (9.4-12.5)
[2017-09-14 09:22] LABS: HEMATOCRIT 23.8 % (37-47)
--- NOTE | 2017-09-14 10:48 | PN- Housestaff ---
See Addendum Subjective Follow-up For: UTI, supratherapeutic INR, hematuria Subjective: No overnight events. She is feeling ok this morning, haivng some pain. No CP, SOB, or other issues. Review of Systems Constitutional: Reports: no symptoms. EENTM: Reports: no symptoms. Cardiovascular: Reports: no symptoms. Respiratory: Reports: no symptoms. Gastrointestinal: Reports: no symptoms. Genitourinary: Reports: see HPI. Musculoskeletal: Reports: no symptoms. Skin: Reports: no symptoms. Neurological/Psychological: Reports: no symptoms. Hematologic/Endocrine: Reports: no symptoms. Immunologic/Allergic: Reports: no symptoms. Objective Last 24 Hrs of Vital Signs/I&O Vital Signs Date Time Temp Pulse Resp B/P B/P Pulse O2 O2 Flow FiO2 Mean Ox Delivery Rate 09/14 0653 98.1 81 20 96/54 98 Nasal 2.0L Cannula 09/13 2232 98.4 84 20 100/54 98 Room Air 09/13 1600 Nasal 2.0L Cannula 09/13 1438 98.6 93 18 100/60 100 Nasal 2.0L Cannula Intake & Output 09/14 1600 09/14 0800 09/14 0000 Intake Total 260 640 Output Total 375 1000 Balance -115 -360 Intake, IV 20 400 Intake, Oral 240 240 Output, Urine 375 1000 Patient 47.769 kg Weight Physical Exam General Appearance: Alert, Oriented X3, Cooperative, No Acute Distress Cardiovascular: Regular Rate, Normal S1, Normal S2 Lungs: Clear to Auscultation Abdomen: Normal Bowel Sounds, Soft, suprapubic tenderness Extremities: No Edema, Normal Pulses, No Tenderness/Swelling Current Medications: Current Medications Sig/Kim Start time Last Medication Dose Route Stop Time Status Admin Acetaminophen 650 MG Q6P PRN 09/12 1845 AC 09/14 PO 0349 Atorvastatin Calcium 40 MG 1700 09/13 1700 AC 09/13 PO 1712 Ceftriaxone Sodium 1,000 MG DAILY 09/13 1000 AC 09/14 IV 0941 Ondansetron HCl 4 MG Q6P PRN 09/13 1315 AC 09/14 IV 0349 Ondansetron HCl 4 MG ONCE ONE 09/13 1245 DC 09/13 IV 09/13 1246 1308 Oxycodone/ 1 TAB Q6P PRN 09/14 1000 AC Acetaminophen PO Sodium Chloride 1,000 ML ONCE ONE 09/13 1245 DC 09/13 IV 09/13 1924 1308 Tramadol HCl 50 MG Q6P PRN 09/12 1845 DC 09/13 PO 0209 Last 24 Hrs of Lab/[place] Results Last 24 Hrs of Labs/Mics: Laboratory Tests 09/14/17 0810: Anion Gap 9, Estimated GFR > 60, BUN/Creatinine Ratio 18.9, PT 53.9 *H, INR 4.87 *H, CBC w Diff NO MAN DIFF REQ, RBC 2.82 L, MCV 84.3, MCH 27.9, MCHC 33.1, RDW 14.6 H, MPV 7.3 L, Gran % 78.9 H, Lymphocytes % 10.9 L, Monocytes % 9.1, Eosinophils % 0.7, Basophils % 0.4, Absolute Granulocytes 7.5 H, Absolute Lymphocytes 1.0 L, Absolute Monocytes 0.9 H, Absolute Eosinophils 0.1, Absolute Basophils 0 09/13/17 1304: Anion Gap 14, Estimated GFR > 60, BUN/Creatinine Ratio 25.0, Troponin I < 0.01, CBC w Diff NO MAN DIFF REQ, RBC 3.44 L, MCV 83.8, MCH 27.2, MCHC 32.5 L, RDW 14.9 H, MPV 7.4, Gran % 71.7, Lymphocytes % 15.3 L, Monocytes % 10.2 H, Eosinophils % 0.8, Basophils % 2.0, Absolute Granulocytes 9.1 H, Absolute Lymphocytes 1.9, Absolute Monocytes 1.3 H, Absolute Eosinophils 0.1, Absolute Basophils 0.3 Microbiology 09/13 1255 URINE ROUT: Urine Culture - COLB Assessment/Plan Assessment: 80-year-old female with a 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 Assessment and plan 1. UTI 2. Gross hematuria 3. Supratherapeutic INR * Patient treated with ceftriaxone for her urinary tract infection. * Gross hematuria with dysuria and flank pain-CAT scan of the abdomen shows fullness of bilateral collecting system. Patient needs further imaging like IVP /cystoscopy. For now will hold Coumadin and start on antibiotics ceftriaxone and follow up with urine culture. Hopefully patient's hematuria with clear when the INR is therapeutic. Today INR is 4.87. Still supratherapeutic. We'll continue monitoring her INR. We will send urine analysis today to monitor her hematuria. We will treat her pain with Percocet and Tylenol. * Continue her home medication. * Code-full code * Diet-heart healthy diet. Problem List: 1. Hematuria Pain Ratin Pain Location: no pain Pain Goal: Remain pain free Pain Plan: see a/p Tomorrow's Labs & Rationales: cbc, bep, inr
[2017-09-14 13:48] VITALS: BP 90/80
[2017-09-14 19:58] LABS: ABSOLUTE BASOPHIL COUNT 0.1 /CUMM (0.0-0.2); ABSOLUTE EOSINOPHIL COUNT 0.2 /CUMM (0.0-0.7); ABSOLUTE GRANULOCYTE CT 7.8 /CUMM (1.4-6.5); ABSOLUTE LYMPH COUNT 1.1 /CUMM (1.2-3.4); ABSOLUTE MONOCYTE COUNT 0.9 /CUMM (0.10-0.60); BASOPHIL % 0.7 % (0.0-2.0); EOSINOPHIL % 1.5 % (0-5); GRANULOCYTE % 77.9 % (42.2-75.2); HEMATOCRIT 25.1 % (37-47); MEAN CORPUSCULAR HGB 27.3 PG (27.0-31.0); MEAN CORPUSCULAR VOLUME 85.2 FL (81.0-99.0); MEAN PLATELET VOLUME 7.5 FL (7.4-10.4); PLATELET COUNT 308 /CUMM (130-400); RBC DISTRIBUTION WIDTH 14.3 % (11.5-14.5); RED BLOOD CELL CT 2.95 /CUMM (4.20-5.40)
[2017-09-14 22:17] VITALS: BP 100/56
[2017-09-15 06:28] VITALS: BP 122/64
--- NOTE | 2017-09-15 08:54 | PN- Housestaff ---
See Addendum Subjective Follow-up For: UTI, hematuria, supratherapeutic INR Subjective: No overnight events. The patient's Rodriguez has stopped leaking after we changed yesterday. She does not report any pain at this time. He slept well. Review of Systems Constitutional: Reports: no symptoms. EENTM: Reports: no symptoms. Cardiovascular: Reports: no symptoms. Respiratory: Reports: no symptoms. Gastrointestinal: Reports: no symptoms. Genitourinary: Reports: see HPI. Musculoskeletal: Reports: no symptoms. Skin: Reports: no symptoms. Neurological/Psychological: Reports: no symptoms. Hematologic/Endocrine: Reports: no symptoms. Immunologic/Allergic: Reports: no symptoms. Objective Last 24 Hrs of Vital Signs/I&O Vital Signs Date Time Temp Pulse Resp B/P B/P Pulse O2 O2 Flow FiO2 Mean Ox Delivery Rate 09/16 627 98.3 82 16 122/64 97 Room Air 09/14 2217 98.8 95 20 100/56 97 Room Air 09/14 1348 97.6 79 20 90/80 99 Room Air Intake & Output 09/15 1600 09/15 0800 09/15 0000 Intake Total 200 Output Total 750 3500 Balance -750 -3300 Intake, IV 20 Intake, Oral 180 Output, Urine 750 3500 Patient 54.204 kg Weight Weight Bed scale Measurement Method Physical Exam General Appearance: Alert, Oriented X3, Cooperative, No Acute Distress Cardiovascular: Regular Rate, Normal S1, Normal S2 Lungs: Clear to Auscultation Abdomen: Normal Bowel Sounds, Soft, No Tenderness Extremities: No Edema, Normal Pulses, No Tenderness/Swelling Current Medications: Current Medications Sig/Kim Start time Last Medication Dose Route Stop Time Status Admin Acetaminophen 650 MG Q6P PRN 09/12 1845 AC 09/14 PO 0349 Atorvastatin Calcium 40 MG 1700 09/13 1700 AC 09/14 PO 1727 Ceftriaxone Sodium 1,000 MG DAILY 09/13 1000 AC 09/14 IV 0941 Lidocaine 1 LAI ONE ONE 09/14 1845 DC TOP 09/14 1846 Lidocaine 10 ML ONCE ONE 09/14 1830 CAN TOP 09/14 1900 Lorazepam 0.5 MG ONE ONE 09/14 2014 DC 09/14 PO 09/14 Lorazepam 1 MG ONCE ONE 09/14 1830 DC 09/14 IV 09/14 183 1830 Ondansetron HCl 4 MG Q6P PRN 09/13 1315 AC 09/14 IV 0349 Oxycodone/ 1 TAB Q6P PRN 09/14 1000 AC 09/14 Acetaminophen PO 2228 Last 24 Hrs of Lab/[place] Results Last 24 Hrs of Labs/Mics: Laboratory Tests 09/15/17 0740: Sodium Pending, Potassium Pending, Chloride Pending, Carbon Dioxide Pending, Anion Gap Pending, BUN Pending, Creatinine Pending, BUN/Creatinine Ratio Pending , PT Pending, INR Pending, CBC w Diff Pending, WBC Pending, RBC Pending, Hgb Pending, Hct Pending, MCV Pending, MCH Pending, MCHC Pending, RDW Pending, Plt Count Pending, MPV Pending 09/14/17 1835: CBC w Diff NO MAN DIFF REQ, RBC 2.95 L, MCV 85.2, MCH 27.3, MCHC 32.0 L, RDW 14.3, MPV 7.5, Gran % 77.9 H, Lymphocytes % 11.0 L, Monocytes % 8.9, Eosinophils % 1.5, Basophils % 0.7, Absolute Granulocytes 7.8 H, Absolute Lymphocytes 1.1 L, Absolute Monocytes 0.9 H, Absolute Eosinophils 0.2, Absolute Basophils 0.1 Assessment/Plan Assessment: 80-year-old female with a 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 Assessment and plan 1. UTI 2. Gross hematuria 3. Supratherapeutic INR * Patient treated with ceftriaxone for her urinary tract infection. * Gross hematuria with dysuria and flank pain-CAT scan of the abdomen shows fullness of bilateral collecting system. Patient needs further imaging like IVP /cystoscopy. For now will hold Coumadin and start on antibiotics ceftriaxone and follow up with urine culture. Hopefully patient's hematuria with clear when the INR is therapeutic. Yesterday INR was 4.87. Still supratherapeutic. We'll continue monitoring her INR. We will send urine analysis today to monitor her hematuria. We will treat her pain with Percocet and Tylenol. Yesterday, we change the Rodriguez because it was leaking and today he has been doing well. We will follow up urology recommendations. We will also trend the INR. * Continue her home medication. * Code-full code * Diet-heart healthy diet. Problem List: 1. Supratherapeutic INR 2. Hematuria Pain Ratin Pain Location: no Pain Goal: Remain pain free Pain Plan: see a/p Tomorrow's Labs & Rationales: cbc, bep, inr
[2017-09-15 10:27] LABS: ABSOLUTE BASOPHIL COUNT 0.1 /CUMM (0.0-0.2); ABSOLUTE EOSINOPHIL COUNT 0.2 /CUMM (0.0-0.7); ABSOLUTE GRANULOCYTE CT 6.7 /CUMM (1.4-6.5); ABSOLUTE LYMPH COUNT 1.1 /CUMM (1.2-3.4); ABSOLUTE MONOCYTE COUNT 0.8 /CUMM (0.10-0.60); BASOPHIL % 0.7 % (0.0-2.0); GRANULOCYTE % 75.6 % (42.2-75.2); HEMATOCRIT 24.3 % (37-47); MEAN CORPUSCULAR HGB 27.7 PG (27.0-31.0); MEAN CORPUSCULAR HGB CONC 32.8 G/DL (33.0-37.0); MEAN CORPUSCULAR VOLUME 84.4 FL (81.0-99.0); MEAN PLATELET VOLUME 7.2 FL (7.4-10.4); PLATELET COUNT 337 /CUMM (130-400); RBC DISTRIBUTION WIDTH 14.2 % (11.5-14.5); RED BLOOD CELL CT 2.88 /CUMM (4.20-5.40); WHITE BLOOD CELL COUNT 8.9 /CUMM (4.8-10.8)
[2017-09-15 13:48] VITALS: BP 104/56
[2017-09-15 22:03] VITALS: BP 104/50
--- NOTE | 2017-09-16 00:19 | Event Note ---
Event Note Event Note: S: alerted by the nurse that the patient had no recent output into the escobedo catheter and she was leaking pink tinged urine onto her bed. B: patient admitted for hematuria with supratherapeutic INR, is being followed by urology and on CBI. There was an issue with the catheter leaking on the evening of 09/14/17 and the house staff contract preparer replaced the escobedo, and there had not been any issues since. AR: patient was examined at [facility], the recent pad placed on the patient's bed was damp with pink urine. There was minimal urine in the escobedo collecting bag at the side of the bed. The patient was in mild distress at the time secondary to chonic back pain, but did not complain of any abdominal pain. Abdomen was soft, nontender and nondistended. Escobedo appeared to be in place at the uretheral meatus, no active leaking appreciated. With the help of the nurse at bedside the baloon was deflated and the catheter was adujsted with the baloon being reinflated. Any adjustment caused the patient significant pain. She was given pain medication and a small dose of ativan secondary to aggitation. Bladder scan showed 200 mL. This was discussed with the contract preparer surgical PA who recommended calling Urology. A call back was requested from Dr. Mccurdy' answering service at approximately [phone].
--- NOTE | 2017-09-16 06:25 | PN- Housestaff ---
Niya Rodrigues MD 09/16/17 0624: Subjective Follow-up For: Urinary tract infection, supratherapeutic INR, hematuria Complaints: no complaints Subjective: Patient seen and examined at bedside no overnight events. No complaints. She denies lower abdominal pain, fever, chills, nausea, vomiting. Review of Systems Constitutional: Reports: no symptoms. Cardiovascular: Reports: no symptoms. Respiratory: Reports: no symptoms. Gastrointestinal: Reports: no symptoms. Genitourinary: Reports: no symptoms. Musculoskeletal: Reports: no symptoms. Objective Last 24 Hrs of Vital Signs/I&O Vital Signs Date Time Temp Pulse Resp B/P B/P Pulse O2 O2 Flow FiO2 Mean Ox Delivery Rate 09/16 0642 97.6 85 18 96/50 95 Room Air 09/15 2203 99.4 102 18 104/50 98 Room Air 09/15 1348 100.1 100 20 104/56 100 Intake & Output 09/16 1600 09/16 0800 09/16 0000 Intake Total 100 100 Output Total Balance 100 100 Intake, Oral 100 100 Patient 111 lb Weight Physical Exam General Appearance: Alert, Oriented X3, Cooperative, No Acute Distress Cardiovascular: Regular Rate, Normal S1, Normal S2, No Murmurs Lungs: Clear to Auscultation Abdomen: Soft, No Tenderness, No Hepatospenomegaly, No Masses Neurological: Normal Speech, Normal Tone, Sensation Intact Extremities: No Cyanosis, No Edema, Normal Pulses Other Physical Findings: Patient has continuous bladder irrigation and Rodriguez to be intact. Clear urine draining. Current Medications: Current Medications Sig/Kim Start time Last Medication Dose Route Stop Time Status Admin Acetaminophen 650 MG Q6P PRN 09/12 1845 AC 09/14 PO 0349 Atorvastatin Calcium 40 MG 1700 09/13 1700 AC 09/15 PO 1612 Ceftriaxone Sodium 1,000 MG DAILY 09/13 1000 AC 09/16 IV 0947 Lorazepam 0.5 MG ONE ONE 09/15 2200 DC 09/15 PO 09/15 220 2149 Ondansetron HCl 4 MG Q6P PRN 09/13 1315 AC 09/14 IV 0349 Oxycodone/ 1 TAB Q6P PRN 09/14 1000 AC 09/15 Acetaminophen PO 2150 Warfarin Sodium 1.5 MG COUMADIN 1700 ONE 09/16 1700 AC PO 09/16 1701 Last 24 Hrs of Lab/[place] Results Last 24 Hrs of Labs/Mics: Laboratory Tests 09/16/17 0748: Anion Gap 11, Estimated GFR 53 L, BUN/Creatinine Ratio 15.0, PT 20.2 H, INR 1.84 H, CBC w Diff NO MAN DIFF REQ, RBC 2.75 L, MCV 84.4, MCH 27.5, MCHC 32.6 L, RDW 14.4, MPV 6.9 L, Gran % 79.5 H, Lymphocytes % 9.2 L, Monocytes % 9.1, Eosinophils % 1.6, Basophils % 0.6, Absolute Granulocytes 7.6 H, Absolute Lymphocytes 0.9 L, Absolute Monocytes 0.9 H, Absolute Eosinophils 0.2, Absolute Basophils 0.1 Assessment/Plan Assessment: 80-year-old female with a 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 Assessment and plan 1. UTI 2. Gross hematuria 3. Supratherapeutic INR * Patient treated with ceftriaxone [day 5] for her urinary tract infection. We will switch to Keflex tomorrow and complete 10 day antibiotic course. * Patient presented with Gross hematuria with dysuria and flank pain-CAT scan of the abdomen shows fullness of bilateral collecting system. Patient urine clearing. She is on continuous bladder irrigation. Since the urinalysis clear was slowly stopped the CBI. * Supratherapeutic INR-today INR 1.84. We will restart her Coumadin at a dose of 1.5 mg today. * Over the weekend patient had issues with her Rodriguez catheter. Rodriguez catheter was leaking urine and hence it was changed on Saturday. Last night patient had same issues with leaking urine through her Rodriguez, overnight team has requested a call back from urology. She was seen by Dr. Brown today who suggested to slowly stop the continuous bladder irrigation and she can be followed as outpatient for possible IVP/cystoscopy in future. * We will treat her pain with Percocet and Tylenol. * Continue her home medication. * Code-full code * Diet-heart healthy diet. Patient expressed her wishes to go home instead of short-term rehabilitation. Physical therapy is working with her. Patient is possible discharge tomorrow. Problem List: 1. Hematuria 2. UTI (urinary tract infection) 3. Supratherapeutic INR Pain Ratin Pain Location: lower abdomen Pain Goal: Remain pain free Pain Plan: tylenol Tomorrow's Labs & Rationales: cbc,bep Arnold ALONSO,Danisha 09/16/17 1157: Attending Review Statement Attending Statement Attending MD Statement: examined this patient, discuss w/resident/PA/DATA ACQUISITION TECHNICIAN, agreed w/resident/PA/DATA ACQUISITION TECHNICIAN, reviewed EMR data (avail), discussed with nursing, discussed with case mgmt, reviewed images, amended to note Attending Assessment/Plan: Patient seen and examined, doing okay. CBI is getting more clear now. Patient denies any pain. Vital Signs Date Time Temp Pulse Resp B/P B/P Pulse O2 O2 Flow FiO2 Mean Ox Delivery Rate 09/16 0642 97.6 85 18 96/50 95 Room Air 09/15 2203 99.4 102 18 104/50 98 Room Air 09/15 1348 100.1 100 20 104/56 100 on exam; aox3, nad. cv; s1, s2, rrr resp; clear abd; soft, nt, bs+ ext; trace edema Laboratory Tests 09/16 0748 Chemistry Sodium (137 - 145 mmol/L) 138 Potassium (3.5 - 5.1 mmol/L) 4.1 Chloride (98 - 107 mmol/L) 103 Carbon Dioxide (22 - 30 mmol/L) 23 Anion Gap (5 - 16) 11 BUN (7 - 17 mg/dL) 15 Creatinine (0.5 - 1.0 mg/dL) 1.0 Estimated GFR (>60 ml/min) 53 L BUN/Creatinine Ratio (7 - 25 %) 15.0 Coagulation PT (9.4 - 12.5 SEC) 20.2 H INR (0.90 - 1.19) 1.84 H Hematology CBC w Diff NO MAN DIFF REQ WBC (4.8 - 10.8 /CUMM) 9.5 RBC (4.20 - 5.40 /CUMM) 2.75 L Hgb (12.0 - 16.0 G/DL) 7.6 L Hct (37 - 47 %) 23.2 L MCV (81.0 - 99.0 FL) 84.4 MCH (27.0 - 31.0 PG) 27.5 MCHC (33.0 - 37.0 G/DL) 32.6 L RDW (11.5 - 14.5 %) 14.4 Plt Count (130 - 400 /CUMM) 352 MPV (7.4 - 10.4 FL) 6.9 L Gran % (42.2 - 75.2 %) 79.5 H Lymphocytes % (20.5 - 51.1 %) 9.2 L Monocytes % (1.7 - 9.3 %) 9.1 Eosinophils % (0 - 5 %) 1.6 Basophils % (0.0 - 2.0 %) 0.6 Absolute Granulocytes (1.4 - 6.5 /CUMM) 7.6 H Absolute Lymphocytes (1.2 - 3.4 /CUMM) 0.9 L Absolute Monocytes (0.10 - 0.60 /CUMM) 0.9 H Absolute Eosinophils (0.0 - 0.7 /CUMM) 0.2 Absolute Basophils (0.0 - 0.2 /CUMM) 0.1 A/P; 81 y/o M with pmh sig for 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 Patient getting CBI. He is getting clear. Appreciate urology input. If it continues to get clear then we can stop it and leave the Rodriguez in. Patient also has acute blood loss anemia. We will recheck H&H later today and if continues to drop then will transfuse. INR now subtherapeutic. Will dose Coumadin and recheck it in the morning. We'll switch antibiotics to oral Keflex tomorrow. We'll follow-up on urine culture. PT recommend see how but patient wants to go home. If it remains stable then possibly she can be discharged tomorrow.
[2017-09-16 06:42] VITALS: BP 96/50
--- NOTE | 2017-09-16 08:02 | PN- Urology ---
Subjective Subjective: Patient comfortable at this time. Problems overnight with leakage around catheter and no drainage from catheter. CBI inflow is now off Objective Vital Signs and I&Os Vital Signs Date Time Temp Pulse Resp B/P B/P Pulse O2 O2 Flow FiO2 Mean Ox Delivery Rate 09/16 0642 97.6 85 18 96/50 95 Room Air 09/15 2203 99.4 102 18 104/50 98 Room Air 09/15 1348 100.1 100 20 104/56 100 Intake & Output 09/16 0809/16 0000 09/15 1600 09/15 0809/15 0000 09/14 1600 Intake Total 100 100 800 200 640 Output Total 750 3500 600 Balance 100 100 800 -750 -3300 40 Intake, IV 20 Intake, Oral 100 100 800 180 640 Output, Urine 750 3500 600 Patient 111 lb 120 lb Weight Weight Bed scale Measurement Method Abd: soft and non tender. Bladder not tender Genitalia: 3-way escobedo in place. Not draining Laboratory Tests 09/15 0945 Coagulation PT (9.4 - 12.5 SEC) 36.0 H INR (0.90 - 1.19) 3.26 H Hematology WBC (4.8 - 10.8 /CUMM) 8.9 RBC (4.20 - 5.40 /CUMM) 2.88 L Hgb (12.0 - 16.0 G/DL) 8.0 L Hct (37 - 47 %) 24.3 L MCV (81.0 - 99.0 FL) 84.4 MCH (27.0 - 31.0 PG) 27.7 MCHC (33.0 - 37.0 G/DL) 32.8 L RDW (11.5 - 14.5 %) 14.2 Plt Count (130 - 400 /CUMM) 337 MPV (7.4 - 10.4 FL) 7.2 L Gran % (42.2 - 75.2 %) 75.6 H Lymphocytes % (20.5 - 51.1 %) 12.4 L Monocytes % (1.7 - 9.3 %) 9.3 Eosinophils % (0 - 5 %) 2.0 Basophils % (0.0 - 2.0 %) 0.7 Absolute Granulocytes (1.4 - 6.5 /CUMM) 6.7 H Absolute Lymphocytes (1.2 - 3.4 /CUMM) 1.1 L Absolute Monocytes (0.10 - 0.60 /CUMM) 0.8 H Absolute Eosinophils (0.0 - 0.7 /CUMM) 0.2 Absolute Basophils (0.0 - 0.2 /CUMM) 0.1 Urine culture negative Assessment/Plan Assessment/Plan Imp: 1. Gross hematuria, unclear etiology 2. Supratherpeutic INR 3. Escobedo not draining Plan: 1. Escobedo irrigated and some clots obtained. CBI now functioning well. Drainage is clear on slow CBI 2. Continue slow CBI this AM. If drainage remains clear then stop CBI and continue escobedo 3. Will need CT/IVP. Could be done as in or outpatient. Also needs eventual office cysto 4. Hold coumadin until INR therapeutic
[2017-09-16 08:47] LABS: ABSOLUTE BASOPHIL COUNT 0.1 /CUMM (0.0-0.2); ABSOLUTE EOSINOPHIL COUNT 0.2 /CUMM (0.0-0.7); ABSOLUTE GRANULOCYTE CT 7.6 /CUMM (1.4-6.5); ABSOLUTE LYMPH COUNT 0.9 /CUMM (1.2-3.4); ABSOLUTE MONOCYTE COUNT 0.9 /CUMM (0.10-0.60); BASOPHIL % 0.6 % (0.0-2.0); EOSINOPHIL % 1.6 % (0-5); GRANULOCYTE % 79.5 % (42.2-75.2); HEMATOCRIT 23.2 % (37-47); MEAN CORPUSCULAR HGB 27.5 PG (27.0-31.0); MEAN CORPUSCULAR HGB CONC 32.6 G/DL (33.0-37.0); MEAN CORPUSCULAR VOLUME 84.4 FL (81.0-99.0); MEAN PLATELET VOLUME 6.9 FL (7.4-10.4); PLATELET COUNT 352 /CUMM (130-400); RBC DISTRIBUTION WIDTH 14.4 % (11.5-14.5); RED BLOOD CELL CT 2.75 /CUMM (4.20-5.40); WHITE BLOOD CELL COUNT 9.5 /CUMM (4.8-10.8)
[2017-09-16 08:49] LABS: PT 20.2 SEC (9.4-12.5)
[2017-09-16] MEDS ORDERED: KEFLEX500 M1 PO (08:58)
--- NOTE | 2017-09-16 09:17 | Patient Discharge Instructions ---
Discharge Instructions General Discharge Information You were seen/treated for: UTI/HEMATURIA/SUPRATHERAPEUTIC INR Watch for these problems: In case of lower abdominal pain, fever, chills, nausea, vomiting please go to the nearest emergency room. Special Instructions: Please follow-up with your primary care provider within 1-2 weeks of discharge next the next and please follow-up with the urologist Dr. Brown within 1-2 weeks of discharge. Please check INR on 09/20/17 and keep INR in the lower range of 2-2.5. Diet Continue normal diet: No Recommended Diet: Heart Healthy Activity Full Activity/No Limits: No Activity Self Limited: Yes Acute Coronary Syndrome Inclusion Criteria At DC or during hospital stay patient has or had the following: ACS DIAGNOSIS No Discharge Core Measures Meds if any: Prescribed or Continued at Discharge Meds if any: NOT Prescribed or Continued at Discharge Congestive Heart Failure Inclusion Criteria At DC or during hospital stay patient has or had the following: CHF DIAGNOSIS No Discharge Core Measures Meds if any: Prescribed or Continued at Discharge Meds if any: NOT Prescribed or Continued at Discharge Cerebrovascular accident Inclusion Criteria At DC or during hospital stay patient has or had the following: CVA/TIA Diagnosis No Discharge Core Measures Meds if any: Prescribed or Continued at Discharge Meds if any: NOT Prescribed or Continued at Discharge Venous thromboembolism Inclusion Criteria VTE Diagnosis No VTE Type NONE VTE Confirmed by (Test) NONE Discharge Core Measures - Per Current guidelines, there needs to be overlap - treatment for the first 5 days of Warfarin therapy. - If discharged on Warfarin prior to 5 days of - overlap therapy, the patient will need to be - assessed for post discharge needs including - *Post discharge parental anticoagulation - *Warfarin and/or parental anticoagulation education - *Follow up date to check INR post discharge At least 5 days overlap therapy as Inpatient No Meds if any: Prescribed or Continued at Discharge Note: Overlap Therapy is Warfarin and Anticoagulant Meds if any: NOT Prescribed or Continued at Discharge
[2017-09-16 14:25] VITALS: BP 114/68
[2017-09-16 16:21] LABS: ABSOLUTE BASOPHIL COUNT 0 /CUMM (0.0-0.2); ABSOLUTE EOSINOPHIL COUNT 0.2 /CUMM (0.0-0.7); ABSOLUTE GRANULOCYTE CT 7.1 /CUMM (1.4-6.5); ABSOLUTE MONOCYTE COUNT 0.9 /CUMM (0.10-0.60); BASOPHIL % 0.5 % (0.0-2.0); EOSINOPHIL % 1.7 % (0-5); GRANULOCYTE % 77.7 % (42.2-75.2); HEMATOCRIT 23.2 % (37-47); MEAN CORPUSCULAR HGB 27.4 PG (27.0-31.0); MEAN CORPUSCULAR HGB CONC 32.5 G/DL (33.0-37.0); MEAN CORPUSCULAR VOLUME 84.3 FL (81.0-99.0); MEAN PLATELET VOLUME 6.6 FL (7.4-10.4); PLATELET COUNT 381 /CUMM (130-400); RBC DISTRIBUTION WIDTH 14.5 % (11.5-14.5); RED BLOOD CELL CT 2.75 /CUMM (4.20-5.40); WHITE BLOOD CELL COUNT 9.2 /CUMM (4.8-10.8)
[2017-09-16 22:25] VITALS: BP 90/54
[2017-09-17 06:25] VITALS: BP 102/56
--- NOTE | 2017-09-17 07:19 | PN- Housestaff ---
Subjective Follow-up For: Hematuria-resolved UTI-treated Blood loss Anemia Complaints: no complaints Subjective: Patient seen and examined at bedside. Patient seems frustrated because of her discharge disposition to short-term rehabilitation. She denies abdominal pain, dysuria, nausea, vomiting, fever. Review of Systems Constitutional: Reports: see HPI. Objective Last 24 Hrs of Vital Signs/I&O Vital Signs Date Time Temp Pulse Resp B/P B/P Pulse O2 O2 Flow FiO2 Mean Ox Delivery Rate 09/17 1424 100.0 09/17 1354 100.0 92 20 100/60 95 Room Air 09/17 1317 Room Air 2.0L 09/17 0625 98.4 87 18 102/56 96 Room Air 09/16 2225 98.6 83 20 90/54 95 Room Air Intake & Output 09/17 1600 09/17 0800 09/17 0000 Intake Total 380 100 750 Output Total 150 Balance 380 100 600 Intake, IV 20 Intake, Oral 360 100 500 Intake, Other 250 Number 0 0 Bowel Movements Output, Urine 150 Patient 125 lb 125 lb Weight Weight Bed scale Measurement Method Physical Exam General Appearance: Alert, Oriented X3, Cooperative, No Acute Distress Cardiovascular: Regular Rate, Normal S1, Normal S2, No Murmurs Lungs: Normal Air Movement Abdomen: Soft, No Tenderness, No Hepatospenomegaly Neurological: Normal Speech, Strength at 5/5 X4 Ext, Normal Tone, Sensation Intact Extremities: RIGHT LEG-3 X 3 CM OPEN WOUND. pATIENT ON uNNA BOOT. Current Medications: Current Medications Sig/Kim Start time Last Medication Dose Route Stop Time Status Admin Acetaminophen 650 MG ONCE ONE 09/17 1415 DC 09/17 PO 09/17 1416 1424 Acetaminophen 650 MG Q6P PRN 09/12 1845 AC 09/14 PO 0349 Atorvastatin Calcium 40 MG 1700 09/13 1700 AC 09/16 PO 1603 Ceftriaxone Sodium 1,000 MG DAILY 09/13 1000 DC 09/17 IV 0920 Docusate Sodium 100 MG BID 09/17 1143 AC 09/17 PO 1338 Ondansetron HCl 4 MG Q6P PRN 09/13 1315 AC 09/14 IV 0349 Oxycodone/ 1 TAB Q6P PRN 09/14 1000 AC 09/16 Acetaminophen PO 2229 Patient Medication 1 ED ONE ONE 09/17 1545 HI Teaching ED 09/17 1546 Polyethylene Glycol 17 GM DAILY 09/17 1145 AC 09/17 PO 1338 Warfarin Sodium 5 MG COUMADIN 1700 ONE 09/17 1700 AC PO 09/17 1701 Warfarin Sodium 1.5 MG COUMADIN 1700 ONE 09/16 1700 DC 09/16 PO 09/16 170 1734 Last 24 Hrs of Lab/[place] Results Last 24 Hrs of Labs/Mics: Laboratory Tests 09/17/17 1010: CBC w Diff NO MAN DIFF REQ, RBC 2.64 L, MCV 83.1, MCH 27.8, MCHC 33.5, RDW 13.9 , MPV 6.6 L, Gran % 75.6 H, Lymphocytes % 11.5 L, Monocytes % 10.5 H, Eosinophils % 1.8, Basophils % 0.6, Absolute Granulocytes 5.4, Absolute Lymphocytes 0.8 L, Absolute Monocytes 0.7 H, Absolute Eosinophils 0.1, Absolute Basophils 0 09/17/17 0623: PT 16.1 H, INR 1.47 H, CBC w Diff NO MAN DIFF REQ, RBC 2.60 L, MCV 84.3, MCH 28.0, MCHC 33.3, RDW 14.2, MPV 6.9 L, Gran % 75.4 H, Lymphocytes % 11.9 L, Monocytes % 9.9 H, Eosinophils % 2.2, Basophils % 0.6, Absolute Granulocytes 5.4, Absolute Lymphocytes 0.9 L, Absolute Monocytes 0.7 H, Absolute Eosinophils 0.2, Absolute Basophils 0 Assessment/Plan Assessment: 80-year-old female with a 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 Assessment and plan 1. UTI 2. Gross hematuria 3. Supratherapeutic INR * Patient was treated with D5 ceftriaxone. Her urine culture is negative. We will discontinue antibiotics and watch her off antibiotics. * Patient presented with Gross hematuria with dysuria and flank pain-CAT scan of the abdomen shows fullness of bilateral collecting system. Patient urine clearing. We discontinued CBI today. Patient had H&H dropped to 7.3. In view of blood loss anemia after getting consent 1 unit of packed red blood cell transfusion was decided. * Supra therapeutic INR-resolved. Patient's INR today is subtherapeutic- INR 1.47. We will resume Coumadin at 4 mg daily from tomorrow and today we will give her 5 mg of Coumadin. * Patient Rodriguez catheter can be discontinued as per urology. She was seen by Dr. Brown is today who suggested to slowly stop the continuous bladder irrigation and she can be followed as outpatient for possible IVP/cystoscopy in future. * We will treat her pain with Percocet and Tylenol. * Continue her home medication. * Code-full code * Diet-heart healthy diet. * Patient agreed to go to short-term rehabilitation. Patient is a possible discharge tomorrow. Problem List: 1. Hematuria 2. UTI (urinary tract infection) 3. Subtherapeutic anticoagulation 4. Supratherapeutic INR Pain Ratin Pain Location: NONE Pain Goal: Remain pain free Pain Plan: Tylenol Tomorrow's Labs & Rationales: CBC, INR
[2017-09-17 08:33] LABS: PT 16.1 SEC (9.4-12.5)
[2017-09-17 08:36] LABS: ABSOLUTE BASOPHIL COUNT 0 /CUMM (0.0-0.2); ABSOLUTE EOSINOPHIL COUNT 0.2 /CUMM (0.0-0.7); ABSOLUTE GRANULOCYTE CT 5.4 /CUMM (1.4-6.5); ABSOLUTE LYMPH COUNT 0.9 /CUMM (1.2-3.4); BASOPHIL % 0.6 % (0.0-2.0)
[2017-09-17 08:58] LABS: ABSOLUTE MONOCYTE COUNT 0.7 /CUMM (0.10-0.60); EOSINOPHIL % 2.2 % (0-5); GRANULOCYTE % 75.4 % (42.2-75.2); HEMATOCRIT 21.9 % (37-47); MEAN CORPUSCULAR HGB CONC 33.3 G/DL (33.0-37.0); MEAN CORPUSCULAR VOLUME 84.3 FL (81.0-99.0); MEAN PLATELET VOLUME 6.9 FL (7.4-10.4); PLATELET COUNT 343 /CUMM (130-400); RBC DISTRIBUTION WIDTH 14.2 % (11.5-14.5); WHITE BLOOD CELL COUNT 7.2 /CUMM (4.8-10.8)
[2017-09-17 10:24] LABS: ABSOLUTE BASOPHIL COUNT 0 /CUMM (0.0-0.2); ABSOLUTE LYMPH COUNT 0.8 /CUMM (1.2-3.4); ABSOLUTE MONOCYTE COUNT 0.7 /CUMM (0.10-0.60); BASOPHIL % 0.6 % (0.0-2.0); RED BLOOD CELL CT 2.64 /CUMM (4.20-5.40); WHITE BLOOD CELL COUNT 7.1 /CUMM (4.8-10.8)
[2017-09-17 10:33] LABS: ABSOLUTE EOSINOPHIL COUNT 0.1 /CUMM (0.0-0.7); ABSOLUTE GRANULOCYTE CT 5.4 /CUMM (1.4-6.5); EOSINOPHIL % 1.8 % (0-5); GRANULOCYTE % 75.6 % (42.2-75.2); HEMATOCRIT 21.9 % (37-47); MEAN CORPUSCULAR HGB 27.8 PG (27.0-31.0); MEAN CORPUSCULAR HGB CONC 33.5 G/DL (33.0-37.0); MEAN CORPUSCULAR VOLUME 83.1 FL (81.0-99.0); MEAN PLATELET VOLUME 6.6 FL (7.4-10.4); PLATELET COUNT 392 /CUMM (130-400); RBC DISTRIBUTION WIDTH 13.9 % (11.5-14.5)
[2017-09-17] MEDS ORDERED: COUMADIN4 M1 PO (10:35)
--- NOTE | 2017-09-17 11:07 | PN- Att Addend ---
Attending Addendum Attending Brief Note Patient seen and examined, feeling okay, urine is much more clear. CBI is off. Patient denies any lower abdominal or back pain. Vital Signs Date Time Temp Pulse Resp B/P B/P Pulse O2 O2 Flow FiO2 Mean Ox Delivery Rate 09/17 0625 98.4 87 18 102/56 96 Room Air 09/16 2225 98.6 83 20 90/54 95 Room Air 09/16 1425 98.6 96 20 114/68 96 Room Air on exam; aox3 nad. cv; s1,s2, rrr resp; clear abd; soft, nt, bs+ ext; trace edema with rle wound. Laboratory Tests 09/17 09/17 1010 0623 Coagulation PT (9.4 - 12.5 SEC) 16.1 H INR (0.90 - 1.19) 1.47 H Hematology CBC w Diff NO MAN DIFF REQ NO MAN DIFF REQ WBC (4.8 - 10.8 /CUMM) 7.1 7.2 RBC (4.20 - 5.40 /CUMM) 2.64 L 2.60 L Hgb (12.0 - 16.0 G/DL) 7.3 *L 7.3 *L Hct (37 - 47 %) 21.9 L 21.9 L MCV (81.0 - 99.0 FL) 83.1 84.3 MCH (27.0 - 31.0 PG) 27.8 28.0 MCHC (33.0 - 37.0 G/DL) 33.5 33.3 RDW (11.5 - 14.5 %) 13.9 14.2 Plt Count (130 - 400 /CUMM) 392 343 MPV (7.4 - 10.4 FL) 6.6 L 6.9 L Gran % (42.2 - 75.2 %) 75.6 H 75.4 H Lymphocytes % (20.5 - 51.1 %) 11.5 L 11.9 L Monocytes % (1.7 - 9.3 %) 10.5 H 9.9 H Eosinophils % (0 - 5 %) 1.8 2.2 Basophils % (0.0 - 2.0 %) 0.6 0.6 Absolute Granulocytes (1.4 - 6.5 /CUMM) 5.4 5.4 Absolute Lymphocytes (1.2 - 3.4 /CUMM) 0.8 L 0.9 L Absolute Monocytes (0.10 - 0.60 /CUMM) 0.7 H 0.7 H Absolute Eosinophils (0.0 - 0.7 /CUMM) 0.1 0.2 Absolute Basophils (0.0 - 0.2 /CUMM) 0 0 / 1555 Hematology CBC w Diff NO MAN DIFF REQ WBC (4.8 - 10.8 /CUMM) 9.2 RBC (4.20 - 5.40 /CUMM) 2.75 L Hgb (12.0 - 16.0 G/DL) 7.5 L Hct (37 - 47 %) 23.2 L MCV (81.0 - 99.0 FL) 84.3 MCH (27.0 - 31.0 PG) 27.4 MCHC (33.0 - 37.0 G/DL) 32.5 L RDW (11.5 - 14.5 %) 14.5 Plt Count (130 - 400 /CUMM) 381 MPV (7.4 - 10.4 FL) 6.6 L Gran % (42.2 - 75.2 %) 77.7 H Lymphocytes % (20.5 - 51.1 %) 10.9 L Monocytes % (1.7 - 9.3 %) 9.2 Eosinophils % (0 - 5 %) 1.7 Basophils % (0.0 - 2.0 %) 0.5 Absolute Granulocytes (1.4 - 6.5 /CUMM) 7.1 H Absolute Lymphocytes (1.2 - 3.4 /CUMM) 1.0 L Absolute Monocytes (0.10 - 0.60 /CUMM) 0.9 H Absolute Eosinophils (0.0 - 0.7 /CUMM) 0.2 Absolute Basophils (0.0 - 0.2 /CUMM) 0 A/P; 81 y/o M with pmh sig for 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 Patient does have a drop in her H&H today. Repeat H&H isn also low. Will transfuse hre one unit. PLeased check with Urology about Rodriguez. I have texted Dr. Simpson. Will complete 10 day course of abx, pt was symptomatic on admit, had a low grade temp and one spike of WBC with hematuria. Will switch to PO keflex. Will dose coumadin at 5 mg today, INR now subtherapeutic. PT recommended rehab. Can be discharged after the transfusion. Will repeat check INR on 09/19/17.
[2017-09-17 13:54] VITALS: BP 100/60
--- NOTE | 2017-09-17 14:50 | Discharge Summary ---
Visit Information Visit Dates Admission Date: 09/12/17 Discharge Date: 09/19/17 Hospital Course Course Attending Physician: Danisha Barrett MD Primary Care Physician: Sendy Sifuentes MD Consulting Request: Consulting Specialty: Urology Consulting Physician: Dr. 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 with complaints of dysuria and hematuria of 1 night duration. 3 days prior to presentation patient had sudden onset intermittent bilateral flank pain. She lives in a elderly group apartment and was in her usual state of health until the night prior to presentation when the patient developed dysuria and had deidra hematuria. She denied fever or chills. She denied nausea or vomitting. Vital signs on presentation temp 98.7F, pulse 104 bpm, RR 20, BP 150/76 mmhg, 100 % on Room Air Physical exam at presentation: General: Elderly woman, not pale, cachectic, alert and oriented X 3 HEENT: [place], EOMI Chest: Clear to auscultation CVS: RRR, S1, S2 normal Abdomen: Non tender, no hepatosplenomegaly Back : Bilateral flank tenderness present Legs: No pedal edema Labs on presentation showed a basic electrolyte profile that was unremarkable with normal sodium of 142 and potassium of 4. CBC: WBC 9.8, Hb 11, platelet 333, Urinalysis showed positive nitrite, Leukocyte esterase and WBC of 5-10 and RBCs packed. Imaging on presentation showed an ultrasound of her abdomen that was negative for an aortic aneurysm. A CT scan of her abdomen with IV contrast showed a heterogeneous mildly enhancing partially solid appearing tissue noted in bilateral renal collecting systems including renal pelvis and proximal bilateral ureters. Differential possibility included both neoplastic process or infectious etiology. She was admitted for treatment of urinary tract infection and hematuria with a supratherapeutic INR. She was started on IV ceftriaxone and her flank pain improved. On the second day of admission she passed a blood clot clot from her urethra and had a vasovagal event with lightheadedness at that time that resulted in a rapid response. EKGs and troponins were negative for any acute coronary event. She was treated with IV normal saline and reviewed by urologist will started on continuous bladder irrigation. Her hematuria improved and her INR drifted down to was normal and she was restarted on a lower dose of by mouth Coumadin. Her blood cultures and urine culture was negative and antibiotics were discontinued after she completed 5 days of antibiotics. Urologist, Dr. Brown recommended that she have a CT of abdomen with intravenous pyelogram to better assess her renal collecting system about 2-3 weeks after discharge. He also planned for outpatient cystoscopy in his office to investigate hematuria. Physical therapist reviewed the patient and recommended for short- term rehabilitation and she was discharged to a short term rehabilitation facility. She had a right ankle venous compression ulcer which was managed with compression dressings. COUMADIN DOSE HAS BEEN DECREASED COMPARED TO HOME DOSE. SHE IS GETTING DISCHARGED ON 3 MG OF COUMADIN. REPEAT INR CHECK SHOULD BE ON 09/20/17. GOAL INR IS AT THE LOWER END OF THERAPEUTIC RANGE WHICH MEANS LESS THEN 2.5. PLEASE ADJUST COUMADIN ACCORDINGLY. DOSE OF COUMADIN DECRESAED SECONDARY TO PATIENT COMING IN WITH HEMATURIA IN THE SETTING OF SUPRATHERAPEUTIC INR. Allergies: Coded Allergies: morphine (Intermediate, RASH 10/15/16) Sulfa (Sulfonamide Antibiotics) (VOMITING 08/21/15) amoxicillin (From AUGMENTIN) (HIVES 08/21/15) clavulanic acid (From AUGMENTIN) (HIVES 08/21/15) Disposition Summary Disposition Principal Diagnosis: 1. Urinary Tract Infection 2. Hematuria 3. Supratherapeutic INR 4. Physical deconditioning 5. Right ankle venous ulcer on compression dresssings Additional Diagnosis: 5. Hyperlipidemia Discharge Disposition: SNF Discharge Instructions General Discharge Information Code Status: Full Code Patient's Diet: Regular diet Patient's Activity: Self-limited activity Follow-Up Instructions/Appts: 1. Patient is to follow-up with your primary care provider within one week of discharge 2. Patient is to follow-up with urologist, Dr. Brown within 2 weeks of discharge to have a CT of her abdomen with intravenous pyelogram to better assess her renal collecting system as she had some ill-defined densities on her bilateral kidneys on CT scan during admission. 3. Patient should also have outpatient cystoscopy with Dr. Brown in his office to investigate her hematuria. 4. Follow up with [facility] in 1 week for compression dressing change 5. Please check INR on 09/20/17 Medications at Discharge Discharge Medications: Stop taking the following medications: Warfarin Sodium (Coumadin) 5 MG TABLET ORAL 5 PM Continue taking these medications: Rosuvastatin Calcium (Crestor) 10 MG TABLET 1 Tablet ORAL DAILY Comments: NOT GIVEN IN HOSPITAL Furosemide (Lasix) 20 MG TABLET 1 Tablet ORAL EVERY 48 HOURS (Every 2 days) Qty = 30 Instructions: Holding parameters: hold for SBP < 90 Comments: Last Taken: 11/25/16 Time: 10:00 AM Start taking the following new medications: Warfarin Sodium (Coumadin) 3 MG TABLET 1 Tablet ORAL DAILY Qty = 30 No Refills Copies To: Stephanie ALONSO,Chapo Maria; Bear ALONSO,M. Home
[2017-09-17 22:45] VITALS: BP 90/55
[2017-09-18 02:28] VITALS: BP 108/56
[2017-09-18 06:20] VITALS: BP 104/52
--- NOTE | 2017-09-18 07:28 | PN- Housestaff ---
Niya Rodrigues MD 09/18/17 0727: Subjective Follow-up For: UTI-resolved Supratherapeutic INR-resolved Hematuria-resolved Complaints: no complaints Subjective: Patient seen and examined at bedside no overnight events. Patient complains that she couldn't sleep well. She denies weakness, hematuria, nausea, vomiting, back pain. Review of Systems Constitutional: Reports: no symptoms. Cardiovascular: Reports: no symptoms. Respiratory: Reports: no symptoms. Gastrointestinal: Reports: no symptoms. Genitourinary: Reports: no symptoms. Objective Last 24 Hrs of Vital Signs/I&O Vital Signs Date Time Temp Pulse Resp B/P B/P Pulse O2 O2 Flow FiO2 Mean Ox Delivery Rate 09/18 0620 98.0 75 16 104/52 96 Room Air 09/18 0228 70 108/56 09/17 2245 98.6 82 20 90/55 97 Room Air 09/17 1523 98.5 09/17 1424 100.0 09/17 1354 100.0 92 20 100/60 95 Room Air 09/17 1317 Room Air 2.0L Intake & Output 09/18 1600 09/18 0800 09/18 0000 Intake Total 100 530 Output Total 100 460 350 Balance -100 -360 180 Intake, IV 380 Intake, Oral 100 150 Number 0 Bowel Movements Output, Urine 100 460 350 Patient 125 lb Weight Weight Bed scale Measurement Method Physical Exam General Appearance: Alert, Oriented X3, Cooperative, No Acute Distress Cardiovascular: Regular Rate, Normal S1, Normal S2, No Murmurs Lungs: Clear to Auscultation Abdomen: Soft, No Tenderness, No Hepatospenomegaly Neurological: Normal Speech, Strength at 5/5 X4 Ext, Normal Tone, Sensation Intact Extremities: No Cyanosis, No Edema, Normal Pulses Current Medications: Current Medications Sig/Kim Start time Last Medication Dose Route Stop Time Status Admin Acetaminophen 650 MG ONCE ONE 09/17 1415 DC 09/17 PO 09/17 1416 1424 Acetaminophen 650 MG Q6P PRN 09/12 1845 AC 09/17 PO 2356 Atorvastatin Calcium 40 MG 1700 09/13 1700 AC 09/17 PO 1722 Ceftriaxone Sodium 1,000 MG DAILY 09/13 1000 DC 09/17 IV 0920 Docusate Sodium 100 MG BID 09/17 1143 DC 09/17 PO 2119 Lidocaine 1 PAT ONCE ONE 09/17 2345 DC 09/18 EXT 09/17 2346 0635 Lorazepam 0.5 MG ONE ONE 09/17 2145 DC 09/17 PO 09/17 2146 2157 Magnesium Hydroxide 30 ML ONE ONE 09/18 0930 AC PO 09/18 0931 Ondansetron HCl 4 MG Q6P PRN 09/13 1315 09/14 IV 0349 Oxycodone/ 1 TAB Q6P PRN 09/14 1000 AC 09/18 Acetaminophen PO 0640 Patient Medication 1 ED ONE ONE 09/17 1545 PA Teaching ED 09/17 1546 Polyethylene Glycol 17 GM DAILY 09/17 1145 09/17 PO 1338 Senna/Docusate Sodium 2 TAB DAILY NEEDED PRN 09/18 0915 PO Warfarin Sodium 5 MG COUMADIN 1700 ONE 09/17 1700 PA 09/17 PO 09/17 1701 1722 Last 24 Hrs of Lab/[place] Results Last 24 Hrs of Labs/Mics: Laboratory Tests 09/18/17 0734: PT 19.7 H, INR 1.80 H, CBC w Diff NO MAN DIFF REQ, RBC 3.08 L, MCV 84.5, MCH 28.1, MCHC 33.3, RDW 14.7 H, MPV 6.6 L, Gran % 75.0, Lymphocytes % 9.3 L, Monocytes % 11.9 H, Eosinophils % 3.3, Basophils % 0.5, Absolute Granulocytes 5.4, Absolute Lymphocytes 0.7 L, Absolute Monocytes 0.9 H, Absolute Eosinophils 0.2, Absolute Basophils 0 09/17/17 1010: CBC w Diff NO MAN DIFF REQ, RBC 2.64 L, MCV 83.1, MCH 27.8, MCHC 33.5, RDW 13.9 , MPV 6.6 L, Gran % 75.6 H, Lymphocytes % 11.5 L, Monocytes % 10.5 H, Eosinophils % 1.8, Basophils % 0.6, Absolute Granulocytes 5.4, Absolute Lymphocytes 0.8 L, Absolute Monocytes 0.7 H, Absolute Eosinophils 0.1, Absolute Basophils 0 Assessment/Plan Assessment: 80-year-old female with a 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 Assessment and plan 1. UTI-resolved 2. Gross hematuria-resolved 3. Supratherapeutic INR, now therapeutic * Patient was treated with D5 ceftriaxone. since her urine culture was negative she is followed off antibiotics. * Patient presented with Gross hematuria with dysuria and flank pain-CAT scan of the abdomen shows fullness of bilateral collecting system. Patient was on continuous bladder irrigation and eventually discontinued. She was draining clear urine in her Rodriguez yesterday. After discussing with the urologist Rodriguez was discontinued. Patient had good urine output after removal of Rodriguez with no hematuria. Patient had a drop in her H&H to 7.3 yesterday and she had 1 unit of blood transfusion. Today H&H is 8.6. * Supra therapeutic INR-resolved. Patient's INR today is subtherapeutic- INR 1.80. We will continue her Coumadin at 4 mg daily. As per urology, he suggested to keep INR at the lower end of subtherapeutic level. * Patient Rodriguez catheter can be discontinued as per urology. She was seen by Dr. Brown is today who suggested that she is stable to be discharge and to be followed as outpatient for possible IVP/cystoscopy in future. * We will treat her pain with Percocet and Tylenol. * Continue her home medication. * Code-full code * Diet-heart healthy diet. * Patient agreed to go to short-term rehabilitation. Patient had one episode of projectile vomiting with constipation. We will take stat abdominal x-ray and give stool softener and suppository. Problem List: 1. Supratherapeutic INR 2. UTI (urinary tract infection) 3. Hematuria Pain Ratin Pain Location: none Pain Goal: Remain pain free Pain Plan: Tylenol Tomorrow's Labs & Rationales: cbc,bep Consulting Request: Consulting Specialty: Urology Consulting Physician: Dr. Brown Reason for Consult: hematuria Arnold ALONSO,Danisha 09/18/17 1052: Attending MD Review Statement Attending Statement Attending MD Statement: examined this patient, discuss w/resident/PA/SLABBER, agreed w/resident/PA/SLABBER, reviewed EMR data (avail), discussed with nursing, discussed with case mgmt, amended to note Attending Assessment/Plan: Patient seen and examined, did complain of some back pain. Patient also has long toe nails on left foot and offered podiatry consult to clip those nails. She refused. She is also constipated. She initially refused suppository. After the rounds she vomited. She finally agreed to suppository. Vital Signs Date Time Temp Pulse Resp B/P B/P Pulse O2 O2 Flow FiO2 Mean Ox Delivery Rate 09/18 0620 98.0 75 16 104/52 96 Room Air 09/18 0228 70 108/56 09/17 2245 98.6 82 20 90/55 97 Room Air 09/17 1523 98.5 09/17 1424 100.0 09/17 1354 100.0 92 20 100/60 95 Room Air 09/17 1317 Room Air 2.0L on exam; awake, nad. cv; s1,s2, rrr resp; clear abd; soft, nt, bs+ ext; trace edema, venous stasis ulcer on rle. Laboratory Tests 09/18 0734 Coagulation PT (9.4 - 12.5 SEC) 19.7 H INR (0.90 - 1.19) 1.80 H Hematology CBC w Diff NO MAN DIFF REQ WBC (4.8 - 10.8 /CUMM) 7.2 RBC (4.20 - 5.40 /CUMM) 3.08 L Hgb (12.0 - 16.0 G/DL) 8.6 L Hct (37 - 47 %) 26.0 L MCV (81.0 - 99.0 FL) 84.5 MCH (27.0 - 31.0 PG) 28.1 MCHC (33.0 - 37.0 G/DL) 33.3 RDW (11.5 - 14.5 %) 14.7 H Plt Count (130 - 400 /CUMM) 406 H MPV (7.4 - 10.4 FL) 6.6 L Gran % (42.2 - 75.2 %) 75.0 Lymphocytes % (20.5 - 51.1 %) 9.3 L Monocytes % (1.7 - 9.3 %) 11.9 H Eosinophils % (0 - 5 %) 3.3 Basophils % (0.0 - 2.0 %) 0.5 Absolute Granulocytes (1.4 - 6.5 /CUMM) 5.4 Absolute Lymphocytes (1.2 - 3.4 /CUMM) 0.7 L Absolute Monocytes (0.10 - 0.60 /CUMM) 0.9 H Absolute Eosinophils (0.0 - 0.7 /CUMM) 0.2 Absolute Basophils (0.0 - 0.2 /CUMM) 0 A/P; 81 y/o M with pmh sig for 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 CBI was stopped and Rodriguez was discontinued. Patient is urinating clear urine. Antibiotics were stopped yesterday after receiving for 5 days. Patient vomited this morning. Will obtain an abdominal x-ray. Patient is ordered bowel regimen and she was encouraged to take. We will also order suppository. She also had acute blood loss anemia yesterday and she received RBC transfusion. Blood counts improved today. INR improving. Will dose coumadin at 3 mg. Will repeat check INR tomorrow. Continue other current mx. DVT px; on coumadin.
--- NOTE | 2017-09-18 07:42 | PN- Urology ---
Subjective Subjective: Resting comfortably. Denies pain. Rodriguez is out. Voiding spontaneously. Urine is clear Objective Vital Signs and I&Os Vital Signs Date Time Temp Pulse Resp B/P B/P Pulse O2 O2 Flow FiO2 Mean Ox Delivery Rate 09/18 0620 98.0 75 16 104/52 96 Room Air 09/18 0228 70 108/56 09/17 2245 98.6 82 20 90/55 97 Room Air 09/17 1523 98.5 09/17 1424 100.0 09/17 1354 100.0 92 20 100/60 95 Room Air 09/17 1317 Room Air 2.0L Intake & Output 09/18 0800 09/18 0000 09/17 1600 09/17 0800 09/17 0000 09/16 1600 Intake Total 530 380 100 750 10 Output Total 260 350 150 700 Balance -260 180 380 100 600 -690 Intake, IV 380 20 10 Intake, Oral 150 360 100 500 0 Intake, Other 250 Number 0 0 0 0 Bowel Movements Output, Urine 260 350 150 700 Patient 125 lb 125 lb 125 lb Weight Weight Bed scale Bed scale Measurement Method Abd: Soft and non tender Laboratory Tests 09/18 09/17 0734 1010 Coagulation PT Pending INR Pending Hematology CBC w Diff Pending NO MAN DIFF REQ WBC (4.8 - 10.8 /CUMM) Pending 7.1 RBC (4.20 - 5.40 /CUMM) Pending 2.64 L Hgb (12.0 - 16.0 G/DL) Pending 7.3 *L Hct (37 - 47 %) Pending 21.9 L MCV (81.0 - 99.0 FL) Pending 83.1 MCH (27.0 - 31.0 PG) Pending 27.8 MCHC (33.0 - 37.0 G/DL) Pending 33.5 RDW (11.5 - 14.5 %) Pending 13.9 Plt Count (130 - 400 /CUMM) Pending 392 MPV (7.4 - 10.4 FL) Pending 6.6 L Gran % (42.2 - 75.2 %) 75.6 H Lymphocytes % (20.5 - 51.1 %) 11.5 L Monocytes % (1.7 - 9.3 %) 10.5 H Eosinophils % (0 - 5 %) 1.8 Basophils % (0.0 - 2.0 %) 0.6 Absolute Granulocytes (1.4 - 6.5 /CUMM) 5.4 Absolute Lymphocytes (1.2 - 3.4 /CUMM) 0.8 L Absolute Monocytes (0.10 - 0.60 /CUMM) 0.7 H Absolute Eosinophils (0.0 - 0.7 /CUMM) 0.1 Absolute Basophils (0.0 - 0.2 /CUMM) 0 Assessment/Plan Assessment/Plan Imp: 1. Gross hematuria in setting of supratherapeutic INR which resolved when INR normalized Plan: 1. OK for discharge from my point of view 2. Keep INR in lower end of therapeutic range 3. Patient should f/u in my office for CT/IVP and office cystoscopy to complete hematuria w/u
[2017-09-18 08:11] LABS: ABSOLUTE BASOPHIL COUNT 0 /CUMM (0.0-0.2); ABSOLUTE EOSINOPHIL COUNT 0.2 /CUMM (0.0-0.7); ABSOLUTE GRANULOCYTE CT 5.4 /CUMM (1.4-6.5); ABSOLUTE LYMPH COUNT 0.7 /CUMM (1.2-3.4); ABSOLUTE MONOCYTE COUNT 0.9 /CUMM (0.10-0.60); BASOPHIL % 0.5 % (0.0-2.0); EOSINOPHIL % 3.3 % (0-5); MEAN CORPUSCULAR HGB 28.1 PG (27.0-31.0); MEAN CORPUSCULAR HGB CONC 33.3 G/DL (33.0-37.0); MEAN CORPUSCULAR VOLUME 84.5 FL (81.0-99.0); MEAN PLATELET VOLUME 6.6 FL (7.4-10.4); PLATELET COUNT 406 /CUMM (130-400); RBC DISTRIBUTION WIDTH 14.7 % (11.5-14.5); RED BLOOD CELL CT 3.08 /CUMM (4.20-5.40); WHITE BLOOD CELL COUNT 7.2 /CUMM (4.8-10.8)
[2017-09-18 08:23] LABS: PT 19.7 SEC (9.4-12.5)
[2017-09-18] MEDS ORDERED: COUMADIN3 M1 PO (08:42)
--- NOTE | 2017-09-18 12:47 | RADIOLOGY REPORT ---
EXAMINATION: XR ABDOMEN CLINICAL INDICATION: Ileus vomiting and constipation COMPARISON: CT scan of the abdomen and pelvis August 2014. TECHNIQUE: AP view of the abdomen. FINDINGS: The bowel gas pattern is normal with no evidence of ileus or obstruction. No unusual soft tissue calcifications are noted. 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 IMPRESSION: No acute abnormality. Nonobstructive gas pattern.
[2017-09-18 14:03] VITALS: BP 120/62
[2017-09-18 22:00] VITALS: BP 100/50
--- NOTE | 2017-09-19 07:22 | PN- Housestaff ---
Lilia ALONSO,Niya 09/19/17 0722: Subjective Follow-up For: Hematuria-resolved Supratherapeutic INR-now subtherapeutic UTI-resolved was on antibiotics. Complaints: no complaints Subjective: Patient seen and examined at bedside. No overnight events. No specific complaints. She denies pain in her abdomen, nausea, vomiting, dysuria, back pain. Review of Systems Constitutional: Reports: no symptoms. Cardiovascular: Reports: no symptoms. Respiratory: Reports: no symptoms. Gastrointestinal: Reports: no symptoms. Genitourinary: Reports: no symptoms. Musculoskeletal: Reports: no symptoms. Objective Last 24 Hrs of Vital Signs/I&O Vital Signs Date Time Temp Pulse Resp B/P B/P Pulse O2 O2 Flow FiO2 Mean Ox Delivery Rate 09/19 724 98.6 86 20 98/54 96 Room Air 09/19 0000 Room Air 09/18 2237 98.5 09/18 2200 99.4 91 20 100/50 95 Room Air 09/18 1600 Room Air 09/18 1403 97.8 84 20 120/62 96 Room Air Intake & Output 09/19 1600 09/19 0800 04 0000 Intake Total 320 Output Total 950 310 Balance -950 10 Intake, Oral 320 Output, Urine 950 310 Patient 108 lb Weight Physical Exam General Appearance: Alert, Oriented X3, Cooperative, No Acute Distress Cardiovascular: Regular Rate, Normal S1, Normal S2, No Murmurs Lungs: Clear to Auscultation Abdomen: Normal Bowel Sounds, Soft, No Tenderness Neurological: Normal Speech, Sensation Intact Extremities: RIGHT LEG-CHRONIC VENOUS ULCER. dRESSING DONE. Current Medications: Current Medications Sig/Kim Start time Last Medication Dose Route Stop Time Status Admin Acetaminophen 650 MG Q6P PRN 09/12 1845 AC 09/17 PO 2356 Atorvastatin Calcium 40 MG 1700 09/13 1700 AC 09/18 PO 1727 Bisacodyl 10 MG ONCE ONE 09/18 1100 DC 09/18 IL 09/18 1101 1223 Docusate Sodium 100 MG BID 09/17 1143 DC 09/17 PO 2119 Magnesium Hydroxide 30 ML ONCE ONE 09/19 0730 DC PO 09/19 0731 Magnesium Hydroxide 30 ML ONE ONE 09/18 0930 DC PO 09/18 0931 Ondansetron HCl 4 MG Q6P PRN 09/13 1315 AC 09/18 IV 0939 Oxycodone/ 1 TAB Q6P PRN 09/14 1000 AC 09/18 Acetaminophen PO 0640 Polyethylene Glycol 17 GM DAILY 09/17 1145 AC 09/17 PO 1338 Senna/Docusate Sodium 2 TAB DAILY NEEDED PRN 09/18 0915 AC 09/18 PO 2139 Warfarin Sodium 3 MG COUMADIN 1700 ONE 09/18 1700 DC 09/18 PO 09/18 1701 1727 Last 24 Hrs of Lab/[place] Results Last 24 Hrs of Labs/Mics: Laboratory Tests 09/19/17 0620: PT Pending, INR Pending, CBC w Diff Pending, WBC Pending, RBC Pending, Hgb Pending, Hct Pending, MCV Pending, MCH Pending, MCHC Pending, RDW Pending, Plt Count Pending, MPV Pending Assessment/Plan Assessment: 80-year-old female with a 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 Assessment and plan 1. UTI-resolved 2. Gross hematuria-resolved 3. Supratherapeutic INR, now therapeutic * Patient was treated with D5 ceftriaxone. since her urine culture was negative she is followed off antibiotics. * Patient presented with Gross hematuria with dysuria and flank pain-CAT scan of the abdomen shows fullness of bilateral collecting system. Patient was on continuous bladder irrigation and eventually discontinued. She was draining clear urine in her Rodriguez. After discussing with the urologist Rodriguez was discontinued. Patient had good urine output after removal of Rodriguez with no hematuria. Patient had a drop in her H&H to 7.3 and she had 1 unit of blood transfusion. Repeat hemoglobin 8.6. Awaiting today's CBC. * Supra therapeutic INR-resolved. Patient's INR today is subtherapeutic- INR 1.80. We will continue her Coumadin at 4 mg daily. As per urology, he suggested to keep INR at the lower end of subtherapeutic level. * Patient Rodriguez catheter can be discontinued as per urology. She was seen by Dr. Brown who suggested that she is stable for discharge and to be followed as outpatient for possible IVP/cystoscopy in future. * We will treat her pain with Percocet and Tylenol. * Continue her home medication. * Code-full code * Diet-heart healthy diet. Patient agreed to go to short-term rehabilitation. Patient had one episode of projectile vomiting with constipation. Abdominal x-ray showed nonobstructive gas pattern. Continue stool softener. Problem List: 1. Hematuria 2. UTI (urinary tract infection) 3. Subtherapeutic anticoagulation Pain Ratin Pain Location: none Pain Goal: Remain pain free Pain Plan: tylenol Tomorrow's Labs & Rationales: cbc Consulting Request: Consulting Specialty: Urology Consulting Physician: Dr. Brown Reason for Consult: hematuria Danisha Barrett MD 09/19/17 1038: Attending MD Review Statement Attending Statement Attending MD Statement: examined this patient, discuss w/resident/PA/MANAGER MOLECULAR, agreed w/resident/PA/MANAGER MOLECULAR, reviewed EMR data (avail), discussed with nursing, reviewed images, amended to note Attending Assessment/Plan: Patient seen and examined, feels overall better today. No further N/V. Had a bm last night. Urine is clear. Vitals stable. H&H stable. Patient has a bed available at rehab today and medically stable for discharge. Will be discharged today.
[2017-09-19 07:25] VITALS: BP 98/54
[2017-09-19 08:07] LABS: ABSOLUTE BASOPHIL COUNT 0 /CUMM (0.0-0.2); ABSOLUTE EOSINOPHIL COUNT 0.2 /CUMM (0.0-0.7); ABSOLUTE MONOCYTE COUNT 0.8 /CUMM (0.10-0.60); BASOPHIL % 0.5 % (0.0-2.0); EOSINOPHIL % 2.8 % (0-5); GRANULOCYTE % 71.1 % (42.2-75.2); HEMATOCRIT 26.6 % (37-47); MEAN CORPUSCULAR HGB 28.3 PG (27.0-31.0); MEAN CORPUSCULAR HGB CONC 33.5 G/DL (33.0-37.0); MEAN CORPUSCULAR VOLUME 84.3 FL (81.0-99.0); MEAN PLATELET VOLUME 6.7 FL (7.4-10.4); PLATELET COUNT 470 /CUMM (130-400); RBC DISTRIBUTION WIDTH 14.1 % (11.5-14.5); RED BLOOD CELL CT 3.16 /CUMM (4.20-5.40); WHITE BLOOD CELL COUNT 7.1 /CUMM (4.8-10.8)
[2017-09-19 08:16] LABS: PT 25.9 SEC (9.4-12.5)
[2017-09-19 10:57] VITALS: BP 98/54
== END 2017-09-19 14:00 | DRG 813 ==
LOC: ERH 08:23 → 2NA 14:40 → ERHI 14:40 → ENRESERV 15:48 → ENTRNSPT 16:33 → EDTRNSPTSTS 16:56 → 2NA 17:03 → CMPTRNSPT 17:16 → 2NA 09-16 08:10 → ENPENDDIS 09-19 10:38 → ENTRNSPT 09-19 13:29 → EDTRNSPTSTS 09-19 13:59 → EDTRNSPT 09-19 13:59 → 2NA 09-19 14:00 → CMPTRNSPT 09-19 14:26
PROVIDERS: Emergency Medicine; Internal Medicine; Internal Medicine Endocrinology, Diabetes & Metabolism; Student in an Organized Health Care Education/Training Program
PROC: 30233N1 Transfusion of Nonautologous Red Blood Cells into Peripheral Vein, Percutaneous Approach (ICD-10-PCS; principal; 2017-09-17)
DX: D68.32 Hemorrhagic disorder due to extrinsic circulating anticoagulants (principal); D68.9 Coagulation defect, unspecified; D62 Acute posthemorrhagic anemia; N39.0 Urinary tract infection, site not specified; R31.0 Gross hematuria; E78.5 Hyperlipidemia, unspecified; T45.515A Adverse effect of anticoagulants, initial encounter; Z86.718 Personal history of other venous thrombosis and embolism; Z79.01 Long term (current) use of anticoagulants; I10 Essential (primary) hypertension; Z88.1 Allergy status to other antibiotic agents; Z88.5 Allergy status to narcotic agent; Z88.2 Allergy status to sulfonamides; Z96.642 Presence of left artificial hip joint; R55 Syncope and collapse
CPT/HCPCS: 2NASP; 36415; 36592; 74018; 74177; 76770; 81001; 82436; 86920; 87040; 87086; 93005; 93010; 96374; 96375; 97110-GO; 97112-GO; 97116-GO; 97162-GP; 97530-GO; J0131; J0696; J2060; J2405; P9016